=== PATIENT | female | born 1950 | race Caucasian/White ===

== ENCOUNTER 2017-10-28 20:40 | Inpatient (IN) | payer MEDICARE, SELFPAY ==
[2017-10-28] VITALS (30 sets, daily range): BP systolic 144–206; BP diastolic 79–110; PULSE 60–77; RESP 10–26; TEMP 36.5–36.6; O2SAT 94–100
--- NOTE | 2017-10-28 21:19 | ED.GENADUL ---
Disposition Clinical Impression: Visual field defect Disposition: [facility] INPATIENT Condition: Good Medical Decision Making - Lab Data Results reviewed for labs ordered during visit: Yes - EKG Data -: EKG Interpreted by Me EKG shows normal: sinus rhythm, axis, intervals - Radiology Data Radiology results: report reviewed - Medical Decision Making From what patient and are describing this sounds like a visual field cut resulting in loss of vision on the right. Seems to be intact now and her visual virk to confrontation are completely normal. Pupils equal round reactive and extra ocular muscles are intact. There is a little bit of loss of nasolabial fold on the right but no real facial weakness. She had injury to the right side of her face in the past and has had some mild asymmetry previously. cannot decide whether he thinks it is any different or not. She does not have any neurologic deficits at this point in time that I can detect. I currently would give her an NIH score of 0. EKG is obtained and is sinus rhythm at a rate of 65. Normal axis and intervals. Some non-specific ST flattening present. Head CT ordered per stroke protocol. IV, labs, fingerstick ordered. Initial blood pressure quite elevated but has been coming down on its own without intervention. CT head is negative. She is given aspirin 324 mg orally. Laboratory studies unremarkable. Remains neurologically intact. Blood pressure continues to come down. Case discussed with hospitalist. Patient to be placed in observation status for TIA workup. She is stable here in the department. History of Present Illness - General Chief complaint: GenMedical Stated complaint: BLURRED VISION RT EYE Time Seen by Provider: 10/28/17 20:58 Source: patient Mode of arrival: ambulatory Limitations: no limitations - History of Present Illness Initial comments: Patient presents to ED with complaint of vision problems and not feeling right. In regards to not feeling right, she cannot describe it any better than that. She denies having pain. She denies having nausea, shortness of breath. In regards to the vision, she was sitting at the table and could not see anything on the right side. Onset of symptoms was around 6 PM. Symptoms seemed to resolve on her way here. She now states that it seems like her vision is normal but she just does not feel right. She seemed to be a little slow per the . She did not seem confused per se. Her speech was normal. She did not seem to have weakness or numbness. - Related Data Cholecalciferol (Vitamin D3) [Vitamin D3] 1,000 unit PO DAILY 05/22/15 FLUoxetine [PROzac] 20 mg PO DAILY 06/01/15 Glucosa Bradley 2Kcl/Chondroitin Bradley [Glucosamine & Chondroitin Cap] 1 each PO DAILY 06/01/15 Levothyroxine Sodium 75 mcg PO DAILY 06/04/15 Lisinopril 10/28/17 Allergies Allergy/AdvReac Type Severity Reaction Status Date / Time acetaminophen [From Percocet] AdvReac Mild MADE HER Unverified 07/08/17 10:16 JITTERY oxycodone HCl [From Percocet] AdvReac Mild MADE HER Unverified 07/08/17 10:16 JITTERY Review of Systems Constitutional: denies: chills, fever Eyes: vision change. denies: eye pain ENT: denies: congestion Respiratory: denies: cough, shortness of breath Cardiovascular: denies: chest pain, syncope Gastrointestinal: denies: abdominal pain, nausea, vomiting, diarrhea Genitourinary: denies: urgency, dysuria Musculoskeletal: denies: back pain, arthralgia Skin: denies: rash Neurological: confusion. denies: headache, weakness, numbness, paresthesias, abnormal gait, vertigo Past Medical History - Past Medical History Medical history: arthritis, hypertension hypothyroid Surgical history: hysterectomy, other (right THR, left TKR) - Social History Smoking status: former smoker Alcohol use: recent (one glass of wine tonight) General Exam - General Limitations: no limitations General appearance: alert, in no apparent distress - Head Head exam: Present: atraumatic, normocephalic - Eye Eye exam: Present: normal apperance, PERRL, EOMI. Absent: nystagmus - ENT ENT exam: Present: normal exam, normal orophraynx - Respiratory Respiratory exam: Present: normal lung sounds bilaterally - Cardiovascular Cardiovascular Exam: Present: regular rate, normal rhythm, normal heart sounds - GI/Abdominal GI/Abdominal exam: Present: soft. Absent: distended, tenderness - Extremities Exam Extremities exam: Present: normal inspection, full ROM - Back Exam Back exam: Present: normal inspection, full ROM - Neurological Exam Neurological exam: Present: alert, oriented X3, CN II-XII intact, normal gait. Absent: motor sensory deficit - Psychiatric Psychiatric exam: Present: normal affect, normal mood - Skin Skin exam: Present: warm, dry, intact Course Vital Signs - 24 hr 10/28/17 20:54 Temperature 97.9 F Pulse 77 Respiratory 18 Rate Blood Pressure 206/107 Pulse Oximetry 97
--- NOTE | 2017-10-28 21:20 | DI.RPTCT_ITS ---
SYMPTOM/DIAGNOSIS: RIGHT VISUAL FIELD CUT RESOLVED. CRANIAL CT: 10/[address] was performed. Paranasal sinuses and mastoid air cells are clear as visualized. Orbital and temporal bone structures appear intact. Ventricular system is normal in appearance. There is no evidence of acute intracranial hemorrhage, mass effect or midline shift. There appear to be tiny bilateral lacunar infarcts of the basal ganglia CONCLUSION: No evidence of acute intracranial process.
--- NOTE | 2017-10-28 21:43 | DI.VRAD_ITS ---
EXAM: CT Head Without Intravenous Contrast EXAM DATE/TIME: 10/28/2017 9:22 PM CLINICAL HISTORY: 67 years old, female; Signs and symptoms; Visual disturbance TECHNIQUE: Axial computed tomography images of the head/brain without intravenous contrast. Coronal and sagittal reformatted images were created and reviewed. COMPARISON: No relevant prior studies available. FINDINGS: Brain: Normal. No hemorrhage. No significant white matter disease. No edema. Goetz-white differentiation is maintained. Ventricles: Normal. No ventriculomegaly. Bones/joints: Normal. No acute fracture. Sinuses: Normal as visualized. No acute sinusitis. Mastoid air cells: Normal as visualized. No mastoid effusion. Soft tissues: Normal. IMPRESSION: No acute intracranial abnormality. If symptoms persist short interval CT or MRI can be obtained, if there are no contraindications for obtaining MRI. Dictated and Authenticated by: Jeffrey Curry MD. Ordering:WILLEM BELTRAN MD
[2017-10-28 21:59] LABS: Abs Immature Grans 0.02 k/cumm (0.0-0.09); Absolute Basophil Count 0.03 k/cumm (0.0-0.2); Absolute Eosinophil Count 0.19 k/cumm (0.0-0.7); Absolute Lymphocyte Count 1.85 k/cumm (1.2-3.4); Absolute Neutrophil Count 3.37 k/cumm (1.2-6.7); Basophils % 0.5; Eosinophils % 3.2; HCT 38.9 % (36.0-46.0); HGB 13.6 g/dL (12.0-15.5); Immature Grans % 0.3; Mean Corpuscular Hemoglobin 29.9 pg (27.0-33.0); Mean Corpuscular Volume 85.5 fL (80-95); Mean Platelet Volume 8.7 fL (8.0-11.0); Monocytes % 8.4; Neutrophils % 56.6; Platelet Count 279 x1000/uL (130-400); RBC 4.55 m/cumm (4.00-5.20); RBC Distribution Width 12.6 % (11.7-14.6); White Blood Cell Count 5.96 k/cumm (4.4-10.8)
[2017-10-28] MEDS: Aspirin 81 MG CHEW 324 MG CH (21:59)
[2017-10-28 22:18] LABS: ALT 29 U/L (12-78); AST 19 U/L (15-37); Albumin 3.6 g/dL (3.4-5.0); Alkaline Phosphatase 85 U/L (46-116); Anion Gap 11.1 mmol/L (3-11); BUN 12 mg/dL (7-18); Bilirubin, Total 0.3 mg/dL (0.2-1.0); CO2 26.9 mmol/L (21.0-32.0); CREATININE 0.74 mg/dL (0.55-1.02); Calcium 8.7 mg/dL (8.5-10.1); Chloride 97 mmol/L (98-107); Glucose 95 mg/dL (70-100); Magnesium 1.8 mg/dL (1.8-2.4); Potassium 3.8 mmol/L (3.5-5.1); Sodium 135 mmol/L (136-145); Total Protein 7.2 g/dL (6.4-8.2)
[2017-10-28] MEDS: Enoxaparin 60 MG/0.6 ML SYR 40 MG SC (23:13)
--- NOTE | 2017-10-28 23:42 | PDOC.HP_ITS ---
Date of Service: 10/28/17 Time of Service: 23:40 Assessment/Plan - Assessment/Plan (1) Stroke Assessment: patient presented w/ acute right hemianopsia that transiently improved but now has returned as a right upper field quadrant anopsia. Plan: stat CTA of her brain and cervical vessels. consult w/ [facility] neurology. Patient was given ASA 325 mg on admission. I spoke w/ Dr. Gonzalez, neurologist at [facility] and she recommended addition of Plavix beginning w/ loading dose and continuing Plavix 75 mg daily along w/ ASA according to the POINT trial (2) Hypertension Assessment: BP was transiently high on admission to the ER at 206/107 but has come down on its own to 140/70 w/out intervention. Patient reportedly was on lisinopril but she was unsure of her dose. For now we will allow some passive hypertension for 48 hr and then aim for bp control under 150 systolic. (3) Hypercholesterolemia Plan: check lipid profile in AM and begin moderate/high dose statin tonight ( I have put her atorvastatin 40 mg nightly) History of Present Illness - History of Present Illness Chief Complaint: blurred vision right eye History of Present Illness: 67-year-old female with a past medical history of essential hypertension, hypothyroidism, osteoarthritis, hypercholesterolemia who presents to the emergency department with acute onset symptoms of malaise and right hemianopsia beginning around 6:30 PM this evening. Her noticed that she was not able to see objects on the right side at the dinner table and the patient could not see a gas to a sitting to her right. There is no associated headache, nausea or vomiting, dysarthric speech, dysphagia, paraparesis or paresthesias. Patient presented to the emergency department at 8:53 PM and by this time her hemianopsia improved to the point that when Dr. Guillaume Torre evaluated her at 9 PM she had no discernible visual field deficits. He ordered a CT scan of her brain without contrast which showed no acute intracranial abnormalities. EKG demonstrated normal sinus rhythm with no acute ischemic ST or T-wave changes. Routine labs including a CBC and CMP were unremarkable. Patient was treated with chewable aspirin 324 mg and I was called for admission for TIA. I evaluated the patient around 11:30 PM and found that the patient was having a right lateral upper field quadrant anopsia but no other cranial nerve or sensory or motor deficits. I discussed case with Dr. Torre who came in the room and reevaluated the patient and agreed with my findings and felt that this was a definite change from his initial exam in which he gave her an NIHSS score of 0. And based on her right upper lateral visual field quadrant anopsia she was felt to have a NIHSS score of 1. Based on her new findings a CTA of her brain and cervical vessels was ordered and the patient was started on Plavix per my discussion with neurology at [facility]. Patient is now admitted for treatment of an acute CVA. Patient's risk factors for stroke include essential hypertension and untreated hypercholesterolemia as well as her age. She denies any history of diabetes mellitus or previous TIA or CVA or coronary artery disease or peripheral vascular disease. She is a former smoker but quit many years ago. - Past Medical History Cardiac: HTN, Hyperlipidemia (History of hypercholesterolemia not currently being treated). denies: CHF, CA Pulmonary: denies: Asthma, Bronchitis, COPD, Pulmonary embolus, Previously intubated, Pneumonia [employer]: denies: Carpal Tunnel Syndrome, CVA, Dementia, Migraine, Peripheral neuropathy, Seizure, TIA, Vertigo Gastrointestinal: denies: Constipation, Diverticulosis, GERD, GI bleed, Gastritis, Hemorrhoids, Inflam bowel disease, Irritable bowel disease, Peptic ulcer disease Heme/Onc: denies: Anemia NOS, B12 deficiency, Cancer, Hemochromatosis, Iron deficiency anemia, Sickle cell disease, Sickle cell trait Hepatobiliary: denies: Cirrhosis, Cholelithiasis, Hep A/B/C Psych: Depression Musculoskeletal: Osteoarthritis, Other (Restless leg) Rheumatologic: denies: Fibromyalgia, Gout, Rheumatoid arthritis, Vasculitis Renal/: denies: Chronic renal insuff, Acute renal failure, Chronic renal failure, UTI, Hematuria Endocrine: Hypothyroidism. denies: Diabetes - Past Surgical History Past Surgical History: Other (Colonoscopy 2, laparoscopic oophorectomy, Achilles tendon repair), Total Hip Replacement (Right total hip replacement per Dr. Joce Ann in 2010), Total Knee Replacement (Left total knee replacement June 11, [address] Joce Ann) - Past Family History Family History: CAD - Past Social History Smoke: Quit Alcohol: Occassional Drugs: None Lives: With Family () Review of Systems - Review of Systems Constitutional: Malaise. denies: Fever, Chills, Sweats, Weakness Eyes: Vision Change Respiratory: denies: Shortness of Breath, SOB with Excertion Cardiovascular: Light Headedness. denies: Chest Pain Gastrointestinal: Diarrhea (associated w/ recent antibiotic prophylaxis for dental work (takes prophylaxis d/t artificial knee and hip)). denies: Nausea, Vomiting, Melena, Hematochezia Neurological: Other (acute right lateral hemianopsia followed by transient clearing of her vision now w/ right upper field quadrantanopsia). denies: Weakness, Numbness, Incoordination, Change in Speech, Confusion - Medications/Allergies Allergies/Adverse Reactions: Allergies Allergy/AdvReac Type Severity Reaction Status Date / Time acetaminophen [From Percocet] AdvReac Mild MADE HER Unverified 07/08/17 10:16 JITTERY oxycodone HCl [From Percocet] AdvReac Mild MADE HER Unverified 07/08/17 10:16 JITTERY Medications: Current Medications Al Hydrox/Mg Hydrox/Simethicone (Mylanta Liquid) 30 ml PO Q2H PRN PRN Aspirin (Ecotrin) 325 mg PO DAILY [facility] Atorvastatin Calcium (Lipitor) 40 mg PO QPM [facility] Cholecalciferol (Vitamin D) 1,000 units PO DAILY [facility] Dimethicone/Zinc Oxide (Nash Protect Cream) 0 gm TP PRN PRN Docusate Sodium (Colace) 100 mg PO TID PRN PRN Enoxaparin Sodium (Lovenox) 40 mg SC Q24H [facility] Last Admin: 10/28/17 23:14 Dose: Not Given Enoxaparin Sodium (Lovenox) Confirm Administered Dose 60 mg SC .DM PRN Fluoxetine HCl (Prozac) 20 mg PO DAILY [facility] Ringer's Solution () 1,000 mls @ 80 mls/hr IV INFUSION [facility] IV Miscellaneous Supplies () 1 each IV DIRECTED [facility] Levothyroxine Sodium (Levothroid) 75 mcg PO DAILY [facility] Magnesium Hydroxide (Milk Of Magnesia) 30 ml PO DAILY PRN PRN Polyethylene Glycol (Miralax) 17 gm PO DAILY PRN PRN PRN Reason: Constipation Sodium Chloride (Saline Flush 10 Ml Syringe) 0 ml IVP PRN PRN Active Medications Generic Name Dose Route Start Last Admin Trade Name Freq PRN Reason Stop Dose Admin Al Hydrox/Mg Hydrox/Simethicone 30 ml 10/28/17 22:28 Mylanta Liquid PO Q2H PRN PRN Aspirin 325 mg 10/29/17 08:30 Ecotrin PO DAILY [facility] Atorvastatin Calcium 40 mg 10/29/17 20:00 Lipitor PO QPM [facility] Cholecalciferol 1,000 units 10/29/17 08:30 Vitamin D PO DAILY [facility] Dimethicone/Zinc Oxide 0 gm 10/28/17 22:28 Nash Protect Cream TP PRN PRN Docusate Sodium 100 mg 10/28/17 22:28 Colace PO TID PRN PRN Enoxaparin Sodium 40 mg 10/28/17 23:00 10/28/17 23:14 Lovenox SC Not Given Q24H [facility] Enoxaparin Sodium Confirm 10/28/17 23:10 Lovenox Administered Dose 60 mg SC .DM PRN Fluoxetine HCl 20 mg 10/29/17 08:30 Prozac PO DAILY [facility] Ringer's Solution 1,000 mls @ 80 mls/hr 10/28/17 22:30 IV INFUSION [facility] IV Miscellaneous Supplies 1 each 10/28/17 21:30 IV DIRECTED [facility] Levothyroxine Sodium 75 mcg 10/29/17 08:30 Levothroid PO DAILY [facility] Magnesium Hydroxide 30 ml 10/28/17 22:28 Milk Of Magnesia PO DAILY PRN PRN Polyethylene Glycol 17 gm 10/28/17 22:28 Miralax PO DAILY PRN PRN Constipation Sodium Chloride 0 ml 10/28/17 21:20 Saline Flush 10 Ml Syringe IVP PRN PRN Cholecalciferol (Vitamin D3) [Vitamin D3] 1,000 unit PO DAILY 05/22/15 FLUoxetine [PROzac] 20 mg PO DAILY 06/01/15 Glucosa Bradley 2Kcl/Chondroitin Bradley [Glucosamine & Chondroitin Cap] 1 each PO DAILY 06/01/15 Levothyroxine Sodium 75 mcg PO DAILY 06/04/15 Lisinopril 10/28/17 Objective - Exam Vitals and I&O: Vital Signs Temp 36.5 C 10/28/17 23:05 Pulse 60 10/28/17 23:05 Resp 16 10/28/17 23:05 BP 189/87 10/28/17 23:05 Pulse Ox 98 10/28/17 23:05 Intake & Output 10/27/17 10/28/17 10/28/17 23:59 11:59 23:59 Weight 79.4 kg General: Alert, Oriented x3, Cooperative, No acute distress HEENT: Atraumatic, PERRLA, EOMI, Mucous membr. moist/pink Neck: Supple, +2 carotid pulse wo bruit. denies: JVD, Thyromegaly, LAD Lungs: Clear to auscultation, Normal air movement Cardiovascular: Regular rate, Normal S1, Normal S2. denies: Murmurs, Gallops, Rubs Abdomen: Normal bowel sounds, Soft, Tenderness. denies: Hepatospenomegaly, Masses Extremities: Normal pulses. denies: Cyanosis, Edema, Tenderness/swelling Skin: denies: Rashes, Breakdown Neurological: Normal speech, Strength at 5/5 X4 ext, Normal tone, Sensation intact, Other (Babinski reflex absent). denies: Cranial nerves 3-12 NL (CN exam reveals right upper quandrantanopsia, otherwise rest of CN 3-12 were normal ) Psych/Mental Status: Mental status NL, Mood NL Results - Laboratory Data Result Diagrams: 10/28/17 21:40 10/28/17 21:40 Laboratory Results: Laboratory Tests 10/28/17 10/28/17 21:40 21:40 WBC 5.96 RBC 4.55 Hgb 13.6 Hct 38.9 MCV 85.5 MCH 29.9 MCHC 35.0 RDW 12.6 Plt Count 279 MPV 8.7 Immature Gran % 0.3 Neutrophils % 56.6 Lymphocytes % 31.0 Monocytes % 8.4 Eosinophils % 3.2 Basophils % 0.5 Absolute Neutrophils 3.37 Absolute Lymphocytes 1.85 Absolute Monocytes 0.50 Absolute Eosinophils 0.19 Absolute Basophils 0.03 Sodium 135 L Potassium 3.8 Chloride 97 L Carbon Dioxide 26.9 Anion Gap 11.1 H BUN 12 Creatinine 0.74 Estimated GFR/1.73 m2 >= 60.00 Glucose 95 Calcium 8.7 Magnesium 1.8 Total Bilirubin 0.3 AST 19 ALT 29 Alkaline Phosphatase 85 Total Protein 7.2 Albumin 3.6 - Imaging Studies Imaging Studies: non-contrast CT brain showed no acute intracranial abnormality EKG demonstrated NSR w/out acute ST-T abnormalities
[2017-10-29] VITALS (87 sets, daily range): BP systolic 124–195; BP diastolic 66–101; PULSE 54–97; RESP 10–27; TEMP 35.9–37.2; O2SAT 80–99
--- NOTE | 2017-10-29 00:40 | DI.RPTCT_ITS ---
SYMPTOM/DIAGNOSIS: EVOLVING CVA CT ANGIOGRAPHY CERVICAL AND CRANIAL: 10/29 CT angiography of the cervical cranial region was performed. Images obtained through the lung apices show clear visualized portions of the lungs and unremarkable appearance of visualized portions of pulmonary arterial circulation and aortic arch. Left vertebral artery is patent throughout and of normal caliber to the basilar artery. There is left dominant vertebral circulation with a small right vertebral artery which is of decreased caliber beyond the PICA but does appear to joint the left vertebral to form the basilar artery. The right posterior cerebral artery has origin with a hypoplastic P-1 segment. No occlusion or stenosis. No aneurysm. Left posterior cerebral artery appears to terminate at the P-2 segment which may represent an acute occlusion. Please correlate clinically with the patient' s neurologic examination. Right common carotid artery is unremarkable. There is calcified atheromatous plaque at the right ICA origin estimated at 40-50% stenosis. Remainder of the right internal carotid artery is normal. Left internal carotid artery shows approximately 30% origin stenosis. Normal left common carotid artery. Unremarkable intracranial course of the left internal carotid artery. Middle and anterior cerebral arteries an major branches appear intact with no evidence of accumulation or aneurysm formation. CONCLUSION: 1. 40-50% proximal right ICA stenosis 2. 20% left proximal ICA stenosis 3. Left dominant vertebral circulation 4. Findings suggestive of occlusion or high grade stenosis of the left posterior cerebral artery in the P-2 segment.
[2017-10-29] MEDS: Clopidogrel 300 MG TAB PO ×2 (00:58→01:44)
[2017-10-29] MEDS: Lactated Ringers 1,000 ML 80 ML IV ×2 (00:59→14:12)
[2017-10-29] MEDS: Omnipaque 350 MG/ML 100 ML BTL IJ (01:05)
--- NOTE | 2017-10-29 01:16 | DI.VRAD_ITS ---
EXAM: CT Angiography Head With Intravenous Contrast CLINICAL HISTORY: 67 years old, female; Signs and symptoms; Visual disturbance and other: Lightheaded; Type not specified; Patient HX: Light headed and visual changes TECHNIQUE: Axial computed tomographic angiography images of the head with intravenous contrast using CT angiography protocol. All CT scans at this facility use at least one of these dose optimization techniques: automated exposure control; mA and/or kV adjustment per patient size (includes targeted exams where dose is matched to clinical indication); or iterative reconstruction. MIP reconstructed images were created and reviewed. CONTRAST: 100 mL of Omnipaque 350 administered intravenously. COMPARISON: No relevant prior studies available. FINDINGS: Right internal carotid artery: No acute findings. Intracranial segment is patent with no significant stenosis. No aneurysm. Right anterior cerebral artery: Unremarkable. No occlusion or significant stenosis. No aneurysm. Right middle cerebral artery: Unremarkable. No occlusion or significant stenosis. No aneurysm. Right posterior cerebral artery: There is origin of the right posterior cerebral artery with the hypoplastic P1 segment. No occlusion or significant stenosis. No aneurysm. Right vertebral artery: The right vertebral artery ending in PICA. Left internal carotid artery: No acute findings. Intracranial segment is patent with no significant stenosis. No aneurysm. Left anterior cerebral artery: Unremarkable. No occlusion or significant stenosis. No aneurysm. Left middle cerebral artery: Unremarkable. No occlusion or significant stenosis. No aneurysm. Left posterior cerebral artery: The left posterior cerebral artery abruptly terminates in the P2 segment concerning for embolus/thrombus. No aneurysm. Left vertebral artery: The left vertebral artery continues as the basilar artery. Basilar artery: See above. IMPRESSION: The left posterior cerebral artery abruptly terminates in the P2 segment concerning for embolus/thrombus. THIS REPORT CONTAINS FINDINGS THAT MAY BE CRITICAL TO PATIENT CARE. The findings were verbally communicated via telephone conference with bobby peralta at 1:15 AM EDT on 10/29/2017. The findings were acknowledged and understood. EXAM: CT Angiography Neck With Intravenous Contrast CLINICAL HISTORY: 67 years old, female; Signs and symptoms; Visual disturbance and other: Lightheaded; Type not specified; Patient HX: Light headed and visual changes TECHNIQUE: Axial computed tomographic angiography images of the neck with intravenous contrast using CT angiography protocol. All CT scans at this facility use at least one of these dose optimization techniques: automated exposure control; mA and/or kV adjustment per patient size (includes targeted exams where dose is matched to clinical indication); or iterative reconstruction. MIP reconstructed images were created and reviewed. CONTRAST: 100 mL of Omnipaque 350 administered intravenously. 100 mL of Omnipaque 350 administered intravenously. COMPARISON: CT - HEAD WITHOUT STROKE PROTOCOL 2017-10-28 21:18 FINDINGS: VASCULATURE: Right common carotid artery: Calcified plaque at the distal common carotid and right carotid No significant stenosis. No dissection or occlusion. Right internal carotid artery: There is approximately 20% stenosis of the proximal right internal carotid artery. No dissection or occlusion. Right external carotid artery: Unremarkable. No occlusion. Right vertebral artery: The right vertebral artery is small in caliber but remains patent and ends in PICA. No significant stenosis. No dissection or occlusion. Left common carotid artery: Unremarkable. No significant stenosis. No dissection or occlusion. Left internal carotid artery: There is calcified/noncalcified plaque in the proximal left internal carotid artery and carotid bulb. There is approximately 30% stenosis of the proximal left internal carotid artery. No dissection or occlusion. Left external carotid artery: Unremarkable. No occlusion. Left vertebral artery: The left vertebral artery is dominant. No significant stenosis. No dissection or occlusion. NECK: Bones/joints: No acute fracture. No dislocation. Soft tissues: Unremarkable as visualized. No mass. CAROTID STENOSIS REFERENCE USING NASCET CRITERIA: % ICA stenosis = (1 - narrowest ICA diameter/diameter of distal cervical ICA) x 100. Mild - <50% stenosis. Moderate - 50-69% stenosis. Severe - 70-94% stenosis. Near occlusion - 95-99% stenosis. Occluded - 100% stenosis. IMPRESSION: Right: There is calcified plaque in the proximal right carotid bulb and internal carotid artery with approximately 20% stenosis as per NASCET criteria. The right vertebral artery is small in caliber and remains patent ending in PICA. Left: There is calcified plaque in the left carotid bulb and internal carotid artery with approximately 30% stenosis. The left vertebral artery is patent. Dictated and Authenticated by: Jeffrey Curry MD. Ordering:[facility] DAVID SUAREZ MD
[2017-10-29] MEDS: Atorvastatin 40 MG TAB PO ×2 (01:42→19:38)
[2017-10-29] MEDS: Levothyroxine 75 MCG TAB PO (05:52)
[2017-10-29 07:20] LABS: Prothrombin Time 9.3 sec (9.3-10.8)
[2017-10-29 07:37] LABS: PTT Activated 27.5 sec (21.0-31.4)
[2017-10-29 07:48] LABS: TSH (W/Ref FT4) 0.75 uIU/mL (0.358-3.74)
[2017-10-29 08:15] LABS: Hemoglobin A1C 5.7 % (4.5-6.2)
[2017-10-29 08:26] LABS: Cholesterol 243 mg/dL (50-200); HDL Cholesterol 62 mg/dL (40-60); LDL CHOLESTEROL 160 mg/dL (<100); Triglyceride 134 mg/dL (30-150)
--- NOTE | 2017-10-29 08:30 | PDOC.CMIN ---
Date of Service: 10/29/17 Time of Service: 08:30 Care Management Initial Assess REASON FOR HOSPITALIZATION:: CVA PAST MEDICAL HISTORY/PAST SURGICAL HISTORY:: HTN, hyperlipidemia, depression, osteoarthritis, restless leg, hypothyroidism. Past surgical history: Colonoscopy, oophorectomy, Achilles tendon repair, total hip replacement, total knee replacement left. PREVIOUS FUNCTIONAL STATUS/SOCIAL/FAMILY SUPPORTS:: Danica lives at home with her spouse in [place], [place]. 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 She is active at baseline and appreciates carpentry as a hobby. She has two children that live local and are supportive. Prior to admission she drives, cares for her home and her parents who live next door. Her Mother and Father are 93 and 94, and she reports that her mother has not been well. CURRENT FUNCTIONAL STATUS:: Danica is sitting up in the chair, she is exhibiting expressive aphasia. She states she is unable to get her thoughts out better in her head. She reports right-sided weakness, and right-sided vision loss. Her spouse and daughter are present and asking about the plan for care. CM reviewed expectations including following consults neurology, speech, and PT. Danica currently has no equipment at home, or services. ADVANCE DIRECTIVES:: None on file -she believes she has a copy at Dr. Pérez's office. Has patient been provided with information about the portal?: Yes Did the patient sign up for the portal?: No CODE STATUS:: Full Code INSURANCE COVERAGE / FINANCIAL ISSUES:: Medicare CURRENT HOME/COMMUNITY SERVICES/EQUIPMENT:: Danica currently has no services at home or in the community PRIMARY CARE PHYSICIAN:: POTENTIAL DISCHARGE NEEDS:: Follow up appointment with primary care provider prior to discharge PATIENT/FAMILY EDUCATION NEEDS:: Discharge education, limitation, self management and ask me three discussion ANTICIPATED BARRIERS TO DISCHARGE:: None identified TRANSPORTATION:: Danica will transport by private car with family at time of discharge. PLAN:: Danica is currently being cared for in the ICU. She will be discharged when medically ready per provider. Discharge disposition to be determined. She will have a consult with physical therapy, speech therapy and neurology. Anticipate she will need PT and OT services at time of discharge. Disposition to be determined. CM to continue to provide support to patient, family, care team ongoing discharge planning and disposition.
--- NOTE | 2017-10-29 09:00 | MERGE_ITS ---
*[facility]* *[facility]* [address] [place] [address] Date of study: 10/29/2017 Transthoracic Echocardiography M-mode, complete 2D, complete spectral Doppler, and color Doppler *STUDY CONCLUSIONS* Impressions: No cardiac source of emboli was identified. Summary: 1. Left ventricle: The cavity size was normal. There was mild focal basal hypertrophy of the septum. Systolic function was normal. The estimated ejection fraction was 55-60%. Moderate hypokinesis of the basalinferior myocardium. 2. Mitral valve: Mildly calcified annulus. Mildly thickened leaflets. There was mild regurgitation. 3. Right ventricle: The cavity size was at the upper limits of normal. Wall thickness was normal. Systolic function was normal. 4. Atrial septum: A patent foramen ovale cannot be excluded. *PATIENT PRESENTATION* Height: 157.5cm ((62in) ) S/D Pressure: 149 / 89 Weight: 79.4kg ((174.6lb) ) BSA: 1.9m^2 Test start time: 09:15 AM. Test stop time: 10:06 AM. PERFORMING Unknown PERFORMING [facility] ORDERING Salvador Verde REFERRING Salvador Verde SUPERVISOR PURIFICATION RT Miladis (R)(DANIEL), MARVA *PROCEDURE DATA* Procedure information: The patient was identified by two identifiers. This study was interpreted by [facility]. Pertinent images and digital data are archived for permanent storage and are available for subsequent review. Study status: Routine. Transthoracic echocardiography. M-mode, complete 2D, complete spectral Doppler, and color Doppler. A Transthoracic Echocardiogram was performed. Scanning was performed from the parasternal, apical, subcostal, and suprasternal notch acoustic windows. Images were obtained using an [id number] cardiac ultrasound machine. Image quality was fair. Study completion: The patient tolerated the procedure well. History: PMH: TIA HTN r/o embolic source. *CARDIAC ANATOMY* Left ventricle: The cavity size was normal. There was mild focal basal hypertrophy of the septum. Systolic function was normal. The estimated ejection fraction was 55-60%. Regional wall motion abnormalities: Moderate hypokinesis of the basalinferior myocardium. Aortic valve: Trileaflet; mildly thickened leaflets. Mobility was not restricted. Doppler: Transvalvular velocity was within the normal range. There was no stenosis. There was no significant regurgitation. VTI ratio of LVOT to aortic valve: 0.71. Valve area (VTI): 2cm^2. Indexed valve area (VTI): 1.1cm^2/m^2. Peak velocity ratio of LVOT to aortic valve: 0.67. Valve area (Vmax): 1.9cm^2. Indexed valve area (Vmax): 1cm^2/m^2. Mean velocity ratio of LVOT to aortic valve: 0.8. Valve area (Vmean): 2.2cm^2. Indexed valve area (Vmean): 1.2cm^2/m^2. Mean gradient (S): 5.6mm Hg. Peak gradient (S): 12.1mm Hg. Aorta: Aortic root: The aortic root was normal in size. Ascending aorta: The ascending aorta was normal in size. Mitral valve: Mildly calcified annulus. Mildly thickened leaflets. Mobility was not restricted. Doppler: Transvalvular velocity was within the normal range. There was no evidence for stenosis. There was mild regurgitation. Valve area by pressure half-time: 2.5cm^2. Indexed valve area by pressure half-time: 1.3cm^2/m^2. Peak gradient (D): 2mm Hg. Left atrium: The atrium was at the upper limits of normal in size. Atrial septum: Poorly visualized. A patent foramen ovale cannot be excluded. Right ventricle: The cavity size was at the upper limits of normal. Wall thickness was normal. Systolic function was normal. Pulmonic valve: Poorly visualized. Doppler: Transvalvular velocity was within the normal range. There was no evidence for stenosis. There was no significant regurgitation. Tricuspid valve: Structurally normal valve. Doppler: Transvalvular velocity was within the normal range. There was no evidence for stenosis. There was trivial regurgitation. Pulmonary artery: Poorly visualized. Pulmonary systolic pressure was within the normal range. Right atrium: The atrium was normal in size. Pericardium: There was no pericardial effusion. Systemic veins: Inferior vena cava: Well visualized. The vessel was patent and normal in size. The respirophasic diameter changes were in the normal range (greater than or equal to 50%), consistent with normal central venous pressure. Baseline ECG: Normal sinus rhythm. Measurements Left ventricle Value Reference LV ID, ED, PLAX 5.0 cm 3.5 - 6.0 LV ID, ES, PLAX 3.1 cm 2.1 - 4.0 LV PW thickness, ED, PLAX 0.9 cm LV end-diastolic volume, 1-p A2C 69 ml LV ejection fraction, 1-p A2C 59 % LV end-diastolic volume, 1-p A4C 80 ml LV ejection fraction, 1-p A4C 54 % LV e', lateral 0.085 m/sec LV E/e', lateral 8 LV e', medial 0.058 m/sec LV E/e', medial 12 LV e', average 0.071 m/sec LV E/e', average 10 Ventricular septum Value Reference IVS thickness, ED, PLAX 0.9 cm LVOT Value Reference LVOT ID, A-P 1.9 cm LVOT area 2.8 cm^2 LVOT peak velocity, S 1.16 m/sec LVOT mean velocity, S 0.87 m/sec LVOT VTI, S 27.8 cm LVOT peak gradient, S 5.3 mm Hg LVOT mean gradient, S 3.3 mm Hg Stroke volume (SV), LVOT DP 78 ml Stroke index (SV/bsa), LVOT DP 41 ml/m^2 Aortic valve Value Reference Aortic valve peak velocity, S 1.7 m/sec Aortic valve mean velocity, S 1.08 m/sec Aortic valve VTI, S 39.0 cm Aortic mean gradient, S 5.6 mm Hg Aortic peak gradient, S 12.1 mm Hg VTI ratio, LVOT/AV 0.71 Aortic valve area, VTI 2 cm^2 Velocity ratio, peak, LVOT/AV 0.67 Aortic valve area, peak velocity 1.9 cm^2 Velocity ratio, mean, LVOT/AV 0.8 Aortic valve area, mean velocity 2.2 cm^2 Aortic valve area/bsa, mean velocity 1.2 cm^2/m^2 Aorta Value Reference Aortic root ID, ED 2.9 cm Ascending aorta ID, A-P, S 3.2 cm Left atrium Value Reference LA ID, A-P, ES 4.4 cm LA ID/bsa, A-P (H) 2.3 cm/m^2 <=2.2 LA area, ES, A4C 17.1 cm^2 8.8 - 23.4 LA area, ES, A2C 17 cm^2 LA volume/bsa, ES, 1-p A4C 26 ml/m^2 LA volume, ES, 2-p 45 ml LA volume/bsa, ES, 2-p 24 ml/m^2 LA/aortic root ratio 1.52 Mitral valve Value Reference Mitral E-wave peak velocity 0.71 m/sec Mitral A-wave peak velocity 1.07 m/sec Mitral deceleration time (H) 299 ms 150 - 230 Mitral pressure half-time 87 ms Mitral peak gradient, D 2 mm Hg Mitral E/A ratio, peak 0.66 Mitral valve area, PHT, DP 2.5 cm^2 Pulmonary veins Value Reference Pulmonary vein peak velocity, S 0.65 m/sec Pulmonary vein peak velocity, D 0.34 m/sec Pulmonary vein velocity ratio, peak, 1.92 S/D Pulmonary vein A-wave reversal peak 0.42 m/sec velocity Pulmonary arteries Value Reference PA pressure, S, DP 25 mm Hg <=30 Tricuspid valve Value Reference Tricuspid regurg peak velocity 1.9 m/sec Tricuspid peak RV-RA gradient 14.7 mm Hg Right atrium Value Reference RA area, ES, A4C 12.4 cm^2 8.3 - 19.5 Systemic veins Value Reference Estimated CVP 10 mm Hg Right ventricle Value Reference RV pressure, S, DP 25 mm Hg <=30 Legend: (L) and (H) rosamaria values outside specified reference range. I have personally reviewed the images and have reviewed and edited the reported findings. Electronically signed by Julissa Kate 10/29/2017 14:14
[2017-10-29] MEDS: Aspirin E.C. 325 MG TABEC PO (09:37)
[2017-10-29] MEDS: Clopidogrel 75 MG TAB PO (09:37)
[2017-10-29] MEDS: FLUoxetine 20 MG CAP PO (09:37)
--- NOTE | 2017-10-29 09:54 | PHARADMIT ---
Addendum entered by Дмитрий Schafer III 11/01/17 09:01: Pharmacy Note Subjective working with PT while awaiting transfer. Objective VS-Ok No Labs, Assessment No changes [facility] Original Note: Addendum entered by Дмитрий Schafer III 10/31/17 10:14: Pharmacy Note Subjective MD notes patient is improving from occlusive CVA Objective VS-OK BP-149/87 No Labs BM yesterday Assessment Heparin dc'd, Apixaban started. Lisinopril, HCTZ restarted. Prozac continues mood improving. Plan Plan is for her to transfer to [facility] if she is accepted. Original Note: Addendum entered by Zora Saeed 10/30/17 10:17: Pharmacy Note Subjective pt with TIA to be switched from observation to inpt status Objective bp 140/88(on lisinopril at home but not started here), no labs today Assessment enoxaparin stopped and heparin infusion started, IVF continue Plan expect to see heparin infusion stop and aspirin to continue Original Note: Admission Pharmacy Clinical Review TIA Code Status Full Code Current Weight 73.7 kg Renally Cleared and Narrow Therapeutic Index Meds CRCL ~53ML/MIN QTc Value / Action Taken 451 BP Control, Fever 149/89 AFEBRILE Electrolytes reviewed NA DVT Prophylaxis ENOXAPARIN Opiate Usage / Scheduled Bowel Regimen Ordered NA Plt/SCr for Heparin / Enoxaparin 279 INR for Warfarin 1.0 H/H stable, WBC/Bands 13.6/38.9 WBC 5.96 Antibiotic appropriateness NA Cultures and Sensitivities NA Surgical ABX d/c within 24 hr NA DM control / Insulin Dosing NA Heart Failure (Check EF%) (MOOSE's, B-Block, Diuretics) NA IV to PO Switch LR IVF ALL MEDS PO Home Meds Reviewed OK Home Meds Not Ordered Glucosa Bradley 2Kcl/Chondroitin Bradley [Glucosamine & Chondroitin Cap] Lisinopril 10/28/17 Comments
--- NOTE | 2017-10-29 12:00 | DI.REPORT_ITS ---
SYMPTOM/DIAGNOSIS: TIA BRAIN MRI: 10/29 MRI examination of the brain was performed according to the usual protocol. CT angiography showed apparent P2 segment posterior cerebral artery occlusion. Ventricular system is normal in appearance. There are nonspecific bilateral periventricular white matter signal changes mostly sparing the corpus callosum consistent with small vessel ischemic changes. There are very subtle areas of abnormal signal seen in medial posterior temporal lobe and posterior thalamus as well as hippocampal body. These areas correspond to signal abnormality on diffusion weight imaging with corresponding ADC map changes of decreased signal consistent with acute infarction. Susceptibility weighted imaging shows no evidence of hemorrhage. Orbital and temporal bone structures appear intact. Pituitary appears intact. CONCLUSION: Findings of small multifocal areas of infarction in left posterior cerebral artery distribution as described above. Diffuse white matter signal changes also noted consistent with microvascular ischemic change.
[2017-10-29] MEDS: Levothyroxine 50 MCG TAB PO (12:35)
[2017-10-29] MEDS: Normal Saline Flush 10 ML SYR IVP ×2 (15:02→20:39)
--- NOTE | 2017-10-29 15:35 | PDOC.PROG_ITS ---
Date of Service: 10/29/17 Time of Service: 15:33 Assessment/Plan - Assessment/Plan (1) Occlusion of left posterior cerebral artery Assessment: Confirmed by MRI, she has an infarct in this region. Per Dr. Porras, the concern is she is having progression in her symptoms now with expressive and receptive eighth Ai. She recommended stopping the dual antiplatelet therapy, switch to low-dose aspirin plus heparinization 24 hours. Reassess exam and consider putting on an oral anticoagulant ongoing. PT and OT consults. (2) Hypertension Assessment: Holding on antihypertensive medications for now, permissive hypertension. (3) Hypercholesterolemia Assessment: Lipid panel markedly abnormal, cholesterol 243, LDL 160, HDL 62, triglycerides 134. Continue statin therapy. (4) Discharge planning issues Assessment: Continue to monitor and acute care status in the ICU. Patient is a full code. Ongoing concern for progression of her CVA and possible hemorrhagic complications. History of Present Illness - History of Present Illness Chief Complaint: CVA History of Present Illness: 67-year-old woman admitted overnight with a right nichole-anopsia. The CT angiogram shows a left posterior cerebral artery occlusion. She was started on dual antiplatelet therapy, aspirin and Plavix. Today she has had some progression in her right hemianopsia past the midline. She now has a mild expressive and receptive a aphasia. Dr. Porras saw her from neurology. She had an MRI of her head as well as an echocardiogram today. Review of Systems - Review of Systems Constitutional: denies: Fever, Chills, Weakness Eyes: Vision Change (No vision to the right). denies: Pain Respiratory: denies: Cough, Shortness of Breath Cardiovascular: denies: Chest Pain, Palpitations Gastrointestinal: denies: Nausea, Vomiting, Abdominal Pain Musculoskeletal: denies: Neck Pain, Shoulder Pain Neurological: Incoordination (Some difficulty walking). denies: Weakness, Numbness - Medications/Allergies Allergies/Adverse Reactions: Allergies Allergy/AdvReac Type Severity Reaction Status Date / Time acetaminophen [From Percocet] AdvReac Mild MADE HER Unverified 07/08/17 10:16 JITTERY oxycodone HCl [From Percocet] AdvReac Mild MADE HER Unverified 07/08/17 10:16 JITTERY Medications: Current Medications Al Hydrox/Mg Hydrox/Simethicone (Mylanta Liquid) 30 ml PO Q2H PRN PRN Aspirin () 81 mg PO DAILY [facility] Atorvastatin Calcium (Lipitor) 40 mg PO QPM [facility] Cholecalciferol (Vitamin D) 1,000 units PO DAILY [facility] Last Admin: 10/29/17 09:37 Dose: 1,000 units Dimethicone/Zinc Oxide (Nash Protect Cream) 0 gm TP PRN PRN Docusate Sodium (Colace) 100 mg PO TID PRN PRN Enoxaparin Sodium (Lovenox) 40 mg SC HS [facility] Fluoxetine HCl (Prozac) 20 mg PO DAILY [facility] Last Admin: 10/29/17 09:37 Dose: 20 mg Ringer's Solution () 1,000 mls @ 80 mls/hr IV INFUSION [facility] Last Admin: 10/29/17 14:12 Dose: 80 mls/hr Heparin Sodium (Porcine) () 25,000 units in 250 mls @ 8.5 mls/hr IV INFUSION [facility]; 850 UNITS/HR PRN Reason: Protocol Last Admin: 10/29/17 15:02 Dose: 850 units/hr, 8.5 mls/hr IV Miscellaneous Supplies () 1 each IV DIRECTED [facility] Levothyroxine Sodium (Levothroid) 125 mcg PO DAILY@0600 [facility] Magnesium Hydroxide (Milk Of Magnesia) 30 ml PO DAILY PRN PRN Polyethylene Glycol (Miralax) 17 gm PO DAILY PRN PRN PRN Reason: Constipation Sodium Chloride (Saline Flush 10 Ml Syringe) 0 ml IVP PRN PRN Last Admin: 10/29/17 15:02 Dose: 20 ml Objective - Exam Vitals and I&O: Vital Signs Temp 35.9 C L 10/29/17 12:43 Pulse 72 10/29/17 12:43 Resp 13 10/29/17 12:43 BP 142/85 10/29/17 12:43 Pulse Ox 99 10/29/17 12:43 Intake & Output 10/28/17 10/29/17 10/29/17 23:59 11:59 23:59 Intake Total 894 Output Total 2250 Balance -1356 Weight 73.7 kg Intake: IV 504 Oral 390 Output: Urine 2250 Other: Urine Color Yellow Urine Appearance Clear Urine Odor None Comment Not viewed at this time. Stool Occult Blood Negative Stool Size Small Stool Characteristics Soft Formed Voiding Methods Bedside Commode General: Alert, Oriented x3, Cooperative, Mild distress (Anxious, some word finding difficulty noted) HEENT: Atraumatic, PERRLA, Other (Right nichole-anopsia past midline noted) Neck: Supple Lungs: Clear to auscultation Cardiovascular: Regular rate Abdomen: Soft. denies: Tenderness Extremities: denies: Clubbing, Cyanosis, Edema Neurological: Normal speech (Some word finding difficulty), Other (Reportedly not able to follow commands correctly) Psych/Mental Status: denies: Mood NL (Tearful) - Results Results: Laboratory Results WBC 5.96 k/cumm (4.4-10.8) 10/28/17 21:40 RBC 4.55 m/cumm (4.00-5.20) 10/28/17 21:40 Hgb 13.6 g/dL (12.0-15.5) 10/28/17 21:40 Hct 38.9 % (36.0-46.0) 10/28/17 21:40 MCV 85.5 fL (80-95) 10/28/17 21:40 MCH 29.9 pg (27.0-33.0) 10/28/17 21:40 MCHC 35.0 g/dL (32.0-36.0) 10/28/17 21:40 RDW 12.6 % (11.7-14.6) 10/28/17 21:40 Plt Count 279 x1000/uL (130-400) 10/28/17 21:40 MPV 8.7 fL (8.0-11.0) 10/28/17 21:40 Immature Gran % 0.3 10/28/17 21:40 Neutrophils % 56.6 10/28/17 21:40 Lymphocytes % 31.0 10/28/17 21:40 Monocytes % 8.4 10/28/17 21:40 Eosinophils % 3.2 10/28/17 21:40 Basophils % 0.5 10/28/17 21:40 Absolute Neutrophils 3.37 k/cumm (1.2-6.7) 10/28/17 21:40 Absolute Lymphocytes 1.85 k/cumm (1.2-3.4) 10/28/17 21:40 Absolute Monocytes 0.50 k/cumm (0.11-0.7) 10/28/17 21:40 Absolute Eosinophils 0.19 k/cumm (0.0-0.7) 10/28/17 21:40 Absolute Basophils 0.03 k/cumm (0.0-0.2) 10/28/17 21:40 PT 9.3 sec (9.3-10.8) 10/29/17 06:37 INR 1.0 (1.0-3.5) 10/29/17 06:37 APTT 27.5 sec (21.0-31.4) 10/29/17 06:37 Sodium 135 mmol/L (136-145) L 10/28/17 21:40 Potassium 3.8 mmol/L (3.5-5.1) 10/28/17 21:40 Chloride 97 mmol/L (98-107) L 10/28/17 21:40 Carbon Dioxide 26.9 mmol/L (21.0-32.0) 10/28/17 21:40 Anion Gap 11.1 mmol/L (3-11) H 10/28/17 21:40 BUN 12 mg/dL (7-18) 10/28/17 21:40 Creatinine 0.74 mg/dL (0.55-1.02) 10/28/17 21:40 Estimated GFR/1.73 m2 >= 60.00 (mL/min/1.73m2) 10/28/17 21:40 Glucose 95 mg/dL (70-100) 10/28/17 21:40 Hemoglobin A1c 5.7 % (4.5-6.2) 10/29/17 06:37 Calcium 8.7 mg/dL (8.5-10.1) 10/28/17 21:40 Magnesium 1.8 mg/dL (1.8-2.4) 10/28/17 21:40 Total Bilirubin 0.3 mg/dL (0.2-1.0) 10/28/17 21:40 AST 19 U/L (15-37) 10/28/17 21:40 ALT 29 U/L (12-78) 10/28/17 21:40 Alkaline Phosphatase 85 U/L (46-116) 10/28/17 21:40 Total Protein 7.2 g/dL (6.4-8.2) 10/28/17 21:40 Albumin 3.6 g/dL (3.4-5.0) 10/28/17 21:40 Triglycerides 134 mg/dL (30-150) 10/29/17 06:37 Total Cholesterol 243 mg/dL (50-200) H 10/29/17 06:37 LDL Cholesterol Direct 160 mg/dL (<100) H 10/29/17 06:37 HDL Cholesterol 62 mg/dL (40-60) H 10/29/17 06:37 TSH 0.75 uIU/mL (0.358-3.74) 10/29/17 06:37
--- NOTE | 2017-10-29 16:34 | NCONE_ITS ---
DATE OF CONSULTATION: October 29, 2017 ASSESSMENT AND PLAN: Mrs. Rm is a 67-year-old, right-handed woman with a cardiovascular history of hypertension and hyperlipidemia who presents with evolving symptoms of right homonomous hemianopsia and transcortical mixed aphasia and is progressing over time secondary to acute ischemia and found to have a left PLATING EQUIPMENT TENDER occlusion. Unfortunately, she was not a candidate for tPA or intervention and is now having progressive symptoms despite a combination of aspirin and Plavix. My recommendation is to discontinue Plavix and start a heparin drip as per ACS protocol but no bolus. I recommend continuing 81 mg aspirin in addition given her known atherosclerosis. I recommend continuing the heparin drip for at least 24 hours until symptoms stabilize, at which time she can be switched either to Coumadin with a goal INR between 2 and 3 or a new oral anticoagulant such as Eliquis 5 mg b.i.d. for secondary stroke prevention. She should continue atorvastatin 80 mg daily for acute stroke, with long-term goal LDL cholesterol <70. ADRs were discussed with the family. Continue permissive hypertension for ongoing progressive symptoms. Once stable x 24hour, lisinopril can be re-started with a long-term goal blood pressure around 140/ 80. As far as further workup, I recommend continued cardiac monitoring with outpatient cardiac monitoring once discharged for a total of 30 days of cardiac monitoring. I also recommend Speech Therapy, Physical Therapy, and Occupational Therapy as she is having difficulty attenuating to her right visual field defect. I was able to discuss these findings as well as the treatment plan with the family, both her and daughter who were present, and answered all of their questions to the best of my ability. She should follow up in the Neurology Clinic in four to six weeks. Thank you for this consultation. Please call with any further questions or concerns. REFERRING PHYSICIAN: Salvador Verde M.D. REASON FOR CONSULTATION: I was asked to see Mrs. Rm in neurologic consultation by Dr. Verde for TIA. HISTORY OF PRESENT ILLNESS: Mrs. Rm is a 67-year-old, right-handed woman with a past medical history of hypertension, hyperlipidemia, hypothyroidism, mood disorder, and osteoarthritis. On 10/28/17 at approximately 6:00 p.m. she noted to her that she was not feeling well. By approximately 7:30 p.m. when they were eating dinner it became apparent that something was wrong. She could not see her knife which was on the right side of her, nor could she see the person who was sitting at the end of the table on her right. Her also describes her acting confused with some memory problems (by description sounds like aphasia). He promptly brought her to the [facility] Emergency Room, however it appears that her symptoms had resolved. The ER doctor correctly assessed that it sounded like she was having a right visual field defect but found no deficits on exam (NIHSS 0). For that reason she was not given tPA. She was given 325mg of ASA. She was not on antiplatelet medication prior to admission. Around midnight, the hospitalist promptly recognized a clinical deterioration. She was found to have a right upper quadrant homonomous hemianopsia. She underwent a CTA of the head and neck at that time which showed likely occlusion in the left posterior cerebral artery which I reviewed personally and agree with the findings. Per my review, she also has a left dominant vertebral posterior circulation as well as 40-50% left ICA stenosis with a 20% right ICA stenosis just after the bifurcation. The report says the opposite with the right carotid stenosis being worse but I believe that is a typo. Because of worsening symptoms and the new finding of a likely left posterior cerebral artery occlusion, [facility] was contacted who did not think she was a candidate for intervention. She was recommended to be started on a combination of aspirin and Plavix. She was given a 300 mg loading dose of Plavix at that time. As the day has gone on, it has been apparent that she has had progressive difficulty with language, especially word finding and even with following commands. Her right quadrantanopsia has now become a complete and dense right homonomous hemianopsia, as per my exam at ~2:00 p.m. She underwent an MRI of her brain at approximately noon which I was able to review. It shows several small acute infarcts in the left PLATING EQUIPMENT TENDER territory including the left thalamus, left occipital lobe, and left medial posterior temporal lobe. She otherwise has diffuse white matter changes consistent with microvascular disease. She underwent a TTE which showed an EF of 55-60%. She has mild focal basal hypertrophy of the septum and moderate hypokinesis of the basal inferior myocardium. A bubble study was not performed. The left atrium was at the upper limits of normal in size. The right atrium was normal in size. Telemetry has been unremarkable. Laboratory workup included an LDL cholesterol of 160 and a hemoglobin A1c of 5.7. Her TSH is 0.75. PAST MEDICAL HISTORY: 1. Hypertension. 2. Hyperlipidemia. 3. Osteoarthritis. 4. Hypothyroidism. 5. Mood disorder. PAST SURGICAL HISTORY: 1. Oophorectomy. 2. Achilles tendon repair. 3. Right total hip replacement. 4. Left total knee replacement. FAMILY HISTORY: No family history of stroke or heart disease. SOCIAL HISTORY: She is . She does not smoke. She drinks alcohol socially. No illicit drug use. REVIEW OF SYSTEMS: CONSTITUTIONAL: Denies tiredness or fatigue. HEENT: Denies blurry vision or double vision. CARDIOVASCULAR: Denies chest pains or rapid heartbeat. RESPIRATORY: Denies wheezing or cough. GI: Denies nausea or vomiting. : Denies urinary frequency or incontinence. MUSCULOSKELETAL: Denies joint pain or back pain. NEURO: Denies headaches or swallowing problems. PSYCH: Denies depression or tendency to cry. ALLERGIES/IMMUNOLOGY: Denies runny nose or rash. PHYSICAL EXAM: VITAL SIGNS: T-max 37.2. Pulse 63-75. Blood pressure 141-156/66-101. Respiratory rate 13-24. Saturation 97-99% on room air. GENERAL: The patient is of apparent stated age, no apparent distress. HEAD/FACE: No facial or cranial nerve abnormalities. NECK: Supple. No meningismus. No occipital tenderness. CARDIOVASCULAR: Regular rate and rhythm. RESPIRATORY: Clear to auscultation bilaterally. ABDOMEN: Soft, nontender, nondistended. Positive bowel sounds. EXTREMITIES: No edema. No clubbing or cyanosis. No bony deformity. NEUROLOGIC EXAM: Language - impaired fluency and naming. Repetition was intact. Comprehension was impaired. She was unable to follow a three-step command across the midline. With much coaching I was able to get her to follow a two-step command across the midline. Findings are consistent with a transcortical mixed aphasia. At one point her daughter came into the room in sight of her right visual field defect so that she could not see her. I tried to get her to turn her head right multiple times but she was unable to understand or perform this and I actually had to physically move her so that she could see her daughter. Mental status - awake, alert, oriented to self. Speech - no dysarthria. Cranial nerves: Cranial nerve II - she has a dense right homonomous hemianopsia. Cranial nerves III, IV, and - extraocular movements intact, no nystagmus, pupils symmetric and reactive to light. Cranial nerve V - face sensation intact to pinprick and light touch. Cranial nerve VII - no facial asymmetry noted. Cranial nerve VIII - hearing intact bilaterally. Cranial nerves IX and X - palate rises symmetrically. Cranial nerve XI - trapezius 5/5 bilaterally. Cranial nerve XII - protrudes tongue symmetrically. Sensory - sensation intact to light touch and pinprick throughout. Motor - bulk and tone intact. Fine motor movements intact bilaterally. No pronator drift. Strength 5/5 throughout. Reflexes - 2+ throughout. Toes downgoing bilaterally. Coordination - no ataxia. Gait - deferred.
[2017-10-29 21:45] LABS: PTT Activated 31.6 sec (21.0-31.4)
[2017-10-30] VITALS (26 sets, daily range): BP systolic 125–192; BP diastolic 74–116; PULSE 58–86; RESP 7–24; TEMP 36–36.5; O2SAT 95–97
[2017-10-30] MEDS: Lactated Ringers 1,000 ML 80 ML IV (02:16)
[2017-10-30] MEDS: Levothyroxine 125 MCG TAB PO (06:52)
[2017-10-30 07:31] LABS: PTT Activated 47.5 sec (21.0-31.4)
[2017-10-30] MEDS: Aspirin 81 MG CHEW PO (08:36)
[2017-10-30] MEDS: FLUoxetine 20 MG CAP PO (08:36)
--- NOTE | 2017-10-30 09:02 | PDOC.CMPRO ---
Date of Service: 10/30/17 Time of Service: 09:02 Care Management Progress Note S/O:CM met with Danica and she will transferred to the medical surgical unit today. She has been evaluated today by speech and PT. CM reviewed consult notes and met with the family in the room. Danica and her family would like to have a referral sent to [facility] for acute rehab. PT notes suggest that she return home with out patient PT/OT or SNF for rehabilitation. Family states that they have heard positive feedback r/t [facility] program and would like to first send a referral there. Danica continues to have expressive aphasia however she is also able to better express her thoughts while CM present in the room this afternoon. A: Danica is a 67-year-old female admitted for CVA, she will transition to inpatient admission today to continue her workup and symptom management and treatment. P: Danica was transferred to the medical surgical unit today she is now an inpatient. She will be discharged when medically ready per provider. Discharge disposition to be determined. Referral faxed to [facility] at the request of the patient no other referrals at this time. Anticipate she will need PT and OT services at time of discharge home vs rehab facility. Disposition to be determined. CM to continue to provide support to patient, family, care team ongoing discharge planning and disposition.
--- NOTE | 2017-10-30 09:14 | CMPROGNOTE_ITS ---
Date of Service: 10/30/17 Time of Service: 09:02 Care Management Progress Note S/O:CM met with Danica and she will transferred to the medical surgical unit today. She has been evaluated today by speech and PT. CM reviewed consult notes and met with the family in the room. Danica and her family would like to have a referral sent to [facility] for acute rehab. PT notes suggest that she return home with out patient PT/OT or SNF for rehabilitation. Family states that they have heard positive feedback r/t [facility] program and would like to first send a referral there. Dnaica continues to have expressive aphasia however she is also able to better express her thoughts while CM present in the room this afternoon. A: Danica is a 67-year-old female admitted for CVA, she will transition to inpatient admission today to continue her workup and symptom management and treatment. P: Danica was transferred to the medical surgical unit today she is now an inpatient. She will be discharged when medically ready per provider. Discharge disposition to be determined. Referral faxed to [facility] at the request of the patient no other referrals at this time. Anticipate she will need PT and OT services at time of discharge home vs rehab facility. Disposition to be determined. CM to continue to provide support to patient, family, care team ongoing discharge planning and disposition.
--- NOTE | 2017-10-30 09:33 | EVALE_ITS ---
DATE OF EVALUATION: October 30, 2017 PRIMARY CARE PROVIDER: Malik Pérez M.D. REFERING PROVIDER: Salvador Verde M.D. INTERPRETATION: The patient shows a significant transcortical mixed aphasia with a cognitive-linguistic deficit as well as a severe right visual neglect, all likely due to her acute left SHIPPING AND RECEIVING CLERK infarct. RECOMMENDATIONS: 1. Recommend speech therapy to maximize communication and cognition. 2. Referral for follow-up ST upon patient's d/c from [facility] for cognitive communication concerns. Thank you for referring this patient. Ashley Ames, , [facility]PER[employer] ++++++++++++++++++ BACKGROUND: This is a 67-year-old , right-handed female who presented to the E.D. from home on 10/28/17 with complaints of a right visual field cut. Recent imaging reveals a left SHIPPING AND RECEIVING CLERK infarct. Because of communication concerns a request for a Speech Therapy evaluation was made. OBJECTIVE: The patient is lying in bed and when I enter the room she does not make eye contact with me, but instead looks downward, despite my verbal greeting. She is agreeable to being transitioned to a sitting position and is also agreeable to me spending some time with her this morning. She appears to be able to converse fairly well, although she seems to show some confusion at times. She is alert and oriented x1 (person), and is able to follow only one-step directions. With regard to communication skills, the following is noted: 1. Auditory comprehension of basic contextual yes/no questions - 100% accuracy. 2. Auditory comprehension of non-contextual yes/no questions - 90%. 3. Confrontation naming - 0%. 4. Convergent naming - 100%. 5. Divergent naming - only two items able to be listed per category. 6. Repetition of function phrase - 100%. 7. Repetition of short sentence - 100%. 8. Repetition of long length sentences - 90%. 9. Serial speech - 100%. 10. Word prediction for high frequency carrier phrases - 0%. 11. Reading comprehension of large print high frequency, monosyllabic words - 0 %. 12. Reading comprehension for large print short sentences - 0%. 13. Writing skills for both signature and monosyllabic high-frequency words - poor spelling, decreased legibility, and poor linear writing. This is in the context of using her dominant right upper extremity in a setting of right visual neglect. With regard to memory, her skills with subtests from the Cognitive Linguistic Quick Test show a severely decreased immediate and recent memory. In conversation it is evident that even remote memory is diminished. As mentioned above, the patient also has difficulty with being able to visualize items to the right of midline, but even with targeted visual items far to her left she sometimes has significant difficulty.
--- NOTE | 2017-10-30 10:35 | PGE_ITS ---
PROGRESS NOTE DATE OF SERVICE: October 30, 2017 at 9:03 a.m. ASSESSMENT AND PLAN Mrs. Rm is a 67-year-old right-handed woman admitted for an acute ischemic stroke in the left PHD INTERNSHIP territory secondary to left PHD INTERNSHIP occlusion manifested by a transcortical mixed aphasia and a right homonomous hemianopsia. She is currently on a heparin drip and aspirin for secondary stroke prevention, as well as atorvastatin. She was not on any antiplatelet or anticoagulants prior to admission, nor was she on a statin prior to admission. I recommend continuing heparin through the afternoon to reach the 24-hour rosamaria. If she remains stable, she can be switched to Eliquis 5 mg b.i.d., along with continued aspirin and atorvastatin. Please continue permissive hypertension. Her blood pressure medications can be slowly added starting tomorrow. I agree with PT/ OT and Speech Therapy assessments. Her depression will need to be monitored. If she continues to have difficulty complying with medications or therapy, consider increasing her home medication or adding or changing to another agent. She should followup in the Neurology Clinic in four to six weeks. Thank you for this consultation. Please call with any further questions or concerns. SUBJECTIVE No events overnight. She is now on a heparin drip with appropriate PTT. This morning, her language seems to be slightly improved. She is having increased depression. She has been resistant to taking her medications, citing the futility of her recovery. She is on Prozac as an outpatient and has been getting that while inpatient. OBJECTIVE VITAL SIGNS - T-max 37.2. Pulse 60 to 78. Blood pressure 125/ to 171/74 to 88. Respiratory rate 14 to 17. O2 sats 97 to 99% on room air. NEUROLOGIC EXAM - The patient is awake, alert, oriented to self and place. She continues to be aphasic with difficulty mainly with fluency and naming. Repetition remains intact. She was able to follow a two-step command across the midline easily today. She still had difficulty with a complex three-step command. She continues to have a dense right homonomous hemianopsia.
[2017-10-30] MEDS: Normal Saline Flush 10 ML SYR IVP (10:38)
[2017-10-30] MEDS: Apixaban 5 MG TAB PO ×2 (10:38→20:34)
--- NOTE | 2017-10-30 10:45 | IN_ITS ---
INPATIENT PHYSICAL THERAPY EVALUATION Date: 10/30/17 Referring Doctor: Alaln Ingram PT Orders: PT Consult:' CVA, receptive and expressive aphasia, right hemianopia , gait training Precautions: Fall precautions, Decreased right awareness, decreased R visual field PATIENT PROFILE/ADMITTING DIAGNOSIS: Pt is a 67yr old female presenting with right homonomous hemianopsia, transcortical mixed aphasia due to acute ischemia and left COMBINE MECHANIC occlusion PMHX: hypertension, mood disorder, hyperlipidemia, hypothyroidism, osteoarthritis, oophorectomy, Achilles tendon repair, right total hip arthroplasty, right total knee arthroplasty, bilateral hand arthritis Social History/Home Situation: Lives with in a house, 2 steps with railing to enter, flight of steps inside and one step into living room. Family adjusting living accommodations to allow for her to stay on first floor at home. Baseline mobility independent gait with no device, independent with ADLS Equipment owned/DME: FWW SUBJECTIVE: Pt lying in bed with in room, alert, finished breakfast, agreeable to PT Consult. States yes and responding appropriately with responses to conversation, making multiple word sentences in response to nurse and therapist comments. When questioned directly regarding orientation questions such as where are you? what town are you in? what is the month and year? pt is unable to answer and demonstrates expressive aphasia, however she is able to state her name as Danica Rm and she is able to follow instruction and direction without cueing such as sit on the edge of the bed and lift your arm or leg. Pt appears to have good receptive understanding of conversation and therapists instructions. Pt is aware of right visual field cut and demonstrates turning her head to compensate to look right and she states her right side feels funny but feels normal in terms of strength. OBJECTIVE: General Observation: telemetry, IV R UE Mental Status: A& O to name only due to expressive aphasia Pain: no c/o pain ROM: RUE: AROM WNL LUE AROM WNL RLE AROM WNL LLE AROM WNL STRENGTH: RUE 5/5 throughout LUE 5/5 throughout RLE 5/5 throughout LLE 5/5 throughout VISUAL: Pt wearing glasses. Visual tracking intact to up, left and down, decreased tracking and field cut to right just past nose MOTOR COORDINATION Finger to nose: intact left, decreased right hand and right visual field. Pt able to come close to object but not accurately making contact Pronation/Supination: intact Finger to thumb: diminished right side BED MOBILITY/TRANSFERS: Supine-sit: HOB 30 degrees SBA. Pt initially goes to move to left side, required verbal cue to come to right side of bed, able to make adjustment with verbal cue only Sit-stand: MinAx1 with FWW Bed-chair: CGA with FWW Stand-sit: SBA GAIT: FWW minAx1 50ftx2. Pt with right visual neglect, running into wall and objects on right side requiring tactile and verbal cue to reposition. Gait pattern: pt with increased adduction R LE with swing phase of gait causing her to have narrow base of support with stance phase putting her at increased risk for falls. Pt requiring Rehan of one person and gait belt to maintain balance and assist to guide FWW around objects in room and hallway. Pt left up in recliner chair after session completed with in room. BALANCE: Static sitting normal Dynamic Sitting normal Static Standing poor Dynamic Standing poor SPECIAL TESTS: Mobility Limitations Standardized Measure [facility] AM -PAC 6 clicks Basic Mobility Inpatient Short Form: raw score: 15 standardized score: 39.45 CMS score: 57.70% CMS modifier: CK INFORMED CONSENT/EDUCATION: Pt instructed in purpose of PT Consult and plan of care ASSESSMENT: Pt is a 67yr old female presenting with right homonomous hemianopsia, transcortical mixed aphasia due to acute ischemia and left COMBINE MECHANIC occlusion in setting of hypertension, mood disorder, hyperlipidemia, hypothyroidism, osteoarthritis, Achilles tendon repair, right total hip arthroplasty, right total knee arthroplasty, bilateral hand arthritis. Patient presents with clinical signs and symptoms consistent with diagnosis as demonstrated by the following impairment level findings: decreased vision right visual field, decreased right side awareness, expressive aphasia, decreased static and dynamic standing balance putting her at risk for falls, decreased gait coordination with increased adduction right LE, decreased base of support, decreased awareness of objects on right side requiring one person assist and use of FWW for gait stability. Pt will benefit from skilled therapy intervention. She is a good rehab candidate. Unclear of family plan at this time. If discharge plan is to home, recommend 24 hr caregivers for safety in home setting, one level living and use of FWW and one person assist for gait stability, along with home or outpatient PT and OT. Pt would be a good short term rehab candidate if patient chooses to pursue that option. Impairments are contributing to the following functional limitations: AMPAC score CMS score: 57.70% Patient is assessed as a * high [id number] complexity based on the following: History: right homonomous hemianopsia, transcortical mixed aphasia due to acute ischemia and left COMBINE MECHANIC occlusion in setting of hypertension, mood disorder, hyperlipidemia, hypothyroidism, osteoarthritis, Achilles tendon repair, right total hip arthroplasty, right total knee arthroplasty, bilateral hand arthritis. Examination: ecreased vision right visual field, decreased right side awareness , expressive aphasia, decreased static and dynamic standing balance putting her at risk for falls, decreased gait coordination with increased adduction right LE , decreased base of support, decreased awareness of objects on right side requiring one person assist and use of FWW for gait stability. Presentation: evolving Decision Making: AMPAC score CMS score: 57.70% GOALS Goals x1 week 1. Supine-sit independent 2. Sit-Supine: independent 3. Sit-Stand: SBA with FWW 4. Stand-sit SBA 5. Bed-chair SBA with FWW 6. Chair-bed SBA with FWW 7. Gait SBA with FWW 70ft 8. Stairs: up/down 2 steps with railing CGA PLAN OF CARE/TREATMENT PLAN: 1-2x/day, 7 days/ week x 1 week Plan of care has been reviewed with the WATER ATTENDANT providing the service under Physical therapy direction. Initiate physical therapy intervention for strengthening, bed mobility, transfers, gait, stairs, balance training, use of assistive device. DISCHARGE RECOMMENDATIONS Home with family and 24hr caregivers, outpatient PT follow up vs. short term rehab TREATMENT TIME/MINUTES/CODES 30 IE 10:35 G Codes in the area mobility of walking and moving around: current status [id number] _CK projected status GP [id number] . Discharge status ( if discharging) GP [id number] hsqcj on AMPAC score CMS score: 57.70% Key Dejesus PT
--- NOTE | 2017-10-30 12:03 | NUR.NOTE ---
Nursing Note: At 1125 on 10/30/17, Med/sox analyst received report from the MEDIA RELATIONS COORDINATOR. Pt. was in the middle of a reiki session at that time. At 1144 on 10/30/17, pt. was finished with the reiki session, and Med/sox analyst transferred pt. from ICU to Med/Surg per MD order. Pt. was settled in to her room; VS obtained. VS: BP: 172/116 HR: 79 RR: 18 Temp.: 36.0 degrees Celsius O2 sat.: 97 percent on room air. Pt. denied pain. See shift assessment for further details. RN will reassess as necessary.
--- NOTE | 2017-10-30 13:40 | INPTTR_ITS ---
PHYSICAL THERAPY PROGRESS NOTE Date: 10/30/17 PRECAUTIONS: Fall precautions, R visual field cut, R neglect, expressive aphasia SUBJECTIVE: Pt lying in bed agreeable to PT Session. Moved to medical surgical floor. Continues with right visual deficit making it difficult for her to use TV remote control and controls on bed as she is right handed. Pt required tactile instruction for use of call light, TV remote and bed controls. She would benefit from visually impaired equipment to use during admission. OBJECTIVE: General: telemetry PAIN: no c/o pain BED MOBILITY/TRANSFERS: Supine-sit: HOB 30 degrees SBA. Sit-stand: MinAx1 with FWW, pt with right lean and decreased balance with initial standing requiring assist to stabilize and prevent fall Stand-sit: SBA Sit-supine: HOB flat SBA GAIT: FWW minAx1 60ftx2. Right lean, improved base of support with verbal cues to widen stance. Decreased awareness right side requiring tactile cues for guiding walker and positioning with gait. Pt returned to room after session completed. THEREX Standing: heel raises, bilateral hip abduction and flexion x 10 reps standing in FWW Static and dynamic standing balance training: static standing with feet together x 1min. Dynamic Reaching with R UE throughout front and right visual field with R UE. performed standing in walker and sitting at edge of bed. Pt with poor ability to meet target with right hand due to visual deficits. BALANCE: Static sitting normal Dynamic Sitting normal Static Standing poor Dynamic Standing poor ASSESSMENT: Pt continues with expressive aphasia, right field visual deficits, right LE decreased coordination with gait putting her at high risk for falls. Able to follow instruction and participate in therapy session, she is an excellent rehab candidate. PLAN: Progress R visual awareness Progress R LE strength Progress static and dynamic balance training Progress Gait training TREATMENT CODES/TIME: 25min TAx1 TP X1 [address] PT
--- NOTE | 2017-10-30 14:32 | CHAPLAIN ---
I visited Danica shortly have she transferred from the ICU to Med/Surg. She has had family members visiting her in the ICU. She struggled to come up with an answer when I asked if she lived in [facility]. She eventually said close by. I explained my role and offered support.
--- NOTE | 2017-10-30 18:09 | PDOC.PROG ---
Date of Service: 10/30/17 Time of Service: 18:09 Assessment/Plan - Assessment/Plan (1) Occlusion of left posterior cerebral artery Assessment: She was on heparin overnight to prevent further extension of the infarct territory. Dr. Porras saw her today and felt we could stop the heparin and start on a apixaban with low-dose aspirin therapy. Continue PT and OT services. She would be a good candidate for acute rehabilitation services. (2) Hypertension Assessment: We can stop permissive hypertension at this point. Started back on low-dose hydrochlorothiazide in the a.m. (3) Hypercholesterolemia Assessment: Elevated lipid panel. Continue on the Lipitor. (4) Discharge planning issues Assessment: Changed from observation to acute care status. She will need PT and OT services. One concern is her issues with depression may be worse as she slowly grasps the gravity of her illness. She may need further dose adjustments in her antidepressant medications. Continue to monitor in acute care status she is a full code. History of Present Illness - History of Present Illness Chief Complaint: CVA/left posterior cerebral artery occlusion/right hemianopsia History of Present Illness: She has been somewhat despondent today. She expressed to her what is the use. She is having quite a bit of trouble with her vision requiring moving things in from the left. She is having trouble coordinating use of her right hand. Her gait has been somewhat unstable. She continues to have word finding difficulty. Review of Systems - Medications/Allergies Allergies/Adverse Reactions: Allergies Allergy/AdvReac Type Severity Reaction Status Date / Time acetaminophen [From Percocet] AdvReac Mild MADE HER Unverified 07/08/17 10:16 JITTERY oxycodone HCl [From Percocet] AdvReac Mild MADE HER Unverified 07/08/17 10:16 JITTERY Medications: Current Medications Al Hydrox/Mg Hydrox/Simethicone (Mylanta Liquid) 30 ml PO Q2H PRN PRN Apixaban (Eliquis) 5 mg PO BID [facility] Last Admin: 10/30/17 10:38 Dose: 5 mg Aspirin () 81 mg PO DAILY [facility] Last Admin: 10/30/17 08:36 Dose: 81 mg Atorvastatin Calcium (Lipitor) 40 mg PO QPM [facility] Last Admin: 10/29/17 19:38 Dose: 40 mg Cholecalciferol (Vitamin D) 1,000 units PO DAILY [facility] Last Admin: 10/30/17 08:36 Dose: 1,000 units Dimethicone/Zinc Oxide (Nash Protect Cream) 0 gm TP PRN PRN Docusate Sodium (Colace) 100 mg PO TID PRN PRN Fluoxetine HCl (Prozac) 20 mg PO DAILY [facility] Last Admin: 10/30/17 08:36 Dose: 20 mg Hydrochlorothiazide (Hydrodiuril) 12.5 mg PO QAM [facility] IV Miscellaneous Supplies () 1 each IV DIRECTED [facility] Levothyroxine Sodium (Levothroid) 125 mcg PO DAILY@0600 [facility] Last Admin: 10/30/17 06:52 Dose: 125 mcg Magnesium Hydroxide (Milk Of Magnesia) 30 ml PO DAILY PRN PRN Polyethylene Glycol (Miralax) 17 gm PO DAILY PRN PRN PRN Reason: Constipation Sodium Chloride (Saline Flush 10 Ml Syringe) 0 ml IVP PRN PRN Last Admin: 10/30/17 10:38 Dose: 10 ml Objective - Exam Vitals and I&O: Vital Signs Temp 36.0 C L 10/30/17 11:44 Pulse 84 10/30/17 15:15 Resp 18 10/30/17 11:44 BP 172/116 10/30/17 11:44 Pulse Ox 97 10/30/17 11:44 Intake & Output 10/29/17 10/30/17 10/30/17 23:59 11:59 23:59 Intake Total 360 550 Output Total 650 Balance -290 550 Intake: Oral 360 550 Output: Urine 650 Other: Urine Color Yellow Urine Appearance Clear Urine Odor None Stool Occult Blood Negative Stool Size Large Stool Characteristics Soft Formed Voiding Methods Bedside Commode General: Alert, Cooperative, No acute distress, Other (She smiles and greets me appropriately but on further conversation there is difficulty with word finding.) HEENT: Atraumatic Lungs: Normal air movement Cardiovascular: Regular rate Extremities: denies: Edema Neurological: Strength at 5/5 X4 ext. denies: Normal gait (Some obvious difficulty with gait) - Results Results: Laboratory Results WBC 5.96 k/cumm (4.4-10.8) 10/28/17 21:40 RBC 4.55 m/cumm (4.00-5.20) 10/28/17 21:40 Hgb 13.6 g/dL (12.0-15.5) 10/28/17 21:40 Hct 38.9 % (36.0-46.0) 10/28/17 21:40 MCV 85.5 fL (80-95) 10/28/17 21:40 MCH 29.9 pg (27.0-33.0) 10/28/17 21:40 MCHC 35.0 g/dL (32.0-36.0) 10/28/17 21:40 RDW 12.6 % (11.7-14.6) 10/28/17 21:40 Plt Count 279 x1000/uL (130-400) 10/28/17 21:40 MPV 8.7 fL (8.0-11.0) 10/28/17 21:40 Immature Gran % 0.3 10/28/17 21:40 Neutrophils % 56.6 10/28/17 21:40 Lymphocytes % 31.0 10/28/17 21:40 Monocytes % 8.4 10/28/17 21:40 Eosinophils % 3.2 10/28/17 21:40 Basophils % 0.5 10/28/17 21:40 Absolute Neutrophils 3.37 k/cumm (1.2-6.7) 10/28/17 21:40 Absolute Lymphocytes 1.85 k/cumm (1.2-3.4) 10/28/17 21:40 Absolute Monocytes 0.50 k/cumm (0.11-0.7) 10/28/17 21:40 Absolute Eosinophils 0.19 k/cumm (0.0-0.7) 10/28/17 21:40 Absolute Basophils 0.03 k/cumm (0.0-0.2) 10/28/17 21:40 PT 9.3 sec (9.3-10.8) 10/29/17 06:37 INR 1.0 (1.0-3.5) 10/29/17 06:37 APTT 47.5 sec (21.0-31.4) H D 10/30/17 06:15 Sodium 135 mmol/L (136-145) L 10/28/17 21:40 Potassium 3.8 mmol/L (3.5-5.1) 10/28/17 21:40 Chloride 97 mmol/L (98-107) L 10/28/17 21:40 Carbon Dioxide 26.9 mmol/L (21.0-32.0) 10/28/17 21:40 Anion Gap 11.1 mmol/L (3-11) H 10/28/17 21:40 BUN 12 mg/dL (7-18) 10/28/17 21:40 Creatinine 0.74 mg/dL (0.55-1.02) 10/28/17 21:40 Estimated GFR/1.73 m2 >= 60.00 (mL/min/1.73m2) 10/28/17 21:40 Glucose 95 mg/dL (70-100) 10/28/17 21:40 Hemoglobin A1c 5.7 % (4.5-6.2) 10/29/17 06:37 Calcium 8.7 mg/dL (8.5-10.1) 10/28/17 21:40 Magnesium 1.8 mg/dL (1.8-2.4) 10/28/17 21:40 Total Bilirubin 0.3 mg/dL (0.2-1.0) 10/28/17 21:40 AST 19 U/L (15-37) 10/28/17 21:40 ALT 29 U/L (12-78) 10/28/17 21:40 Alkaline Phosphatase 85 U/L (46-116) 10/28/17 21:40 Total Protein 7.2 g/dL (6.4-8.2) 10/28/17 21:40 Albumin 3.6 g/dL (3.4-5.0) 10/28/17 21:40 Triglycerides 134 mg/dL (30-150) 10/29/17 06:37 Total Cholesterol 243 mg/dL (50-200) H 10/29/17 06:37 LDL Cholesterol Direct 160 mg/dL (<100) H 10/29/17 06:37 HDL Cholesterol 62 mg/dL (40-60) H 10/29/17 06:37 TSH 0.75 uIU/mL (0.358-3.74) 10/29/17 06:37
[2017-10-30] MEDS: Atorvastatin 40 MG TAB PO (20:35)
[2017-10-31 04:57] VITALS: BP 157/87; PULSE 77; RESP 20; TEMP 36.7; O2SAT 97
[2017-10-31] MEDS: Levothyroxine 125 MCG TAB PO (06:11)
[2017-10-31 07:00] VITALS: PULSE 60
[2017-10-31 07:40] VITALS: BP 149/87; PULSE 68; RESP 20; TEMP 36.5; O2SAT 96
[2017-10-31] MEDS: FLUoxetine 20 MG CAP PO (07:43)
[2017-10-31] MEDS: Apixaban 5 MG TAB PO ×2 (07:43→19:53)
[2017-10-31] MEDS: Normal Saline Flush 10 ML SYR IVP (07:43)
[2017-10-31] MEDS: Aspirin 81 MG CHEW PO (07:43)
--- NOTE | 2017-10-31 08:27 | PDOC.PROG_ITS ---
Date of Service: 10/31/17 Time of Service: 08:25 Assessment/Plan - Assessment/Plan (1) Stroke Assessment: Left posterior artery occlusive CVA presenting with hemianopsia, receptive and expressive aphasia, right-sided motor symptoms all seems to be improving. She is anticoagulated now with apixaban plus aspirin. No bleeding complications thus far. Continue to monitor rhythm on telemetry with plans for outpatient extended monitoring. Blood pressure management as below. Continue high-dose statin. Continue PT OT and speech services. Hopefully her neurological deficits will continue to improve as rapidly as has occurred over the past 24 hours. (2) Hypertension Assessment: Blood pressure historically elevated. Resume diuretic at outpatient dose, monitor blood pressure response. May need to add back MOOSE inhibitor but will see how her blood pressure does over the next 24 hours. (3) Hypothyroidism Assessment: TSH within population normal and her outpatient dose of thyroid, no changes planned. (4) Depression Assessment: Mood is improving as her physical condition improves. Continue present dose of fluoxetine. Monitor for worsening symptoms. History of Present Illness - History of Present Illness History of Present Illness: Mrs. Rm had an uneventful night. She has not had any dysrhythmias on telemetry. Slight increase in sinus rate with activity but otherwise unremarkable. She has had no bleeding complications thus far with the initiation of apixaban plus aspirin yesterday after weaning off heparin. Her blood pressures have been creeping downward from a peak but still elevated. She is starting back on hydrochlorothiazide, outpatient dose, this morning. Lisinopril continues to remain on hold. She has had no problems swallowing. She denies any headache. She still is aware of loss of visual field on the right. She denies paresthesias in her hand or any sense of clumsiness in her hand. She feels a little bit unbalanced when walking but has not been doing much walking. No stomach upset. No problems controlling bowel or bladder. She has noted a definite improvement in the past 24 hours in her ability to speak although still has a little bit of difficulties finding words. Her spirits are doing a little better as her in neurologic symptoms improve. Review of Systems - Review of Systems Other: No double vision. No choking when swallowing. No cough. No chest pain. No palpitations. No abdominal pain. - Medications/Allergies Allergies/Adverse Reactions: Allergies Allergy/AdvReac Type Severity Reaction Status Date / Time acetaminophen [From Percocet] AdvReac Mild MADE HER Unverified 07/08/17 10:16 JITTERY oxycodone HCl [From Percocet] AdvReac Mild MADE HER Unverified 07/08/17 10:16 JITTERY Medications: Current Medications Al Hydrox/Mg Hydrox/Simethicone (Mylanta Liquid) 30 ml PO Q2H PRN PRN Apixaban (Eliquis) 5 mg PO BID [facility] Last Admin: 10/31/17 07:43 Dose: 5 mg Aspirin () 81 mg PO DAILY [facility] Last Admin: 10/31/17 07:43 Dose: 81 mg Atorvastatin Calcium (Lipitor) 80 mg PO QPM [facility] Cholecalciferol (Vitamin D) 1,000 units PO DAILY [facility] Last Admin: 10/31/17 07:43 Dose: 1,000 units Dimethicone/Zinc Oxide (Nash Protect Cream) 0 gm TP PRN PRN Docusate Sodium (Colace) 100 mg PO TID PRN PRN Fluoxetine HCl (Prozac) 20 mg PO DAILY [facility] Last Admin: 10/31/17 07:43 Dose: 20 mg Hydrochlorothiazide (Hydrodiuril) 12.5 mg PO QAM [facility] Last Admin: 10/31/17 07:43 Dose: 12.5 mg IV Miscellaneous Supplies () 1 each IV DIRECTED [facility] Levothyroxine Sodium (Levothroid) 125 mcg PO DAILY@0600 [facility] Last Admin: 10/31/17 06:11 Dose: 125 mcg Magnesium Hydroxide (Milk Of Magnesia) 30 ml PO DAILY PRN PRN Polyethylene Glycol (Miralax) 17 gm PO DAILY PRN PRN PRN Reason: Constipation Sodium Chloride (Saline Flush 10 Ml Syringe) 0 ml IVP PRN PRN Last Admin: 10/31/17 07:43 Dose: 10 ml Objective - Exam Vitals and I&O: Vital Signs Temp 36.5 C 10/31/17 07:40 Pulse 68 10/31/17 07:40 Resp 20 10/31/17 07:40 BP 149/87 10/31/17 07:40 Pulse Ox 96 10/31/17 07:40 Intake & Output 10/30/17 10/30/17 10/31/17 11:59 23:59 11:59 Intake Total 360 1150 280 Output Total 650 Balance -290 1150 280 Intake: IV 10 Oral 360 1150 270 Output: Urine 650 Other: Urine Color Yellow Yellow Yellow Urine Appearance Clear Clear Clear Urine Odor None None Stool Occult Blood Negative Stool Size Large Stool Characteristics Soft Formed Voiding Methods Bedside Commode Toilet Toilet Other physical findings: Lying in bed she is awake alert and in no apparent distress with some very subtle right facial weakness? Right pupil 4 mm left 3 both reactive. She has no perception of light coming from the right until its around 40-45 from the frontal access. No nystagmus with lateral or up-and-down gaze. Tongue is midline as is uvula with normal movement. Neck supple. No JVD. Lungs are clear. Regular heart rhythm without murmur S3 or S4. Nontender abdomen with normal bowel sounds. She has good distal pulses. 1+ DTRs are 4 except the right knee which is 2+. Dorsiflexion response to plantar stimulus on the right , no response on the left. No pronator drift. Electrical Tryout Person strength symmetric (right handed, would expect right to be a little stronger). She is able to lift legs against gravity. I did not observe her walk. - Results Results: Laboratory Results WBC 5.96 k/cumm (4.4-10.8) 10/28/17 21:40 RBC 4.55 m/cumm (4.00-5.20) 10/28/17 21:40 Hgb 13.6 g/dL (12.0-15.5) 10/28/17 21:40 Hct 38.9 % (36.0-46.0) 10/28/17 21:40 MCV 85.5 fL (80-95) 10/28/17 21:40 MCH 29.9 pg (27.0-33.0) 10/28/17 21:40 MCHC 35.0 g/dL (32.0-36.0) 10/28/17 21:40 RDW 12.6 % (11.7-14.6) 10/28/17 21:40 Plt Count 279 x1000/uL (130-400) 10/28/17 21:40 MPV 8.7 fL (8.0-11.0) 10/28/17 21:40 Immature Gran % 0.3 10/28/17 21:40 Neutrophils % 56.6 10/28/17 21:40 Lymphocytes % 31.0 10/28/17 21:40 Monocytes % 8.4 10/28/17 21:40 Eosinophils % 3.2 10/28/17 21:40 Basophils % 0.5 10/28/17 21:40 Absolute Neutrophils 3.37 k/cumm (1.2-6.7) 10/28/17 21:40 Absolute Lymphocytes 1.85 k/cumm (1.2-3.4) 10/28/17 21:40 Absolute Monocytes 0.50 k/cumm (0.11-0.7) 10/28/17 21:40 Absolute Eosinophils 0.19 k/cumm (0.0-0.7) 10/28/17 21:40 Absolute Basophils 0.03 k/cumm (0.0-0.2) 10/28/17 21:40 PT 9.3 sec (9.3-10.8) 10/29/17 06:37 INR 1.0 (1.0-3.5) 10/29/17 06:37 APTT 47.5 sec (21.0-31.4) H D 10/30/17 06:15 Sodium 135 mmol/L (136-145) L 10/28/17 21:40 Potassium 3.8 mmol/L (3.5-5.1) 10/28/17 21:40 Chloride 97 mmol/L (98-107) L 10/28/17 21:40 Carbon Dioxide 26.9 mmol/L (21.0-32.0) 10/28/17 21:40 Anion Gap 11.1 mmol/L (3-11) H 10/28/17 21:40 BUN 12 mg/dL (7-18) 10/28/17 21:40 Creatinine 0.74 mg/dL (0.55-1.02) 10/28/17 21:40 Estimated GFR/1.73 m2 >= 60.00 (mL/min/1.73m2) 10/28/17 21:40 Glucose 95 mg/dL (70-100) 10/28/17 21:40 Hemoglobin A1c 5.7 % (4.5-6.2) 10/29/17 06:37 Calcium 8.7 mg/dL (8.5-10.1) 10/28/17 21:40 Magnesium 1.8 mg/dL (1.8-2.4) 10/28/17 21:40 Total Bilirubin 0.3 mg/dL (0.2-1.0) 10/28/17 21:40 AST 19 U/L (15-37) 10/28/17 21:40 ALT 29 U/L (12-78) 10/28/17 21:40 Alkaline Phosphatase 85 U/L (46-116) 10/28/17 21:40 Total Protein 7.2 g/dL (6.4-8.2) 10/28/17 21:40 Albumin 3.6 g/dL (3.4-5.0) 10/28/17 21:40 Triglycerides 134 mg/dL (30-150) 10/29/17 06:37 Total Cholesterol 243 mg/dL (50-200) H 10/29/17 06:37 LDL Cholesterol Direct 160 mg/dL (<100) H 10/29/17 06:37 HDL Cholesterol 62 mg/dL (40-60) H 10/29/17 06:37 TSH 0.75 uIU/mL (0.358-3.74) 10/29/17 06:37
--- NOTE | 2017-10-31 09:32 | INPTTR_ITS ---
PHYSICAL THERAPY PROGRESS NOTE Date:10/31/17 PRECAUTIONS: fall SUBJECTIVE: Danica states that she thinks she is better today. She feels a little stronger and less unbalanced. OBJECTIVE BED MOBILITY/TRANSFERS Supine-sit: SBA Sit-stand: SBA Stand-sit: SBA GAIT Assistive Device FWW Weightbearing full Assist: CGA Distance: 150' Deviation cues for negotiating right hand turns. THEREX: performed a global LE strength and stabilization routine, while incorporating balance and proprioception ex. She performed both static and dynamic standing work. Required skilled instruction in proper ex performance and reminders for proper mechanics on right side due to her neglect. ASSESSMENT: tolerated session well. No complaints of pain or fatigue. Occasionally, noted adduction of right LE with ambulation.She does not cross midline however. Self corrects with minimal cues. Has a difficult time negotiating right turns. No LOB noted during ex routine today. PLAN: will continue to progress her strength and balance. Improve functional mobility. Work more on improving her visual field on the right. TREATMENT CODES/TIME: 30 min. TPx1, TAx1.
--- NOTE | 2017-10-31 09:57 | PDOC.CMPRO ---
Date of Service: 10/31/17 Time of Service: 09:57 Care Management Progress Note S/O: CM met with patient she is up ambulating with PT. Patient and her family would like her to be transition to rehab at [facility]. CM provided update to both the patient and family r/t referral to facility and reviewed insurance benefits. CM left messages at [facility] retail marketing coordinator. Danica should have been inpatient admission from time of admission to the ICU r/t CVA. agrees and changed the status from time of admission. Danica has had her three night qualifying stay and would be ready for transfer as early as Thursday per if bed is available at requested facility. Currently her medications are being adjusted. and she is receiving PT services. A: Danica is a 67-year-old female admitted for CVA, she will transition to inpatient admission today to continue her workup and symptom management and treatment. P: Danica was transferred to the medical surgical unit today she is now an inpatient. She will be discharged when medically ready per provider. Discharge disposition to be determined. Referral faxed to [facility] at the request of the patient no other referrals at this time. CM left voicemail for admission coordinator x 2. Anticipate she will need PT and OT services at time of discharge home vs rehab facility. Disposition to be determined. CM to continue to provide support to patient, family, care team ongoing discharge planning and disposition.
--- NOTE | 2017-10-31 10:12 | CMPROGNOTE_ITS ---
Date of Service: 10/31/17 Time of Service: 09:57 Care Management Progress Note S/O: CM met with patient she is up ambulating with PT. Patient and her family would like her to be transition to rehab at [facility]. CM provided update to both the patient and family r/t referral to facility and reviewed insurance benefits. CM left messages at [facility] systems coordinator. Danica should have been inpatient admission from time of admission to the ICU r/t CVA. agrees and changed the status from time of admission. Danica has had her three night qualifying stay and would be ready for transfer as early as Thursday per if bed is available at requested facility. Currently her medications are being adjusted. and she is receiving PT services. A: Danica is a 67-year-old female admitted for CVA, she will transition to inpatient admission today to continue her workup and symptom management and treatment. P: Danica was transferred to the medical surgical unit today she is now an inpatient. She will be discharged when medically ready per provider. Discharge disposition to be determined. Referral faxed to [facility] at the request of the patient no other referrals at this time. CM left voicemail for admission coordinator x 2. Anticipate she will need PT and OT services at time of discharge home vs rehab facility. Disposition to be determined. CM to continue to provide support to patient, family, care team ongoing discharge planning and disposition.
[2017-10-31 15:01] VITALS: PULSE 74
[2017-10-31 15:31] VITALS: BP 134/84; PULSE 82; RESP 17; TEMP 37.1; O2SAT 97
[2017-10-31] MEDS: Atorvastatin 40 MG TAB 80 MG PO (19:52)
[2017-10-31 22:59] VITALS: PULSE 68
[2017-11-01] VITALS (7 sets, daily range): BP systolic 131–183; BP diastolic 70–96; PULSE 53–81; RESP 16–20; TEMP 36.7–37.5; O2SAT 94–99
[2017-11-01] MEDS: Levothyroxine 125 MCG TAB PO (05:34)
--- NOTE | 2017-11-01 08:07 | PDOC.CMPRO ---
Date of Service: 11/01/17 Time of Service: 08:07 Care Management Progress Note S/O: Pt presented at interdisciplinary rounds. Danica is lying in bed when CM visits this morning. She is engaged in conversation and makes good eye contact. She is reportedly improving and is denying pain at this time. Danica stated that she would consider [facility] for rehab if needed, however [facility] would be her first choice. Referral to [facility] for rehab has been made. CM left voice mails for Leticia and Miriam at [facility]. Referral faxed to [facility]. Pt continues to have PT services while at [facility]. A: Danica is a 67-year-old female admitted for CVA. P: Danica will be discharged when medically ready per provider. Plan is to transfer to a facility for continued rehabilitation vs PT/OT home services. Danica's , Kevon, will transport pt via private vehicle when medically cleared per MD. CM will continue to provide support to patient, family and care team regarding discharge planning and disposition.
--- NOTE | 2017-11-01 08:13 | CMPROGNOTE_ITS ---
Date of Service: 11/01/17 Time of Service: 08:07 Care Management Progress Note S/O: Pt presented at interdisciplinary rounds. Danica is lying in bed when CM visits this morning. She is engaged in conversation and makes good eye contact. She is reportedly improving and is denying pain at this time. Danica stated that she would consider [facility] for rehab if needed, however [facility] would be her first choice. Referral to [facility] for rehab has been made. CM left voice mails for Leticia and Miriam at [facility]. Referral faxed to [facility]. Pt continues to have PT services while at [facility]. A: Danica is a 67-year-old female admitted for CVA. P: Danica will be discharged when medically ready per provider. Plan is to transfer to a facility for continued rehabilitation vs PT/OT home services. Daniac's , Kevon, will transport pt via private vehicle when medically cleared per MD. CM will continue to provide support to patient, family and care team regarding discharge planning and disposition.
[2017-11-01] MEDS: Lisinopril 5 MG TAB PO (08:25)
[2017-11-01] MEDS: Apixaban 5 MG TAB PO ×2 (08:26→19:41)
[2017-11-01] MEDS: Aspirin 81 MG CHEW PO (08:26)
[2017-11-01] MEDS: FLUoxetine 20 MG CAP PO (08:26)
[2017-11-01] MEDS: Normal Saline Flush 10 ML SYR IVP (08:28)
--- NOTE | 2017-11-01 09:12 | INPTTR_ITS ---
PHYSICAL THERAPY PROGRESS NOTE Date: 11/01/17 PRECAUTIONS: fall SUBJECTIVE: Danica reports that she is feeling better about things. She states she feels stronger, more balanced and she is beginning to remember things better. OBJECTIVE BED MOBILITY/TRANSFERS supine- sit: SBA Sit-stand: SBA Stand-sit: SBA GAIT Assistive Device FWW / none Weightbearing full Assist: SBA / CGA Distance: 300'/ 30' Deviation cues to negotiate right handed turns. THEREX: performed a global strength and conditioning routine while incorporating balance ex. STAIRS: negotiated 2 6steps and 3, 4 steps using both rails and CGA. ASSESSMENT: tolerated session well. Improvements noted functionally as well as cognitively. She followed directions much better today, able to follow 3 commands easily. Improvements also noted with balance and coordination. She did have a few balance checks during balance ex, but was able to correct herself independently. She was able to ambulate a short distance (30') without use of assistive device. No LOB balance noted however the process of walking was slower to her. She felt like she had to concentrate much harder to actually put one foot in front of the other. PLAN: referral made to [facility], but not sure when she will go. In the meantime will continue to work on her functional mobility and balance activities to her tolerance. TREATMENT CODES/TIME: 30 min. TPx1. TAx1.
--- NOTE | 2017-11-01 09:36 | PDOC.PROG_ITS ---
Date of Service: 11/01/17 Time of Service: 07:30 Assessment/Plan - Assessment/Plan (1) Stroke Plan: Continues to improve overall. Still has significant field cut on the right with some visual neglect leading to functional impairment particularly with the right hand. I think she will definitely benefit with continued PT and OT services. Continue antiplatelet and anticoagulant therapy and work on blood pressure control. Continue on high-dose statin. Continue to monitor for atrial dysrhythmia/A. fib on telemetry through the duration of her hospitalization and plan for extending monitor after discharge. (2) Hypertension Assessment: Blood pressures have been creeping up. Add back her outpatient dose of lisinopril. May need dose adjustments upward depending upon blood pressure. (3) Hypothyroidism Assessment: Stable on outpatient thyroid dose, no change. (4) Depression Assessment: Stable on outpatient dose of fluoxetine. History of Present Illness - History of Present Illness Chief Complaint: Left posterior cerebral ischemic stroke History of Present Illness: Mrs. Rm is now aware of her deficits in vision on the right side. She has been using her left hand for some activities because she says she cannot see well enough on the right side or have positional awareness of her right hand to use it as she did prior to her stroke. She can use her right hand for some activities and states it is getting a little better. Denies any paresthesias or pain. No choking episodes. No headache. No stomach upset. No problems with incontinence. Denies feeling any sad or or more discouraged but is somewhat anxious about what her long-term prognosis is. Still interested in going to a rehab facility. Sinus rhythm only on telemetry. Review of Systems - Review of Systems Other: No cough. No choking episodes. No night sweats. No abdominal pain. - Medications/Allergies Allergies/Adverse Reactions: Allergies Allergy/AdvReac Type Severity Reaction Status Date / Time acetaminophen [From Percocet] AdvReac Mild MADE HER Unverified 07/08/17 10:16 JITTERY oxycodone HCl [From Percocet] AdvReac Mild MADE HER Unverified 07/08/17 10:16 JITTERY Medications: Current Medications Al Hydrox/Mg Hydrox/Simethicone (Mylanta Liquid) 30 ml PO Q2H PRN PRN Apixaban (Eliquis) 5 mg PO BID NNAMDI Last Admin: 11/01/17 08:26 Dose: 5 mg Aspirin () 81 mg PO DAILY [facility] Last Admin: 11/01/17 08:26 Dose: 81 mg Atorvastatin Calcium (Lipitor) 80 mg PO QPM [facility] Last Admin: 10/31/17 19:52 Dose: 80 mg Cholecalciferol (Vitamin D) 1,000 units PO DAILY [facility] Last Admin: 11/01/17 08:26 Dose: 1,000 units Dimethicone/Zinc Oxide (Nash Protect Cream) 0 gm TP PRN PRN Docusate Sodium (Colace) 100 mg PO TID PRN PRN Fluoxetine HCl (Prozac) 20 mg PO DAILY [facility] Last Admin: 11/01/17 08:26 Dose: 20 mg Hydrochlorothiazide (Hydrodiuril) 12.5 mg PO QAM [facility] Last Admin: 11/01/17 08:27 Dose: 12.5 mg IV Miscellaneous Supplies () 1 each IV DIRECTED [facility] Levothyroxine Sodium (Levothroid) 125 mcg PO DAILY@0600 [facility] Last Admin: 11/01/17 05:34 Dose: 125 mcg Lisinopril (Prinivil) 5 mg PO DAILY [facility] Last Admin: 11/01/17 08:25 Dose: 5 mg Magnesium Hydroxide (Milk Of Magnesia) 30 ml PO DAILY PRN PRN Polyethylene Glycol (Miralax) 17 gm PO DAILY PRN PRN PRN Reason: Constipation Sodium Chloride (Saline Flush 10 Ml Syringe) 0 ml IVP PRN PRN Last Admin: 11/01/17 08:28 Dose: 20 ml Objective - Exam Vitals and I&O: Vital Signs Temp 36.9 C 11/01/17 07:10 Pulse 78 11/01/17 07:10 Resp 20 11/01/17 07:10 BP 183/96 11/01/17 07:10 Pulse Ox 99 11/01/17 07:10 Intake & Output 10/31/17 10/31/17 11/01/17 11:59 23:59 11:59 Intake Total 430 250 360 Balance 430 250 360 Intake: IV 10 Oral 420 250 360 Other: Urine Color Yellow Yellow Urine Appearance Clear Clear Urine Odor None None Comment voiding ad ashley in toilet this shift. voiding ad ashley in toilet this shift.1 sbg Voiding Methods Toilet Toilet Other physical findings: Lying in bed she is awake without dysarthria and has appropriate responses. She has some subtle problems with rapid movement of her right hand and when she holds her right arm over her head it tends to drift slightly. No obvious facial asymmetry this morning. Speech clear. No heart murmur. Lungs are clear. Normal bowel sounds. Antigravity power present in both lower extremities. Cold touch sensation intact. I do not get any asymmetry of reflexes this morning in the knees and has no response to plantar testing on either foot this morning. - Results Results: Laboratory Results WBC 5.96 k/cumm (4.4-10.8) 10/28/17 21:40 RBC 4.55 m/cumm (4.00-5.20) 10/28/17 21:40 Hgb 13.6 g/dL (12.0-15.5) 10/28/17 21:40 Hct 38.9 % (36.0-46.0) 10/28/17 21:40 MCV 85.5 fL (80-95) 10/28/17 21:40 MCH 29.9 pg (27.0-33.0) 10/28/17 21:40 MCHC 35.0 g/dL (32.0-36.0) 10/28/17 21:40 RDW 12.6 % (11.7-14.6) 10/28/17 21:40 Plt Count 279 x1000/uL (130-400) 10/28/17 21:40 MPV 8.7 fL (8.0-11.0) 10/28/17 21:40 Immature Gran % 0.3 10/28/17 21:40 Neutrophils % 56.6 10/28/17 21:40 Lymphocytes % 31.0 10/28/17 21:40 Monocytes % 8.4 10/28/17 21:40 Eosinophils % 3.2 10/28/17 21:40 Basophils % 0.5 10/28/17 21:40 Absolute Neutrophils 3.37 k/cumm (1.2-6.7) 10/28/17 21:40 Absolute Lymphocytes 1.85 k/cumm (1.2-3.4) 10/28/17 21:40 Absolute Monocytes 0.50 k/cumm (0.11-0.7) 10/28/17 21:40 Absolute Eosinophils 0.19 k/cumm (0.0-0.7) 10/28/17 21:40 Absolute Basophils 0.03 k/cumm (0.0-0.2) 10/28/17 21:40 PT 9.3 sec (9.3-10.8) 10/29/17 06:37 INR 1.0 (1.0-3.5) 10/29/17 06:37 APTT 47.5 sec (21.0-31.4) H D 10/30/17 06:15 Sodium 135 mmol/L (136-145) L 10/28/17 21:40 Potassium 3.8 mmol/L (3.5-5.1) 10/28/17 21:40 Chloride 97 mmol/L (98-107) L 10/28/17 21:40 Carbon Dioxide 26.9 mmol/L (21.0-32.0) 10/28/17 21:40 Anion Gap 11.1 mmol/L (3-11) H 10/28/17 21:40 BUN 12 mg/dL (7-18) 10/28/17 21:40 Creatinine 0.74 mg/dL (0.55-1.02) 10/28/17 21:40 Estimated GFR/1.73 m2 >= 60.00 (mL/min/1.73m2) 10/28/17 21:40 Glucose 95 mg/dL (70-100) 10/28/17 21:40 Hemoglobin A1c 5.7 % (4.5-6.2) 10/29/17 06:37 Calcium 8.7 mg/dL (8.5-10.1) 10/28/17 21:40 Magnesium 1.8 mg/dL (1.8-2.4) 10/28/17 21:40 Total Bilirubin 0.3 mg/dL (0.2-1.0) 10/28/17 21:40 AST 19 U/L (15-37) 10/28/17 21:40 ALT 29 U/L (12-78) 10/28/17 21:40 Alkaline Phosphatase 85 U/L (46-116) 10/28/17 21:40 Total Protein 7.2 g/dL (6.4-8.2) 10/28/17 21:40 Albumin 3.6 g/dL (3.4-5.0) 10/28/17 21:40 Triglycerides 134 mg/dL (30-150) 10/29/17 06:37 Total Cholesterol 243 mg/dL (50-200) H 10/29/17 06:37 LDL Cholesterol Direct 160 mg/dL (<100) H 10/29/17 06:37 HDL Cholesterol 62 mg/dL (40-60) H 10/29/17 06:37 TSH 0.75 uIU/mL (0.358-3.74) 10/29/17 06:37
[2017-11-01] MEDS: Atorvastatin 40 MG TAB 80 MG PO (19:41)
[2017-11-02 00:14] VITALS: BP 127/71; PULSE 60; RESP 18; TEMP 36.7; O2SAT 100
[2017-11-02 03:01] VITALS: PULSE 53
[2017-11-02] MEDS: Levothyroxine 125 MCG TAB PO (05:46)
[2017-11-02 07:15] VITALS: PULSE 73
[2017-11-02 07:22] VITALS: BP 131/76; PULSE 78; RESP 18; TEMP 36.1; O2SAT 97
[2017-11-02] MEDS: Aspirin 81 MG CHEW PO (08:08)
[2017-11-02] MEDS: Lisinopril 5 MG TAB PO (08:09)
[2017-11-02] MEDS: FLUoxetine 20 MG CAP PO (08:09)
[2017-11-02] MEDS: Apixaban 5 MG TAB PO (08:09)
--- NOTE | 2017-11-02 10:16 | INPTTR_ITS ---
PHYSICAL THERAPY PROGRESS NOTE Date: 11/02/17 PRECAUTIONS: Fall precautions, R visual field cut, R neglect, expressive aphasia SUBJECTIVE: Pt lying in bed visiting with agreeable to PT Session. Pt states she has been getting up and going to the bathroom by herself, pt advised to call nurse for assistance to avoid falls. Pt agreed. Discussion with patient and family regarding plan, [facility] If that is not an option, the next best recommended plan would be to go home with family support and start outpatient physical therapy for balance training, gait training and strengthening. OBJECTIVE: General: telemetry PAIN: no c/o pain BED MOBILITY/TRANSFERS: Supine-sit: HOB 30 degrees independent Sit-stand: SBA Bed-chair: CGA no device Stand-sit: SBA GAIT: No device: MinAx1 with use of gait belt. Pt with right adduction with swing phase and narrow base of support, decreased stride length and decreased dynamic balance with gait without use of assistive device. Single point cane: CGA 300ft, step through gait pattern, slightly decreased stride R LE, improved base of support R LE with use of cane vs. without assistive device. Pt returned to room and positioned up in chair with fall alarm activated. Pt instructed to continue to use FWW for gait mobility in home setting due to decreased balance with distraction and focusing on task, however she can begin gait training with cane with therapy. THEREX: NU STEP: 5 min reciprical level 3 BALANCE: 1. Static standing balance training: static standing with feet together x 1min with intermittent resistance by therapist all planes. 1/2 stance standing L/R 30 seconds each leg, single leg stance 10 seconds bilaterally 2. Dynamic standing balance: -Reaching for cones with R UE throughout front and right visual field 2x 10reps. Pt with improved finding of object throughout visual field -R UE reaching to floor to picker/puller cones 2x10 reps, no loss of balance with forward flexion to picker/puller cones -Weaving gait through 10 cones 2x10 reps. Decreased R LE coordination with weaving pattern -Single leg tap on cone bilaterally 2x 10 reps, weaker on R > L for single leg balance BALANCE: Static sitting normal Dynamic Sitting normal Static Standing fair Dynamic Standing poor ASSESSMENT: Pt with improved right visual field tracking and identification of objects more quickly, continues with word finding difficulty. Improved standing balance with gait progressing to gait training with cane with therapist, still safer with use of FWW when alone or in home setting. Continues with decreased coordination R LE and weakness R LE compared to left. Pt would be an excellent rehab candidate. PLAN: Progress R LE strength Progress static and dynamic balance training Progress Gait training TREATMENT CODES/TIME: 30min TAx1 TP X1 9:30 Key Dejesus PT
--- NOTE | 2017-11-02 10:53 | DISCHARGE ---
Discharge - Discharge Orders Referrals: Malik Pérez MD [Primary Care Provider] - 11/17/17 11:00 am Jami Posada MD [ [facility] STAFF PHYSICIAN] - 12/01/17 8:15 am - Discharge Plan Disposition: [facility] Condition: Improving Diet:: As Tolerated Equipment/Supplies:: No Equipment Needed Activity:: Activity as Tolerated - Instructions Micromedex Instructions: Ischemic Stroke (DC)
--- NOTE | 2017-11-02 11:19 | PDOC.DCSUM_ITS ---
Date of Service: 11/02/17 Time of Service: 10:57 Admit date 10/28/2017 transfer to [facility] 11/02/2017 Admitting diagnosis: TIA Discharge diagnoses: Left posterior cerebral artery occlusion, CVA with right visual field cut, transient receptive and expressive aphasia, right side neglect Hypertension Hypothyroidism Depression Hyperlipidemia Diagnostics: CT of brain without contrast no hemorrhage mass or midline shift, possible tiny bilateral lacunar infarcts basal ganglia. CT angiography 40-50% proximal right ICA stenosis 20% left proximal ICA stenosis occlusion versus high-grade stenosis left posterior cerebral artery MRI of the brain without enhancement acute infarct medial posterior temporal lobe, posterior thalamus and hippocampal body compatible with infarct in distribution of the left posterior cerebral artery Echocardiogram normal LV size and systolic function, hypokinesis noted in the basilar inferior myocardium. Mildly calcified mitral valve annulus normal RV size and function. Patent foramen ovale could not be excluded. Telemetry: Sinus rhythm, sinus bradycardia, no A. fib or ventricular dysrhythmias. Lab: BUN 12 creatinine 0.74. Hemoglobin A1c 5.7%. Total cholesterol 243 LDL 160 HDL 62. TSH 0.75. White count 5.69, hemoglobin 13.6 hematocrit 38.9, platelet count 279,000. Consultation: Dr. Jami Posada, neurology Ashley Brandt, speech pathologist Kye Dejesus, physical therapy Medication changes: Chondroitin sulfate discontinued. Aspirin, apixaban and atorvastatin started. Mrs. Rm is a 67-year-old community dwelling woman with a history of hypertension, hypothyroidism, osteoarthritis who presented to the emergency room with complaints of malaise and altered vision in the right side of the visual field. She did not have complaints of headache nausea vomiting. She did not have trouble with speech or swallowing and she denied any sensory changes. With her first evaluation in the ER, her symptoms had significantly improved, with no clinically detectable visual field cut. Her initial imaging studies did not show any acute infarct and she was admitted to telemetry with a diagnosis of TIA. Outpatient medication: Vitamin D3 1000 units daily Fluoxetine 20 mg daily Levothyroxine 125 mcg daily Lisinopril 5 mg daily Hydrochlorothiazide 12.5 mg daily Hospital course: She was admitted to the floor on telemetry and soon after presentation had recurrence of worsening visual field with associated expressive and receptive aphasia. Additional imaging studies were done with findings as above. She was loaded with Plavix and then started on a heparin drip. Neurology consultation was obtained with recommendations and transition to apixaban and wean off heparin. She had permissive hypertension initially and then resumption of, sequentially, of her outpatient medications with normotension by the time of discharge. She did not have any dysrhythmias on telemetry. She continued to have a right visual field cut with difficulty coordinating right hand movements because of either neglect or not seeing. She did not have any sensory deficit or significant motor deficit, perhaps a very subtle right hand and arm weakness. She has facial asymmetry which may be chronic stemming from a significant facial injury in the recent past. She did not have any trouble with swallowing. Her language deficits improved to the point where it was quite subtle, some difficulties recalling the names of objects or people. She worked well with physical therapy, progressing with her ability to transfer and ambulate. Initially she only used her left hand for feeding because she could not see adequately what her right hand was doing but this improved to the point where she could resume using her right hand more for feeding herself. She had no problems with incontinence. She did not have complaints of headache. She had no seizure. She had no bleeding complications with the initiation of anticoagulation. Family members were quite concerned that her depression may worsen with this stroke. She herself did not complain of worsening mood and she was kept on her usual dose of fluoxetine. She was maintained on her usual dose of thyroid replacement with a TSH within the population norm. On the day of transfer she is in good spirits, speaks in full sentences without dysarthria or hesitation in finding words. She has been afebrile throughout hospitalization. Blood pressure 131/76 pulse rate sleeping in the 50s, sinus, during the day and up in the 70s-80s. SaO2 97% on room air. She has subtle asymmetry of the face with less movement of the right lower face. There is a scab in the right cheek area but does not appear infected. Tongue and uvula midline. Lungs are clear. No heart murmur S3 or S4. Soft abdomen with no bruits and normal bowel sounds. She has good distal pulses no edema. 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 She may have a very slight pronator drift on the right. No evidence of asymmetric strength in the lower extremities to antigravity and strength testing. Symmetric DTRs. No response to Babinski testing in either foot. [facility]. She will be discharged with a [facility] heart monitor. Discharge medications: Apixaban 5 mg twice daily Aspirin 81 mg daily Atorvastatin 80 mg at bedtime Vitamin D3 1000 units daily Fluoxetine 20 mg daily Hydrochlorothiazide 12.5 mg daily Levothyroxine 125 mcg daily Lisinopril [address] Malik Pérez CC Dr. Jami Posada
--- NOTE | 2017-11-02 11:38 | PDOC.CMDIS ---
Date of Service: 11/02/17 Time of Service: 11:38 LACE Index Scoring Tool - Questions: Length of Stay (in days): 4 - 6 Acuity (Admit via E.D.?): Yes Comorbidities: Cerebrovascular Disease E.D. Visits: 1 - Answers: Total Score: 9 Risk of Readmission: Low Risk Care Management Discharge Reason for Hospitalization: CVA Discharge Plan: Danica is being discharged to [facility] today she and her spouse are agreeable to the transfer and are postive about the transition. CM reviewed what to expect, and who to ask for once they arrive at the facility. CM coordiantored SNF with admission coordinator at [facility]. Spouse will transport Danica to [facility] at time of discharge. CM provided contact informaiton for questions or concerns after discharge. Patient/Family Education Needs: Discharge education, limitations and follow up plan of care inluding ask me three discussion and self management. Reviewed plan for short rehab stay at [facility] and expectations set by facility including transition home with support 24 hours, and PT OT in the community. Services Needed at Discharge: Alf Facility
--- NOTE | 2017-11-02 12:02 | CMDISCH_ITS ---
Date of Service: 11/02/17 Time of Service: 11:38 LACE Index Scoring Tool - Questions: Length of Stay (in days): 4 - 6 Acuity (Admit via E.D.?): Yes Comorbidities: Cerebrovascular Disease E.D. Visits: 1 - Answers: Total Score: 9 Risk of Readmission: Low Risk Care Management Discharge Reason for Hospitalization: CVA Discharge Plan: Danica is being discharged to [facility] today she and her spouse are agreeable to the transfer and are postive about the transition. CM reviewed what to expect, and who to ask for once they arrive at the facility. CM coordiantored SNF with admission coordinator at [facility]. Spouse will transport Danica to [facility] at time of discharge. CM provided contact informaiton for questions or concerns after discharge. Patient/Family Education Needs: Discharge education, limitations and follow up plan of care inluding ask me three discussion and self management. Reviewed plan for short rehab stay at [facility] and expectations set by facility including transition home with support 24 hours, and PT OT in the community. Services Needed at Discharge: [facility] Facility
[2017-11-02 12:09] VITALS: PULSE 66
--- NOTE | 2017-11-02 12:35 | NUR.NOTE ---
called and gave Report to nurse Hurtado. [facility] Nursing Note:
--- NOTE | 2017-11-02 13:14 | INDS_ITS ---
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 Patient was seen for 5 PT visits. Progressed from SBA bed transfers to independent, from Rehan standing transfers to SBA, from Rehan gait with FWW 50ftx2 to CGA gait with cane 300ft, able to ascend/descend 5 steps with railings CGA. Pt is transferred to [facility] rehab program today for continued therapy GOALS Goals x1 week 1. Supine-sit independent 2. Sit-Supine: independent 3. Sit-Stand: SBA with FWW 4. Stand-sit SBA 5. Bed-chair SBA with FWW 6. Chair-bed SBA with FWW 7. Gait SBA with FWW 70ft 8. Stairs: up/down 2 steps with railing CGA Pt met goals # 1, 3, 4, 5, 6,7, 8 DISCHARGE RECOMMENDATIONS [facility] G Codes in the area mobility of walking and moving around: projected status GP [id number] . Discharge status (if discharging) GP [id number] Key Dejesus PT
--- NOTE | 2017-11-02 17:43 | PNE_ITS ---
SPEECH PATHOLOGY PROGRESS NOTE DATE: November 02, 2017 SUBJECTIVE: The patient is sitting up in bed. She greets me with much improved direct eye contact and is able to follow my movement from her left across midline partway to her right. OBJECTIVE: Nursing states that the patient, thus far, has not had any difficulties with swallowing, whether that be food, liquid, or pills. The patient is observed to take consecutive swallows by straw of a Thin liquid during today's visit and she shows no jessica signs and symptoms of aspiration/penetration. With regard to visual skills, she shows the followin) Cancellation skills of pictured objects: 30% accuracy. 2) Line bisection task: 100% accuracy. 3) Directional gaze to her right of midline: as described above. 4) Patient's use of visual strategy with verbal cueing (using her finger): 100% . With regard to receptive language, the following skills are noted: 1) Following three-step directions: 100%. 2) Answering of short non-contextual yes/no questions: 100%. 3) Identifying pictured objects with spoken word stimulation: 30%. 4) Auditory sequencing of three-part information: 50%. 5) Reading comprehension: a. Letter identification: 0%. b. Monosyllabic high-frequency words: 0%. With regard to expressive language the following skills are noted: 1) Word prediction for carrier phrases: 100%. 2) Word prediction for carrier sentences: 70%. 3) Confrontation naming of pictured (black on white) objects: 20%. 4) Conversational speech: Appears to be within normal limits with regard to any difficulty with word retrieval. ASSESSMENT: The patient shows significant improvement over what was noted when she was in the ICU at her Speech/Language evaluation visit of three days ago. However, she does still show significant deficits when it comes to her right visual neglect, receptive/cognitive language skills, and expressive/cognitive language skills. PLAN: Recommend continuation of Speech Therapy plan of care. The patient's is present for part of today's visit and he states that he hopes to find out today whether there will be a plan to transition his from this facility to [facility] for more intensive rehab. This is something that is viewed as quite beneficial in terms of her cognitive-linguistic skills. Thank you for referring this patient. Number of 15-minute blocks: 4
--- NOTE | 2017-11-27 10:20 | ZIOP_ITS ---
ZIO PATCH EVENT RECORDER STUDY DATE OF ANALYSIS/DICTATION November 26, 2017 DATE OF ENROLLMENT November 02, 2017 to November 16, 2017 INDICATION Transient cerebral ischemic event. PRESCRIBING PHYSICIAN Sarbjit Gentile M.D. REFERRING PHYSICIAN Malik Pérez M.D. FINDINGS 1. Baseline sinus rhythm, 41-128 beats per minute, average 66 beats per minute. 2. Rare PAC, less than 1%, 4 SVT runs, fastest 7 beats at 154 beats per minute, longest 11 beats at average rate of 129 beats per minute. Consistent with ectopic atrial tachycardia. No atrial fibrillat ion. 3. Rare PVC, less than 1%, no couplets, triplets or ventricular tachycardia. 4. No pauses. 5. No triggered events. 6. No symptoms recorded. Julissa Kate M.D. NOEL/mary T - 11/27/2017
== END 2017-11-02 12:45 | disposition short-term general hospital (02) | DRG 65 ==
LOC: MS 05-12 13:09 → ER 05-12 13:09
PROVIDERS: Family Medicine; Internal Medicine; Admitting Provider Internal Medicine; Emergency Provider Emergency Medicine; PCP General Practice; Visit Provider Internal Medicine
DX: I63.432 Cerebral infarction due to embolism of left posterior cerebral artery (principal); R41.4 Neurologic neglect syndrome; R47.01 Aphasia; H53.461 Homonymous bilateral field defects, right side; R41.841 Cognitive communication deficit; R26.81 Unsteadiness on feet; I65.23 Occlusion and stenosis of bilateral carotid arteries; I10 Essential (primary) hypertension; E03.9 Hypothyroidism, unspecified; F32.9 Major depressive disorder, single episode, unspecified; E78.5 Hyperlipidemia, unspecified; I34.0 Nonrheumatic mitral (valve) insufficiency
CPT/HCPCS: 83735; 85025; 36415 ×2; 36416; 82962; 99220; 84443; 85610; 85730 ×3; 99285; 93306 ×2; 99225; 99223; 99232; 99233; 80053; 80061; 83721; 83036; 92507; 70450; 93010; 70496; 70498; 70551; 97530 ×4; 97110 ×4; 97163; 0296T; J1650; G0378 ×2; 93005; 93225; 96105; 96372; J3490

== ENCOUNTER 2017-11-26 18:33 | Outpatient (CLI) | payer MEDICARE, SELFPAY | END 2017-11-26 18:53 | PROVIDERS: PCP General Practice; Referring Provider Internal Medicine; Visit Provider Internal Medicine Cardiovascular Disease | DX: G45.9 Transient cerebral ischemic attack, unspecified (principal); I47.1 Supraventricular tachycardia | CPT/HCPCS: 0298T ==

== ENCOUNTER → 2017-12-01 08:23 | Outpatient (BNVA) | payer MEDICARE, SELFPAY | PROVIDERS: PCP General Practice; Visit Provider Psychiatry & Neurology Neurology | DX: I63.9 Cerebral infarction, unspecified (principal); I66.22 Occlusion and stenosis of left posterior cerebral artery; I69.398 Other sequelae of cerebral infarction; H53.461 Homonymous bilateral field defects, right side; R41.3 Other amnesia; F32.9 Major depressive disorder, single episode, unspecified | CPT/HCPCS: 99214 ==

== ENCOUNTER 2018-01-25 13:36 | Outpatient (CLI) | payer MEDICARE, SELFPAY | END 2018-01-25 13:56 | PROVIDERS: PCP General Practice; Referring Provider Internal Medicine; Visit Provider Internal Medicine Cardiovascular Disease | DX: R69 Illness, unspecified (principal) ==

== ENCOUNTER 2018-02-08 10:27 | Outpatient (CLI) | payer MEDICARE, SELFPAY ==
[2018-02-08 11:45] LABS: Creatine Kinase 51 U/L (26-192)
== END 2018-02-08 10:47 ==
PROVIDERS: PCP General Practice; Visit Provider General Practice
DX: M79.10 Myalgia, unspecified site (principal)
CPT/HCPCS: 36415; 82550

== ENCOUNTER 2018-02-23 15:05 | Observation (INO) | payer MEDICARE, SELFPAY ==
[2018-02-23] VITALS (27 sets, daily range): BP systolic 124–172; BP diastolic 63–91; PULSE 57–74; RESP 12–19; TEMP 35.6–36.4; O2SAT 94–99
--- NOTE | 2018-02-23 15:27 | DI.CT_ITS ---
SYMPTOMS/DIAGNOSIS: RIGHT VISUAL FIELD CUT (UPPER), H/O CEREBROVASCULAR ACCIDENT NONCONTRAST HEAD CT: Comparison is made with October,. There is an old left occipital infarct , in the posterior cerebral artery distribution. No acute infarct, hemorrhage or mass is seen. There is mild patchiness in the white matter consistent with small vessel disease. The ventricles are normal in size. There is no significant atrophy. No skull fracture or sinus opacification is seen. IMPRESSION: Old left occipital infarct. No acute abnormality.
--- NOTE | 2018-02-23 15:28 | W.ED.GENAD ---
Discharge Plan Disposition Patient Disposition: [facility] INPATIENT Condition: Stable Discharge Details Chief Complaint: EyeProblem Clinical Impression: Acute CVA (cerebrovascular accident) Primary Care Provider: Malik Pérez ED Provider: Joce Brandon Home Meds and New Rx's Prescriptions: No Action fluoxetine 20 mg capsule 30 mg PO DAILY RF: 0 cholecalciferol (vitamin D3) 1,000 UNIT tablet 1,000 unit PO DAILY RF: 0 levothyroxine 75 MCG tablet 125 mcg PO DAILY RF: 0 hydrochlorothiazide 12.5 MG tablet 12.5 mg PO RF: 0 aspirin 81 MG tablet,chewable 81 mg PO DAILY RF: 0 rosuvastatin 5 mg Tablet 5 mg PO DAILY RF: 0 Medical Decision Making 59-year-old female with a history of previous posterior cerebral artery occlusion, resultant right homonymous hemianopia, who is followed by Dr. Kang at [facility]. He noted new right superior visual field cut yesterday morning. 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 Indeed she has a right superior visual field cut that appears to be new. She notes that she recently stopped taking her Eliquis proximately 3 weeks ago. Her exam is otherwise reassuring. 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 Patient placed on cardiac/vascular sonographer, IV access established, she is referred for stat CT scan of the head and laboratories. CT reveals old left occipital infarct but no acute findings. I discussed the case with the patient's neurologist Dr. Ventura Mix at [facility]. States that the patient had an unremarkable JADEN recently and that he just wrote her a letter today recommending that she have an MRI/MRA of the head and neck, which he now recommends be performed in conjunction with an overnight admission. He is available for consultation tomorrow and will be able to see the patient in follow-up as well. He recommends that we restart Eliquis. ECG Data Attestation: I personally reviewed and interpreted this ECG (s) as follows: Interpretation: Normal sinus rhythm, rate of 64, the QRS is narrow, there is no ST segment elevation HPI General Mode of arrival: ambulatory. Date/Time Provider Initiated Documentation: 02/23/18 15:07. Limitations to Documentation: no limitations. Information obtained by: patient. History of Present Illness 67 year old F presents to the emergency department with the chief complaint of Right visual field cut since yesterday morning, referred from optometry, described as mild, Quality is described as constant, and is localized to the eyes and right. Patient started experiencing this day(s) and it has been constant. No relieving factors improve symptom(s), No exacerbating factors reported . Patient notes no other symptoms.. HPI Narrative: 67-year-old female with previous CVA and resulting right homonymous hemianopia who presents stating that yesterday morning she developed right upper visual field deficit that is limited to the right eye. She was seen today by [facility] where a dilated exam was reported to not have any ocular findings. Case was discussed with the patient's neurologist Dr. Mix and patient referred to the ED. She will note she continues to take aspirin but stopped taking Eliquis approximately 3 weeks ago. She denies any other symptoms Related Data Home Medications Medication Instructions Recorded Confirmed cholecalciferol (vitamin D3) 1,000 unit PO DAILY 05/22/15 02/23/18 levothyroxine 125 mcg PO DAILY 06/04/15 02/23/18 hydrochlorothiazide 12.5 mg PO 10/29/17 12/02/17 aspirin 81 mg PO DAILY chew 11/02/17 02/23/18 fluoxetine 20 mg capsule 30 mg PO DAILY cap 12/02/17 02/23/18 rosuvastatin 5 mg PO DAILY 02/23/18 02/23/18 Previous Rx's Medication Instructions Recorded aspirin 81 mg PO DAILY chew 11/02/17 Allergies Allergy/AdvReac Type Severity Reaction Status Date / Time acetaminophen [From Percocet] AdvReac Mild MADE HER Unverified 02/23/18 15:16 JITTERY oxycodone HCl [From Percocet] AdvReac Mild MADE HER Unverified 02/23/18 15:16 JITTERY General Stated Complaint: EyeProblem WAYNE: 2 Review of Systems Review of Systems 8 systems reviewed and otherwise neg PFSH Osteoarthritis (Chronic) Hypothyroidism (Chronic) Depression (Chronic) Stroke (Chronic) Hypertension (Chronic) Hypercholesterolemia (Chronic) 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 Exam Narrative Exam Narrative: GEN: awake, alert, oriented 3. Pleasant, well groomed, interactive. HEAD: Normocephalic, atraumatic ENT: Mucous membranes moist, oropharynx unremarkable, External ear exam unremarkable EYES: PERRL, EOMI. patient will note right upper visual field cut and is able to see and correctly identify fingers in the inferonasal and inferior visual virk of the right eye, there is visual field cut present right temporal. Left eye visual virk unremarkable NECK: Full ROM, no VIRGILIO, no menigismus CHEST/RESP: Nontender, clear to auscultation bilateral, no wheeze/rhonchi/rales CARDIOVASCULAR: RRR, no murmur, rub deepa. 2+ Rad pulse bilateral ABDOMEN: Soft, nontender, no mass. +Bowel sounds EXT: Full ROM, no edema, no rash Neuro: Right eye visual field deficits as above, cranial nerves II through XII otherwise intact, conversant, interactive. Psych: Speech fluent, thoughts congruent, affect normal Course Vital Signs Temperature 36.4 C L 02/23/18 15:13 Pulse 69 02/23/18 15:13 Respiratory Rate 17 02/23/18 15:13 Blood Pressure 149/69 H 02/23/18 15:13 Pulse Oximetry 96 02/23/18 15:13 Temperature 36.4 C L 02/23/18 15:13 Temperature Source Skin 02/23/18 15:13 Pulse 69 02/23/18 15:13 Respiratory Rate 17 02/23/18 15:13 Respiratory Effort Non-Labored 02/23/18 15:13 Blood Pressure 149/69 H 02/23/18 15:13 Blood Pressure Position Supine 02/23/18 15:13 Pulse Oximetry 96 02/23/18 15:13 Oxygen Delivery Method Room Air 02/23/18 15:13 Oxygen Flow Rate 0 02/23/18 15:13 Pain Level 0 02/23/18 15:13
--- NOTE | 2018-02-23 15:32 | ED.GENADUL_ITS ---
Discharge Plan Disposition Patient Disposition: [facility] INPATIENT Condition: Stable Discharge Details Chief Complaint: EyeProblem Clinical Impression: Acute CVA (cerebrovascular accident) Primary Care Provider: Malik Pérez ED Provider: Joce Brandon Home Meds and New Rx's Prescriptions: No Action fluoxetine 20 mg capsule 30 mg PO DAILY RF: 0 cholecalciferol (vitamin D3) 1,000 UNIT tablet 1,000 unit PO DAILY RF: 0 levothyroxine 75 MCG tablet 125 mcg PO DAILY RF: 0 hydrochlorothiazide 12.5 MG tablet 12.5 mg PO RF: 0 aspirin 81 MG tablet,chewable 81 mg PO DAILY RF: 0 rosuvastatin 5 mg Tablet 5 mg PO DAILY RF: 0 Medical Decision Making 59-year-old female with a history of previous posterior cerebral artery occlusion, resultant right homonymous hemianopia, who is followed by Dr. Kang at [facility]. He noted new right superior visual field cut yesterday morning. 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 Indeed she has a right superior visual field cut that appears to be new. She notes that she recently stopped taking her Eliquis proximately 3 weeks ago. Her exam is otherwise reassuring. 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 Patient placed on surveillance monitor, IV access established, she is referred for stat CT scan of the head and laboratories. CT reveals old left occipital infarct but no acute findings. I discussed the case with the patient's neurologist Dr. Ventura Mix at [facility]. States that the patient had an unremarkable JADEN recently and that he just wrote her a letter today recommending that she have an MRI/MRA of the head and neck, which he now recommends be performed in conjunction with an overnight admission. He is available for consultation tomorrow and will be able to see the patient in follow-up as well. He recommends that we restart Eliquis. ECG Data Attestation: I personally reviewed and interpreted this ECG (s) as follows: Interpretation: Normal sinus rhythm, rate of 64, the QRS is narrow, there is no ST segment elevation HPI General Mode of arrival: ambulatory . Date/Time Provider Initiated Documentation: 02/23/18 15:07 . Limitations to Documentation: no limitations . Information obtained by: patient . History of Present Illness 67 year old F presents to the emergency department with the chief complaint of Right visual field cut since yesterday morning, referred from optometry, described as mild, Quality is described as constant, and is localized to the eyes and right. Patient started experiencing this day(s) and it has been constant. No relieving factors improve symptom(s), No exacerbating factors reported . Patient notes no other symptoms.. HPI Narrative: 67-year-old female with previous CVA and resulting right homonymous hemianopia who presents stating that yesterday morning she developed right upper visual field deficit that is limited to the right eye. She was seen today by [facility] where a dilated exam was reported to not have any ocular findings. Case was discussed with the patient's neurologist Dr. Mix and patient referred to the ED. She will note she continues to take aspirin but stopped taking Eliquis approximately 3 weeks ago. She denies any other symptoms Related Data Home Medications Medication Instructions Recorded Confirmed cholecalciferol (vitamin D3) 1,000 unit PO DAILY 05/22/15 02/23/18 levothyroxine 125 mcg PO DAILY 06/04/15 02/23/18 hydrochlorothiazide 12.5 mg PO 10/29/17 12/02/17 aspirin 81 mg PO DAILY chew 11/02/17 02/23/18 fluoxetine 20 mg capsule 30 mg PO DAILY cap 12/02/17 02/23/18 rosuvastatin 5 mg PO DAILY 02/23/18 02/23/18 Previous Rx's Medication Instructions Recorded aspirin 81 mg PO DAILY chew 11/02/17 Allergies Allergy/AdvReac Type Severity Reaction Status Date / Time acetaminophen [From Percocet] AdvReac Mild MADE HER Unverified 02/23/18 15:16 JITTERY oxycodone HCl [From Percocet] AdvReac Mild MADE HER Unverified 02/23/18 15:16 JITTERY General Stated Complaint: EyeProblem WAYNE: 2 Review of Systems Review of Systems 8 systems reviewed and otherwise neg PFSH Osteoarthritis (Chronic) Hypothyroidism (Chronic) Depression (Chronic) Stroke (Chronic) Hypertension (Chronic) Hypercholesterolemia (Chronic) 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 Exam Narrative Exam Narrative: GEN: awake, alert, oriented 3. Pleasant, well groomed, interactive. HEAD: Normocephalic, atraumatic ENT: Mucous membranes moist, oropharynx unremarkable, External ear exam unremarkable EYES: PERRL, EOMI. patient will note right upper visual field cut and is able to see and correctly identify fingers in the inferonasal and inferior visual virk of the right eye, there is visual field cut present right temporal. Left eye visual virk unremarkable NECK: Full ROM, no VIRGILIO, no menigismus CHEST/RESP: Nontender, clear to auscultation bilateral, no wheeze/rhonchi/rales CARDIOVASCULAR: RRR, no murmur, rub deepa. 2+ Rad pulse bilateral ABDOMEN: Soft, nontender, no mass. +Bowel sounds EXT: Full ROM, no edema, no rash Neuro: Right eye visual field deficits as above, cranial nerves II through XII otherwise intact, conversant, interactive. Psych: Speech fluent, thoughts congruent, affect normal Course Vital Signs Temperature 36.4 C L 02/23/18 15:13 Pulse 69 02/23/18 15:13 Respiratory Rate 17 02/23/18 15:13 Blood Pressure 149/69 H 02/23/18 15:13 Pulse Oximetry 96 02/23/18 15:13 Temperature 36.4 C L 02/23/18 15:13 Temperature Source Skin 02/23/18 15:13 Pulse 69 02/23/18 15:13 Respiratory Rate 17 02/23/18 15:13 Respiratory Effort Non-Labored 02/23/18 15:13 Blood Pressure 149/69 H 02/23/18 15:13 Blood Pressure Position Supine 02/23/18 15:13 Pulse Oximetry 96 02/23/18 15:13 Oxygen Delivery Method Room Air 02/23/18 15:13 Oxygen Flow Rate 0 02/23/18 15:13 Pain Level 0 02/23/18 15:13
[2018-02-23 15:51] LABS: Abs Immature Grans 0.02 k/cumm (0.0-0.09); Absolute Basophil Count 0.02 k/cumm (0.0-0.2); Absolute Eosinophil Count 0.13 k/cumm (0.0-0.7); Absolute Monocyte Count 0.46 k/cumm (0.11-0.7); Absolute Neutrophil Count 4.41 k/cumm (1.2-6.7); Basophils % 0.3; HCT 39.3 % (36.0-46.0); HGB 13.5 g/dL (12.0-15.5); Immature Grans % 0.3; Lymphocytes % 22.9; Mean Corp. HGB Concentration 34.4 g/dL (32.0-36.0); Mean Corpuscular Hemoglobin 30.3 pg (27.0-33.0); Mean Corpuscular Volume 88.3 fL (80-95); Mean Platelet Volume 8.8 fL (8.0-11.0); Neutrophils % 67.5; Platelet Count 298 x1000/uL (130-400); RBC 4.45 m/cumm (4.00-5.20); RBC Distribution Width 12.4 % (11.7-14.6); White Blood Cell Count 6.54 k/cumm (4.4-10.8)
[2018-02-23] MEDS: Normal Saline 1,000 ML 125 ML IV (15:59)
[2018-02-23 16:09] LABS: ALT 22 U/L (12-78); AST 15 U/L (15-37); Albumin 3.4 g/dL (3.4-5.0); Alkaline Phosphatase 87 U/L (46-116); Anion Gap 8.2 mmol/L (3-11); BUN 16 mg/dL (7-18); Bilirubin, Total 0.3 mg/dL (0.2-1.0); CO2 27.8 mmol/L (21.0-32.0); CREATININE 0.74 mg/dL (0.55-1.02); Calcium 8.9 mg/dL (8.5-10.1); Chloride 99 mmol/L (98-107); Glucose 119 mg/dL (70-100); Magnesium 1.9 mg/dL (1.8-2.4); Potassium 3.3 mmol/L (3.5-5.1); Sodium 135 mmol/L (136-145)
[2018-02-23 16:15] LABS: Troponin I < 0.02 ng/mL (0.00-0.06)
[2018-02-23] MEDS: Apixaban 5 MG TAB PO (16:37)
--- NOTE | 2018-02-23 18:21 | NUR.NOTE ---
Patient was brought to the department by ER nurse. She came on a stretcher she is conscious alert rational and oriented voiced no complaint at this time. Patient has decreased peripheral vision in the right eye more significantly than the left eye. Chest is clear throughout, telemetry in place. Dr. Pérez state to discontinue the Lactated Ringer at this time.Patient has a 20gauge branula to the right arm same patent and asymptomatic. Fingers are noted with with swelling in all joints, pat state she used to have regular shooting pain to them but that has not occured for some time now. abdomen soft non-tender Nil deformities to the extremities
--- NOTE | 2018-02-23 18:26 | HPE_ITS ---
Date of service: 02/23/18 Time of Service: 18:06 Assessment and Plan (1) Visual loss: Current visit: Yes Status: Acute Visual field cut. No doubt a cerebral event. Interestingly this is in the same distribution as her earlier event, perhaps there is some extension, though it is not entirely clear that we can objectively distinguish the two. Moreover, despite the absence of any documented atrial fibrillation there is a suggestion here of clinical decline off of Eliquis and improvement on coagulation At this point I cannot say that I am convinced that she needs it but certainly for now I think the wisest course is to continue more or less indefinitely unless there are indications otherwise. For now will do neuro checks and repeat MRI in the morning. We will continue usual medications as is in the meantime History of Present Illness Chief Complaint: Visual loss Narrative: Patient is a 67-year-old female with history of stroke in October 2017 presenting with aphasia and right visual field cut. She was initially treated with dual antiplatelet therapy. However, she had progression of symptoms while in hospital and was anticoagulated. Note that there was noatrial fibrillation identified at that time nor has there been since, including 2 week monitor. approximately 3 weeks ago her neurologist at [facility] deemed that that there was no indication for anticoagulation and she was continued on aspirin alone approximately 24 hours ago she noticed what she describes as a graying of her vision on the right. She refers this to her right eye though in fact she never tested each eye separately. She was seen urgently by her day care center director earlier today and there was no acute ocular abnormalities. Consultation was then obtained with her neurologist in [facility] and it was decided to resume the Eliquis and she was advised to come to the emergency room. in the emergency room head CT showed only old left occipital infarct. She was admitted for further evaluation and management. Past medical history: Stroke, osteoarthritis, hypothyroid, depression, hypertension, hyperlipidemia Allergies: Percocet, Lipitor (she is able to tolerate low-dose simvastatin) Medications aspirin 81 daily vitamin D Prozac 30 daily hydrochlorothiazide 12.5 daily Synthroid 125 daily simvastatin 10 daily (note that the record indicates Crestor, this is incorrect) Physical exam: Blood pressure 140/73, pulse 57, respirations 18, temp 36.4 ,O2 sat 95%. HEENT shows no signs of head trauma. Neck is supple. Lungs clear. Heart regular rate and rhythm without murmurs rubs or gallops. Abdomen soft nontender. Pelvic and rectal exams deferred. Extremities without edema. Neurologic patient is alert and oriented x3, there are occasional word finding difficulties. Pupils approximately 6 mm and reactive (note recent dilation at day care center director). Extraocular movements are intact there is a field cut in the right upper outer quadrant. There is no facial asymmetry. Tongue protrudes in the midline. Motor exam is 5/5 throughout. Toes are downgoing. Laboratory: White count 6.5 hematocrit 39 platelets 208 sodium 135 potassium 3.3 chloride 99 bicarb 27 BUN 16 creatinine 0.7 glucose 119. EKG shows sinus rhythm, normal EKG head CT shows old occipital temporal infarct on the left Review of Systems Review of Systems All systems reviewed & are unremarkable except as noted in HPI and below PFSH Osteoarthritis (Chronic) Hypothyroidism (Chronic) Depression (Chronic) Stroke (Chronic) Hypertension (Chronic) Hypercholesterolemia (Chronic) 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 Meds Home Medications Medication Instructions Recorded Confirmed Type cholecalciferol (vitamin D3) 1,000 unit PO DAILY 05/22/15 02/23/18 History levothyroxine 125 mcg PO DAILY 06/04/15 02/23/18 History hydrochlorothiazide 12.5 mg PO 10/29/17 12/02/17 History aspirin 81 mg PO DAILY chew 11/02/17 02/23/18 Rx fluoxetine 20 mg capsule 30 mg PO DAILY cap 12/02/17 02/23/18 History rosuvastatin 5 mg PO DAILY 02/23/18 02/23/18 History Allergies Allergy/AdvReac Type Severity Reaction Status Date / Time acetaminophen [From Percocet] AdvReac Mild MADE HER Unverified 02/23/18 15:16 JITTERY oxycodone HCl [From Percocet] AdvReac Mild MADE HER Unverified 02/23/18 15:16 JITTERY Exam Narrative Exam Narrative: per HPI Results Labs : 02/23/18 15:35 02/23/18 15:35 Laboratory Results - last 24 hr 02/23/18 02/23/18 02/23/18 15:35 15:35 15:35 WBC 6.54 RBC 4.45 Hgb 13.5 Hct 39.3 MCV 88.3 MCH 30.3 MCHC 34.4 RDW 12.4 Plt Count 298 MPV 8.8 Immature Gran % 0.3 Neutrophils % 67.5 Lymphocytes % 22.9 Monocytes % 7.0 Eosinophils % 2.0 Basophils % 0.3 Absolute Neutrophils 4.41 Absolute Lymphocytes 1.50 Absolute Monocytes 0.46 Absolute Eosinophils 0.13 Absolute Basophils 0.02 PT 10.0 INR 1.0 Sodium 135 L Potassium 3.3 L Chloride 99 Carbon Dioxide 27.8 Anion Gap 8.2 BUN 16 Creatinine 0.74 Estimated GFR/1.73 m2 >= 60.00 Glucose 119 H Calcium 8.9 Magnesium 1.9 Total Bilirubin 0.3 AST 15 ALT 22 Alkaline Phosphatase 87 Troponin I < 0.02 Total Protein 7.0 Albumin 3.4 Last Vital Signs Temp 36.4 C L 02/23/18 15:13 Pulse 57 L 02/23/18 17:34 Resp 19 02/23/18 17:34 BP 140/73 02/23/18 17:34 Pulse Ox 95 02/23/18 17:34
[2018-02-23] MEDS: Potassium Chloride 20 MEQ TABCR PO (19:05)
--- NOTE | 2018-02-23 21:59 | NUR.NOTE ---
Dr. Pérez state to discontinue the normal saline infusion at 125/hr upon assessment of patient initial admission to the unit.
[2018-02-24 04:30] VITALS: BP 137/82; PULSE 58; RESP 18; TEMP 36.6; O2SAT 98
[2018-02-24] MEDS: Levothyroxine 125 MCG TAB PO (06:38)
[2018-02-24 07:13] VITALS: PULSE 60
[2018-02-24 07:28] LABS: Abs Immature Grans 0.01 k/cumm (0.0-0.09); Absolute Basophil Count 0.02 k/cumm (0.0-0.2); Absolute Eosinophil Count 0.14 k/cumm (0.0-0.7); Absolute Monocyte Count 0.38 k/cumm (0.11-0.7); Absolute Neutrophil Count 3.65 k/cumm (1.2-6.7); Basophils % 0.4; Eosinophils % 2.6; HCT 42.8 % (36.0-46.0); HGB 14.4 g/dL (12.0-15.5); Immature Grans % 0.2; Lymphocytes % 20.8; Mean Corp. HGB Concentration 33.6 g/dL (32.0-36.0); Mean Corpuscular Hemoglobin 30.1 pg (27.0-33.0); Mean Corpuscular Volume 89.5 fL (80-95); Mean Platelet Volume 9.1 fL (8.0-11.0); Monocytes % 7.2; Neutrophils % 68.8; Platelet Count 296 x1000/uL (130-400); RBC 4.78 m/cumm (4.00-5.20); RBC Distribution Width 12.7 % (11.7-14.6)
[2018-02-24 07:36] LABS: Anion Gap 10.3 mmol/L (3-11); BUN 14 mg/dL (7-18); CO2 29.7 mmol/L (21.0-32.0); CREATININE 0.58 mg/dL (0.55-1.02); Chloride 100 mmol/L (98-107); Glucose 100 mg/dL (70-100); Potassium 4.2 mmol/L (3.5-5.1); Sodium 140 mmol/L (136-145)
[2018-02-24 07:45] VITALS: BP 136/77; PULSE 62; RESP 18; TEMP 36.7; O2SAT 100
--- NOTE | 2018-02-24 07:55 | PDOC.CMIN ---
- If Service Date Differs Date of service: 02/24/18 Time of Service: 07:55 Care Management Initial Assess REASON FOR HOSPITALIZATION:: Visual loss PAST MEDICAL HISTORY/PAST SURGICAL HISTORY:: Osteoarthritis (Chronic). Hypothyroidism (Chronic). Depression (Chronic). Stroke (Chronic). Hypertension (Chronic). Hypercholesterolemia (Chronic). 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 H/O total knee replacement (Acute). S/P oophorectomy (Acute). Status post total hip replacement, right (Acute) PREVIOUS FUNCTIONAL STATUS/SOCIAL/FAMILY SUPPORTS:: Danica resides with her Kevon in [place]. She states that she has one daughter, Lisa, and a son whom are very supportive. Danica is independent at baseline, she drives around her house, however due to vision problems she does not drive on the main road. Danica's is her primary support and he assists with transportation. CURRENT FUNCTIONAL STATUS:: Currently Danica is sitting up in bed when this hand sign writer visits. Her Kevon is present and open to discussion. ADVANCE DIRECTIVES:: None on file Has patient been provided with information about the portal?: Yes Did the patient sign up for the portal?: No (already signed up) CODE STATUS:: Full Code INSURANCE COVERAGE / FINANCIAL ISSUES:: Medicare CURRENT HOME/COMMUNITY SERVICES/EQUIPMENT:: Currently Danica has home health PT/ST at home. She does not use any equipment at home at this time. PRIMARY CARE PHYSICIAN:: Dr. Pérez POTENTIAL DISCHARGE NEEDS:: F/U appointment with PCP. Resume home health PT/ST services PATIENT/FAMILY EDUCATION NEEDS:: Review DC instructions, any limitations, and ongoing DC planning discussion. Discuss 'Ask Me Three' ANTICIPATED BARRIERS TO DISCHARGE:: None identified at this time TRANSPORTATION:: Via private vehicle with Kevon PLAN:: Danica will return home with continued home health PT/ST services. Kevon requested information in regards to the observation stay and what is not covered which CM provided. Danica's Kevon to transport when ready.
[2018-02-24 08:51] VITALS: PULSE 76
[2018-02-24] MEDS: Aspirin 81 MG CHEW PO (08:57)
[2018-02-24] MEDS: Apixaban 5 MG TAB PO (08:57)
[2018-02-24] MEDS: FLUoxetine 10 MG TAB 30 MG PO (08:58)
--- NOTE | 2018-02-24 09:42 | DI.MRI_ITS ---
SYMPTOM/DIAGNOSIS: ACUTE CVA, VISUAL DISTURBANCES BRAIN MRI: Comparison examination is 10/29/17. There is an area of encephalomalacia involving the left occipital lobe consistent with an old infarct. The ventricles and sulci are consistent with the patient's age. There are areas of T 2 hyperintensity in the white matter on the FLAIR and T 2 weighted images most consistent with small vessel ischemic disease. The diffusion weighted images show no evidence of an acute infarct. No intracranial hemorrhage is identified. The ventricles are intact. The basilar cisterns are patent. No acute midline shift or mass effect is appreciated. The visualized paranasal sinuses are clear. The orbits and retro-orbital soft tissues appear grossly unremarkable. IMPRESSION: 1. Old left occipital infarct. This was present on the MRI of the brain from 10/29/17. 2. Mild cerebral atrophy and small vessel ischemic disease. 3. No evidence of an acute infarct. MRA OF [place]: The internal carotid arteries are unremarkable without stenosis, occlusion or aneurysm. The anterior cerebral arteries are unremarkable. No evidence of occlusion, aneurysm or significant stenosis. The middle cerebral arteries are unremarkable without evidence of occlusion, aneurysm or significant stenosis. The right posterior cerebral artery arises from the posterior communicating artery. The left posterior cerebral artery appears grossly unremarkable. The basilar artery and distal vertebral arteries are unremarkable without occlusion, dissection, aneurysm or significant stenosis. IMPRESSION: No evidence of significant stenosis or occlusion.
--- NOTE | 2018-02-24 11:08 | INITIAL_ITS ---
- If Service Date Differs Date of service: 02/24/18 Time of Service: 07:55 Care Management Initial Assess REASON FOR HOSPITALIZATION:: Visual loss PAST MEDICAL HISTORY/PAST SURGICAL HISTORY:: Osteoarthritis (Chronic). Hypothyroidism (Chronic). Depression (Chronic). Stroke (Chronic). Hypertension (Chronic). Hypercholesterolemia (Chronic). 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 H/O total knee replacement (Acute). S/P oophorectomy (Acute). Status post total hip replacement, right (Acute) PREVIOUS FUNCTIONAL STATUS/SOCIAL/FAMILY SUPPORTS:: Danica resides with her Kevon in [place]. She states that she has one daughter, Lisa, and a son whom are very supportive. Danica is independent at baseline, she drives around her house, however due to vision problems she does not drive on the main road. Danica's is her primary support and he assists with transportation. CURRENT FUNCTIONAL STATUS:: Currently Danica is sitting up in bed when this investment underwriter visits. Her Kevon is present and open to discussion. ADVANCE DIRECTIVES:: None on file Has patient been provided with information about the portal?: Yes Did the patient sign up for the portal?: No (already signed up) CODE STATUS:: Full Code INSURANCE COVERAGE / FINANCIAL ISSUES:: Medicare CURRENT HOME/COMMUNITY SERVICES/EQUIPMENT:: Currently Danica has home health PT/ ST at home. She does not use any equipment at home at this time. PRIMARY CARE PHYSICIAN:: Dr. Pérez POTENTIAL DISCHARGE NEEDS:: F/U appointment with PCP. Resume home health PT/ST services PATIENT/FAMILY EDUCATION NEEDS:: Review DC instructions, any limitations, and ongoing DC planning discussion. Discuss 'Ask Me Three' ANTICIPATED BARRIERS TO DISCHARGE:: None identified at this time TRANSPORTATION:: Via private vehicle with Kevon PLAN:: Danica will return home with continued home health PT/ST services. Kevon requested information in regards to the observation stay and what is not covered which CM provided. Danica's Kevon to transport when ready.
--- NOTE | 2018-02-24 12:03 | PT.INIE ---
Date of service: 02/24/18 Time of Service: 11:11 PT Notes Date: 02/24/2018 Referring Doctor: Kushal Lutz PT Orders: PT Consult:' Acute CVA Precautions: decreased R visual field PATIENT PROFILE/ADMITTING DIAGNOSIS: Pt is a 67yr old female presenting with vision changes, right visual field cut PMHX: hypertension, mood disorder, hyperlipidemia, hypothyroidism, osteoarthritis, oophorectomy, Achilles tendon repair, right total hip arthroplasty, right total knee arthroplasty, bilateral hand arthritis Social History/Home Situation: Lives with in a house, 2 steps with railing to enter, flight of steps inside and one step into living room. Can stay on first floor at home. Baseline mobility independent gait with no device, independent with ADLS Equipment owned/DME: [facility] SUBJECTIVE: Pt lying in bed visiting with family, reports she has a shadow in the center of her right eye, but other than that she feels she is at her baseline level of mobility. Is not aware of any weakness or deficits with balance. OBJECTIVE: Mental Status: A& O x3 I like use phalanx feet this is a 50 Pain: no c/o pain BED MOBILITY/TRANSFERS: Supine-sit: Independent Sit to supine: Independent Sit to stand: Independent Stand to sit: Independent GAIT: Independent gait without assistive device 300 feet, no loss of balance. STAIRS: Up/down 5 steps with single railing, independent step over step sequence. BALANCE: Static sitting normal Dynamic Sitting normal Static Standing good Dynamic Standing good SPECIAL TESTS: Mobility Limitations Standardized Measure [facility] AM -PAC ?6 clicks? 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 Patient is independent with transfers and gait without assistive device, independent up and down stairs, without strength deficits. Patient is at functional level to return to home setting, skilled PT therapy services not indicated. Patient is assessed as a * Low 64096 complexity based on the following: History: See above Examination: See above Presentation: Stable Decision Making: AMPAC score CMS score:0% GOALS Not applicable PLAN OF CARE/TREATMENT PLAN: PT eval only DISCHARGE RECOMMENDATIONS Home with family TREATMENT TIME/MINUTES/CODES 15 minutes IE 11:10 AM G Codes in the area mobility of walking and moving around: current status [id number] _C H projected status GP [id number] H discharge status (if discharging) GP [id number] Key Dejesus PT Disclaimer: This note was created using [employer] voice recognition software. It was reviewed for major content. However, there may be multiple small discrepancies and errors due to the voice recognition aspects of the software.
--- NOTE | 2018-02-24 12:09 | IN_ITS ---
Date of service: 02/24/18 Time of Service: 11:11 PT Notes Date: 02/24/2018 Referring Doctor: Kushal Lutz PT Orders: PT Consult:' Acute CVA Precautions: decreased R visual field PATIENT PROFILE/ADMITTING DIAGNOSIS: Pt is a 67yr old female presenting with vision changes, right visual field cut PMHX: hypertension, mood disorder, hyperlipidemia, hypothyroidism, osteoarthritis, oophorectomy, Achilles tendon repair, right total hip arthroplasty, right total knee arthroplasty, bilateral hand arthritis Social History/Home Situation: Lives with in a house, 2 steps with railing to enter, flight of steps inside and one step into living room. Can stay on first floor at home. Baseline mobility independent gait with no device, independent with ADLS Equipment owned/DME: FWW SUBJECTIVE: Pt lying in bed visiting with family, reports she has a shadow in the center of her right eye, but other than that she feels she is at her baseline level of mobility. Is not aware of any weakness or deficits with balance. OBJECTIVE: Mental Status: A& O x3 I like use phalanx feet this is a 50 Pain: no c/o pain BED MOBILITY/TRANSFERS: Supine-sit: Independent Sit to supine: Independent Sit to stand: Independent Stand to sit: Independent GAIT: Independent gait without assistive device 300 feet, no loss of balance. STAIRS: Up/down 5 steps with single railing, independent step over step sequence. BALANCE: Static sitting normal Dynamic Sitting normal Static Standing good Dynamic Standing good SPECIAL TESTS: Mobility Limitations Standardized Measure [facility] AM -PAC ?6 clicks? 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 Patient is independent with transfers and gait without assistive device, independent up and down stairs, without strength deficits. Patient is at functional level to return to home setting, skilled PT therapy services not indicated. Patient is assessed as a * Low 85581 complexity based on the following: History: See above Examination: See above Presentation: Stable Decision Making: AMPAC score CMS score:0% GOALS Not applicable PLAN OF CARE/TREATMENT PLAN: PT eval only DISCHARGE RECOMMENDATIONS Home with family TREATMENT TIME/MINUTES/CODES 15 minutes IE 11:10 AM G Codes in the area mobility of walking and moving around: current status [id number] _C H projected status GP [id number]_R H discharge status (if discharging) GP [id number] Key Dejesus PT Disclaimer: This note was created using [employer] voice recognition software. It was reviewed for major content. However, there may be multiple small discrepancies and errors due to the voice recognition aspects of the software.
--- NOTE | 2018-02-24 13:52 | W.PM.DS.N ---
Date of service: 02/24/18 Time of Service: 13:52 DS: Diagnosis Discharge Diagnosis (1) Visual changes: Status: Acute Discharge Plan Disposition Patient Disposition: HOME Condition: Stable Discharge Details Reason For Visit: ACUTE CVA Admit Date/Time: 02/23/18 16:43 Admit Provider: Kushal Lutz Attending Provider: Kushal Lutz Primary Care Provider: Malik Pérez Hospital Course Hospital Course: 67-year-old female with a recent history of CVA admitted on 02/23 from [facility] Emergency Department with reported change in vision involving her right eye. Mrs. Rm suffered an acute left sided occipital stroke in October of this year , accompanied by aphasia, reported weakness, and a right sided hemianopsia. She was initially treated with dual antiplatelet therapy. However, she had progression/recurrence of symptoms while in the hospital and was anticoagulated. No evidence of arrhythmia including Afib was found at that time, and further monitoring with a 2 week monitor failed to show any abnormalities as well. Approximately 3 weeks ago her neurologist Dr. Mix at [facility] discontinued her anticoagulation noting no indication for anticoagulation, and as the patient was having difficulty affording Apixiban anyway this was discontinued and she was continued on aspirin alone. Approximately one day prior to her admission the patient noted visual changes that she describes as a graying of her vision on the right. She refers to this as different than her prior symptoms, indicating a 'floating guadalupe triangle' in her right visual field. She was seen urgently by her nurse ob and had no acute ocular abnormalities. She was evaluated in the emergency department, and following a negative head CT and phone consultation with her neurologist in [facility] it was decided to resume anticoagulation and refer the patient for admission for further evaluation with an MRI. Hospital Course: (1) Vision Change Other than the prior mentioned visual changes the patient has experienced no other visual or neurologic symptoms. She was maintained on telemetry, and an MRI/MRA of the brain was obtained and negative for any acute changes. Imaging were forwarded to [facility] and reviewed by Dr. Mix, noting no acute changes as well. The patient is deemed safe for discharge, with follow-up with cardiology being scheduled for consideration for an implantable loop recorder. Of note, JADEN obtained on 02/19 was interpreted as negative as well. Advised to remain off Apixaban and resume daily antiplatelet therapy with low dose aspirin only. Home Meds and New Rx's Prescriptions: Continue fluoxetine 20 mg capsule 30 mg PO DAILY RF: 0 cholecalciferol (vitamin D3) 1,000 UNIT tablet 1,000 unit PO DAILY RF: 0 levothyroxine 75 MCG tablet 125 mcg PO DAILY RF: 0 hydrochlorothiazide 12.5 MG tablet 12.5 mg PO RF: 0 aspirin 81 MG tablet,chewable 81 mg PO DAILY RF: 0 rosuvastatin 5 mg Tablet 5 mg PO DAILY RF: 0 Discharge Instructions Activity:: Activity as Tolerated Equipment/Supplies:: No Equipment Needed Diet:: Heart Healthy Discharge Orders Discharge Orders: Discharge Order (Routine); Ordered 02/24/18 Ordered By: Kushal Lutz Exam Narrative Exam Narrative: General: Patient appears comfortable, AAOX3, NAD Neck: Supple CV: Regular, nontachycardic, S1S2, No rubs, murmurs, or gallops. Pulmonary: Clear to auscultation bilaterally, no crackles, wheezing, or rhonchi Abdomen: + Bowel Sounds, soft, nontender, nondistended Vascular: No lower extremity edema Neurologic: CN II-XII grossly intact. No focal deficits. Psych: Normal mood and affect. DS: Data Vitals/I&O Vitals and I&O: Vital Signs Temperature 36.7 C 02/24/18 07:45 Temperature Source Tympanic 02/24/18 07:45 Pulse 76 02/24/18 08:51 Pulse Rhythm Regular 02/23/18 23:25 Pulse 58 L 02/23/18 17:20 Respiratory Rate 18 02/24/18 07:45 Respiratory Effort 02/23/18 23:25 Respiratory Depth Normal 02/23/18 23:25 Respiratory Pattern Normal 02/23/18 23:25 Blood Pressure 136/77 02/24/18 07:45 Blood Pressure Mean 90 02/23/18 17:16 Blood Pressure Position Supine 02/23/18 15:13 Pulse Oximetry 100 02/24/18 07:45 Oxygen Delivery Method Room Air 02/24/18 07:45 Oxygen Flow Rate 0 02/24/18 07:45 Pain Level 0 02/24/18 07:45 Comment 02/24/18 07:45 Intake & Output 02/23/18 02/24/18 02/24/18 23:59 11:59 23:59 Intake Total 100 / 100 910 / 910 Balance 100 / 100 910 / 910 Weight 69.4 kg Intake: IV 100 / 100 Oral 910 / 910 Other: Comment VOID X 1 IN TOILET AND FLUSHED VOID X 1 IN TOILET Voiding Methods Toilet Toilet Completed studies during hospitalization [Text1]: Exam(s) 02/24/2018 a MRI:MR angio brain wo a MRI:MR brain wo SYMPTOM/DIAGNOSIS: ACUTE CVA, VISUAL DISTURBANCES BRAIN MRI: Comparison examination is 10/29/17. There is an area of encephalomalacia involving the left occipital lobe consistent with an old infarct. The ventricles and sulci are consistent with the patient's age. There are areas of T 2 hyperintensity in the white matter on the FLAIR and T 2 weighted images most consistent with small vessel ischemic disease. The diffusion weighted images show no evidence of an acute infarct. No intracranial hemorrhage is identified. The ventricles are intact. The basilar cisterns are patent. No acute midline shift or mass effect is appreciated. The visualized paranasal sinuses are clear. The orbits and retro-orbital soft tissues appear grossly unremarkable. IMPRESSION: 1. Old left occipital infarct. This was present on the MRI of the brain from 10/29/17. 2. Mild cerebral atrophy and small vessel ischemic disease. 3. No evidence of an acute infarct. MRA OF [place] OF [place]: The internal carotid arteries are unremarkable without stenosis, occlusion or aneurysm. The anterior cerebral arteries are unremarkable. No evidence of occlusion, aneurysm or significant stenosis. The middle cerebral arteries are unremarkable without evidence of occlusion, aneurysm or significant stenosis. The right posterior cerebral artery arises from the posterior communicating artery. The left posterior cerebral artery appears grossly unremarkable. The basilar artery and distal vertebral arteries are unremarkable without occlusion, dissection, aneurysm or significant stenosis. IMPRESSION: No evidence of significant stenosis or occlusion. Exam(s) 02/23/[address]:CT head - stroke protocol SYMPTOMS/DIAGNOSIS: RIGHT VISUAL FIELD CUT (UPPER), H/O CEREBROVASCULAR ACCIDENT NONCONTRAST HEAD CT: Comparison is made with October,. There is an old left occipital infarct, in the posterior cerebral artery distribution. No acute infarct, hemorrhage or mass is seen. There is mild patchiness in the white matter consistent with small vessel disease. The ventricles are normal in size. There is no significant atrophy. No skull fracture or sinus opacification is seen. IMPRESSION: Old left occipital infarct. No acute abnormality. Labs on day of discharge: Labs from last 24 hours 02/24/18 02/24/18 02/23/18 06:20 06:20 15:35 WBC 5.30 RBC 4.78 Hgb 14.4 Hct 42.8 MCV 89.5 MCH 30.1 MCHC 33.6 RDW 12.7 Plt Count 296 MPV 9.1 Immature Gran % 0.2 Neutrophils % 68.8 Lymphocytes % 20.8 Monocytes % 7.2 Eosinophils % 2.6 Basophils % 0.4 Absolute Neutrophils 3.65 Absolute Lymphocytes 1.10 L Absolute Monocytes 0.38 Absolute Eosinophils 0.14 Absolute Basophils 0.02 PT 10.0 INR 1.0 Sodium 140 Potassium 4.2 D Chloride 100 Carbon Dioxide 29.7 Anion Gap 10.3 BUN 14 Creatinine 0.58 Estimated GFR/1.73 m2 >= 60.00 Glucose 100 Calcium 9.0 Magnesium 2.0 Total Bilirubin AST ALT Alkaline Phosphatase Troponin I Total Protein Albumin 02/23/18 02/23/18 15:35 15:35 WBC 6.54 RBC 4.45 Hgb 13.5 Hct 39.3 MCV 88.3 MCH 30.3 MCHC 34.4 RDW 12.4 Plt Count 298 MPV 8.8 Immature Gran % 0.3 Neutrophils % 67.5 Lymphocytes % 22.9 Monocytes % 7.0 Eosinophils % 2.0 Basophils % 0.3 Absolute Neutrophils 4.41 Absolute Lymphocytes 1.50 Absolute Monocytes 0.46 Absolute Eosinophils 0.13 Absolute Basophils 0.02 PT INR Sodium 135 L Potassium 3.3 L Chloride 99 Carbon Dioxide 27.8 Anion Gap 8.2 BUN 16 Creatinine 0.74 Estimated GFR/1.73 m2 >= 60.00 Glucose 119 H Calcium 8.9 Magnesium 1.9 Total Bilirubin 0.3 AST 15 ALT 22 Alkaline Phosphatase 87 Troponin I < 0.02 Total Protein 7.0 Albumin 3.4 PFSH Osteoarthritis (Chronic) Hypothyroidism (Chronic) Depression (Chronic) Stroke (Chronic) Hypertension (Chronic) Hypercholesterolemia (Chronic) 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 Social ETOH only. 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
--- NOTE | 2018-02-24 14:03 | DSE_ITS ---
Date of service: 02/24/18 Time of Service: 13:52 DS: Diagnosis Discharge Diagnosis (1) Visual changes: Status: Acute Discharge Plan Disposition Patient Disposition: HOME Condition: Stable Discharge Details Reason For Visit: ACUTE CVA Admit Date/Time: 02/23/18 16:43 Admit Provider: Kushal Lutz Attending Provider: Kushal Lutz Primary Care Provider: Malik Pérez Hospital Course Hospital Course: 67-year-old female with a recent history of CVA admitted on 02/23 from [facility] Emergency Department with reported change in vision involving her right eye. Mrs. Rm suffered an acute left sided occipital stroke in October of this year , accompanied by aphasia, reported weakness, and a right sided hemianopsia. She was initially treated with dual antiplatelet therapy. However, she had progression/recurrence of symptoms while in the hospital and was anticoagulated. No evidence of arrhythmia including Afib was found at that time , and further monitoring with a 2 week monitor failed to show any abnormalities as well. Approximately 3 weeks ago her neurologist Dr. Mix at [facility] discontinued her anticoagulation noting no indication for anticoagulation, and as the patient was having difficulty affording Apixiban anyway this was discontinued and she was continued on aspirin alone. Approximately one day prior to her admission the patient noted visual changes that she describes as a graying of her vision on the right. She refers to this as different than her prior symptoms, indicating a 'floating guadalupe triangle' in her right visual field. She was seen urgently by her kitchen bath designer and had no acute ocular abnormalities. She was evaluated in the emergency department, and following a negative head CT and phone consultation with her neurologist in [facility] it was decided to resume anticoagulation and refer the patient for admission for further evaluation with an MRI. Hospital Course: (1) Vision Change Other than the prior mentioned visual changes the patient has experienced no other visual or neurologic symptoms. She was maintained on telemetry, and an MRI /MRA of the brain was obtained and negative for any acute changes. Imaging were forwarded to [facility] and reviewed by Dr. Mix, noting no acute changes as well. The patient is deemed safe for discharge, with follow-up with cardiology being scheduled for consideration for an implantable loop recorder. Of note, JADEN obtained on 02/19 was interpreted as negative as well. Advised to remain off Apixaban and resume daily antiplatelet therapy with low dose aspirin only. Home Meds and New Rx's Prescriptions: Continue fluoxetine 20 mg capsule 30 mg PO DAILY RF: 0 cholecalciferol (vitamin D3) 1,000 UNIT tablet 1,000 unit PO DAILY RF: 0 levothyroxine 75 MCG tablet 125 mcg PO DAILY RF: 0 hydrochlorothiazide 12.5 MG tablet 12.5 mg PO RF: 0 aspirin 81 MG tablet,chewable 81 mg PO DAILY RF: 0 rosuvastatin 5 mg Tablet 5 mg PO DAILY RF: 0 Discharge Instructions Activity:: Activity as Tolerated Equipment/Supplies:: No Equipment Needed Diet:: Heart Healthy Discharge Orders Discharge Orders: Discharge Order (Routine); Ordered 02/24/18 Ordered By: Kushal Lutz Exam Narrative Exam Narrative: General: Patient appears comfortable, AAOX3, NAD Neck: Supple CV: Regular, nontachycardic, S1S2, No rubs, murmurs, or gallops. Pulmonary: Clear to auscultation bilaterally, no crackles, wheezing, or rhonchi Abdomen: + Bowel Sounds, soft, nontender, nondistended Vascular: No lower extremity edema Neurologic: CN II-XII grossly intact. No focal deficits. Psych: Normal mood and affect. DS: Data Vitals/I&O Vitals and I&O: Vital Signs Temperature 36.7 C 02/24/18 07:45 Temperature Source Tympanic 02/24/18 07:45 Pulse 76 02/24/18 08:51 Pulse Rhythm Regular 02/23/18 23:25 Pulse 58 L 02/23/18 17:20 Respiratory Rate 18 02/24/18 07:45 Respiratory Effort 02/23/18 23:25 Respiratory Depth Normal 02/23/18 23:25 Respiratory Pattern Normal 02/23/18 23:25 Blood Pressure 136/77 02/24/18 07:45 Blood Pressure Mean 90 02/23/18 17:16 Blood Pressure Position Supine 02/23/18 15:13 Pulse Oximetry 100 02/24/18 07:45 Oxygen Delivery Method Room Air 02/24/18 07:45 Oxygen Flow Rate 0 02/24/18 07:45 Pain Level 0 02/24/18 07:45 Comment 02/24/18 07:45 Intake & Output 02/23/18 02/24/18 02/24/18 23:59 11:59 23:59 Intake Total 100 / 100 910 / 910 Balance 100 / 100 910 / 910 Weight 69.4 kg Intake: IV 100 / 100 Oral 910 / 910 Other: Comment VOID X 1 IN TOILET AND FLUSHED VOID X 1 IN TOILET Voiding Methods Toilet Toilet Completed studies during hospitalization [Text1]: Exam(s) 02/24/2018 a MRI:MR angio brain wo a MRI:MR brain wo SYMPTOM/DIAGNOSIS: ACUTE CVA, VISUAL DISTURBANCES BRAIN MRI: Comparison examination is 10/29/17. There is an area of encephalomalacia involving the left occipital lobe consistent with an old infarct. The ventricles and sulci are consistent with the patient's age. There are areas of T 2 hyperintensity in the white matter on the FLAIR and T 2 weighted images most consistent with small vessel ischemic disease. The diffusion weighted images show no evidence of an acute infarct. No intracranial hemorrhage is identified. The ventricles are intact. The basilar cisterns are patent. No acute midline shift or mass effect is appreciated. The visualized paranasal sinuses are clear. The orbits and retro-orbital soft tissues appear grossly unremarkable. IMPRESSION: 1. Old left occipital infarct. This was present on the MRI of the brain from 10/29/17. 2. Mild cerebral atrophy and small vessel ischemic disease. 3. No evidence of an acute infarct. MRA OF [place] OF [place]: The internal carotid arteries are unremarkable without stenosis, occlusion or aneurysm. The anterior cerebral arteries are unremarkable. No evidence of occlusion, aneurysm or significant stenosis. The middle cerebral arteries are unremarkable without evidence of occlusion, aneurysm or significant stenosis. The right posterior cerebral artery arises from the posterior communicating artery. The left posterior cerebral artery appears grossly unremarkable. The basilar artery and distal vertebral arteries are unremarkable without occlusion, dissection, aneurysm or significant stenosis. IMPRESSION: No evidence of significant stenosis or occlusion. Exam(s) 02/23/[address]:CT head - stroke protocol SYMPTOMS/DIAGNOSIS: RIGHT VISUAL FIELD CUT (UPPER), H/O CEREBROVASCULAR ACCIDENT NONCONTRAST HEAD CT: Comparison is made with October,. There is an old left occipital infarct , in the posterior cerebral artery distribution. No acute infarct, hemorrhage or mass is seen. There is mild patchiness in the white matter consistent with small vessel disease. The ventricles are normal in size. There is no significant atrophy. No skull fracture or sinus opacification is seen. IMPRESSION: Old left occipital infarct. No acute abnormality. Labs on day of discharge: Labs from last 24 hours 02/24/18 02/24/18 02/23/18 06:20 06:20 15:35 WBC 5.30 RBC 4.78 Hgb 14.4 Hct 42.8 MCV 89.5 MCH 30.1 MCHC 33.6 RDW 12.7 Plt Count 296 MPV 9.1 Immature Gran % 0.2 Neutrophils % 68.8 Lymphocytes % 20.8 Monocytes % 7.2 Eosinophils % 2.6 Basophils % 0.4 Absolute Neutrophils 3.65 Absolute Lymphocytes 1.10 L Absolute Monocytes 0.38 Absolute Eosinophils 0.14 Absolute Basophils 0.02 PT 10.0 INR 1.0 Sodium 140 Potassium 4.2 D Chloride 100 Carbon Dioxide 29.7 Anion Gap 10.3 BUN 14 Creatinine 0.58 Estimated GFR/1.73 m2 >= 60.00 Glucose 100 Calcium 9.0 Magnesium 2.0 Total Bilirubin AST ALT Alkaline Phosphatase Troponin I Total Protein Albumin 02/23/18 02/23/18 15:35 15:35 WBC 6.54 RBC 4.45 Hgb 13.5 Hct 39.3 MCV 88.3 MCH 30.3 MCHC 34.4 RDW 12.4 Plt Count 298 MPV 8.8 Immature Gran % 0.3 Neutrophils % 67.5 Lymphocytes % 22.9 Monocytes % 7.0 Eosinophils % 2.0 Basophils % 0.3 Absolute Neutrophils 4.41 Absolute Lymphocytes 1.50 Absolute Monocytes 0.46 Absolute Eosinophils 0.13 Absolute Basophils 0.02 PT INR Sodium 135 L Potassium 3.3 L Chloride 99 Carbon Dioxide 27.8 Anion Gap 8.2 BUN 16 Creatinine 0.74 Estimated GFR/1.73 m2 >= 60.00 Glucose 119 H Calcium 8.9 Magnesium 1.9 Total Bilirubin 0.3 AST 15 ALT 22 Alkaline Phosphatase 87 Troponin I < 0.02 Total Protein 7.0 Albumin 3.4 PFSH Osteoarthritis (Chronic) Hypothyroidism (Chronic) Depression (Chronic) Stroke (Chronic) Hypertension (Chronic) Hypercholesterolemia (Chronic) 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
--- NOTE | 2018-02-24 14:26 | PHARADMIT ---
Admission Pharmacy Clinical Review ACUTE CVA Code Status Full Code Current Weight 69.4 kg Renally Cleared and Narrow Therapeutic Index Meds CRCL ~53ml/min QTc Value / Action Taken 431 BP Control, Fever 136/77 afebrile Electrolytes reviewed ok DVT Prophylaxis ON APIXABAN Opiate Usage / Scheduled Bowel Regimen Ordered NA Plt/SCr for Heparin / Enoxaparin 296/0.58 INR for Warfarin 1.0 H/H stable, WBC/Bands 14.4/42.8 WBC 5.30 Antibiotic appropriateness NA Cultures and Sensitivities NA Surgical ABX d/c within 24 hr NA DM control / Insulin Dosing NA Heart Failure (Check EF%) (MOOSE's, B-Block, Diuretics) NA IV to PO Switch JUST IID Home Meds Reviewed Monitor patients receiving thiazide diuretics and selective serotonin reuptake inhibitors in combination closely for signs and symptoms of hyponatremia Selective Serotonin Reuptake Inhibitors may diminish the therapeutic effect of Thyroid Products Home Meds Not Ordered rosuvastatin 5 mg PO DAILY 02/23/18 [History Confirmed 02/23/18] Comments
--- NOTE | 2018-02-25 15:00 | CHAPLAIN ---
Danica was sitting up in bed when I visited yesterday to bring her a prayer shawl. She has visitors and was not interested in further conversation and I did not get back to see her before she was discharged.
== END 2018-02-24 16:00 | disposition home or self-care (01) ==
LOC: ER 17:26 → MS 17:41
PROVIDERS: Admitting Provider Internal Medicine; Emergency Provider Emergency Medicine; PCP General Practice; Visit Provider Internal Medicine
DX: H53.9 Unspecified visual disturbance (principal); Z86.73 Personal history of transient ischemic attack (TIA), and cerebral infarction without residual deficits; I10 Essential (primary) hypertension; E03.9 Hypothyroidism, unspecified; E78.5 Hyperlipidemia, unspecified
CPT/HCPCS: 36415; 36416; 70544; 80048; 80053; 82962; 93005; 96360; 97161; 99217; 99222; 99285; 70450; 70551; 83735; 84484; 85025; 85610; 93010; G0378

== ENCOUNTER → 2018-07-08 10:00 | Outpatient (BNVA) | payer MEDICARE, SELFPAY | PROVIDERS: PCP General Practice; Visit Provider Orthopaedic Surgery | DX: Z47.1 Aftercare following joint replacement surgery (principal); Z96.652 Presence of left artificial knee joint; I69.311 Memory deficit following cerebral infarction | CPT/HCPCS: 99211; 99212 ==

== ENCOUNTER 2018-07-30 08:26 | Outpatient (CLI) | payer MEDICARE, SELFPAY ==
[2018-07-30 10:21] LABS: Anion Gap 7.8 mmol/L (3-11); BUN 16 mg/dL (7-18); CO2 29.2 mmol/L (21.0-32.0); CREATININE 0.58 mg/dL (0.55-1.02); Chloride 99 mmol/L (98-107); Glucose 94 mg/dL (70-100); Potassium 4.3 mmol/L (3.5-5.1); Sodium 136 mmol/L (136-145); TSH 0.27 uIU/mL (0.358-3.74)
== END 2018-07-30 08:46 ==
PROVIDERS: PCP General Practice; Visit Provider General Practice
DX: I10 Essential (primary) hypertension (principal); E03.9 Hypothyroidism, unspecified; E78.5 Hyperlipidemia, unspecified; I63.9 Cerebral infarction, unspecified
CPT/HCPCS: 36415; 80051; 82947; 84520; 82565; 84443

== ENCOUNTER 2018-08-16 01:02 | Outpatient (CLI) | payer MEDICARE, SELFPAY ==
--- NOTE | 2018-08-16 11:41 | DI.MAMMO_ITS ---
SYMPTOMS/DIAGNOSIS: SCREENING, Z12.31 MAMMOGRAM: Mammograms were interpreted according to the usual protocol including computer analysis with CAD system, tomosynthesis and C view imaging. The breasts are of moderate density with fairly symmetrical distribution of fibroglandular tissue. No dominant mass or clumped microcalcification is identified in either breast. Current examination is compared with previous examinations including December 2016 and there has been no gross interval change in appearance in comparison with the previous studies. CONCLUSION: No specific evidence of malignancy at this time. Routine screening examinations are suggested at yearly intervals in this age group according to the ACS/ACR guidelines. Category 1, breast density category B. MQSA ASSESSMENT OF FINDINGS: Negative. Category 1. Patient will receive a letter notifying them of these results. BI-RADS category B. There are scattered areas of fibroglandular density.
== END 2018-08-16 01:22 ==
PROVIDERS: PCP General Practice; Visit Provider General Practice
DX: Z12.31 Encounter for screening mammogram for malignant neoplasm of breast (principal)
CPT/HCPCS: 77063; 77067

== ENCOUNTER → 2018-08-19 13:56 | Outpatient (BNVA) | payer MEDICARE, SELFPAY | PROVIDERS: PCP General Practice; Referring Provider General Practice; Visit Provider Physical Therapy Assistant | DX: Z12.11 Encounter for screening for malignant neoplasm of colon (principal); I10 Essential (primary) hypertension; R63.4 Abnormal weight loss ==

== ENCOUNTER 2018-09-01 09:43 | Outpatient (CLI) | payer MEDICARE, SELFPAY ==
[2018-09-01 11:29] LABS: TSH 0.53 uIU/mL (0.358-3.74)
== END 2018-09-01 10:03 ==
PROVIDERS: PCP General Practice; Visit Provider General Practice
DX: E03.9 Hypothyroidism, unspecified (principal)
CPT/HCPCS: 36415; 84443

== ENCOUNTER 2018-09-07 07:17 | Day surgery (SDC) | payer MEDICARE, SELFPAY ==
--- NOTE | 2018-09-07 06:31 | W.COLOREPORT ---
Date of service: 09/07/18 Time of Service: 08:43 Colonoscopy Report Date of procedure: 09/07/18 Pre-op diagnosis general: Colon Cancer Screening Post-op diagnosis procedure note: other (Severe divericulosis of sigmoid colon, descending polyp) Procedure: Colonoscopy with polypectomy by cold forceps Surgeon: Cristiana Wong Anesthesia proc note operative: other (General/ ASA 2/ Tashia Sam, ERLINDA ) Estimated blood loss (mL): 3 Pathology: other (descending polyp) Complications: None Disposition: no change Indications: Mrs. Rm is a pleasant 68 year old female seen in the office for a screening colonoscopy. She also has been having unintentional weight loss. Risks, benefits and complications have been reviewed. Complications include but are not limited to bleeding, pain, perforation, missed small lesion/polyp, sore throat, aspiration and adverse reaction to the medications. Questions were entertained and answered to their satisfaction and they wished to proceed. No guarantees were given or implied. Prep: Miralax/Dulcolax Procedure Start Time: : Procedure End Time: :07 Retraction Time: 17 minutes Findings: Severe diverticulosis of the sigmoid colon Small hyperplastic appearing polyp in the descending colon Procedure Description: After informed consent was obtained the patient was taken to the procedure room and placed in a left decubitous position. Monitors were applied and a time out was done. The patients name, date of , procedure, allergies to medications and metal in their body was reviewed. The patient was then sedated. Once sedated and comfortable a rectal exam was done. External exam was normal. Internal exam revealed a normal sphincter tone and no palpable masses. The scope was then introduced and retro-flexed. No internal hemorrhoids were identified. The scope was then advanced to the cecum with some difficulty. Her left colon is very tortuous. The TI and appendiceal orifice were identified. The prep was adequate. The scope was then slowly retracted over 17 minutes back into the rectum. Polyps were removed in the descending colon with cold forceps. The scope was removed and the patient was woken up and taken back to Same day surgery in stable condition. The patient tolerated the procedure well and there were no immediate complications. Follow up: The patient should follow up in 10 years unless the polyp comes back as pre-malignant or they develop changes in bowel habits or other new gastrointestinal complaints.
--- NOTE | 2018-09-07 06:33 | W.PM.DSUDISC ---
Discharge Plan Disposition Patient Disposition: HOME Condition: Good Discharge Details Reason For Visit: Colon Cancer Screening Attending Provider: Cristiana Wong Primary Care Provider: Malik Pérez Home Meds and New Rx's Prescriptions: Continued aspirin 325 mg tablet 325 mg PO DAILY RF: 0 lisinopril 2.5 mg tablet 2.5 mg PO DAILY RF: 0 fluoxetine 20 mg capsule 30 mg PO DAILY RF: 0 cholecalciferol (vitamin D3) 1,000 UNIT tablet 1,000 unit PO DAILY RF: 0 levothyroxine 75 MCG tablet 125 mcg PO DAILY RF: 0 hydrochlorothiazide 12.5 MG tablet 12.5 mg PO DAILY RF: 0 Discontinued polyethylene glycol 3350 17 gram/dose powder 238 g PO ONCE Qty: 238 RF: 0 bisacodyl [Dulcolax (bisacodyl)] 5 mg tablet,delayed release (DR/EC) 5 mg PO ONCE Qty: 4 RF: 0 Discharge Instructions Instructions: Colonoscopy (DC), Diverticulosis (DC) Additional Instructions: Findings: Diverticulosis and most likely a benign polyp Follow up: most likely 10 years unless the pathology shows a pre-malignant polyp Please call if you develop: fevers >101.5 Nausea or Vomiting Abdominal pain that is not transient DAY SURGERY UNIT POST COLONOSCOPY INSTRUCTIONS 1. Because there will be medication in your system for the next 24 hours, you may feel a little sleepy. Your coordination will be affected. Therefore: a. Do not drive or operate dangerous equipment for 24 hours. b. Do not drink alcohol beverages for 24 hours (not even beer). c. Plan to go home and rest for the day. 2. Generally there are no restrictions on your activity after a day or so has gone by, but you may feel a bit fatigued for a few days. 3 After you arrive home you may have a light meal and return to a normal diet as you can tolerate it without feeling sick to your stomach. 4. After surgery, you may feel pain or discomfort. This should be only transient, but if it persists please contact your doctor. 5. If there are any questions regarding the findings of your procedure, please feel free to contact your doctor. 6. If you are unable to contact your doctor with a problem, contact the hospital at [phone]. 7. Continue all your regular medications unless directed otherwise. I understand the above instructions and have no questions. Signature of Patient or Responsible Adult Escort Date/Time Name of Responsible Adult Escort Signature of Nurse Date/Time Activity:: Activity as Tolerated Diet:: High Fiber diet Discharge Orders Discharge Orders: Discharge Order (Routine); Ordered 09/07/18 Ordered By: Cristiana Wong DS: Diagnosis Discharge Diagnosis (1) S/P colonoscopy: Status: Acute (2) Diverticulosis: Status: Acute
[2018-09-07 07:36] VITALS: BP 146/89; PULSE 76; RESP 16; TEMP 36.4; O2SAT 98
[2018-09-07] MEDS: Lactated Ringers 1,000 ML 80 ML IV (07:54)
[2018-09-07] MEDS: Lidocaine 2% Pres-Free 5 ML VIAL (08:40)
--- NOTE | 2018-09-07 09:01 | BOWEL_PTH ---
PATIENT: Danica Rm LOC: [facility] U#:[id number] AGE/SX: 68/F ROOM: RE09/07/[address]: Cristiana Wong MD : 1950 BED: DIS: 09/07/2018 SPEC #: [id number] RECD: 09/07/18 12:44 STATUS: ANIYAH REQ #: [id number] MARÍA: 09/07/18 09:[address]: Cristiana Wong DEPT: Surgical Specimen RECD BY: Lucia Robles ENTERED: 09/07/18 12:44 SP TYPE: Bowel OTHR DR: Malik Pérez Tissues: 1 - BIOPSY BOWEL Procedures: GROSS AND MICRO LEVEL 4 Comments: [id number]
[2018-09-07 09:49] VITALS: BP 140/74; PULSE 52; RESP 16; TEMP 36.2; O2SAT 100
== END 2018-09-07 10:10 | disposition home or self-care (01) ==
LOC: SUR 07:17
PROVIDERS: PCP General Practice; Visit Provider Surgery
PROC: 0DJD8ZZ Inspection of Lower Intestinal Tract, Via Natural or Artificial Opening Endoscopic (ICD-10-PCS; CPT 45378; principal; 2018-09-07 08:30)
DX: Z12.11 Encounter for screening for malignant neoplasm of colon (principal); K51.40 Inflammatory polyps of colon without complications; K63.5 Polyp of colon; I10 Essential (primary) hypertension
CPT/HCPCS: 45380; 88305

== ENCOUNTER 2018-11-17 14:32 | Outpatient (CLI) | payer MEDICARE, SELFPAY ==
[2018-11-17 15:37] LABS: CREATININE 0.63 mg/dL (0.55-1.02); Potassium 3.9 mmol/L (3.5-5.1)
== END 2018-11-17 14:52 ==
PROVIDERS: PCP General Practice; Visit Provider General Practice
DX: I10 Essential (primary) hypertension (principal)
CPT/HCPCS: 36415; 82565; 84132

== ENCOUNTER 2019-08-04 09:07 | Outpatient (CLI) | payer MEDICARE, SELFPAY ==
[2019-08-04 15:59] LABS: CREATININE 0.77 mg/dL (0.55-1.02); Calculated LDL 67 mg/dL (<100); Cholesterol 159 mg/dL (<200); HDL Cholesterol 69 mg/dL (40-60); Potassium 3.7 mmol/L (3.5-5.1); TSH 0.41 uIU/mL (0.36-3.74); Triglyceride 115 mg/dL (<150)
== END 2019-08-04 09:27 ==
PROVIDERS: PCP Nurse Practitioner; Visit Provider Nurse Practitioner
DX: I10 Essential (primary) hypertension (principal); I63.9 Cerebral infarction, unspecified
CPT/HCPCS: 36415; 80061; 82565; 84132; 84443

== ENCOUNTER 2019-08-18 02:45 | Outpatient (CLI) | payer MEDICARE, SELFPAY ==
--- NOTE | 2019-08-18 11:45 | DI.MAMMO_ITS ---
EXAM: MAMMO SCREENING CLINICAL HISTORY: screening Z12.39 TECHNIQUE: Mammograms were interpreted according to the usual protocol including computer analysis w No.1 Traveller CAD system, tomosynthesis and C-view imaging. COMPARISON: FINDINGS: The breasts are of moderate density with fairly symmetrical distribution of fibroglandular tissue. N o dominant mass or clumped microcalcification is identified in either breast. The current examinatio n is compared with previous examinations including August 2018, there is question of increased prominen ce of a focal area of asymmetric density projected in the central inferior portion of the right breas t on MLO view. Additional mammographic views of this area are requested to include MLO spot compress ion view. No other significant change seen. IMPRESSION: Additional mammographic views of the right breast requested as described above. Breast ultrasound ma y be indicated as well depending on the results of the additional mammographic views. BI-RADS Cat 0 - Assessment Incomplete: Need additional imaging evaluation: Breast Density - Category B - Scattered areas of fibroglandular density:
== END 2019-08-18 03:05 ==
PROVIDERS: PCP Nurse Practitioner; Visit Provider Nurse Practitioner
DX: Z12.31 Encounter for screening mammogram for malignant neoplasm of breast (principal); R92.8 Other abnormal and inconclusive findings on diagnostic imaging of breast
CPT/HCPCS: 77063; 77067

== ENCOUNTER 2020-08-29 00:46 | Outpatient (CLI) | payer MEDICARE, SELFPAY ==
--- NOTE | 2020-08-29 07:45 | DI.MAMMO_ITS ---
Exam(s) MAMMO SCREENING EXAM: MAMMO SCREENING CLINICAL HISTORY: screening,Z12.39. TECHNIQUE: Bilateral full field digital CC and MLO mammographic images were obtained with 3D tomosyn thesis and utilizing computer aided detection (CAD). COMPARISON: Prior mammograms dating back to 2013, the most recent being August 2019.. Right breast ultrasound August 2019 was also reviewed. FINDINGS: The previously described asymmetric density in the central right breast is actually less evident on t his year's study, further evidence that it was benign. Benign-appearing nodule upper outer quadrant right breast is unchanged from prior studies and has jalen earance of lymph node. There are no new spiculated masses nor malignant appearing microcalcification groups. There is no significant architectural distortion nor skin thickening-retraction. IMPRESSION: No radiographic evidence of malignancy. BI-RADS Category 1 - Negative Breast Density - Category B - Scattered areas of fibroglandular density Breast density Category C or D implies that the patient has dense breast tissue. Dense breast tissue can make it harder to find cancer on a mammogram. Dense breast tissue is also associated with an incr eased risk of breast cancer. This information about the result of the mammogram report was provided to the patient to raise their awareness. Use this report when you speak with the patient about their risks for breast cancer, which includes their family history. At that time, you may recommend additional screening tests (Ultrasoun d or MRI) as these tests may add significant information. A negative radiographic report should not delay biopsy if a dominant or clinically suspicious mass is present. Up to ten percent of cancers are not identified on mammography. A negative report may reinforce clinical impression. Adenosis and dense breasts may obscure an underlying neoplasm. False positive reports average 6 to 10%. Patient will receive a letter notifying them of these results.
== END 2020-08-29 01:06 ==
PROVIDERS: PCP Nurse Practitioner; Visit Provider Nurse Practitioner
DX: Z12.31 Encounter for screening mammogram for malignant neoplasm of breast (principal); R92.8 Other abnormal and inconclusive findings on diagnostic imaging of breast
CPT/HCPCS: 77063; 77067

== ENCOUNTER 2021-07-22 11:25 | Outpatient (CLI) | payer MEDICARE, SELFPAY ==
--- NOTE | 2021-07-22 11:20 | DI.RAD_ITS ---
Exam(s) XR HIP LT COMPLETE AP PELVIS EXAM: XR HIP LT COMPLETE AP PELVIS INDICATION: L hip pain. COMPARISON: CR PELVIS AP from 05/18/2013 TECHNIQUE: 2D digital imaging was performed. Two views. FINDINGS: No change right hip prosthesis. Left hip joint space is well maintained. There is spurring at the a cetabulum and greater trochanter. There are few calcifications on around the hip joint. IMPRESSION: Mild degenerative changes of the left hip. Adjacent calcifications. DATA REPOSITORY: RADIATION DOSE DELIVERED:
--- NOTE | 2021-07-22 11:30 | DI.RAD_ITS ---
Exam(s) XR STANDING ALIGNMENT EXAM: XR STANDING ALIGNMENT CLINICAL HISTORY: R knee pain. TECHNIQUE: 2D digital imaging was performed. Standing AP views were performed from the pelvis throu gh the ankles. COMPARISON: No exams were available for comparison FINDINGS: Right hip prosthesis. Left knee prosthesis. Ankle joint spaces are unremarkable. Hip joint space i s well maintained. Severe narrowing medial femoral tibial joint. Leg length discrepancy with left i liac crest projecting superior to the right. 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 Mild leg length discrepancy. DATA REPOSITORY: RADIATION DOSE DELIVERED:
--- NOTE | 2021-07-22 11:30 | DI.RAD_ITS ---
Exam(s) XR KNEE RT 2V AP,LAT EXAM: XR KNEE RT 2V AP,LAT CLINICAL HISTORY: R knee pain. TECHNIQUE: 2D digital imaging was performed. Three views. COMPARISON: CR KNEES BILAT AP STANDING LATS from 05/22/2015 FINDINGS: BONES: No acute fracture is present. No bony destructive lesion is seen. Calcification adjacent to me dial femoral condyle. JOINTS: Severe narrowing medial femoral tibial joint space causing mild varus angulation. A small bev nt effusion is seen. Mild spurring at the articular aspect of the patella. SOFT TISSUE: Normal. IMPRESSION: Advanced degenerative changes medial femoral tibial joint. DATA REPOSITORY: RADIATION DOSE DELIVERED:
== END 2021-07-22 11:26 | disposition home or self-care (01) ==
PROVIDERS: PCP Nurse Practitioner; Referring Provider Nurse Practitioner; Visit Provider Student in an Organized Health Care Education/Training Program
DX: M17.11 Unilateral primary osteoarthritis, right knee (principal); M16.12 Unilateral primary osteoarthritis, left hip
CPT/HCPCS: 99215; 73502; 73560; 77073

== ENCOUNTER → 2021-08-01 01:58 | Outpatient (CLI) | payer MEDICARE, SELFPAY ==
--- NOTE | 2021-08-01 14:15 | DI.RAD_ITS ---
Exam(s) RF JOINT INJECTION FLUORO GUID EXAM: RF JOINT INJECTION FLUORO GUID CLINICAL HISTORY: Left Hip Injection, primary oa lt hip, m16.12 TECHNIQUE: 2D and realtime digital imaging was performed. CONTRAST MATERIAL: Water soluble contrast was administered. COMPARISON: No exams were available for comparison FINDINGS: Fluoroscopy was provided for Dr. Stubbs during the performance of a left hip injection. Please re delfino to the procedure report for complete details. RADIATION DOSE DELIVERED: nina Anderson=0.40 mGy
[2021-08-01] MEDS: Omnipaque 300 MG/ML 10 ML BTL IJ (15:32)
[2021-08-01] MEDS: Bupivacaine 0.5% Pres-Free 30 ML VIAL 5 ML IJ (15:33)
--- NOTE | 2021-08-02 08:34 | W.PROCNOTE ---
Date of service: 08/01/21 Time of Service: 14:00 Procedure Note Date of procedure: 08/01/21 Procedure: Left Hip Injection with Fluoroscopic Guidance Surgeon/Proceduralist/Physician: Bradley Stubbs Procedure Diagnosis: Left Hip Osteoarthritis Procedure Indications: Danica has had persistent pain of the LEFT hip and groin. Noninvasive measures have been tried. To serve as both diagnostic and therapeutic, an injection under fluoroscopy was recommended. I had discussed the risks of the procedure and the patient elected to proceed. Procedure Description: Danica was greeted in the flouroscopy room. The correct side was identified and the consent was reviewed with the patient and signed. The patient was then placed in the supine position on the fluoroscopy table. The LEFT hip was then prepped with Chloraprep. The anterolateral injection starting point was identiifed by bony landmarks and fluoroscopy. The skin and soft tissue in the tract of the injection was anesthetized with 1% Lidocaine. A spinal needle was then inserted deep into the hip joint at the level of the lateral femoral neck under fluoroscopic guidance. A small amount of Omnipaque solution was injected to confirm intraarticular placement. Once confirmed, the hip was injected with 7cc of 0.5% Bupivicaine and 3cc of 1% Lidocaine. A bandaid was placed on the injection site. The patient tolerated the procedure well and noted some mild improvement in pre-injection pain.
== END ==
PROVIDERS: PCP Nurse Practitioner; Visit Provider Student in an Organized Health Care Education/Training Program
DX: M16.12 Unilateral primary osteoarthritis, left hip (principal)
CPT/HCPCS: 20610; 77002

== ENCOUNTER → 2021-08-07 13:06 | Outpatient (BNVA) | payer MEDICARE, SELFPAY | PROVIDERS: PCP Nurse Practitioner; Referring Provider Nurse Practitioner; Visit Provider Physician Assistant | DX: M17.11 Unilateral primary osteoarthritis, right knee (principal) ==

== ENCOUNTER 2021-08-19 03:09 | Outpatient (CLI) | payer MEDICARE, SELFPAY ==
[2021-08-19 16:13] LABS: Source Nasal/Nares
[2021-08-19 22:51] LABS: COVID-19 PCR Negative (Negative)
== END 2021-08-19 03:10 | disposition home or self-care (01) ==
PROVIDERS: PCP Nurse Practitioner; Visit Provider Student in an Organized Health Care Education/Training Program
DX: Z20.822 Contact with and (suspected) exposure to COVID-19 (principal); Z01.818 Encounter for other preprocedural examination
CPT/HCPCS: 87635; U0005

== ENCOUNTER 2021-08-19 03:46 | Outpatient (CLI) | payer MEDICARE, SELFPAY ==
[2021-08-19 13:45] LABS: HCT 37.9 % (36.0-46.0); HGB 13.4 g/dL (11.2-15.7); MCH 30.6 pg (27.0-33.0); MCHC 35.4 % (32.0-36.0); MCV 87 fL (80-95); MPV 8.3 fL (8.0-11.0); Platelet Count 264 10^3/uL (130-400); RBC 4.38 10^6/uL (3.93-5.22); RDW-SD 38.3 fL; WBC 7.38 10^3/uL (4.4-10.8)
[2021-08-19 15:48] LABS: Anion Gap 8.2 mmol/L (3-11); BUN 12 mg/dL (7-18); CO2 26.8 mmol/L (21.0-32.0); CREATININE 0.6 mg/dL (0.55-1.02); Calcium 8.4 mg/dL (8.5-10.1); Chloride 91 mmol/L (98-107); Glucose 126 mg/dL (74-106); Potassium 3.5 mmol/L (3.5-5.1); Sodium 126 mmol/L (136-145)
[2021-08-19 16:03] LABS: Calculated LDL 125 mg/dL (<100); Cholesterol 214 mg/dL (<200); HDL Cholesterol 67 mg/dL (40-60); TSH (W/Ref FT4) 0.52 uIU/mL (0.36-3.74); Triglyceride 112 mg/dL (<150)
== END 2021-08-19 03:47 | disposition home or self-care (01) ==
PROVIDERS: PCP Nurse Practitioner; Visit Provider Student in an Organized Health Care Education/Training Program
DX: I10 Essential (primary) hypertension (principal); I63.89 Other cerebral infarction; M25.561 Pain in right knee; M17.11 Unilateral primary osteoarthritis, right knee; Z20.822 Contact with and (suspected) exposure to COVID-19; Z01.818 Encounter for other preprocedural examination; Z01.812 Encounter for preprocedural laboratory examination
CPT/HCPCS: 80048; 80061; 85027; 87635; U0005; 84443

== ENCOUNTER 2021-08-21 07:24 | Day surgery (SDC) | payer MEDICARE, SELFPAY ==
[2021-08-21] VITALS (8 sets, daily range): BP systolic 134–163; BP diastolic 57–93; PULSE 60–75; RESP 12–16; TEMP 36–36.5; O2SAT 95–100; BMI 27.8
[2021-08-21] MEDS: Gabapentin 300 MG CAP PO (07:58)
[2021-08-21] MEDS: Celecoxib 200 MG CAP 400 MG PO (07:58)
[2021-08-21] MEDS: Acetaminophen 500 MG TAB 1000 MG PO (07:58)
--- NOTE | 2021-08-21 08:17 | W.ANESPRE ---
General Info Date of Service Date Performed: 08/21/21 Height: 5 ft 2 in Weight: 69.1 kg Body Mass Index (BMI): 27.8 Surgical Procedure: Operation Date: 08/21/21 10:40 Proposed Procedure Side Surgeon p Knee Total Arthroplasty Right Bradley Stubbs MD Meds Allergies and Home Medications Allergies Allergy/AdvReac Type Severity Reaction Status Date / Time Wrybdit-POF-TyK Reductase AdvReac Intermediate myalgias Verified 08/21/21 07:43 Inhibitor [Sjgwvxi-Qjb-Bjt Reductase Inhibitor] oxycodone HCl [From Percocet] AdvReac Mild MADE HER Verified 08/21/21 07:43 JITTERY Home Medication Medication Instructions Recorded aspirin 325 mg tablet 325 mg PO DAILY 08/09/20 glucosamine HCl 500 mg tablet 500 mg PO DAILY 08/09/20 fluoxetine 40 mg capsule 40 mg PO DAILY #90 caps 05/17/21 levothyroxine 112 mcg capsule 112 mcg PO DAILY #90 caps 05/24/21 lisinopril 40 mg tablet 40 mg PO DAILY #90 tabs 05/24/21 Current Visit Medications: Current Medications Generic Name Dose Route Start Last Admin Trade Name Freq PRN Reason Stop Dose Admin Acetaminophen 1,000 mg 08/21/21 06:00 08/21/21 07:58 Acetaminophen 500 Mg Tab PO 08/21/21 16:00 1,000 mg PREOP NNAMDI Administration Celecoxib 400 mg 08/21/21 06:00 08/21/21 07:58 Celecoxib 200 Mg Cap PO 08/21/21 16:00 400 mg PREOP NNAMDI Administration Gabapentin 300 mg 08/21/21 06:00 08/21/21 07:58 Gabapentin 300 Mg Cap PO 08/21/21 16:00 300 mg PREOP NNAMDI Administration Tranexamic Acid 1,000 mg/ 60 mls @ 360 mls/hr 08/21/21 06:00 Sodium Chloride IVPB 08/21/21 16:00 PREOP NNAMDI Ringer's Solution 1,000 mls @ 80 mls/hr 08/21/21 06:00 IV 09/19/21 23:59 INFUSION NNAMDI IV Miscellaneous Supplies 1 each 08/21/21 06:00 Iv Access IV 09/19/21 23:59 DIRECTED NNAMDI Sodium Chloride 0 ml 08/21/21 06:00 Normal Saline Flush 10 Ml Syr IV 09/19/21 23:59 PRN PRN Sodium Chloride 0 ml 08/21/21 06:00 Normal Saline 10 Ml Vial IJ 09/19/21 23:59 DIRECTED PRN Sterile Water 0 ml 08/21/21 06:00 Water,Injection,Sterile 10 Ml Vial IJ 09/19/21 23:59 DIRECTED PRN PFSH Active Problems Active Problems: Problem Status Onset Code Stroke 10/28/17 I63.9 Hypertension I10 Hypercholesterolemia E78.00 Depression F32.9 Hypothyroidism E03.9 Right homonymous hemianopsia H53.461 Urinary incontinence R32 Sensorineural hearing loss, bilateral H90.3 Primary osteoarthritis of right knee M17.11 Primary osteoarthritis of left hip M16.12 Medical History Medical History Discharge planning issues Diverticulosis (~09/07/18) 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 Left side ok. 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) Tobacco Smoking/Tobacco Use Status: Former Tobacco Use Passive smoking exposure: No Second hand exposure: No Alcohol Alcohol Intake: current Alcohol intake frequency: holidays/special occasions only Alcohol type: wine Substance Use Substance use: Never Substance use type: does not use Details: couple glasses of wine last week Vital Signs and Lab Results Vital Signs Most Recent Vital Signs in EMR: Most Recent Vital Signs Temp Pulse Resp BP Pulse Ox 36.3 C L 75 16 134/93 H 98 08/21/21 07:03 08/21/21 07:03 08/21/21 07:03 08/21/21 07:03 08/21/21 07:03 Lab Results Result Diagrams: 08/21/21 08:42 Blood Type / Crossmatch: No Data to Display Complete Blood Count: White Blood Count 7.38 10^3/uL (4.4-10.8) 08/19/21 13:30 Red Blood Count 4.38 10^6/uL (3.93-5.22) 08/19/21 13:30 Hemoglobin 13.4 g/dL (11.2-15.7) 08/19/21 13:30 Hematocrit 37.9 % (36.0-46.0) 08/19/21 13:30 Platelet Count 264 10^3/uL (130-400) 08/19/21 13:30 Complete Metabolic Panel: Sodium Level 126 mmol/L (136-145) L 08/19/21 13:30 Potassium Level 3.5 mmol/L (3.5-5.1) 08/19/21 13:30 Chloride Level 91 mmol/L (98-107) L 08/19/21 13:30 Carbon Dioxide Level 26.8 mmol/L (21.0-32.0) 08/19/21 13:30 Blood Urea Nitrogen 12 mg/dL (7-18) 08/19/21 13:30 Creatinine 0.6 mg/dL (0.55-1.02) 08/19/21 13:30 Estimated GFR/1.73 m2 >= 60.00 (mL/min/1.73m2) 08/19/21 13:30 Calcium Level 8.4 mg/dL (8.5-10.1) L 08/19/21 13:30 Glucose Level 126 mg/dL (74-106) H 08/19/21 13:30 Liver Function Panel: No Data to Display Coagulation Panel: No Data to Display Cardiac Panel: No Data to Display Arterial Blood Gas: No Data to Display Venous Blood Gas: No Data to Display Pancreas Panel: No Data to Display Thyroid Panel: Thyroid Stimulating Hormone (TSH) 0.52 uIU/mL (0.36-3.74) 08/19/21 13:30 Infectious Disease: Coronavirus (COVID-19)(PCR) Negative (Negative) 08/19/21 13:50 Coronavirus 2019 Source Nasal/Nares 08/19/21 13:50 Blood Cultures: No Data to Display Toxicology Panel: No Data to Display Imaging and Studies Imaging and Studies Study information below may be from another EMR and interpreted by another provider. Please see original notes in EMR for more complete details. Echocardiogram Summary: *STUDY CONCLUSIONS* Impressions: No cardiac source of emboli was identified. Summary: 1. Left ventricle: The cavity size was normal. There was mild focal basal hypertrophy of the septum. Systolic function was normal. The estimated ejection fraction was 55-60%. Moderate hypokinesis of the basalinferior myocardium. 2. Mitral valve: Mildly calcified annulus. Mildly thickened leaflets. There was mild regurgitation. 3. Right ventricle: The cavity size was at the upper limits of normal. Wall thickness was normal. Systolic function was normal. 4. Atrial septum: A patent foramen ovale cannot be excluded. Anesthesia Assessment and Plan Anesthesia History Personal History: No History of Anesthesia Complications Family History: No Family History of Anesthesia Complications Exercise Tolerance Exercise Tolerance: Metabolic Equivalents>4 Pertinent Negatives Pertinent Negatives: No Symptoms of GERD, No Major Cardiovascular Symptoms or Complaints and No Major Pulmonary Symptoms or Complaints Cardiac & Pulmonary Exam Cardiac Exam: Normal S1/S2 Heart Sounds Pulmonary Exam: Clear Bilateral Breath Sounds Implantable Cardiac Device Does patient have a Pacemaker or an ICD?: No Airway Exam Known Difficult Airway: No Mallampati Class: 1 Mouth Opening: Normal (> 3cm) Thyromental Distance: Greater than 3 cm Neck Range of Motion: Full ROM Neck Circumference: Normal Teeth Condition: Normal Dentition ASA Classification ASA Score: ASA 2 Emergency Case?: No NPO Status NPO Status: NPO Clears >2 hours, Solids >8 hours Anesthesia Plan Resuscitation Status: Full Code Anesthesia Technique: Spinal Anesthesia Airway Planned: Natural Airway Pain Management: Surgeon and patient request nerve block Monitors Used: Standard Monitors Preoperative Comments:: Repeat Sodium levels drawn at beside, awaiting repeat results.
[2021-08-21] MEDS: Lactated Ringers 1,000 ML 80 ML IV (08:18)
--- NOTE | 2021-08-21 09:03 | PDOC.DSDIS_ITS ---
Discharge Plan Disposition Patient Disposition: HOME Condition: Stable Discharge Details Reason For Visit: Right TKA Attending Provider: Bradley Stubbs Primary Care Provider: Corine Colunga Home Meds and New Rx's Prescriptions: New celecoxib [Celebrex] 200 mg capsule 200 mg PO BID Qty: 60 0RF aspirin 81 mg tablet,delayed release (DR/EC) 81 mg PO BID Qty: 60 0RF pantoprazole [Protonix] 40 mg tablet,delayed release (DR/EC) 40 mg PO DAILY Qty: 30 0RF gabapentin 300 mg capsule 300 mg PO QHS Qty: 14 0RF acetaminophen 500 mg capsule 1,000 mg PO Q8H PRN PRNQty: 90 0RF hydromorphone 2 mg tablet 2 mg PO Q6H PRNQty: 20 0RF Continued aspirin 325 mg tablet 325 mg PO DAILY glucosamine HCl 500 mg tablet 500 mg PO DAILY Rx Instructions: administer with a meal fluoxetine 40 mg capsule 40 mg PO DAILY Qty: 90 3RF levothyroxine 112 mcg capsule 112 mcg PO DAILY Qty: 90 4RF lisinopril 40 mg tablet 40 mg PO DAILY Qty: 90 4RF Discharge Instructions Additional Instructions: Total Knee Discharge Instructions Activity: The most important activity is to walk. You should try to take short walks a few times a day. It is important that when resting you work on keeping the knee straight. Avoid putting a pillow behind the knee as this will encourage flexion. Work on range of motion exercises as provided by Physical Therapy. If you have the [employer] bike coming, this will be your primary tool for exercise after the knee replacement. You should use it and follow the directions for the knee. Utilize the other exercises sparingly based on your symptoms. - Start outpatient physical therapy within 2 weeks. - You should wear the ROXY hose on both legs for 2 weeks. You may remove these at night. You may also use any compression sock in place of the ROXY hose. - Utilize [employer] to review exercises, see videos on exercises and obtain basic information pertaining to your surgery and your recovery. Dressing: Remove the Pastor wrap by 2 days after your surgery and put on the ROXY stocking given to you from the hospital. Keep the surgical dressing (underneath the PASTOR wrap) in place for at least one week. After the first week it may be removed and replaced with light gauze and tape or nothing. The wound and dressing may get wet after 3 days but avoid soaking the dressing or otherwise it will need to be changed. Many people prefer covering the dressing with cling wrap (saran wrap) to minimize it from getting soaked. If it gets wet, just pat dry. If it starts to peel off then it will need to be changed. Medications: - You should take Tylenol and anti-inflammatory Celebrex as your primary pain control medications. If the Celebrex is too expensive or not covered, please call the office for another alternative (Advil/Ibuprofen or Naproxen/Aleve) - You have been prescribed a stronger pain medication Hydromorphone for breakthrough pain, take as needed as prescribed. - You have also been prescribed a stomach acid reduction agent Pantoprozole to help reduce stomach acid and reflux. - You have been prescribed Gabapentin to take at night for restlessness and nerve pain. - You will be taking Aspirin 81mg twice a day for DVT prevention unless instructed otherwise. - If you have constipation you should take Colace or Miralax (both [id number]). It takes most people 3-4 days to have a bowel movement. Follow-up: 2 weeks If you have any acute concerns or questions, please do not hesitate to contact the office at [phone]. You may contact Dr. Stubbs with any questions after hours through the hospital at [phone] or on his cell phone at [phone]. Referrals: Bradley Stubbs MD [ [facility] STAFF PHYSICIAN] - Equipment/Supplies: Walker Activity:: Activity as Tolerated Remove Dressings/Wound Care:: Do Not Remove Shower/Bathe:: 72 hours Diet:: As Tolerated Discharge Orders Discharge Orders: Discharge Order (Routine); Ordered 08/21/21 Ordered By: Brittany Barahona DS: Diagnosis Discharge Diagnosis (1) Primary osteoarthritis of right knee: Status: Acute
[2021-08-21 09:08] LABS: Sodium 130 mmol/L (136-145)
--- NOTE | 2021-08-21 09:49 | W.ANESNERVE ---
Nerve Block Single Injection Procedure Date and Time Date Performed: 08/21/21 Procedure Start: 09:40 Location Where Procedure Performed Procedure Location: Day Surgery Unit Reason Performed: Postoperative Analgesia Requesting Provider: Bradley Stubbs Timeout Performed Timeout Performed: Yes Monitoring Used ECG, Blood Pressure and SpO2 Sterility Sterility: Hand Hygiene, Surgical Cap, Surgical Mask, Sterile Gloves, Eye Protection and Chlorhexidine Sedation Given During Procedure Sedation Given (Indicate Dose Given): No Sedation given Patient Mental Status Patient Mental Status: Awake Nerve Block 1st Nerve Block: Laterality: Right Block Type: Adductor Canal Needle / Catheter Used: 100mm SonoPlex II Local Anesthetic Bolus (Indicate Dose Given): Lidocaine used for local infiltration of skin, Injected in 3-5ml increments after negative blood aspiration and Bupivacaine 0.25% Dose:: 15 mL Additives (Indicate Dose Given): None Ultrasound: Sterile probe cover and gel used Ultrasound Image Saved?: Yes Nerve Stimulator: Not Used Paresthesia: None Procedure Tolerated: No Complications and Patient tolerated well Procedure Outcome: Successful Performed By: Marilou Llanos Supervised By: Edward Sam
[2021-08-21] MEDS: ceFAZolin 2 GM/50 ML BAG IVPB (10:02)
--- NOTE | 2021-08-21 11:54 | ROE_ITS ---
Date of service: 08/21/21 Time of Service: 11:54 Operative Note Operative Note DATE OF PROCEDURE: 08/21/21 PRE-OP DIAGNOSIS: Right Knee Arthritis POST-OP DIAGNOSIS: same PROCEDURE: Right Total Knee Arthroplasty with Intraoperative Navigation SURGEON: Bradley Stubbs CORPORATE DEVELOPMENT INTERN: Brittnay Barahona ANESTHESIA TYPE: Spinal Refer to Anesthesia Record ESTIMATED BLOOD LOSS: 200 PATHOLOGY: none sent TOURNIQUET TIME: 30 COMPLICATIONS: None Patient was transported to: PACU Patient's condition: stable Implants: 1. Depuy Attune Cruciate Retaining Femoral Component, Size 5 2. Depuy Attune Rotating Platform Tibial Component, Size 3 3. Depuy Attune 5x10 CR, RP Poly 4. Depuy Attune Patellar Component, Size 38 Indications: I have seen Danica in clinic for symptoms of knee arthritis, confirmed with radiographic findings. SHe has exhausted nonoperative methods and was having significant limitations in daily function and desired better function and less pain. I discussed the technical details of a knee replacement. I explained the risks of the procedure to include, but not limited to, bleeding, infection, pain, stiffness, fracture, damage to nerves and vessels, damage to muscles and tendons, loosening, need for repeat procedure, blood clot and cardiopulmonary demise. Despite these risks, Danica elected to proceed. Findings: There was significant signs of arthritis throughout the knee, most concentrated in the medial compartment. Procedure Description: Danica was greeted in the preoperative holding area where the correct side was identified and marked. The consent was reviewed with the patient and signed. The history and physical was updated. All questions were answered. Preoperative mediacations were administered: Acetaminophen 1000mg, Celebrex 400mg, Gabapentin 300mg, and Oxycontin 10mg. An adductor canal block was then administered by the anesthesia team in the PACU. Danica was taken back to the operating room. A spinal anesthestic was then administered. The patient was placed into the supine position on the operating room table. A nonsterile tourniquet was placed high onto the leg but only used for cementing. Posts were placed for positioning during the procedure. All bony prominences were well padded. Prophylactic antibiotics in the form of Cefazolin were administered. 1g of Tranxemic Acid was given intravenously within 30 minutes of incision. The right leg was then prepped with Chloraprep and draped in a standard fashion with impervious stockinette and extremity drape with Iodine impregnated skin protection. A timeout to confirm correct identity, side and site, procedure, allergies, anesthesia, and medical concerns was performed. With the knee in some flexion, a midline incision was made overlying the knee. Full thickness skin flaps were raised once the extensor mechanism was encountered. These were raised medially and laterally. Any bleeding was controlled with electrocautery. Once the extensor mechanism was fully exposed, a medial parapatellar arthrotomy was performed in a flexed position. All bleeding from the arthrotomy and the geniculate arteries was coagulated. A medial subperiosteal peel was performed with electrocautery to the midcoronal plane. Due to the significant varus deformity the entire medial tibial plateau was exposed. The fat pad was removed while keeping the patellar tendon protected. The anterior distal femur synovium was removed for later visualization. The ACL and PCL were resected and the anterior horn of the lateral meniscus was transected. The knee was then flexed with the patella everted. Large osteophytes from the tibia were removed. Large osteophytes from the femur were removed. A loose body from the medial gutter underlying the MCL was removed. A single starting pin was then placed 1cm anterior to the PCL insertion and the notch in the direction of the femoral head. The OrthoAlign device was applied over the pin. It was oriented to be in line with the epicondylar axis and the trochlear groove. It was then pinned into place. The navigation computer was then turned on and calibrated. The distal femur cut was set at 0 degrees varus/valgus and 2.5 degrees flexion. The distal femur cutting guide then was positioned for a 9mm cut. The distal femur was cut with an oscillating saw while protecting the soft tissues. The tibia was then addressed. The OrthoAlign device was placed over the tibial tubercle and medial tibia and secured into position. Once again, OrthoAlign was calibrated and then set for a 0 degree varus/valgus cut and 5 degrees of posterior slope. With this locked into position, the cut thickness stylus was used to assess cut thickness. The medial side, most involved side, was set for a 4mm cut. This was then held in position and pinned into place with 2 additional pins and a cross pin for stability. The medial and lateral collateral ligaments were protected and the cut was performed. With this completed, it was assessed and noted to be of appropriate dimensions. The guide and OrthoAlign was removed. A spacer block was inserted and the knee was brought into extension. The 8mm spacer block provided full extension, without hyperextension and with stability of both the medial and lateral collateral ligaments was assessed. The pins from the femur and the tibia were then removed. The distal femur was then sized. The anterior stylus was placed onto the lateral ridge of the anterior femur. This indicated a size 5 femur. The external rotation of the guide was adjusted to 3 degrees to match the epicondylar axis, perpendicular to [place]?s line. The 4-in-1 cutting guide was the placed. The posterior medial femur cut was evaluated and appeared of good thickness. The spacer block was inserted underneath the cutting guide and stability was confirmed in 90 degrees of flexion. An shena wing was used to confirm appropriate position of the anterior cut to avoid notching. This cutting guide was ensured to be flush on the cut surface and then pinned into place with headed pins. While protecting the soft tissues, quad tendon, and collateral ligaments, the anterior and posterior cuts were performed with a saw. The central two pins were removed and the posterior and anterior chamfers were cut next. The notch-cutting guide was placed. This was pinned to lateralize the femoral component as much as possible while keeping it flush on the cut surface. This was then pinned into position. A reciprocating saw was used to make the notch cut. A rasp smoothed the cut surfaces. A trial posterior stabilized femoral component was then inserted, impacted down to the cut surfaces, and the lug holes were drilled. A provisional trial tibial component was placed and the knee was brought through range of motion. The polyethylene was trialed until there was good flexion and extension with excellent stability to the medial and lateral collaterals. The patella was tracking without thumbs. The tibial cut surface was fully exposed. The medial and lateral menisci were removed. The tibia was then sized as a 3. The tibia had been previously marked during trialing to correspond to the center of the tibial component to help with rotation. The trial was aligned to this rosamaria, approximately rotated to the medial 1/3rd of the tibial tubercle. The trial was pinned into place. The tibia was prepared with a reamer and a keel punch. The knee was then brought into extension and the patella was measured as 24mm. Using the patellar clamp and cut guide, this was resected to a flat surface with at least 13mm of thickness remaining. The size 38 patella fit the best. This was oriented and then clamped into position. The lugs were drilled. The trial components were removed. The final components, except for the polyethylene were opened on the back table. The periosteal and capsular tissues, especially posteriorly, around the knee were then systematically injected with a periarticular cocktail consisting of 246mg of Ropivacaine, 0.5mg of Epinephrine, 0.08mg of Clonidine, and 30mg of Ketorolac, diluted to 100cc. The tourniquet was then inflated to 275mmHg. The knee was thoroughly irrigated with a pulse lavage and dried. On the back table, with the implants opened, the cement was mixed. 2 batches of medium viscosity cement were prepared with vacuum assistance. Cement was placed on to the back side of the tibial component. A small amount was placed onto the posterior flange of the femur. Cement was manual pressurized and impregnated into the cut surface of the tibia. The tibial component was then inserted into the cut surface and impacted into position. Excess cement was removed and the component was reimpacted. Again, excess cement was removed and our attention was then turned to the femur. The femoral cut surface was once again dried and cement was manually impacted into the cut surface. The femoral component was lined with the lug holes and impacted. Excess cement was removed. It was ensured to be down against the cut surface. The trial polyethylene was then inserted and the leg was brought out into full extension for the duration of the cement curing process, approximately 15min. Cement was lastly manually impacted into the cut surface of the patella and the patellar button was clamped into position and held. During this process attention was turned to the gutters of the knee and for all interfaces for any excess cement. The knee was then thoroughly irrigated with Surgiphor Betadine solution. It was allowed to sit in the knee for 3 minutes before being irrigated out with saline. After the cement had finally cured, approximately 18min, the clamp was removed from the patella and the knee was taken through range of motion. A size 10mm polyethylene component provided the best range of motion and stability with less than 2mm gapping with medial and lateral stress and full extension without sig nificant hyperextension. The patella was tracking with a no-thumbs technique. The trial poly was removed and once again the knee was checked for any loose, excess, or errant cement. The poly component was then inserted into position after cleaning and drying the tibial tray. The capsule was then reapproximated with a No. 1 Vicryl at multiple locations. The capsule was finally closed with a No. 2 Stratafix, barbed suture. The tourniquet was then released and the arthrotomy appeared watertight without significant bleeding. The second dosing of 1g TXA was started. Deep tissues were then reapproximated with 0 Vicryl and 2-0 Vicryl. The skin was closed with a running 3-0 Monocryl in a subcuticular fashion. This was reinforced with skin glue. A Mepilex silver dressing was applied along with a [id number]-yn-upslu MOOSE wrap. A CryoCuff was applied. Danica was transferred to the hospital bed without difficulty an suffering no apparent complication. Danica has a good prognosis. Physical therapy will start today and without restrictions, weight-bearing as tolerated. Aspirin 81mg BID will be used for DVT prophylaxis.
--- NOTE | 2021-08-21 13:35 | PT.INIE ---
Date of service: 08/21/21 Time of Service: 13:35 PT Notes Visit Reasons: Right TKA Physical Therapy Day Surgery Initial Evaluation Date: 08/21/2021 Referring Doctor: DARWIN Vizcarra PT Orders: PT CONSULT: S/p Ortho surgery Precautions: WBAT on right LE with AD. Patient Profile/Admitting Diagnosis: Danica is a 71-year-old female with primary unilateral osteoarthritis of the right knee and is status post right total knee arthroplasty on postoperative day 0. 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 Will have support from family members at home. Independent with all mobility ADLs prior to surgery. Equipment Owned/DME: SPC Subjective: Agreeable to PT consult. Reports 2/10 pain in the R knee at rest. States that she had a stroke on the side as her operative knee and may not do as well. Denies headache, chest pain, and lightheadedness. Has had 2 fals in the past year due to loss of balance from previous stroke. Objective: General Observation: Supine in bed. Mepilex Ag over surgical incision. MOOSE wraps to R LE. Cryocuff to right knee. Mental Status: Alert and oriented x 4 Pain: 2/10 pain in the R knee ROM: Right Lower Extremity: Hip flexion WFL. Hip abduction WFL. Knee flexion 10-110 degrees. Knee extension -10 degrees. Ankle dorsiflexion WFL. Ankle plantarflexion WFL. Left Lower Extremity: Hip flexion WFL. Hip abduction WFL. Knee flexion WFL. Ankle dorsiflexion WFL. Ankle plantarflexion WFL. Strength: Right Lower Extremity: Hip flexors 5/5. Hip abductors 5/5. Knee flexors 3-/5. Knee extensors 3-/5. Ankle dorsiflexors 5/5. Ankle plantarflexors 5/5. Left Lower Extremity:Hip flexors 5/5. Hip abductors 5/5. Knee flexors 5/5. Knee extensors 5/5. Ankle dorsiflexors 5/5. Ankle plantarflexors 5/5. Sensation: Intact as to pain and light pressure in bilateral lower extremities. Denies numbness and tingling in B LE. Bed Mobility/Transfers: Supine to sit standby assist Sit to stand contact-guard assist Stand to sit standby assist Bed to chair standby assist Gait: Instructed patient level surface ambulation of 150 feet using front wheeled walker with step to gait pattern, standby assist provided. Stairs: Negotiated 6 x 4 inch steps and 4 x 6 inch steps holding onto 1 rail with one hand and SPC with the other hand needing contact-guard assist and minimal verbal cues for correct technique, step to gait pattern. Balance: Static Sitting: Normal Dynamic Sitting: Normal Static Standing: Fair Dynamic Standing: Fair Special Tests: Mobility Limitations Standardized Measure [facility] AM-PAC 6 clicks Basic Mobility Inpatient Short Form: Raw Score: 23 CMS Score: 11% deficit Informed Consent/Education: Patient instructed in purpose of PT consult. Education and training on initial set of exercises that can be done at home have been completed with patient and . THERA EX: SLR x 10, seated hip flexion x 5 for 2 reps, LAQ x 5 for 2 reps, quad sets held for 5 counts x x10 5, gluteal sets held for 5 counts x 5, ankle DF/PF x 10. Assessment: Danica demonstrates functional mobility decline requiring the use of front-wheeled walker for all mobility ADL performance to maximize independence and reduce fall risk. Patient presents with clinical signs and symptoms consistent with current/admitting diagnoses that have resulted to mobility limitations, gait instability, generalized weakness, and impairment of motor control as demonstrated by the following impairment level findings: 1. Decreased strength to right knee major muscle groups 2. Impaired standing balance 3. Limitation of joint range of motion in right knee Impairments are contributing to the following functional limitations: 1. Inability to safely ambulate without assistive device 2. Increase completion time for mobility ADL performance 3. Increased fall risk Patient is assessed as a 61212 moderate complexity based on the following: History: 71-year-old female with impairment level findings, functional limitations, and past medical history as indicated above Examination: Demonstrable impairment in strength, balance, and mobility level with underlying impairments and functional limitations as documented above Presentation: Evolving Decision Makin moderate complexity Goals: N/A. PT evaluation and 1-2 treatment sessions only for functional mobility training using recommended AD and for HEP instruction. Plan of Care/Treatment Plan: N/A. PT evaluation and 1-2 treatment session only for functional mobility training using recommended AD and for HEP instruction. DISCHARGE RECOMMENDATIONS: [] Home with no services [] [] Home with services [specify] [X] Home with outpatient PT. Home when medically cleared by orthopedic surgeon. Will benefit from outpatient PT services in order to facilitate return to independent community ambulation and ADL performance without an assistive device. [] SNF for continued rehabilitation [] [] [facility] [] [] SNF versus LTC based on ability to participate and progress [] TREATMENT CODE/TIME: 49737 x 25 minutes, 9753 [id number] x 26 minutes beginning at 13:35 PM. Thank you for the opportunity to participate in the care of this patient. Thank you for the opportunity to participate in the care of this patient. Sadie Wick PT, DPT, CLT [facility] [place], [place]
--- NOTE | 2021-08-21 13:56 | W.ANESPOSTOP ---
Postoperative Evaluation Date, Time and Location Date Performed: 08/21/21 Time Performed: 13:56 Patient Location: Day Surgery Unit Vital Signs Most Recent Imported Vital Signs: Most Recent Vital Signs Temp Pulse Resp BP Pulse Ox 36.2 C L 66 16 138/69 100 08/21/21 13:06 08/21/21 13:06 08/21/21 13:06 08/21/21 13:06 08/21/21 13:06 Pain Score Most Recent Pain Score: Most Recent Pain Score Pain Level 0 08/21/21 13:06 Assessment Mental Status: Awake (Alert & Oriented to Patient Baseline) Airway and Respiratory Function: Patent airway with normal (patient baseline) respiratory exam Cardiovascular Function: Hemodynamically Stable Hydration Status: Adequately Hydrated Nausea & Vomiting: No Nausea or Vomiting Pain: Pt. Denies Any Pain Peripheral Nerve Block: Regional nerve block not resolved at time of post operative discharge
== END 2021-08-21 15:02 | disposition home or self-care (01) ==
PROVIDERS: Student in an Organized Health Care Education/Training Program; PCP Nurse Practitioner; Visit Provider Student in an Organized Health Care Education/Training Program
PROC: (CPT 27447; principal; 2021-08-21 10:30)
DX: M17.11 Unilateral primary osteoarthritis, right knee (principal); I10 Essential (primary) hypertension; E03.9 Hypothyroidism, unspecified
CPT/HCPCS: 20985; 27447; C1776; 36415; 76942; 97162; 97530; 84295; J0690; J1100; J2405

== ENCOUNTER 2021-08-22 19:48 | Inpatient (IN) | payer MEDICARE, SELFPAY ==
[2021-08-22] VITALS (62 sets, daily range): BP systolic 110–156; BP diastolic 50–75; PULSE 56–71; RESP 9–24; TEMP 36.2; O2SAT 98–100
--- NOTE | 2021-08-22 19:45 | RT.EKG_ITS ---
APPROVED REPORT Exam: Resting ECG Reason for Exam: AMS Patient Location: E HR:60 bpm ECG Measurements Heart Rate 60 AXIS SD 73 P 0 QRSd 94 QRS -7 QT 460 T 27 QTc 460 Conclusion Sinus rhythm...normal P axis, V-rate 60- 99 Nonspecific T abnormalities, anterior leads...T <-0.10mV, V2-V4
--- NOTE | 2021-08-22 20:00 | DI.RAD_ITS ---
Exam(s) XR PORTABLE CHEST AP EXAM: XR PORTABLE CHEST AP CLINICAL HISTORY: hypotension TECHNIQUE: 2D digital imaging was performed of the chest. One image was obtained. An AP view was ob tained. COMPARISON: CR CHEST 2 VIEWS PA,LAT from 06/23/2014 FINDINGS: MEDIASTINUM: Normal. HEART: Normal. PULMONARY VASCULATURE: Normal. LUNGS: Clear. PLEURAL SPACE: No pleural effusion or pneumothorax. BONE:Within normal limits for the patient's age. OTHER FINDINGS:Normal. IMPRESSION: No acute pulmonary findings. DATA REPOSITORY: RADIATION DOSE DELIVERED:
[2021-08-22] MEDS: Normal Saline 1,000 ML 1000 ML IV (20:26)
[2021-08-22 20:29] LABS: Abs Immature Grans 0.06 10^3/uL (0.0-0.06); Absolute Basophil Count 0.05 10^3/uL (0.0-0.2); Absolute Eosinophil Count 0.12 10^3/uL (0.0-0.7); Absolute Monocyte Count 0.84 10^3/uL (0.1-0.8); Absolute Neutrophil Count 6.29 10^3/uL (1.2-6.7); Basophils % 0.5; Eosinophils % 1.3; HCT 29.9 % (36.0-46.0); HGB 10.4 g/dL (11.2-15.7); Immature Grans % 0.7; Lymphocytes % 19.7; MCHC 34.8 % (32.0-36.0); MCV 89 fL (80-95); MPV 9.1 fL (8.0-11.0); Monocytes % 9.2; Neutrophils % 68.6; Platelet Count 148 10^3/uL (130-400); RBC 3.35 10^6/uL (3.93-5.22); RDW 12.6 % (11.7-14.6); WBC 9.16 10^3/uL (4.4-10.8)
[2021-08-22 20:30] LABS: Lactate 2.1 mmol/L (0.6-1.4)
[2021-08-22 21:21] LABS: Bilirubin Negative (Negative); Blood Negative (Negative); Clarity Clear (Clear); Glucose Negative (Negative); Ketones Negative (Negative); Leukocyte Esterase Negative (Negative); Nitrite Negative (Negative); Specific Gravity 1.015 (1.005-1.025); Urobilinogen 0.2 EU/dL (Up TO 0.2); pH 7.5 (5-8)
[2021-08-22 21:47] LABS: Lactate 1.6 mmol/L (0.6-1.4)
--- NOTE | 2021-08-22 21:58 | DI.VRAD_ITS ---
PROCEDURE INFORMATION: Exam: XR Chest Exam date and time: 08/22/2021 8:58 PM Age: 71 years old Clinical indication: Other: Hypotension TECHNIQUE: Imaging protocol: XR of the chest. Views: 1 view. COMPARISON: CTA BRAIN AND NECK 10/29/2017 12:10 AM FINDINGS: Tubes, catheters and devices: Monitoring wires noted. Lungs: Unremarkable. No consolidation. Pleural spaces: Unremarkable. No pleural effusion. No pneumothorax. Heart/Mediastinum: Unremarkable. No cardiomegaly. Bones/joints: Extensive degenerative changes are noted in the spine. IMPRESSION: No acute cardiopulmonary abnormality. Dictated and Authenticated by: Allan Woodruff MD. Ordering:JUSTINO Myers MD
[2021-08-22] MEDS: Lactated Ringers 500 ML IV (22:03)
[2021-08-22 22:14] LABS: ALT 20 U/L (14-59); AST 20 U/L (15-37); Albumin 3.2 g/dL (3.4-5.0); Alkaline Phosphatase 69 U/L (46-116); BUN 14 mg/dL (7-18); Bilirubin, Total 0.6 mg/dL (0.2-1.0); CREATININE 0.7 mg/dL (0.55-1.02); Calcium 7.9 mg/dL (8.5-10.1); Chloride 93 mmol/L (98-107); Glucose 105 mg/dL (74-106); Magnesium 1.9 mg/dL (1.8-2.4); Potassium 4.1 mmol/L (3.5-5.1); Sodium 126 mmol/L (136-145); TSH 1.02 uIU/mL (0.36-3.74); Total Protein 6.4 g/dL (6.4-8.2)
--- NOTE | 2021-08-22 22:41 | ED.GENADUL_ITS ---
Discharge Plan Disposition Patient Disposition: [facility] INPATIENT Condition: Serious Discharge Details Clinical Impression: Syncope due to orthostatic hypotension, Hyponatremia, Acute anemia, Postoperative pain of right knee, Hypocalcemia Admit Date/Time: 08/22/21 23:18 Admit Provider: Malik Araujo Attending Provider: Malik Araujo Primary Care Provider: Corine Colunga ED Provider: Lucia Driver Discharge Data Discharge Date/Time-TO BE ENTERED AT DEPARTURE: 08/23/21 00:23 Medical Decision Making <DARWIN Luciano - Last Filed: 08/24/21 12:06> Patient patient's symptoms are related to Dilaudid consumption, 2 mg however she was given 1 L of normal saline and had orthostatics reassessed the patient was unable to ambulate secondary to symptomatic likely orthostatic syncope Alert and oriented, no trauma from episode No chest pain or shortness of breath Labs are concerning with hyponatremia which appears to be acute in the past week but was also noted prior to surgery, 126 EKG without evidence of ischemia Magnesium and thyroid within normal limits Chest x-ray without acute abnormality New anemia, likely surgical related Mild hypocalcemia, 7.9, will reassess Patient attempted to ambulate status post fluid resuscitation and became very symptomatic and had a syncopal event She will need to be admitted to the hospital She is agreeable to admission at this time She has no result neurologically intact at time of reassessment She is agreeable to admission by Dr. Araujo at time of reassessment Chest x-ray radiology interpretation reviewed by me Medical Records Medical records reviewed: Yes I reviewed the patient's medical records. Lab Data Lab results reviewed: Yes I reviewed the patient's lab results. ECG Data Prior ECG tracings: available for review <Colin Page MD - Last Filed: 08/23/21 01:14> Date: 08/22/21 Time: 23:16 Note: Patient seen, examined, and discussed with DARWIN Driver. Patient is anemic with Hb 10.4. This is an acute drop which I suspect is secondary to blood loss from surgery. She denies BRBPR and melena. She has no chest pain and no abdominal pain. Patient is hyponatremic - possibly lisa inhibitor induced? vs other - additional workup will be necessary. EKG reviewed and interpreted by me: Nondiagnostic, please see report. Troponin pending. I suspect etiology of syncope is multi factorial - anesthesia and opioid pain medication contributing. Given continued symptoms with recurrent syncope here after IVF, plan for admission for continuous telemetry and further workup and treatment. I agree with treatment plan as discussed/documented. HPI <DARWIN Luciano - Last Filed: 08/24/21 12:06> General Date/Time Provider Initiated Documentation: 08/22/21 20:00 . HPI Narrative: This 71-year-old female with past medical history of CVA, osteoarthritis, diverticulosis presents status post knee replacement yesterday. Today she took her first dose of Dilaudid 2 mg at 330 and approximately an hour prior to arrival attempted to get up from the sofa after laying all day and felt like she might pass out, she became very diaphoretic, nausea, and almost passed out per her . She did not have any chest pain or shortness of breath at this time. She felt very tired. She states she never taken Dilaudid before. She denies any vomiting. She is feeling improvement at this time. She also states that she did not eat dinner. She denies any urinary symptoms. She denies any new calf pain or swelling. Denies any fever or chills. Related Data Home Medications Medication Instructions Recorded Confirmed aspirin 325 mg tablet 325 mg PO DAILY 08/09/20 08/22/21 glucosamine HCl 500 mg tablet 500 mg PO DAILY 08/09/20 08/22/21 fluoxetine 40 mg capsule 40 mg PO DAILY #90 caps 05/17/21 08/22/21 levothyroxine 112 mcg capsule 112 mcg PO DAILY #90 caps 05/24/21 08/22/21 lisinopril 40 mg tablet 40 mg PO DAILY #90 tabs 05/24/21 08/22/21 acetaminophen 500 mg capsule 1,000 mg PO Q8H PRN PRN #90 caps 08/21/21 08/22/21 celecoxib 200 mg capsule (Celebrex) 200 mg PO BID #60 caps 08/21/21 08/22/21 gabapentin 300 mg capsule 300 mg PO QHS #14 caps 08/21/21 08/22/21 pantoprazole 40 mg tablet,delayed 40 mg PO DAILY #30 tabs 08/21/21 08/22/21 release (Protonix) tramadol 50 mg tablet 50 mg PO Q6H PRN #5 tabs 08/24/21 Previous Rx's Medication Instructions Recorded fluoxetine 40 mg capsule 40 mg PO DAILY #90 caps 05/17/21 levothyroxine 112 mcg capsule 112 mcg PO DAILY #90 caps 05/24/21 lisinopril 40 mg tablet 40 mg PO DAILY #90 tabs 05/24/21 acetaminophen 500 mg capsule 1,000 mg PO Q8H PRN PRN #90 caps 08/21/21 celecoxib 200 mg capsule (Celebrex) 200 mg PO BID #60 caps 08/21/21 gabapentin 300 mg capsule 300 mg PO QHS #14 caps 08/21/21 pantoprazole 40 mg tablet,delayed 40 mg PO DAILY #30 tabs 08/21/21 release (Protonix) tramadol 50 mg tablet 50 mg PO Q6H PRN #5 tabs 08/24/21 Allergies Allergy/AdvReac Type Severity Reaction Status Date / Time [id number] Reductase AdvReac Intermediate myalgias Verified 08/22/21 20:00 Inhibitor [Mptmbog-Uly-Bez Reductase Inhibitor] oxycodone HCl [From Percocet] AdvReac Mild MADE HER Verified 08/22/21 20:00 JITTERY General Stated Complaint: AMS/LOC WAYNE: 3 Review of Systems <DARWIN Luciano - Last Filed: 08/24/21 12:06> All systems reviewed & are unremarkable except as noted in HPI and below PFSH <DARWIN Luciano - Last Filed: 08/24/21 12:06> All Active Problems Discharge planning issues (Acute) DVT prophylaxis (Acute) Syncope due to orthostatic hypotension (Acute) Hyponatremia (Acute) Acute anemia (Acute) Postoperative pain of right knee (Acute) Hypocalcemia (Acute) Syncope (Acute) Hyponatremia (Acute) Stroke (Chronic 10/28/17) Hypertension (Chronic) Hypercholesterolemia (Chronic) Depression (Chronic) Hypothyroidism (Chronic) Right homonymous hemianopsia (Chronic) Urinary incontinence (Acute) Sensorineural hearing loss, bilateral (Acute) Primary osteoarthritis of right knee (Chronic) s/p R TKA (08/21/21) Primary osteoarthritis of left hip (Acute) Medical History Discharge planning issues Diverticulosis (~09/07/18) 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 Father , 98 Heart disease Stroke Hypertension Sister Cancer unsure of type Sister , at No problems noted. Brother No problems noted. Son Alcohol abuse Depression Daughter Depression Maternal Grandfather No problems noted. Paternal Grandfather No problems noted. Maternal Grandmother No problems noted. Paternal Grandmother No problems noted. Social History Smoking/Tobacco Use Status: Former Tobacco Use Quit Date: 03/16/70 Tobacco: How many years used: 7 Second Hand Exposure: No Smoking risk assessment performed?: Yes Alcohol Intake: current Alcohol Intake frequency: holidays/special occasions only Alcohol type: wine Drug use: Never Substance use type: does not use Details: couple glasses of wine last week Caregiver/Support person: No Household members: spouse Housing: house Communication Needs: Hard of Hearing and Corrective Lenses Do you need help understanding health information?: Never Pets and animals: Yes Pets and animals: cat(s), dog(s) and horse(s) Sexually active: No Do you think of yourself as: straight/heterosexual Current gender identity: female What is your relationship status?: How often do you talk on the phone with friends or family?: decline to answer How often do you get together with friends or relatives?: decline to answer How often do you attend yarsani or adventist services?: decline to answer Do you belong to any clubs or organized social groups?: decline to answer Panel score (0-1 are the most socially isolated patients): 1 What type of physical activity do you participate in: walking Frequency: 1-2 times per week Seatbelt use: always Do you feel safe at home: Yes (Spouse in room) Do you feel safe in your relationship?: Yes Additional 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 Social ETOH only. Exam <DARWIN Luciano - Last Filed: 08/24/21 12:06> Const General: cooperative, comfortable and no acute distress Eyes General: appearance normal, both eyes and all related structures Pupils: PERRL EOM: EOM intact bilaterally Neck Neck: normal visual inspection Resp Effort & Inspection: normal respiratory effort Auscultation: clear to auscultation bilaterally Cardio Rate: regular rate Rhythm: regular rhythm GI Inspection: normal to inspection Rectal Exam - female: visual inspection normal Neuro General: patient alert and patient oriented x3 Cranial Nerves: CN's II-XI intact bilaterally and tongue midline Cognition: normal cognition Speech: speech normal Motor: muscle tone normal throughout Sensory Exam: no sensory deficits noted Extrem Other: Right knee with postoperative site, mild ecchymosis, no evidence of secondary infection mild swelling without calf tenderness, neurovascularly intact Course <DARWIN Luciano - Last Filed: 08/24/21 12:06> Vital Signs Vital signs: Vital Signs Temperature 36.2 C L 08/22/21 19:54 Pulse 60 08/22/21 19:54 Respiratory Rate 16 08/22/21 19:54 Blood Pressure 156/75 H 08/22/21 19:54 Pulse Oximetry 98 08/22/21 19:54 Temperature 36.2 C L 08/22/21 19:54 Temperature Source Skin 08/22/21 19:54 Pulse 61 08/22/21 21:01 Respiratory Rate 23 08/22/21 21:11 Respiratory Effort Non-Labored 08/22/21 20:03 Respiratory Depth Normal 08/22/21 20:03 Respiratory Pattern Normal 08/22/21 20:03 Blood Pressure 130/71 08/22/21 21:01 Pulse Oximetry 100 08/22/21 21:03 Pain Level 5 08/22/21 19:54 Lab/Test Results Lab/Test Results: Laboratory Tests Range/Units 08/22/21 08/22/21 08/22/21 20:23 20:23 20:23 WBC (4.4-10.8) 10^3/uL 9.16 RBC (3.93-5.22) 10^6/uL 3.35 L Hgb (11.2-15.7) g/dL 10.4 L Hct (36.0-46.0) % 29.9 L MCV (80-95) fL 89 MCH (27.0-33.0) pg 31.0 MCHC (32.0-36.0) % 34.8 RDW (11.7-14.6) % 12.6 Plt Count (130-400) 10^3/uL 148 MPV (8.0-11.0) fL 9.1 Immature Gran % 0.7 Neutrophils % 68.6 Lymphocytes % 19.7 Monocytes % 9.2 Eosinophils % 1.3 Basophils % 0.5 Nucleated RBC % (0.0-0.3) % 0.0 Absolute Neutrophils (1.2-6.7) 10^3/uL 6.29 Absolute Lymphocytes (1.2-3.4) 10^3/uL 1.80 Absolute Monocytes (0.1-0.8) 10^3/uL 0.84 H Absolute Eosinophils (0.0-0.7) 10^3/uL 0.12 Absolute Basophils (0.0-0.2) 10^3/uL 0.05 VBG Lactate (0.6-1.4) mmol/L 2.1 H Sodium Cancelled Potassium Cancelled Chloride Cancelled Carbon Dioxide Cancelled Anion Gap Cancelled BUN Cancelled Creatinine Cancelled Estimated GFR/1.73 m2 Cancelled Glucose Cancelled Calcium Cancelled Magnesium Cancelled Total Bilirubin Cancelled AST Cancelled ALT Cancelled Alkaline Phosphatase Cancelled Total Protein Cancelled Albumin Cancelled TSH Cancelled Urine Color (Yellow) Urine Clarity (Clear) Urine pH (5-8) Ur Specific Sophia (1.005-1.025) Urine Protein (Negative) mg/dL Urine Ketones (Negative) mg/dL Urine Blood (Negative) Urine Nitrite (Negative) Urine Bilirubin (Negative) Urine Urobilinogen (Up TO 0.2) EU/dL Ur Leukocyte Esterase (Negative) Urine Glucose (Negative) mg/dL Range/Units 08/22/21 08/22/21 08/22/21 21:10 21:41 21:45 WBC (4.4-10.8) 10^3/uL RBC (3.93-5.22) 10^6/uL Hgb (11.2-15.7) g/dL Hct (36.0-46.0) % MCV (80-95) fL MCH (27.0-33.0) pg MCHC (32.0-36.0) % RDW (11.7-14.6) % Plt Count (130-400) 10^3/uL MPV (8.0-11.0) fL Immature Gran % Neutrophils % Lymphocytes % Monocytes % Eosinophils % Basophils % Nucleated RBC % (0.0-0.3) % Absolute Neutrophils (1.2-6.7) 10^3/uL Absolute Lymphocytes (1.2-3.4) 10^3/uL Absolute Monocytes (0.1-0.8) 10^3/uL Absolute Eosinophils (0.0-0.7) 10^3/uL Absolute Basophils (0.0-0.2) 10^3/uL VBG Lactate (0.6-1.4) mmol/L 1.6 H Sodium 126 L Potassium 4.1 Chloride 93 L Carbon Dioxide 26.0 Anion Gap 7.0 BUN 14 Creatinine 0.7 Estimated GFR/1.73 m2 >= 60.00 Glucose 105 Calcium 7.9 L Magnesium 1.9 Total Bilirubin 0.6 AST 20 ALT 20 Alkaline Phosphatase 69 Total Protein 6.4 Albumin 3.2 L TSH 1.02 Urine Color (Yellow) Straw Urine Clarity (Clear) Clear Urine pH (5-8) 7.5 Ur Specific Sophia (1.005-1.025) 1.015 Urine Protein (Negative) mg/dL Negative Urine Ketones (Negative) mg/dL Negative Urine Blood (Negative) Negative Urine Nitrite (Negative) Negative Urine Bilirubin (Negative) Negative Urine Urobilinogen (Up TO 0.2) EU/dL 0.2 Ur Leukocyte Esterase (Negative) Negative Urine Glucose (Negative) mg/dL Negative
--- NOTE | 2021-08-22 23:12 | NUR.NOTE ---
Nursing Note: i was unable to get a standing orthstatic on the patient, because she almost became un responsive, and ihad to quickly get her back the bed for her saftey.
--- NOTE | 2021-08-22 23:12 | W.PM.HP.N ---
Date of service: 08/22/21 Time of Service: 23:13 Assessment and Plan Assessment and plan (1) Hyponatremia: Start date: 08/22/21 Status: Acute Assessment and plan: This is a 71-year-old lady postoperative day 1 with syncopal episode at home and hypotension with orthostasis most likely secondary to oversedation with Dilaudid. She also may be slightly dry postoperatively and is respond to IV hydration with normal saline for treatment of hyponatremia as well as her orthostasis. She is on lisinopril chronically this is being held. She is responding to fluid resuscitation and is trending troponins which were negative as well as having cardiac monitoring which showed sinus rhythm. (2) Syncope: Start date: 08/22/21 Status: Acute Assessment and plan: Acute episode most likely secondary to combination of postoperative sequelae including hyponatremia, mild dehydration and oversedation with Dilaudid which patient has never taken in the past. He is improving with supportive care. She was still orthostatic in the ED after hydration and had not been challenged overnight. Reevaluation in the morning with PT and OT to see the patient postoperative right TKA. She is using a walker. (3) Primary osteoarthritis of right knee: Status: Chronic Assessment and plan: PT and OT to evaluate for safety with ambulation with walker. Continue knee brace. Orthopedics will follow as needed. There is not appear to be any locations from the procedure but the knee not swollen and not injured with her episode. (4) Hypertension: Status: Chronic Assessment and plan: Hold lisinopril with lower dose in the morning if needed. Monitor closely with IV hydration. Cardiac monitoring. 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 She had just taken her first dose of Dilaudid 2 mg in the mid afternoon and approximately an hour prior to arrival to the ED she attempted to get up from the sofa after laying all day and felt like she might pass out, she became very diaphoretic, nauseated, and almost passed out per her .? She did not have any chest pain or shortness of breath at this time.? She felt very tired.? She states she never taken Dilaudid before.? She denies any vomiting.? She felt better in the ED after IV hydration.? She also states that she did not eat dinner.? She denies any urinary symptoms.? She denies any new calf pain or swelling.? Patient was found to have hyponatremia preoperatively and postoperatively this persisted in the ED with patient receiving IV normal saline treatment this problem. She has not a drinker and does not drink a large amount of water especially since she does have some urinary urgency and incontinence status post bladder procedure which failed. Patient was admitted for treatment of her hyponatremia which may have been causing some of her weakness and trending troponins as well as cardiac monitoring with her episode. She is on a moderate dose of lisinopril for hypertension and this will be modified if given at all monitoring her blood pressure. Physical therapy and Occupational Therapy need to evaluate patient. She is a full code. 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 Review of Systems Narrative: 13 point review of systems otherwise unrevealing or stable [facility] All Active Problems (Updated 08/23/21 @ 06:58 by Malik Araujo) Syncope due to orthostatic hypotension (Acute) Hyponatremia (Acute) Acute anemia (Acute) Postoperative pain of right knee (Acute) Hypocalcemia (Acute) Syncope (Acute) Hyponatremia (Acute) Stroke (Chronic 10/28/17) Hypertension (Chronic) Hypercholesterolemia (Chronic) Depression (Chronic) Hypothyroidism (Chronic) Right homonymous hemianopsia (Chronic) Urinary incontinence (Acute) Sensorineural hearing loss, bilateral (Acute) Primary osteoarthritis of right knee (Chronic) Primary osteoarthritis of left hip (Acute) Medical History Discharge planning issues Diverticulosis (~09/07/18) 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 Father , 98 Heart disease Stroke Hypertension Sister Cancer unsure of type Sister , at No problems noted. Brother No problems noted. Son Alcohol abuse Depression Daughter Depression Maternal Grandfather No problems noted. Paternal Grandfather No problems noted. Maternal Grandmother No problems noted. Paternal Grandmother No problems noted. Social History Smoking/Tobacco Use Status: Former Tobacco Use Quit Date: 03/16/70 Tobacco: How many years used: 7 Second Hand Exposure: No Smoking risk assessment performed?: Yes Alcohol Intake: current Alcohol Intake frequency: holidays/special occasions only Alcohol type: wine Drug use: Never Substance use type: does not use Details: couple glasses of wine last week Caregiver/Support person: No Household members: spouse Housing: house Communication Needs: Hard of Hearing and Corrective Lenses Do you need help understanding health information?: Never Pets and animals: Yes Pets and animals: cat(s), dog(s) and horse(s) Sexually active: No Do you think of yourself as: straight/heterosexual Current gender identity: female What is your relationship status?: How often do you talk on the phone with friends or family?: decline to answer How often do you get together with friends or relatives?: decline to answer How often do you attend denominational or synagogue services?: decline to answer Do you belong to any clubs or organized social groups?: decline to answer Panel score (0-1 are the most socially isolated patients): 1 What type of physical activity do you participate in: walking Frequency: 1-2 times per week Seatbelt use: always Do you feel safe at home: Yes (Spouse in room) Do you feel safe in your relationship?: Yes Additional 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 Social ETOH only. Meds Allergies and Home Medications Allergies Allergy/AdvReac Type Severity Reaction Status Date / Time Juizeyj-ZVN-JmJ Reductase AdvReac Intermediate myalgias Verified 08/22/21 20:00 Inhibitor [Aexlqjj-Vum-Wop Reductase Inhibitor] oxycodone HCl [From Percocet] AdvReac Mild MADE HER Verified 08/22/21 20:00 JITTERY Home Medications Medication Instructions Recorded Confirmed Type aspirin 325 mg tablet 325 mg PO DAILY 08/09/20 08/22/21 History glucosamine HCl 500 mg tablet 500 mg PO DAILY 08/09/20 08/22/21 History fluoxetine 40 mg capsule 40 mg PO DAILY #90 caps 05/17/21 08/22/21 Rx levothyroxine 112 mcg capsule 112 mcg PO DAILY #90 caps 05/24/21 08/22/21 Rx lisinopril 40 mg tablet 40 mg PO DAILY #90 tabs 05/24/21 08/22/21 Rx acetaminophen 500 mg capsule 1,000 mg PO Q8H PRN PRN #90 caps 08/21/21 08/22/21 Rx celecoxib 200 mg capsule (Celebrex) 200 mg PO BID #60 caps 08/21/21 08/22/21 Rx gabapentin 300 mg capsule 300 mg PO QHS #14 caps 08/21/21 08/22/21 Rx hydromorphone 2 mg tablet 2 mg PO Q6H PRN #20 tabs 08/21/21 08/22/21 Rx pantoprazole 40 mg tablet,delayed 40 mg PO DAILY #30 tabs 08/21/21 08/22/21 Rx release (Protonix) Exam Narrative Exam Narrative: General: Patient appears appropriate for age, alert and oriented x3 and in no distress. HEENT: Normocephalic, eyes with pupils equal and reactive light symmetrically, extraocular movements active sclera anicteric. Moist mucosa. Neck: Supple without JVD. Back: Stooped posture without CVA tenderness. Lungs: Fair aeration and clear to all rotation and percussion. No focalizing rales or rhonchi. Heart: Regular rate and rhythm with no murmurs or gallops. Breast: Exam deferred. Abdomen: Normal contour, soft nontender to palpation with no palpable hepatosplenomegaly. Genitalia/rectal: Exam deferred. Extremity: Without clubbing, cyanosis or edema. Peripheral pulses intact. Right knee is in a knee immobilizer without significant swelling. All other lower joints have fair range of motion status post multiple joint replacements except for right hip. Skin: Well tanned, warm and dry. Normal turgor. No rashes. Neuro: Cranial nerves II through XII grossly intact, no focalizing motor deficits. Patient reports right visual field deficit from her previous stroke and did have some weakness on the right which is not evident. Psych: Normal mood and affect. No abnormal thought processes. Remote and recent memory intact. Results Imaging Imaging Studies: Exam: XR Chest Exam date and time: 08/22/2021 8:58 PM Age: 71 years old Clinical indication: Other: Hypotension TECHNIQUE: Imaging protocol: XR of the chest. Views: 1 view. COMPARISON: CTA BRAIN AND NECK 10/29/2017 12:10 AM FINDINGS: Tubes, catheters and devices: Monitoring wires noted. Lungs: Unremarkable. No consolidation. Pleural spaces: Unremarkable. No pleural effusion. No pneumothorax. Heart/Mediastinum: Unremarkable. No cardiomegaly. Bones/joints: Extensive degenerative changes are noted in the spine. IMPRESSION: No acute cardiopulmonary abnormality. Labs Result diagrams: 08/23/21 03:32 08/23/21 03:32 Labs: Laboratory Results - last 24 hr 08/22/21 08/22/21 08/22/21 20:23 20:23 20:23 WBC 9.16 RBC 3.35 L Hgb 10.4 L Hct 29.9 L MCV 89 MCH 31.0 MCHC 34.8 RDW 12.6 Plt Count 148 MPV 9.1 Immature Gran % 0.7 Neutrophils % 68.6 Lymphocytes % 19.7 Monocytes % 9.2 Eosinophils % 1.3 Basophils % 0.5 Nucleated RBC % 0.0 Absolute Neutrophils 6.29 Absolute Lymphocytes 1.80 Absolute Monocytes 0.84 H Absolute Eosinophils 0.12 Absolute Basophils 0.05 VBG Lactate 2.1 H Sodium Cancelled Potassium Cancelled Chloride Cancelled Carbon Dioxide Cancelled Anion Gap Cancelled BUN Cancelled Creatinine Cancelled Estimated GFR/1.73 m2 Cancelled Glucose Cancelled Calcium Cancelled Magnesium Cancelled Total Bilirubin Cancelled AST Cancelled ALT Cancelled Alkaline Phosphatase Cancelled Total Protein Cancelled Albumin Cancelled TSH Cancelled Urine Color Urine Clarity Urine pH Ur Specific [place] Urine Protein Urine Ketones Urine Blood Urine Nitrite Urine Bilirubin Urine Urobilinogen Ur Leukocyte Esterase Urine Glucose 08/22/21 08/22/21 08/22/21 21:10 21:41 21:45 WBC RBC Hgb Hct MCV MCH MCHC RDW Plt Count MPV Immature Gran % Neutrophils % Lymphocytes % Monocytes % Eosinophils % Basophils % Nucleated RBC % Absolute Neutrophils Absolute Lymphocytes Absolute Monocytes Absolute Eosinophils Absolute Basophils VBG Lactate 1.6 H Sodium 126 L Potassium 4.1 Chloride 93 L Carbon Dioxide 26.0 Anion Gap 7.0 BUN 14 Creatinine 0.7 Estimated GFR/1.73 m2 >= 60.00 Glucose 105 Calcium 7.9 L Magnesium 1.9 Total Bilirubin 0.6 AST 20 ALT 20 Alkaline Phosphatase 69 Total Protein 6.4 Albumin 3.2 L TSH 1.02 Urine Color Straw Urine Clarity Clear Urine pH 7.5 Ur Specific [place] 1.015 Urine Protein Negative Urine Ketones Negative Urine Blood Negative Urine Nitrite Negative Urine Bilirubin Negative Urine Urobilinogen 0.2 Ur Leukocyte Esterase Negative Urine Glucose Negative Last Vital Signs Temp 36.2 C L 08/22/21 19:54 Pulse 71 08/22/21 23:06 Resp 23 08/22/21 21:11 BP 122/65 08/22/21 23:10 Pulse Ox 100 08/22/21 21:03
[2021-08-22 23:22] LABS: Source Nasal/Nares
[2021-08-22 23:49] LABS: Troponin I < 50 ng/L (<or=60)
[2021-08-23] VITALS (14 sets, daily range): BP systolic 78–162; BP diastolic 58–91; PULSE 58–85; RESP 14–18; TEMP 36.1–37.6; O2SAT 97–100
[2021-08-23 00:11] LABS: COVID-19 PCR Negative (Negative)
[2021-08-23] MEDS: Normal Saline 1,000 ML 125 ML IV ×3 (00:48→21:07)
[2021-08-23] MEDS: Gabapentin 300 MG CAP PO ×2 (01:07→21:06)
[2021-08-23 03:35] LABS: Lactate 1.1 mmol/L (0.6-1.4)
[2021-08-23 03:44] LABS: Abs Immature Grans 0.04 10^3/uL (0.0-0.06); Absolute Basophil Count 0.03 10^3/uL (0.0-0.2); Absolute Lymphocyte Count 1.19 10^3/uL (1.2-3.4); Absolute Neutrophil Count 6.26 10^3/uL (1.2-6.7); Basophils % 0.4; Eosinophils % 1.2; HCT 31.9 % (36.0-46.0); Immature Grans % 0.5; Lymphocytes % 14.3; MCH 30.6 pg (27.0-33.0); MCHC 34.5 % (32.0-36.0); MCV 89 fL (80-95); MPV 8.6 fL (8.0-11.0); Monocytes % 8.4; Neutrophils % 75.2; Platelet Count 205 10^3/uL (130-400); RDW 12.4 % (11.7-14.6); RDW-SD 40.6 fL; WBC 8.32 10^3/uL (4.4-10.8)
[2021-08-23 03:53] LABS: ALT 18 U/L (14-59); AST 18 U/L (15-37); Albumin 2.8 g/dL (3.4-5.0); Alkaline Phosphatase 66 U/L (46-116); Anion Gap 4.8 mmol/L (3-11); BUN 10 mg/dL (7-18); Bilirubin, Total 0.7 mg/dL (0.2-1.0); CO2 27.2 mmol/L (21.0-32.0); CREATININE 0.6 mg/dL (0.55-1.02); Calcium 7.8 mg/dL (8.5-10.1); Chloride 97 mmol/L (98-107); Glucose 113 mg/dL (74-106); Sodium 129 mmol/L (136-145); Total Protein 5.8 g/dL (6.4-8.2)
[2021-08-23 03:55] LABS: Troponin I < 50 ng/L (<or=60)
[2021-08-23] MEDS: Levothyroxine 112 MCG TAB PO (05:28)
[2021-08-23] MEDS: Heparin 5,000 UNITS/ML VIAL 5000 UNITS SC ×3 (05:28→21:07)
--- NOTE | 2021-08-23 07:45 | RT.EKG_ITS ---
APPROVED REPORT Exam: Resting ECG Reason for Exam: syncope Patient Location: I HR:57 bpm ECG Measurements Heart Rate 57 AXIS MT 156 P 0 QRSd 102 QRS -21 QT 458 T 1 QTc 446 Conclusion Sinus rhythm...normal P axis, V-rate 50- 99 Borderline left axis deviation...QRS axis (-15,-29) RSR' in V1 or V2, probably normal variant...small R' only Normal Electrocardiogram
--- NOTE | 2021-08-23 08:00 | OCONE_ITS ---
Date of service: 08/23/21 Time of Service: 08:06 History of Present Illness History of Present Illness Chief Complaint: Near Syncope s/p TKA Narrative: Danica is a 71-year-old who I know quite well. She is status post right knee replacement from 2 days ago, Thursday, August 21. Per her , she was doing well at home. She was managing her pain with Celebrex and Tylenol and ice. She was having some mild increase in pain yesterday in the afternoon and had a hydromorphone tablet around 3:00. There is no reported issues with this at that time. However around 7:00 she went to the bathroom and while in the bathroom became very faint and lightheaded requiring to sit down and per her , was in a daze. Given her history of CVA and this episode, she was brought into the emergency department. She was diagnosed with a vasovagal presyncope and was admitted for her symptoms, unable to ambulate safely in the emergency depart ment. She was noted to have continued hyponatremia. She had a mild change in her hemoglobin to 11. There is no notable neurologic deficit is noted in the emergency department. She reports feeling weak. She denies any significant pain. She denies numbness or tingling. Consults Consult date: 08/23/21 Requesting physician: Rosmery Walker Consult Reason Recent TKA and presyncope Assessment and Plan Assessment and plan (1) Postoperative pain of right knee: Status: Acute Assessment and plan: Danica is a 71-year-old who is status post right knee replacement 2 days ago. Unfortunately, she has been admitted for presyncopal event. My suspicion is this is simply dehydration in the setting of underlying hyponatremia, recent blood loss, previous CVA. Obviously, is imperative that we rule out any of the more dire pathologies such as recurrent CVA, TIA, PE. There is no worry on my end for potential infection although that could be considered as well. I do recommend aggressive hydration and continued work-up by the medicine team. I appreciate their involvement and current admission. Continue physical therapy weightbearing as tolerated with assistive devices. (2) Primary osteoarthritis of right knee: Status: Chronic Review of Systems All systems reviewed & are unremarkable except as noted in HPI and below PFSH All Active Problems Discharge planning issues (Acute) DVT prophylaxis (Acute) Syncope due to orthostatic hypotension (Acute) Hyponatremia (Acute) Acute anemia (Acute) Postoperative pain of right knee (Acute) Hypocalcemia (Acute) Syncope (Acute) Hyponatremia (Acute) Stroke (Chronic 10/28/17) Hypertension (Chronic) Hypercholesterolemia (Chronic) Depression (Chronic) Hypothyroidism (Chronic) Right homonymous hemianopsia (Chronic) Urinary incontinence (Acute) Sensorineural hearing loss, bilateral (Acute) Primary osteoarthritis of right knee (Chronic) s/p R TKA (08/21/21) Primary osteoarthritis of left hip (Acute) Medical History Discharge planning issues Diverticulosis (~09/07/18) 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 Father , 98 Heart disease Stroke Hypertension Sister Cancer unsure of type Sister , at No problems noted. Brother No problems noted. Son Alcohol abuse Depression Daughter Depression Maternal Grandfather No problems noted. Paternal Grandfather No problems noted. Maternal Grandmother No problems noted. Paternal Grandmother No problems noted. Social History Smoking/Tobacco Use Status: Former Tobacco Use Quit Date: 03/16/70 Tobacco: How many years used: 7 Second Hand Exposure: No Smoking risk assessment performed?: Yes Alcohol Intake: current Alcohol Intake frequency: holidays/special occasions only Alcohol type: wine Drug use: Never Substance use type: does not use Details: couple glasses of wine last week Caregiver/Support person: No Household members: spouse Housing: house Communication Needs: Hard of Hearing and Corrective Lenses Do you need help understanding health information?: Never Pets and animals: Yes Pets and animals: cat(s), dog(s) and horse(s) Sexually active: No Do you think of yourself as: straight/heterosexual Current gender identity: female What is your relationship status?: How often do you talk on the phone with friends or family?: decline to answer How often do you get together with friends or relatives?: decline to answer How often do you attend muslim or presybeterian services?: decline to answer Do you belong to any clubs or organized social groups?: decline to answer Panel score (0-1 are the most socially isolated patients): 1 What type of physical activity do you participate in: walking Frequency: 1-2 times per week Seatbelt use: always Do you feel safe at home: Yes (Spouse in room) Do you feel safe in your relationship?: Yes Additional 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 Exam Narrative Exam Narrative: Sitting on the edge of the bed. Alert and oriented x 3. Evaluation of the right knee shows a clean dry and intact dressing. Bruising and hyperemia of the knee but no signs of infection. She is able to lift the foot off of the bed but with notable lag. Passively, she is 10-95. Some pain posteirorly with ROM. +ADF/APF/EHL/FHL. SILT DP/SP/Tib. Results Last Vital Signs Temp 37.4 C 08/23/21 03:45 Pulse 81 08/23/21 07:00 Resp 16 08/23/21 03:45 BP 137/75 08/23/21 03:45 Pulse Ox 97 08/23/21 03:45 Labs Result diagrams: 08/23/21 13:49 08/23/21 13:49 Labs: Laboratory Results - last 24 hr 08/22/21 08/22/21 08/22/21 20:23 20:23 20:23 WBC 9.16 RBC 3.35 L Hgb 10.4 L Hct 29.9 L MCV 89 MCH 31.0 MCHC 34.8 RDW 12.6 Plt Count 148 MPV 9.1 Immature Gran % 0.7 Neutrophils % 68.6 Lymphocytes % 19.7 Monocytes % 9.2 Eosinophils % 1.3 Basophils % 0.5 Nucleated RBC % 0.0 Absolute Neutrophils 6.29 Absolute Lymphocytes 1.80 Absolute Monocytes 0.84 H Absolute Eosinophils 0.12 Absolute Basophils 0.05 VBG Lactate 2.1 H Sodium Cancelled Potassium Cancelled Chloride Cancelled Carbon Dioxide Cancelled Anion Gap Cancelled BUN Cancelled Creatinine Cancelled Estimated GFR/1.73 m2 Cancelled Glucose Cancelled Calcium Cancelled Magnesium Cancelled Total Bilirubin Cancelled AST Cancelled ALT Cancelled Alkaline Phosphatase Cancelled Troponin I Total Protein Cancelled Albumin Cancelled TSH Cancelled Urine Color Urine Clarity Urine pH Ur Specific [place] Urine Protein Urine Ketones Urine Blood Urine Nitrite Urine Bilirubin Urine Urobilinogen Ur Leukocyte Esterase Urine Glucose COVID-19 Source SARS-CoV-2 (PCR) 08/22/21 08/22/21 08/22/21 21:10 21:41 21:41 WBC RBC Hgb Hct MCV MCH MCHC RDW Plt Count MPV Immature Gran % Neutrophils % Lymphocytes % Monocytes % Eosinophils % Basophils % Nucleated RBC % Absolute Neutrophils Absolute Lymphocytes Absolute Monocytes Absolute Eosinophils Absolute Basophils VBG Lactate 1.6 H Sodium Potassium Chloride Carbon Dioxide Anion Gap BUN Creatinine Estimated GFR/1.73 m2 Glucose Calcium Magnesium Total Bilirubin AST ALT Alkaline Phosphatase Troponin I < 50 Total Protein Albumin TSH Urine Color Straw Urine Clarity Clear Urine pH 7.5 Ur Specific [place] 1.015 Urine Protein Negative Urine Ketones Negative Urine Blood Negative Urine Nitrite Negative Urine Bilirubin Negative Urine Urobilinogen 0.2 Ur Leukocyte Esterase Negative Urine Glucose Negative COVID-19 Source SARS-CoV-2 (PCR) 08/22/21 08/22/21 08/23/21 21:45 23:13 03:32 WBC RBC Hgb Hct MCV MCH MCHC RDW Plt Count MPV Immature Gran % Neutrophils % Lymphocytes % Monocytes % Eosinophils % Basophils % Nucleated RBC % Absolute Neutrophils Absolute Lymphocytes Absolute Monocytes Absolute Eosinophils Absolute Basophils VBG Lactate Sodium 126 L Potassium 4.1 Chloride 93 L Carbon Dioxide 26.0 Anion Gap 7.0 BUN 14 Creatinine 0.7 Estimated GFR/1.73 m2 >= 60.00 Glucose 105 Calcium 7.9 L Magnesium 1.9 Total Bilirubin 0.6 AST 20 ALT 20 Alkaline Phosphatase 69 Troponin I < 50 Total Protein 6.4 Albumin 3.2 L TSH 1.02 Urine Color Urine Clarity Urine pH Ur Specific [place] Urine Protein Urine Ketones Urine Blood Urine Nitrite Urine Bilirubin Urine Urobilinogen Ur Leukocyte Esterase Urine Glucose COVID-19 Source Nasal/Nares SARS-CoV-2 (PCR) Negative 08/23/21 08/23/21 08/23/21 03:32 03:32 03:32 WBC 8.32 RBC 3.60 L Hgb 11.0 L Hct 31.9 L MCV 89 MCH 30.6 MCHC 34.5 RDW 12.4 Plt Count 205 MPV 8.6 Immature Gran % 0.5 Neutrophils % 75.2 Lymphocytes % 14.3 Monocytes % 8.4 Eosinophils % 1.2 Basophils % 0.4 Nucleated RBC % 0.0 Absolute Neutrophils 6.26 Absolute Lymphocytes 1.19 L Absolute Monocytes 0.70 Absolute Eosinophils 0.10 Absolute Basophils 0.03 VBG Lactate 1.1 Sodium 129 L Potassium 4.0 Chloride 97 L Carbon Dioxide 27.2 Anion Gap 4.8 BUN 10 Creatinine 0.6 Estimated GFR/1.73 m2 >= 60.00 Glucose 113 H Calcium 7.8 L Magnesium Total Bilirubin 0.7 AST 18 ALT 18 Alkaline Phosphatase 66 Troponin I Total Protein 5.8 L Albumin 2.8 L TSH Urine Color Urine Clarity Urine pH Ur Specific [place] Urine Protein Urine Ketones Urine Blood Urine Nitrite Urine Bilirubin Urine Urobilinogen Ur Leukocyte Esterase Urine Glucose COVID-19 Source SARS-CoV-2 (PCR)
[2021-08-23] MEDS: Celecoxib 200 MG CAP PO ×2 (08:11→21:06)
[2021-08-23] MEDS: Aspirin 325 MG TAB PO (08:12)
[2021-08-23] MEDS: FLUoxetine 20 MG CAP 40 MG PO (08:12)
[2021-08-23] MEDS: Pantoprazole 40 MG TABCR PO (08:12)
[2021-08-23] MEDS: Normal Saline 1,000 ML 1000 ML IV (08:14)
--- NOTE | 2021-08-23 08:43 | OTIE_ITS ---
Occupational Therapy Notes Inpatient Occupational Therapy Evaluation Date: 08/23/21 Referring Doctor:Malik Araujo MD OT Orders: Non Urgent Precautions: Fall, Standard, Full PATIENT PROFILE/ADMITTING DIAGNOSIS: Pt is a 71 year old female who was admitted to [facility] for the following dx of syncope due to orthostatic hypotension, hyponatremia, acute anemia, post op knee pain, hypocalcemia, syncope, hyponatremia, stroke, hypertension, hypercholesterolemia, depression, hypothyroidism, (R) homonymous hemipanopsia, urinary incontinence, sensorineural hearing loss (B), osteoarthritis of (R) knee and (L) hip. Past Medical History: All Active Problems?(Updated 08/23/21 @ 06:58 by Malik Araujo) Syncope due to orthostatic hypotension (Acute) Hyponatremia (Acute) Acute anemia (Acute) Postoperative pain of right knee (Acute) Hypocalcemia (Acute) Syncope (Acute) Hyponatremia (Acute) Stroke (Chronic 10/28/17) Hypertension (Chronic) Hypercholesterolemia (Chronic) Depression (Chronic) Hypothyroidism (Chronic) Right homonymous hemianopsia (Chronic) Urinary incontinence (Acute) Sensorineural hearing loss, bilateral (Acute) Primary osteoarthritis of right knee (Chronic) Primary osteoarthritis of left hip (Acute) Medical History? 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 She recently had her knee done and states that she was (I) prior to her surgery. She is limited currently due to her pain, she notes that she is hoping that her knee pain will improve and that she will be able to bend her knee more. Equipment owned/DME: None SUBJECTIVE: Pt states that she is sore and feels that the pain in her knee is limiting her. She notes that she felt like everything was going great and then her pain got really bad and she went downhill from there. She sits on the side of the bed and notes that she feels slightly dizzy today. Nursing is in the room at this time and they were checking pts BP to see where she was at. Dr. Stubbs also showed up this morning to check in with pt so OT stepped out for a little while. Per MD, they wanted to hold further care at this time. OBJECTIVE: General Observation: Pleasant and agreeable to session, IV in (L) UE Mental Status: A&Ox4 Pain: c/o pain in (R) knee ROM: RUE AROM WFL L UE AROM WFL STRENGTH: RUE 4/5 throughout LUE 4/5 throughout FUNCTIONAL MOBILITY/ADLS: Transfers Supine-sit (I) Sit-supine (I) BATHING sitting on side of the bed with max (A) Set up Bathing UE (I) face and (B) UE Bathing LE NT DRESSING sitting on side of the bed Dressing UE NT Dressing LE max (A) don and doffing (B) socks GROOMING sitting on side of the bed (I) with brushing her hair BALANCE: Static sitting Normal Dynamic Sitting Normal SPECIAL TESTS: Daily Activity Limitations Standardized Measure [facility] AM PAC ?6 clicks? Daily Activity Inpatient Short Form: Raw score: 18 Standardized score: 38.66 CMS score: 46.65% INFORMED CONSENT/EDUCATION: Pt instructed in purpose of OT Consult and plan of care. ASSESSMENT: Patient is a 71-year-old female referred to occupational therapy services with diagnosis of syncope due to orthostatic hypotension, hyponatremia, acute anemia, post op knee pain, hypocalcemia, syncope, hyponatremia, stroke, hypertension, hypercholesterolemia, depression, hypothyroidism, (R) homonymous hemipanopsia, urinary incontinence, sensorineural hearing loss (B), osteoarthritis of (R) knee and (L) hip. Patient presents with clinical signs and symptoms consistent with dx, as demonstrated by the following impairment level findings/functional limitations: Pain in (R) knee, decreased AROM of (R) knee required for functional mobility and performance of ADL/IADL routines, decreased functional activity tolerance, decreased performance of ADLS in the standing position, dizziness and syncope limiting her performance of ADLs. AMPAC score 18 Patient is assessed as a Moderate [id number] complexity based on the following: History: see above Examination: see functional limitations as noted above Presentation: evolving Decision Making: AMPAC score 18 GOALS Goals x1 week 1. Grooming- standing at sink pt will be (I) with brushing her teeth 2. Dressing- sitting in chair (I) UE/LE 3. Bathing- standing at sink (I) UE/LE 4. Toileting- on toilet (I) 5. Eating- (I) PLAN OF CARE/TREATMENT PLAN: 1x/day, 5 days/ week x 1week Initiate Occupational Therapy Services for bathing, dressing, grooming, toileting, eating, transfer training. DISCHARGE RECOMMENDATIONS OT recommends that pt return home when medically cleared per MD. TREATMENT TIME/MINUTES/CODES [id number], [id number], 20 minutes Eleanor Rose OTR/L [facility]
[2021-08-23 08:48] LABS: Procalcitonin < 0.1 ng/mL
[2021-08-23 08:51] LABS: Troponin I < 50 ng/L (<or=60)
[2021-08-23] MEDS: Glucosamine 500 MG CAP PO (09:13)
[2021-08-23] MEDS: Acetaminophen 325 MG TAB 650 MG PO ×2 (09:17→21:06)
--- NOTE | 2021-08-23 10:10 | DI.CT_ITS ---
Exam(s) CT CHEST PE CTA EXAM: CT CHEST PE CTA CLINICAL HISTORY: concern for a PE. TECHNIQUE: Imaging Protocol: Axial CT angiography was performed with multi-slice acquisition and mu lti-planar and/or 3D reconstructions. CONTRAST MATERIAL: Intravenous: Isovue 370 contrast volume:66 mL COMPARISON: CR,XR XR PORTABLE CHEST AP from 08/22/2021 FINDINGS: Tracheobronchial tree: Patent where visualized. Pulmonary parenchyma: There are low lung volumes. Ground-glass opacities are seen in the dependent p ortions of the lungs. This may be due to the expiratory nature of the examination. Interstitial dis ease, inflammation or edema cannot be excluded. Please correlate clinically. No architectural disto rtion. Pulmonary Arteries: No evidence of filling defect to suggest pulmonary emboli. Mediastinum and Yesica: No dominant adenopathy or fluid collection. The esophagus is unremarkable. Pleura: No effusion or pneumothorax. Heart: Cardiomegaly. Coronary artery calcifications are present. No pericardial effusion. Aorta: Thoracic aorta non-dilated. No evidence of dissection. Atherosclerosis is present. Upper abdomen: Unremarkable. Soft tissues: Unremarkable. Bones: Within normal limits for the patient's age. IMPRESSION: 1. No evidence of pulmonary embolism, thoracic aortic dissection or aneurysm. 2. Ground-glass opacity seen in the dependent portions of the lung which may be due to the expiratory nature of the examination. Interstitial disease, inflammation or edema cannot be excluded. Please correlate clinically. RADIATION DOSE DELIVERED: 393.35mGy.cm Total DLP DATA REPOSITORY: All CT scans at this facility are submitted to the National Radiology Data Registry (NRDR) Dose Index Registry (DIR) with the [employer] (A[employer]). RADIATION OPTIMIZATION: All CT scans at this facility use at least one of these dose optimization te chniques: automated exposure control; mA and/or kV adjustment per patient size (includes targeted exa ms where dose is matched to clinical indication); or iterative reconstruction.
[2021-08-23] MEDS: Normal Saline Flush 10 ML SYR (13:37)
--- NOTE | 2021-08-23 13:47 | CHAPLAIN ---
Danica said she is feeling much better this afternoon. She was reading a book and said her had been into visit today. She was very pleasant. I explained my role and offered support.
[2021-08-23 13:56] LABS: HCT 31.3 % (36.0-46.0); HGB 10.7 g/dL (11.2-15.7)
[2021-08-23 14:04] LABS: Sodium 131 mmol/L (136-145)
--- NOTE | 2021-08-23 15:19 | PGE_ITS ---
Date of Service Date of service: 08/23/21 Time of Service: 15:19 Assessment and Plan Assessment and plan (1) Syncope due to orthostatic hypotension: Status: Acute Assessment and plan: In setting of dehydration. Today's episode may also have been vagal in nature. Continue IVF. Recheck orthostatics BID. (2) Hyponatremia: Start date: 08/22/21 Status: Acute Assessment and plan: Acute on chronic. Etiology: dehydration, lisinopril, SSRI use. Lisinopril on hold given BPs. Sodium is responding as expected to IVF. Continue to mointor. (3) Primary osteoarthritis of right knee: Status: Chronic Assessment and plan: s/p R knee TKR 2 days ago. Pain control per orthopedics - appreciate Dr Stubbs's help. PT and OT consulted - Consult will likely happen tomorrow given her syncopal episode this morning. (4) Depression: Status: Chronic Assessment and plan: on fluoxetine which can cause hyponatremia. This is something to consider in the future if hyponatremia recurs/persists. For now, continue fluoxetine. Qualifiers: Depression Type: other depression Qualified Code(s): F32.89 - Other specified depressive episodes (5) DVT prophylaxis: Status: Acute Assessment and plan: SC heparin (6) Discharge planning issues: Status: Acute Assessment and plan: Full code Anticipate discharge home tomorrow. Subjective Subjective Interval history since last seen: Patient seen twice today. This morning, I was called to her bedside emergently because she had a syncopal episode while seated on the commode - she did not fall, the nurses caught her when she started to tip forward. She did not have any arrhythmias on tele at the time, but her SBP was in the 70s. She was transferred back to bed, came to it, received a bolus of 1L of NS with SBPs improving to 110s. She is mildly ort hostatic. Her CTA chest ruled out a PE. She feels much better this afternoon. She denies dizziness, chest pain, shortness of breath, nausea. Exam Narrative Exam Narrative: General: Pleasant female who looks much younger than her stated age, A&Ox3, sitting in a chair, reading a book, looks much more engaged than when I saw her this morning HEENT: EOMI, MMM Heart: RRR, no m/r/g Lungs: CTAB Abdomen: soft, nontender, nondistended Extremities: no edema, clubbing/cyanosis BLEs, RLE in lisa wraps Objective Last Vital Signs Temp 37.4 C 08/23/21 08:33 Pulse 64 08/23/21 11:39 Resp 18 08/23/21 08:33 BP 116/60 08/23/21 11:39 Pulse Ox 99 08/23/21 08:33 Laboratory Results - last 24 hr 08/22/21 08/22/21 08/22/21 20:23 20:23 20:23 WBC 9.16 RBC 3.35 L Hgb 10.4 L Hct 29.9 L MCV 89 MCH 31.0 MCHC 34.8 RDW 12.6 Plt Count 148 MPV 9.1 Immature Gran % 0.7 Neutrophils % 68.6 Lymphocytes % 19.7 Monocytes % 9.2 Eosinophils % 1.3 Basophils % 0.5 Nucleated RBC % 0.0 Absolute Neutrophils 6.29 Absolute Lymphocytes 1.80 Absolute Monocytes 0.84 H Absolute Eosinophils 0.12 Absolute Basophils 0.05 VBG Lactate 2.1 H Sodium Cancelled Potassium Cancelled Chloride Cancelled Carbon Dioxide Cancelled Anion Gap Cancelled BUN Cancelled Creatinine Cancelled Estimated GFR/1.73 m2 Cancelled Glucose Cancelled Calcium Cancelled Magnesium Cancelled Total Bilirubin Cancelled AST Cancelled ALT Cancelled Alkaline Phosphatase Cancelled Troponin I Total Protein Cancelled Albumin Cancelled Procalcitonin TSH Cancelled Urine Color Urine Clarity Urine pH Ur Specific [place] Urine Protein Urine Ketones Urine Blood Urine Nitrite Urine Bilirubin Urine Urobilinogen Ur Leukocyte Esterase Urine Glucose COVID-19 Source SARS-CoV-2 (PCR) Add-On Test Request 08/22/21 08/22/21 08/22/21 21:10 21:41 21:41 WBC RBC Hgb Hct MCV MCH MCHC RDW Plt Count MPV Immature Gran % Neutrophils % Lymphocytes % Monocytes % Eosinophils % Basophils % Nucleated RBC % Absolute Neutrophils Absolute Lymphocytes Absolute Monocytes Absolute Eosinophils Absolute Basophils VBG Lactate 1.6 H Sodium Potassium Chloride Carbon Dioxide Anion Gap BUN Creatinine Estimated GFR/1.73 m2 Glucose Calcium Magnesium Total Bilirubin AST ALT Alkaline Phosphatase Troponin I < 50 Total Protein Albumin Procalcitonin TSH Urine Color Straw Urine Clarity Clear Urine pH 7.5 Ur Specific [place] 1.015 Urine Protein Negative Urine Ketones Negative Urine Blood Negative Urine Nitrite Negative Urine Bilirubin Negative Urine Urobilinogen 0.2 Ur Leukocyte Esterase Negative Urine Glucose Negative COVID-19 Source SARS-CoV-2 (PCR) Add-On Test Request 08/22/21 08/22/21 08/23/21 21:45 23:13 03:32 WBC RBC Hgb Hct MCV MCH MCHC RDW Plt Count MPV Immature Gran % Neutrophils % Lymphocytes % Monocytes % Eosinophils % Basophils % Nucleated RBC % Absolute Neutrophils Absolute Lymphocytes Absolute Monocytes Absolute Eosinophils Absolute Basophils VBG Lactate Sodium 126 L Potassium 4.1 Chloride 93 L Carbon Dioxide 26.0 Anion Gap 7.0 BUN 14 Creatinine 0.7 Estimated GFR/1.73 m2 >= 60.00 Glucose 105 Calcium 7.9 L Magnesium 1.9 Total Bilirubin 0.6 AST 20 ALT 20 Alkaline Phosphatase 69 Troponin I < 50 Total Protein 6.4 Albumin 3.2 L Procalcitonin TSH 1.02 Urine Color Urine Clarity Urine pH Ur Specific [place] Urine Protein Urine Ketones Urine Blood Urine Nitrite Urine Bilirubin Urine Urobilinogen Ur Leukocyte Esterase Urine Glucose COVID-19 Source Nasal/Nares SARS-CoV-2 (PCR) Negative Add-On Test Request 08/23/21 08/23/21 08/23/21 03:32 03:32 03:32 WBC 8.32 RBC 3.60 L Hgb 11.0 L Hct 31.9 L MCV 89 MCH 30.6 MCHC 34.5 RDW 12.4 Plt Count 205 MPV 8.6 Immature Gran % 0.5 Neutrophils % 75.2 Lymphocytes % 14.3 Monocytes % 8.4 Eosinophils % 1.2 Basophils % 0.4 Nucleated RBC % 0.0 Absolute Neutrophils 6.26 Absolute Lymphocytes 1.19 L Absolute Monocytes 0.70 Absolute Eosinophils 0.10 Absolute Basophils 0.03 VBG Lactate 1.1 Sodium 129 L Potassium 4.0 Chloride 97 L Carbon Dioxide 27.2 Anion Gap 4.8 BUN 10 Creatinine 0.6 Estimated GFR/1.73 m2 >= 60.00 Glucose 113 H Calcium 7.8 L Magnesium Total Bilirubin 0.7 AST 18 ALT 18 Alkaline Phosphatase 66 Troponin I Total Protein 5.8 L Albumin 2.8 L Procalcitonin TSH Urine Color Urine Clarity Urine pH Ur Specific [place] Urine Protein Urine Ketones Urine Blood Urine Nitrite Urine Bilirubin Urine Urobilinogen Ur Leukocyte Esterase Urine Glucose COVID-19 Source SARS-CoV-2 (PCR) Add-On Test Request 08/23/21 08/23/2108/23/22 03:32 08:22 13:49 WBC RBC Hgb Hct MCV MCH MCHC RDW Plt Count MPV Immature Gran % Neutrophils % Lymphocytes % Monocytes % Eosinophils % Basophils % Nucleated RBC % Absolute Neutrophils Absolute Lymphocytes Absolute Monocytes Absolute Eosinophils Absolute Basophils VBG Lactate Sodium 131 L Potassium Chloride Carbon Dioxide Anion Gap BUN Creatinine Estimated GFR/1.73 m2 Glucose Calcium Magnesium Total Bilirubin AST ALT Alkaline Phosphatase Troponin I < 50 Total Protein Albumin Procalcitonin < 0.1 TSH Urine Color Urine Clarity Urine pH Ur Specific [place] Urine Protein Urine Ketones Urine Blood Urine Nitrite Urine Bilirubin Urine Urobilinogen Ur Leukocyte Esterase Urine Glucose COVID-19 Source SARS-CoV-2 (PCR) Add-On Test Request 08/23/21 08/23/21 13:49 Unknown WBC RBC Hgb 10.7 L Hct 31.3 L MCV MCH MCHC RDW Plt Count MPV Immature Gran % Neutrophils % Lymphocytes % Monocytes % Eosinophils % Basophils % Nucleated RBC % Absolute Neutrophils Absolute Lymphocytes Absolute Monocytes Absolute Eosinophils Absolute Basophils VBG Lactate Sodium Potassium Chloride Carbon Dioxide Anion Gap BUN Creatinine Estimated GFR/1.73 m2 Glucose Calcium Magnesium Total Bilirubin AST ALT Alkaline Phosphatase Troponin I Total Protein Albumin Procalcitonin TSH Urine Color Urine Clarity Urine pH Ur Specific [place] Urine Protein Urine Ketones Urine Blood Urine Nitrite Urine Bilirubin Urine Urobilinogen Ur Leukocyte Esterase Urine Glucose COVID-19 Source SARS-CoV-2 (PCR) Add-On Test Request Cancelled Objective Narrative Objective Narrative: CTA chest: 1. No evidence of pulmonary embolism, thoracic aortic dissection or aneurysm. 2. Ground-glass opacity seen in the dependent portions of the lung which may be due to the expiratory nature of the examination.? Interstitial disease, inflammation or edema cannot be excluded.? Please correlate clinically. EKG: NSR, HR 57, no acute ischemia
[2021-08-23 15:42] LABS: Lab Add On Test DONE
--- NOTE | 2021-08-23 15:58 | PDOC.CMIN ---
- If Service Date Differs Date of service: 08/23/21 Time of Service: 15:58 Care Management Initial Assess REASON FOR HOSPITALIZATION:: Hyponatremia, syncope d/t orthostatic hypotension PAST MEDICAL HISTORY/PAST SURGICAL HISTORY:: All Active Problems. Syncope due to orthostatic hypotension (Acute). Hyponatremia (Acute). Acute anemia (Acute). Postoperative pain of right knee (Acute). Hypocalcemia (Acute). Syncope (Acute). Hyponatremia (Acute). Stroke (Chronic 10/28/17). Hypertension (Chronic). Hypercholesterolemia (Chronic). Depression (Chronic). Hypothyroidism (Chronic). Right homonymous hemianopsia (Chronic). Urinary incontinence (Acute). Sensorineural hearing loss, bilateral (Acute). Primary osteoarthritis of right knee (Chronic). Primary osteoarthritis of left hip (Acute). Medical History. Discharge planning issues. Diverticulosis (~09/07/18). 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 Osteoarthritis. Tinnitus of right ear. Surgical History. H/O Achilles tendon repair. Right X2. History of colonoscopy. History of surgery. achilles tendon repair. History of total left knee replacement (TKR) (06/11/15). S/P colonoscopy (~09/07/18). S/P oophorectomy. 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 She states that she has a daughter, Lisa, and a son whom are very supportive, and both live locally. 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 Danica is independent at baseline, but she is currently not driving. Danica's is her primary support and he assists with transportation. CURRENT FUNCTIONAL STATUS:: Danica was sitting up in her chair reading a book when CM met with her. She stated that she has seen both Dr. Stubbs and Dr. Walker today, and both stated that she will likely be ready for discharge tomorrow. She stated that she is comfortable with the plan, and does not anticipate requiring services upon discharge. CM will continue to follow. ADVANCE DIRECTIVES:: Not on file. Has patient been provided with info about the portal/API?: Yes Did the patient sign up for the portal?: Yes (active) CODE STATUS:: Full Code INSURANCE COVERAGE / FINANCIAL ISSUES:: MCR/ MVP MCR replacement CURRENT HOME/COMMUNITY SERVICES/EQUIPMENT:: No current services. She has a cane. PRIMARY CARE PHYSICIAN:: Corine Colunga POTENTIAL DISCHARGE NEEDS:: Evaluations for further needs, follow up appointments. PATIENT/FAMILY EDUCATION NEEDS:: Review discharge instructions regarding activity levels and medications, discussion of self care needs including ask me three. ANTICIPATED BARRIERS TO DISCHARGE:: None identified. TRANSPORTATION:: Via private vehicle by her . PLAN:: Danica will likely return home once medically cleared. She will follow up with her PCP and discharge plan of care, and will transport via private vehicle by her . CM will continue to follow.
[2021-08-23 16:18] LABS: Troponin I < 50 ng/L (<or=60)
[2021-08-24 03:30] VITALS: BP 154/76; PULSE 78; RESP 18; TEMP 36; O2SAT 98
[2021-08-24] MEDS: Normal Saline 1,000 ML 125 ML IV (04:47)
[2021-08-24] MEDS: Heparin 5,000 UNITS/ML VIAL 5000 UNITS SC ×2 (05:31→14:49)
[2021-08-24] MEDS: Levothyroxine 112 MCG TAB PO (05:31)
[2021-08-24 07:00] VITALS: PULSE 64
[2021-08-24 07:14] LABS: ALT 19 U/L (14-59); AST 19 U/L (15-37); Albumin 2.6 g/dL (3.4-5.0); Alkaline Phosphatase 63 U/L (46-116); Anion Gap 6.2 mmol/L (3-11); BUN 6 mg/dL (7-18); Bilirubin, Direct 0.1 mg/dL (0.0-0.2); Bilirubin, Total 0.6 mg/dL (0.2-1.0); CO2 25.8 mmol/L (21.0-32.0); CREATININE 0.5 mg/dL (0.55-1.02); Calcium 7.9 mg/dL (8.5-10.1); Chloride 101 mmol/L (98-107); Glucose 99 mg/dL (74-106); Potassium 3.5 mmol/L (3.5-5.1); Sodium 133 mmol/L (136-145); Total Protein 5.8 g/dL (6.4-8.2)
[2021-08-24] MEDS: FLUoxetine 20 MG CAP 40 MG PO (07:48)
[2021-08-24] MEDS: Aspirin 325 MG TAB PO (07:48)
[2021-08-24] MEDS: Glucosamine 500 MG CAP PO (07:48)
[2021-08-24] MEDS: Pantoprazole 40 MG TABCR PO (07:48)
[2021-08-24] MEDS: Celecoxib 200 MG CAP PO (07:48)
[2021-08-24 07:50] VITALS: BP 176/75; PULSE 83; RESP 16; TEMP 36.8; O2SAT 99
--- NOTE | 2021-08-24 08:59 | W.PM.PROGNOT ---
Date of Service Date of service: 08/24/21 Time of Service: 09:00 Assessment and Plan Assessment and plan (1) Postoperative pain of right knee: Status: Acute Assessment and plan: Danica is a 71-year-old who is status post right knee replacement who unfortunately had an episode of presyncope at home. This looks to be related to orthostatic hypotension. Is unclear the exact etiology but is likely related to pain, anxiety, potentially pain medication. Her pain seems to be much better controlled and her vital signs been stable. She is content with her level of pain control and looks ready to be discharged home. She feels content with her ability to manage this at home. I do think some tramadol may be helpful just in case she does run into any more acute pain. It is unlikely that this would cause similar level hypotension but I think important has something available. I reviewed all this with Danica. She will return to her regular schedule recovery program as outlined in the preoperative and postoperative packets that she has. All of her questions were answered. She will maintain a regular follow-up. She can check her blood pressure at home and if it does seem to be trending higher she should call her primary care doctor or alert my office as well. Subjective Subjective Interval history since last seen: Danica reports to be doing much better. She has good pain control. She has been able to mobilize in her room with minimal assistance. She no longer has any lightheadedness. She has maintained good blood pressure throughout the day yesterday and last night. Exam Narrative Exam Narrative: Sitting in the chair reading a book after breakfast. No acute distress. Alert and oriented x3. Very conversant. Evaluation of the right knee shows mild swelling about the right knee appropriate for her time after surgery. Mild amount of ecchymosis. No significant pain to palpation. No fullness of the calf. Ankle range of motion is full and without limitation. Straight leg raise is challenging but she is able to contract quad and elevate the leg off the chair minimally. Range of motion was not tested. Objective Last Vital Signs Temp 36.8 C 08/24/21 07:50 Pulse 83 08/24/21 07:50 Resp 16 08/24/21 07:50 BP 176/75 H 08/24/21 07:50 Pulse Ox 99 08/24/21 07:50 Laboratory Results - last 24 hr 08/23/21 08/23/2108/23/22 13:49 13:49 13:49 Hgb 10.7 L Hct 31.3 L Sodium 131 L Potassium Chloride Carbon Dioxide Anion Gap BUN Creatinine Estimated GFR/1.73 m2 Glucose Calcium Total Bilirubin Conjugated Bilirubin AST ALT Alkaline Phosphatase Troponin I Total Protein Albumin Add-On Test Request DONE 08/23/21 08/24/21 13:49 06:02 Hgb Hct Sodium 133 L Potassium 3.5 Chloride 101 Carbon Dioxide 25.8 Anion Gap 6.2 BUN 6 L Creatinine 0.5 L Estimated GFR/1.73 m2 >= 60.00 Glucose 99 Calcium 7.9 L Total Bilirubin 0.6 Conjugated Bilirubin 0.1 AST 19 ALT 19 Alkaline Phosphatase 63 Troponin I < 50 Total Protein 5.8 L Albumin 2.6 L Add-On Test Request
[2021-08-24 09:29] VITALS: BP 133/82; BP 160/82; BP 165/78; PULSE 73; PULSE 76
--- NOTE | 2021-08-24 09:49 | IN_ITS ---
PT Notes Visit Reasons: Hyponatremia,Syncope with Hypotension,Hypertension Physical Therapy Inpatient Initial Evaluation Date: 08/24/21 Referring Doctor: Malik Araujo MD PT Orders: PT CONSULT: Limited Ability Precautions: Fall. Standard. POD 3 right TKA. Patient Profile/Admitting Diagnosis: Danica is a 71 yo female that underwent right TKA on 08/21/21. She discharged home same day and was managing fairly until syncope episode on the toilet evening of 08/22/21. Patient presented to the ER and was admitted for syncope, pain, and medication management. She reports doing a lot better today and nursing states blood pressure was good with orthostatics. Anticipating discharge today. PMHX: See EMR Social History/Home Situation: Patient lives with her in a private home with 2 steps to enter without rails but she can hold onto door frame with one hand and use a SPC with the other.? Will have support from family members at home.? Independent with all mobility ADLs prior to surgery. Equipment Owned/DME: FWW, SPC Subjective: Cleared by nursing to see patient and patient is agreeable to PT. Patient is lying in bed at time of consult and connected to telemetry. Objective: General Observation: Mepilex Ag over surgical incision.? Swelling and bruising in right LE as to be expected. Mental Status: A&O x3 Pain: 3/10 ROM: Right Upper Extremity: Shoulder Flexion WFL. Shoulder abduction WFL. Elbow fle xion WFL. Wrist flexion WFL. Opening and closing of hand WFL. Left Upper Extremity: Shoulder Flexion WFL. Shoulder abduction WFL. Elbow flexion WFL. Wrist flexion WFL. Opening and closing of hand WFL. Right Lower Extremity: Hip flexion WFL. Hip abduction WFL. Knee flexion 85 degrees. Knee extension lacking 15 degrees. Ankle dorsiflexion WFL. Ankle plantarflexion WFL. Left Lower Extremity: Hip flexion WFL. Hip abduction WFL. Knee flexion WFL. Ankle dorsiflexion WFL. Ankle plantarflexion WFL. Strength: Right Upper Extremity: Shoulder flexors 5-/5. Shoulder abductors 5-/5. Elbow flexors 5/5. Elbow extensors 5/5. Shed Workers Supervisor strong. Left Upper Extremity: Shoulder flexors 5-/5. Shoulder abductors 5-/5. Elbow flexors 5/5. Elbow extensors 5/5. Shed Workers Supervisor strong. Right Lower Extremity: Hip flexors 3/5. Hip abductors 4/5. Knee flexors 3/5. Knee extensors 3/5. Ankle dorsiflexors 5/5. Ankle plantarflexors 5/5. Left Lower Extremity: Hip flexors 5/5. Hip abductors 5/5. Knee flexors 5/5. Knee extensors 5/5. Ankle dorsiflexors 5/5. Ankle plantarflexors 5/5. Sensation: Intact as to pain and pressure on bilateral lower extremities. Bed Mobility/Transfers: Supine to sit: Supervision Sit to supine: Min A with right LE Sit to stand: SBA Stand to sit: Supervision Gait: Ambulated 150 feet with FWW, supervision - cues for right knee extension and heel/toe pattern Stairs: Not assessed, reports carried inside when returned home earlier in week. Review of proper mechanics Therapeutic Exercise (19840) for ROM, strength, and endurance: 13 minutes Ambulation 150 feet - instruction on improved gait pattern and walking mechanics Supine quad sets Supine heel slides Instructed in icing/elevation and ROM at home Instructed in step to gait pattern for stairs Balance: Static Sitting: Normal Dynamic Sitting: Good Static Standing: Good Dynamic Standing: Fair Special Tests: Mobility Limitations Standardized Measure [facility] AM-PAC 6 clicks Basic Mobility Inpatient Short Form: Raw Score: 19 CMS Score: 41.77% Informed Consent/Education: Patient instructed in purpose of PT consult and plan of care. Assessment: Danica demonstrates functional mobility decline requiring the use of front- wheeled walker for all mobility ADL performance to maximize independence and reduce fall risk.? Patient presents with clinical signs and symptoms consistent with current/admitting diagnoses that have resulted to mobility limitations, gait instability, generalized weakness, and impairment of motor control as demonstrated by the following impairment level findings: 1. Decreased strength to right lower extremity major muscle groups 2. Impaired activity tolerance 3. Limitation of joint range of motion in right knee Impairments are contributing to the following functional limitations: 1. Inability to safely ambulate without assistive device 2. Increase completion time for mobility ADL performance 3. Increased fall risk 4. Inability to negotiate steps alone safely Patient is assessed as a Low complexity based on the following: History: 71 year old female with impairment level findings, functional limitations, and past medical history as indicated above Examination: Demonstrable impairment in strength, balance, and mobility level with underlying impairments and functional limitations as documented above Presentation: Stable Decision Making: Low complexity Goals: N/A Eval only Plan of Care/Treatment Plan: N/A Eval only Discharge Plan DISCHARGE RECOMMENDATIONS: Home with outpatient PT (patient scheduled for 09/04/21 outpatient PT) TREATMENT CODE/TIME: 9:25-9:50 (25 minutes), [id number], [id number] Thank you for the opportunity to participate in the care of this patient. Radha Batista, PT, DPT, OCS [facility] [place], [place]
[2021-08-24] MEDS: traMADol 50 MG TAB PO (10:54)
--- NOTE | 2021-08-24 12:42 | DSE_ITS ---
Date of service: 08/24/21 Time of Service: 12:42 DS: Diagnosis Discharge Diagnosis (1) Postoperative pain of right knee: Status: Acute (2) Hyponatremia: Status: Acute (3) Syncope: Status: Chronic (4) Orthostatic hypotension: Status: Acute Discharge Plan Disposition Patient Disposition: HOME Condition: Serious Discharge Details Reason For Visit: Hyponatremia,Syncope with Hypotension,Hypertension Admit Date/Time: 08/22/21 23:18 Admit Provider: Malik Araujo Attending Provider: Malik Araujo Primary Care Provider: [facility] Course Hospital Course: Danica is a 71 year old female with past medical history of 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 She did well, was sent home post op day 1, but returned to the ED after a near syncopal episode at home having taken prn dilaudid. She had another similar episode in the ED. She had a true syncopal episode on the medical surgical floor associated with hypotension. Given findings of low sodium, it is felt that her syncope happened due to dehydration. She was rehydrated and responded well. Her tropon ins were negative. She does not have a PE by CTA. She had no chest pain and no shortness of breath. Today she denies chest pain, dizziness, shortness of breath. She will take tramadol for pain at home. Lisinopril is held secondary to hyponatremia and hypotension. Home Meds and New Rx's Prescriptions: New tramadol 50 mg tablet 50 mg PO Q6H PRNQty: 5 0RF Continued aspirin 325 mg tablet 325 mg PO DAILY glucosamine HCl 500 mg tablet 500 mg PO DAILY Rx Instructions: administer with a meal fluoxetine 40 mg capsule 40 mg PO DAILY Qty: 90 3RF levothyroxine 112 mcg capsule 112 mcg PO DAILY Qty: 90 4RF celecoxib [Celebrex] 200 mg capsule 200 mg PO BID Qty: 60 0RF pantoprazole [Protonix] 40 mg tablet,delayed release (DR/EC) 40 mg PO DAILY Qty: 30 0RF gabapentin 300 mg capsule 300 mg PO QHS Qty: 14 0RF Discontinued lisinopril 40 mg tablet 40 mg PO DAILY Qty: 90 4RF hydromorphone 2 mg tablet 2 mg PO Q6H PRNQty: 20 0RF No Action acetaminophen 500 mg capsule 1,000 mg PO Q8H PRN PRNQty: 90 0RF Discharge Instructions Instructions: Hyponatremia (DC), Syncope (DC), Pain Management (DC) Additional Instructions: Follow up with your primary care provider to discuss management of your hypertension. Do not take lisinopril anymore. Stand Alone Forms: Nursing Discharge Form Referrals: Corine Colunga LINE SERVICE SUPERVISOR [Primary Care Provider] - (Please call Thursday to make a follow up appointment for 1 week.) Activity:: Activity as Tolerated Equipment/Supplies:: No Equipment Needed Diet:: As Tolerated Discharge Orders Discharge Orders: Discharge Order (Routine); Ordered 08/24/21 Ordered By: Rowan Hernandez Discharge Data Discharge Date/Time-TO BE ENTERED AT DEPARTURE: 08/24/21 15:55 DS: Summary Time Spent with Patient providing and/or coordinating discharge services: Less than 30 minutes Status at Discharge Functional status at discharge: uses cane/walker Overall status at discharge: patient is progressing back to baseline Mental Status: mental status grossly normal Speech and Movement: speech and movement normal Mood: congruent mood Affect: normal affect Exam Psych Mental Status: mental status grossly normal Speech and Movement: speech and movement normal Mood: congruent mood Affect: normal affect DS: Data Vitals/I&O Vitals and I&O: Vital Signs Temperature 36.8 C 08/24/21 07:50 Temperature Source Tympanic 08/24/21 07:50 Pulse 73 08/24/21 09:29 Pulse Rhythm Regular 08/24/21 10:07 Respiratory Rate 16 08/24/21 07:50 Respiratory Effort Non-Labored 08/24/21 10:07 Respiratory Depth Normal 08/24/21 10:07 Respiratory Pattern Normal 08/24/21 10:07 Blood Pressure 160/82 H 08/24/21 09:29 Pulse Oximetry 99 08/24/21 07:50 Oxygen Delivery Method Room Air 08/24/21 07:50 Oxygen Flow Rate 0 08/24/21 07:50 Pain Level 4 08/24/21 10:54 Comment 08/24/21 03:30 Intake & Output 08/23/21 08/24/21 08/24/21 23:59 11:59 23:59 Intake Total 1240 / 4000 1438.333 / 1438.333 Output Total 2250 / 5650 1999 Balance -1010 / -1650 -561.667 / -561.667 Weight 85.8 kg Intake: IV 1000 / 2900 958.333 / 958.333 Oral 240 / 1100 480 / 480 Output: Urine 2250 / 5650 1999 Other: Urine Color Yellow Straw Urine Appearance Clear Clear Urine Odor None Normal Stool Size Copious Stool Characteristics Soft Voiding Methods Bedside Commode Bedside Commode Data Completed and Pending Labs on day of discharge: Labs from last 24 hours 08/24/21 08/23/21 08/23/21 06:02 13:49 13:49 Hgb Hct Sodium 133 L Potassium 3.5 Chloride 101 Carbon Dioxide 25.8 Anion Gap 6.2 BUN 6 L Creatinine 0.5 L Estimated GFR/1.73 m2 >= 60.00 Glucose 99 Calcium 7.9 L Total Bilirubin 0.6 Conjugated Bilirubin 0.1 AST 19 ALT 19 Alkaline Phosphatase 63 Troponin I < 50 Total Protein 5.8 L Albumin 2.6 L Add-On Test Request DONE 08/23/21 08/23/21 13:49 13:49 Hgb 10.7 L Hct 31.3 L Sodium 131 L Potassium Chloride Carbon Dioxide Anion Gap BUN Creatinine Estimated GFR/1.73 m2 Glucose Calcium Total Bilirubin Conjugated Bilirubin AST ALT Alkaline Phosphatase Troponin I Total Protein Albumin Add-On Test Request PFSH All Active Problems (Updated 08/25/21 @ 10:45 by Rosmery Walker MD) Orthostatic hypotension (Acute) Syncope (Chronic) Hyponatremia (Acute) Acute anemia (Acute) Postoperative pain of right knee (Acute) Stroke (Chronic 10/28/17) Hypertension (Chronic) Hypercholesterolemia (Chronic) Depression (Chronic) Hypothyroidism (Chronic) Right homonymous hemianopsia (Chronic) Urinary incontinence (Acute) Sensorineural hearing loss, bilateral (Acute) Primary osteoarthritis of left hip (Acute) Medical History Discharge planning issues Diverticulosis (~09/07/18) 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 Father , 98 Heart disease Stroke Hypertension Sister Cancer unsure of type Sister , at No problems noted. Brother No problems noted. Son Alcohol abuse Depression Daughter Depression Maternal Grandfather No problems noted. Paternal Grandfather No problems noted. Maternal Grandmother No problems noted. Paternal Grandmother No problems noted. Social History Smoking/Tobacco Use Status: Former Tobacco Use Quit Date: 03/16/70 Tobacco: How many years used: 7 Second Hand Exposure: No Smoking risk assessment performed?: Yes Alcohol Intake: current Alcohol Intake frequency: holidays/special occasions only Alcohol type: wine Drug use: Never Substance use type: does not use Details: couple glasses of wine last week Caregiver/Support person: No Household members: spouse Housing: house Communication Needs: Hard of Hearing and Corrective Lenses Do you need help understanding health information?: Never Pets and animals: Yes Pets and animals: cat(s), dog(s) and horse(s) Sexually active: No Do you think of yourself as: straight/heterosexual Current gender identity: female What is your relationship status?: How often do you talk on the phone with friends or family?: decline to answer How often do you get together with friends or relatives?: decline to answer How often do you attend congregation or confucianist services?: decline to answer Do you belong to any clubs or organized social groups?: decline to answer Panel score (0-1 are the most socially isolated patients): 1 What type of physical activity do you participate in: walking Frequency: 1-2 times per week Seatbelt use: always Do you feel safe at home: Yes (Spouse in room) Do you feel safe in your relationship?: Yes Additional 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
[2021-08-24 14:06] VITALS: BP 154/74; PULSE 73; RESP 18; TEMP 36.6; O2SAT 98
--- NOTE | 2021-08-24 14:28 | PDOC.CMDIS ---
- If Service Date Differs Date of service: 08/24/21 Time of Service: 14:29 Care Management Discharge Reason for Hospitalization: Hyponatremia, syncope d/t orthostatic hypotension Discharge Plan: Danica will return home once medically cleared. She will follow up with her PCP and discharge plan of care, and will transport via private vehicle by her . Patient/Family Education Needs: Review discharge instructions, discuss Ask Me Three.
[2021-08-24 15:36] VITALS: PULSE 66
== END 2021-08-24 15:55 | disposition home or self-care (01) | DRG 312 ==
LOC: ER 23:40 → MS 08-23 00:26
PROVIDERS: Internal Medicine; Admitting Provider Family Medicine; Emergency Provider Physician Assistant; PCP Nurse Practitioner; Visit Provider Family Medicine
DX: I95.2 Hypotension due to drugs (principal); E87.1 Hypo-osmolality and hyponatremia; E83.51 Hypocalcemia; T40.2X5A Adverse effect of other opioids, initial encounter; G89.18 Other acute postprocedural pain; M25.561 Pain in right knee; I10 Essential (primary) hypertension; Z96.651 Presence of right artificial knee joint; E78.00 Pure hypercholesterolemia, unspecified; E03.9 Hypothyroidism, unspecified; R32 Unspecified urinary incontinence; H90.3 Sensorineural hearing loss, bilateral; M16.12 Unilateral primary osteoarthritis, left hip; H53.461 Homonymous bilateral field defects, right side; Z87.891 Personal history of nicotine dependence; Z79.82 Long term (current) use of aspirin; I69.398 Other sequelae of cerebral infarction; K57.90 Diverticulosis of intestine, part unspecified, without perforation or abscess without bleeding; F32.89 Other specified depressive episodes
CPT/HCPCS: 36415; 71275; 80048; 80053; 80076; 84145; 87635; 93005; 96360; 96361; 97110; 97161; 97166; 97535; 99284; 99285; 71045; 81003; 83605; 83735; 84295; 84443; 84484; 85014; 85018; 85025; 93010; 99223; 99233; 99238; J1644

== ENCOUNTER 2021-08-25 09:35 | Emergency (ER) | payer MEDICARE, SELFPAY ==
--- NOTE | 2021-08-25 09:30 | RT.EKG_ITS ---
APPROVED REPORT Exam: Resting ECG Reason for Exam: syncope Patient Location: E HR:56 bpm ECG Measurements Heart Rate 56 AXIS AR 152 P -2 QRSd 91 QRS -16 QT 452 T 6 QTc 438 Conclusion Sinus bradycardia...rate< 60
[2021-08-25 09:36] VITALS: BP 143/59; PULSE 63; RESP 16; TEMP 36; O2SAT 100
[2021-08-25] MEDS: Normal Saline 1,000 ML 1000 ML IV (10:08)
--- NOTE | 2021-08-25 10:14 | W.ED.GENAD ---
Discharge Plan Disposition Patient Disposition: HOME Condition: Stable Discharge Details Clinical Impression: Syncope Primary Care Provider: Corine Colunga ED Provider: Allan Zabala Home Meds and New Rx's Prescriptions: Continued aspirin 325 mg tablet 325 mg PO DAILY glucosamine HCl 500 mg tablet 500 mg PO DAILY Rx Instructions: administer with a meal fluoxetine 40 mg capsule 40 mg PO DAILY Qty: 90 3RF levothyroxine 112 mcg capsule 112 mcg PO DAILY Qty: 90 4RF tramadol 50 mg tablet 50 mg PO Q6H PRNQty: 5 0RF pantoprazole [Protonix] 40 mg tablet,delayed release (DR/EC) 40 mg PO DAILY Qty: 30 0RF gabapentin 300 mg capsule 300 mg PO QHS Qty: 14 0RF acetaminophen 500 mg capsule 1,000 mg PO Q8H PRN PRNQty: 90 0RF Discontinued celecoxib [Celebrex] 200 mg capsule 200 mg PO BID Qty: 60 0RF Discharge Instructions Additional Instructions: Try to drink fluids when you wake up in the morning and eat breakfast before starting your day or showering if need be you can take ibuprofen in addition to your other medications follow up as scheduled with Dr. burgos if you feel more ill, have difficulty breathing or severe worsening pain return to the emergency department Medical Decision Making 71 yo female with hx of prior cva, htn, who had a right knee replacement done last Thursday and then had a syncope and was admitted for this and hyponatremia and d/c'd home. She woke up, states she took all her medications and didn't eat or drink. She went and took a shower and then again passed out. She came to with the ems crew and currently states she feels well other than mild general weakness. She denies any chest pain, dyspnea, headache, neck pain, abdomen pain. She states her right knee doesn't hurt and on exam has no erythema or other abnormal findings, it is swollen but she states this has been constant since surgery and not worse today and is likely post op swelling. She is caox4, speaking clearly and moving all extremities. I suspect this was orthostasis given she didn't eat or drink then took a shower or possible related to being on tramadol. she had a negative CTA of her chest for pe a few days ago and has no hypoxia or tachcyardia now so doubt pe and do not feel a repeat cta indicated. Will obtain ekg, troponin, cbc and cmp and reassess after she receives IVF. mild drop in hemoglobin to 9.9 likely related to the operation. She also has a probnp over 1000, on bedside u/s has normal appearing EF and no pericardial effusion and no b lines on lung u/s. She does now feel better after fluids and I suspect her episode today was multifactorial including medication related, anemia, not eating/drinking then taking a shower leading to orthostasis, her bp on scene was in the 70's. Has been stable since being here. She does note feeling drowsy and not well after celebrex, discussed with Dr. Burgos who is fine with her stopping this medicine. Will obtain delta troponin and if negative likely discharge second troponin negative and she continues to feel well and has no complaints. She is stable for discharge and advised to f/u with pcp and ortho and return precautions given Differential Diagnosis Differential Diagnosis: anemia, orthostasis, medication reaction, hyponatremia Medical Records Medical records reviewed: Yes I reviewed the patient's medical records. Lab Data Lab results reviewed: Yes I reviewed the patient's lab results. ECG Data Attestation: I personally reviewed and interpreted this ECG (s) as follows: Prior ECG tracings: available for review Interpretation: sinus bradycardia, rate of 56, pr 152, no acute st t wave ischemic findings HPI General Mode of arrival: EMS. Date/Time Provider Initiated Documentation: 08/25/21 09:53. Limitations to Documentation: no limitations. Information obtained by: patient. History of Present Illness 71 year old F presents to the emergency department with the chief complaint of passed out, described as moderate, Patient started experiencing this hour(s) (1) and it has been now resolved. No relieving factors improve symptom(s), No exacerbating factors reported . Patient notes weakness. Patient did receive the following treatments prior to arrival, none Related Data Home Medications Medication Instructions Recorded Confirmed aspirin 325 mg tablet 325 mg PO DAILY 08/09/20 08/25/21 glucosamine HCl 500 mg tablet 500 mg PO DAILY 08/09/20 08/25/21 fluoxetine 40 mg capsule 40 mg PO DAILY #90 caps 05/17/21 08/25/21 levothyroxine 112 mcg capsule 112 mcg PO DAILY #90 caps 05/24/21 08/25/21 acetaminophen 500 mg capsule 1,000 mg PO Q8H PRN PRN #90 caps 08/21/21 08/25/21 gabapentin 300 mg capsule 300 mg PO QHS #14 caps 08/21/21 08/25/21 pantoprazole 40 mg tablet,delayed 40 mg PO DAILY #30 tabs 08/21/21 08/25/21 release (Protonix) tramadol 50 mg tablet 50 mg PO Q6H PRN #5 tabs 08/24/21 08/25/21 Previous Rx's Medication Instructions Recorded fluoxetine 40 mg capsule 40 mg PO DAILY #90 caps 05/17/21 levothyroxine 112 mcg capsule 112 mcg PO DAILY #90 caps 05/24/21 acetaminophen 500 mg capsule 1,000 mg PO Q8H PRN PRN #90 caps 08/21/21 gabapentin 300 mg capsule 300 mg PO QHS #14 caps 08/21/21 pantoprazole 40 mg tablet,delayed 40 mg PO DAILY #30 tabs 08/21/21 release (Protonix) tramadol 50 mg tablet 50 mg PO Q6H PRN #5 tabs 08/24/21 Allergies Allergy/AdvReac Type Severity Reaction Status Date / Time Omtikvp-YND-YvP Reductase AdvReac Intermediate myalgias Verified 08/25/21 09:42 Inhibitor [Kjuepqv-Jkr-Pqf Reductase Inhibitor] oxycodone HCl [From Percocet] AdvReac Mild MADE HER Verified 08/25/21 09:42 JITTERY General Stated Complaint: Dizzy/Sync WAYNE: 3 Review of Systems All systems reviewed & are unremarkable except as noted in HPI and below Constitutional Constitutional: Denies chills and Denies fever(s) Cardiovascular Cardiovascular: Denies chest pain and Denies dyspnea Respiratory Respiratory: Denies cough and Denies dyspnea Gastrointestinal Gastrointestinal: Denies abdominal pain, Denies nausea and Denies vomiting Genitourinary Genitourinary: Denies dysuria Integumentary/Breasts Skin/Breast: Denies rash PFSH All Active Problems (Updated 08/25/21 @ 13:13 by Allan Zabala MD) Orthostatic hypotension (Acute) Syncope (Chronic) Hyponatremia (Acute) Acute anemia (Acute) Postoperative pain of right knee (Acute) Stroke (Chronic 10/28/17) Hypertension (Chronic) Hypercholesterolemia (Chronic) Depression (Chronic) Hypothyroidism (Chronic) Right homonymous hemianopsia (Chronic) Urinary incontinence (Acute) Sensorineural hearing loss, bilateral (Acute) Primary osteoarthritis of left hip (Acute) Medical History Discharge planning issues Diverticulosis (~09/07/18) 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 Father , 98 Heart disease Stroke Hypertension Sister Cancer unsure of type Sister , at No problems noted. Brother No problems noted. Son Alcohol abuse Depression Daughter Depression Maternal Grandfather No problems noted. Paternal Grandfather No problems noted. Maternal Grandmother No problems noted. Paternal Grandmother No problems noted. Social History Smoking/Tobacco Use Status: Former Tobacco Use Quit Date: 03/16/70 Tobacco: How many years used: 7 Second Hand Exposure: No Smoking risk assessment performed?: Yes Alcohol Intake: current Alcohol Intake frequency: holidays/special occasions only Alcohol type: wine Drug use: Never Substance use type: does not use Details: couple glasses of wine last week Caregiver/Support person: No Household members: spouse Housing: house Communication Needs: Hard of Hearing and Corrective Lenses Do you need help understanding health information?: Never Pets and animals: Yes Pets and animals: cat(s), dog(s) and horse(s) Sexually active: No Do you think of yourself as: straight/heterosexual Current gender identity: female What is your relationship status?: How often do you talk on the phone with friends or family?: decline to answer How often do you get together with friends or relatives?: decline to answer How often do you attend alevism or oriental orthodox services?: decline to answer Do you belong to any clubs or organized social groups?: decline to answer Panel score (0-1 are the most socially isolated patients): 1 What type of physical activity do you participate in: walking Frequency: 1-2 times per week Seatbelt use: always Do you feel safe at home: Yes (Spouse in room) Do you feel safe in your relationship?: Yes Additional 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 Exam Const General: no acute distress Orientation: alert HENMT Head: normal to inspection Ears: external ears normal General nose exam: external nose normal Mouth: moist mucous membranes Eyes General: appearance normal, both eyes and all related structures Neck Neck: normal visual inspection Resp Effort & Inspection: normal respiratory effort and able to speak in complete sentences Cardio Rate: regular rate Skin General skin exam: no rashes or lesions noted Neuro General: patient alert and patient oriented x3 Extrem General: capillary refill normal Psych Mental Status: mental status grossly normal Course Vital Signs Vital signs: Vital Signs Temperature 36.0 C L 08/25/21 09:36 Pulse 63 08/25/21 09:36 Respiratory Rate 16 08/25/21 09:36 Blood Pressure 143/59 H 08/25/21 09:36 Pulse Oximetry 100 08/25/21 09:36 Temperature 36.0 C L 08/25/21 09:36 Temperature Source Temporal Artery Scan 08/25/21 09:36 Pulse 63 08/25/21 09:36 Respiratory Rate 16 08/25/21 09:36 Respiratory Effort 08/25/21 09:42 Blood Pressure 143/59 H 08/25/21 09:36 Blood Pressure Position Supine 08/25/21 09:36 Pulse Oximetry 100 08/25/21 09:36 Oxygen Delivery Method Room Air 08/25/21 09:36 Oxygen Flow Rate 0 08/25/21 09:36 Pain Level 0 08/25/21 09:36
[2021-08-25 10:18] LABS: Abs Immature Grans 0.04 10^3/uL (0.0-0.06); Absolute Basophil Count 0.04 10^3/uL (0.0-0.2); Absolute Eosinophil Count 0.05 10^3/uL (0.0-0.7); Absolute Lymphocyte Count 0.95 10^3/uL (1.2-3.4); Absolute Neutrophil Count 5.93 10^3/uL (1.2-6.7); Basophils % 0.5; Eosinophils % 0.7; HGB 9.9 g/dL (11.2-15.7); Immature Grans % 0.5; Lymphocytes % 12.6; MCHC 34.1 % (32.0-36.0); MCV 91 fL (80-95); MPV 9.2 fL (8.0-11.0); Monocytes % 6.7; Platelet Count 146 10^3/uL (130-400); RBC 3.19 10^6/uL (3.93-5.22); RDW 12.9 % (11.7-14.6); RDW-SD 42.4 fL; WBC 7.51 10^3/uL (4.4-10.8)
[2021-08-25 10:31] LABS: ALT 18 U/L (14-59); AST 25 U/L (15-37); Albumin 2.6 g/dL (3.4-5.0); Alkaline Phosphatase 62 U/L (46-116); Anion Gap 8.6 mmol/L (3-11); BUN 9 mg/dL (7-18); Bilirubin, Total 0.7 mg/dL (0.2-1.0); CO2 25.4 mmol/L (21.0-32.0); CREATININE 0.8 mg/dL (0.55-1.02); Calcium 8.3 mg/dL (8.5-10.1); Chloride 98 mmol/L (98-107); Glucose 128 mg/dL (74-106); Magnesium 2.1 mg/dL (1.8-2.4); NT-proBNP 1613 pg/mL (<300); Sodium 132 mmol/L (136-145); Total Protein 6.3 g/dL (6.4-8.2); Troponin I < 50 ng/L (<or=60)
[2021-08-25 11:41] LABS: Bilirubin Negative (Negative); Blood Negative (Negative); Clarity Sl Cloudy (Clear); Glucose Negative (Negative); Ketones Negative (Negative); Leukocyte Esterase Negative (Negative); Nitrite Negative (Negative); Urobilinogen 0.2 EU/dL (Up TO 0.2); pH 7.5 (5-8)
[2021-08-25 12:08] VITALS: BP 140/57; PULSE 67; RESP 15; TEMP 36.8; O2SAT 97
[2021-08-25 13:25] LABS: Troponin I < 50 ng/L (<or=60)
== END 2021-08-25 13:59 | disposition home or self-care (01) ==
PROVIDERS: Emergency Provider Emergency Medicine; PCP Nurse Practitioner
DX: R55 Syncope and collapse (principal)
CPT/HCPCS: 36415; 80053; 93005; 96360; 99284; 81003; 83735; 83880; 84484; 85025; 93010; 99283

== ENCOUNTER 2021-09-05 13:33 | Outpatient (CLI) | payer MEDICARE, SELFPAY ==
--- NOTE | 2021-09-05 10:45 | DI.RAD_ITS ---
Exam(s) XR KNEE RT 1V XR STANDING ALIGNMENT EXAM: XR STANDING ALIGNMENT CLINICAL HISTORY: 1ST POST OP R TKA. TECHNIQUE: 2D digital imaging was performed. Standing AP views were performed from the pelvis throu gh the ankles. Lateral view right knee. COMPARISON: CR XR STANDING ALIGNMENT from 07/22/2021 CR XR KNEE RT 2V AP,LAT from 07/22/2021 RF RF JOINT INJECTION FLUORO GUID from 08/01/2021 CR XR KNEE RT 1V from 09/05/2021 FINDINGS: BONES: No acute fracture is present. No bony destructive lesion is seen. The left iliac crest project s approximately 1 cm superior to the right. JOINTS: Knees: Bilateral knee prostheses. The right knee prosthesis is new when compared with the pr ior exam. Right hip prosthesis. Mild degenerative changes left hip. The ankle joints are unremarkable. SOFT TISSUE: Normal. IMPRESSION: Bilateral knee prostheses and right hip prosthesis. Mild significant leg length discrepancy. DATA REPOSITORY: RADIATION DOSE DELIVERED:
== END 2021-09-05 13:34 | disposition home or self-care (01) ==
LOC: DIORS 13:34
PROVIDERS: PCP Nurse Practitioner; Referring Provider Nurse Practitioner; Visit Provider Physician Assistant Surgical
DX: Z96.651 Presence of right artificial knee joint (principal); Z47.1 Aftercare following joint replacement surgery
CPT/HCPCS: 73560; 77073

== ENCOUNTER 2021-09-19 09:56 | Outpatient (CLI) | payer MEDICARE, SELFPAY ==
[2021-09-19 12:45] LABS: Anion Gap 5.9 mmol/L (3-11); BUN 15 mg/dL (7-18); CO2 28.1 mmol/L (21.0-32.0); CREATININE 0.7 mg/dL (0.55-1.02); Calcium 8.7 mg/dL (8.5-10.1); Chloride 97 mmol/L (98-107); Glucose 117 mg/dL (74-106); Potassium 4.1 mmol/L (3.5-5.1); Sodium 131 mmol/L (136-145)
== END 2021-09-19 09:57 | disposition home or self-care (01) ==
LOC: LOS 09:57
PROVIDERS: PCP Nurse Practitioner; Visit Provider Nurse Practitioner
DX: I10 Essential (primary) hypertension (principal)
CPT/HCPCS: 36415; 80048

== ENCOUNTER → 2021-10-03 10:57 | Outpatient (BNVA) | payer MEDICARE, SELFPAY | PROVIDERS: PCP Nurse Practitioner; Referring Provider Nurse Practitioner; Visit Provider Student in an Organized Health Care Education/Training Program | DX: Z47.1 Aftercare following joint replacement surgery (principal); Z96.651 Presence of right artificial knee joint; M16.12 Unilateral primary osteoarthritis, left hip ==

== ENCOUNTER → 2021-10-24 00:37 | Outpatient (CLI) | payer MEDICARE, SELFPAY ==
--- NOTE | 2021-10-24 08:12 | DI.DEXA_ITS ---
Exam(s) XR DEXA BONE DENSITY W/WO DORIS EXAM: XR DEXA BONE DENSITY W/WO DORIS CLINICAL HISTORY: screening for osteoporosis in postmenopausal woman,z78.0 TECHNIQUE: Routine DEXA evaluation of the lumbar spine, hip, or forearm. COMPARISON: CR XR HIP LT COMPLETE AP PELVIS from 07/22/2021 FINDINGS: Performed on a Hologic unit. Lateral image: No compression fracture evident. Lumbar Spine total T-score: 0.6 Hip total T-score:-2.4. Independent reading at the level of the femoral neck yields at T-score of -3.2. Forearm total T-score: -2.0 IMPRESSION: Bone mineral density measures in the osteopenia-osteoporosis range. Fracture risk is moderate-high. Note: Any spine fracture indicates 5x risk for subsequent spine fracture and 2x risk for subsequent h ip fracture. World Health Organization criteria for BMD interpretation classify patients: Normal...... T- Score at or above -1.0 Osteopenic... T- Score between -1.0 and -2.5 Osteoporosis... T-Score at or below -2.5
--- NOTE | 2021-10-24 12:21 | DI.MAMMO_ITS ---
Exam(s) MAMMO SCREENING EXAM: MAMMO SCREENING CLINICAL HISTORY: screening,z12.39. TECHNIQUE: Bilateral full field digital CC and MLO mammographic images were obtained with 3D tomosyn thesis and utilizing computer aided detection (CAD). COMPARISON: Prior mammograms were reviewed, the most recent being August 2020. Breast ultrasound August 2019 was also reviewed. FINDINGS: No new significant findings in the left breast. The right breast benign-appearing lymph node laterally is unchanged from all prior studies. There are no new spiculated masses nor malignant appearing microcalcification groups. There is no significant architectural distortion nor skin thickening-retraction. IMPRESSION: Stable benign findings. No radiographic evidence of malignancy. BI-RADS Category 2 - Benign Findings Breast Density - Category B - Scattered areas of fibroglandular density Breast density Category C or D implies that the patient has dense breast tissue. Dense breast tissue can make it harder to find cancer on a mammogram. Dense breast tissue is also associated with an incr eased risk of breast cancer. This information about the result of the mammogram report was provided to the patient to raise their awareness. Use this report when you speak with the patient about their risks for breast cancer, which includes their family history. At that time, you may recommend additional screening tests (Ultrasoun d or MRI) as these tests may add significant information. A negative radiographic report should not delay biopsy if a dominant or clinically suspicious mass is present. Up to ten percent of cancers are not identified on mammography. A negative report may reinforce clinical impression. Adenosis and dense breasts may obscure an underlying neoplasm. False positive reports average 6 to 10%. Patient will receive a letter notifying them of these results.
== END ==
PROVIDERS: PCP Nurse Practitioner; Visit Provider Nurse Practitioner
DX: Z12.31 Encounter for screening mammogram for malignant neoplasm of breast (principal); M81.0 Age-related osteoporosis without current pathological fracture; M85.89 Other specified disorders of bone density and structure, multiple sites
CPT/HCPCS: 77063; 77067; 77080

== ENCOUNTER → 2021-11-14 09:45 | Outpatient (BNVA) | payer MEDICARE, SELFPAY | PROVIDERS: PCP Nurse Practitioner; Referring Provider Nurse Practitioner; Visit Provider Student in an Organized Health Care Education/Training Program | DX: Z47.1 Aftercare following joint replacement surgery (principal); Z96.651 Presence of right artificial knee joint ==

== ENCOUNTER 2022-03-12 12:28 | Emergency (ER) | payer MEDICARE, SELFPAY ==
[2022-03-12 12:34] VITALS: BP 183/103; PULSE 82; RESP 18; TEMP 36.2; O2SAT 98
[2022-03-12 12:40] VITALS: RESP 17
--- NOTE | 2022-03-12 13:00 | RT.EKG_ITS ---
APPROVED REPORT Exam: Resting ECG Reason for Exam: weakness Patient Location: E HR:68 bpm ECG Measurements Heart Rate 68 AXIS MI 158 P 32 QRSd 86 QRS -32 QT 416 T 4 QTc 441 Conclusion Sinus rhythm...normal P axis, V-rate 60- 99 Probable left ventricular hypertrophy...multiple LVH criteria
--- NOTE | 2022-03-12 13:15 | DI.RAD_ITS ---
Exam(s) XR CHEST 2V PA LATERAL EXAM: XR CHEST 2V PA LATERAL CLINICAL HISTORY: weakness TECHNIQUE: 2D digital imaging was performed of the chest. Two images were obtained. PA and lateral views were obtained. COMPARISON: CR,XR XR PORTABLE CHEST AP from 08/22/2021 FINDINGS: MEDIASTINUM: Normal. HEART: Normal. PULMONARY VASCULATURE: Normal. LUNGS: Clear. PLEURAL SPACE: No pleural effusion or pneumothorax. BONE:Within normal limits for the patient's age. OTHER FINDINGS:Normal. IMPRESSION: No acute pulmonary findings. DATA REPOSITORY: RADIATION DOSE DELIVERED:
[2022-03-12 13:29] LABS: Abs Immature Grans 0.03 10^3/uL (0.0-0.06); Absolute Basophil Count 0.04 10^3/uL (0.0-0.2); Absolute Eosinophil Count 0.04 10^3/uL (0.0-0.7); Absolute Lymphocyte Count 1.45 10^3/uL (1.2-3.4); Absolute Neutrophil Count 5.44 10^3/uL (1.2-6.7); Basophils % 0.5; Eosinophils % 0.5; HCT 42.5 % (36.0-46.0); HGB 14.3 g/dL (11.2-15.7); Immature Grans % 0.4; Lymphocytes % 19.6; MCH 30.2 pg (27.0-33.0); MCHC 33.6 % (32.0-36.0); MCV 90 fL (80-95); MPV 8.6 fL (8.0-11.0); Monocytes % 5.4; Neutrophils % 73.6; Platelet Count 269 10^3/uL (130-400); RBC 4.73 10^6/uL (3.93-5.22); RDW 12.4 % (11.7-14.6); RDW-SD 41.3 fL
[2022-03-12 13:49] LABS: Bilirubin Negative (Negative); Blood Trace-intact (Negative); Clarity Clear (Clear); Glucose Negative (Negative); Ketones Negative (Negative); Leukocyte Esterase Negative (Negative); Nitrite Negative (Negative); Urobilinogen 0.2 EU/dL (Up TO 0.2)
[2022-03-12 13:53] LABS: ALT 14 U/L (14-59); AST 17 U/L (15-37); Albumin 3.8 g/dL (3.4-5.0); Alkaline Phosphatase 96 U/L (46-116); Anion Gap 5.9 mmol/L (3-11); BUN 13 mg/dL (7-18); Bilirubin, Total 0.5 mg/dL (0.2-1.0); CO2 29.1 mmol/L (21.0-32.0); CREATININE 0.6 mg/dL (0.55-1.02); Chloride 100 mmol/L (98-107); Estimated GFR 95.31 (mL/min/1.73m2); Glucose 111 mg/dL (74-106); Magnesium 2.1 mg/dL (1.8-2.4); Potassium 4.1 mmol/L (3.5-5.1); Sodium 135 mmol/L (136-145); Total Protein 7.5 g/dL (6.4-8.2); Troponin I < 50 ng/L (<or=60)
[2022-03-12] MEDS: Omnipaque 350 MG/ML 500 ML BTL-Imaging package 85 ML IJ (13:53)
[2022-03-12 13:54] LABS: Bacteria Negative HPF (Negative); C & S Indicated? No; Casts Negative LPF (Negative); Crystals Negative HPF (Negative); Epithelial Cells Few HPF (Negative); Mucus Negative (Negative)
[2022-03-12] MEDS: Normal Saline - Diluent 50 ML VIAL IV (13:54)
--- NOTE | 2022-03-12 13:58 | DI.CT_ITS ---
Exam(s) CT BRAIN NECK CTA EXAM: CT BRAIN NECK CTA CLINICAL HISTORY: ams, speech change, hx of stroke. TECHNIQUE: Imaging Protocol: Axial CT angiography was performed with multi-slice acquisition and mu lti-planar and/or 3D reconstructions. CONTRAST MATERIAL: Intravenous: Omnipaque 350 contrast volume:85 mL COMPARISON: CT CT HEAD FOR STROKE PROTOCOL from 02/23/2018 FINDINGS: CT Head W/O and W: Ventricles and Extra axial spaces: Normal in size and morphology for the patient's age. Hemorrhage: None. Cerebral parenchyma: There is no evidence of an acute territorial infarct. There is again seen an ar ea of encephalomalacia involving the left occipital lobe. There are areas of decreased attenuation i n the white matter consistent with small vessel ischemic disease. Midline shift: None. Brainstem/Cerebellum: Normal. Calvarium: Normal. Visualized Paranasal sinuses/Mastoids: Clear. Soft Tissues: Unremarkable. Enhancement: Unremarkable. CTA Neck W: Common Carotid: Right: No dissection or occlusion. There is atherosclerosis at the distal common carotid artery wit h a narrowing of less than 50 percent. Left: No dissection, occlusion or significant stenosis. External Carotid: Right: No occlusion or significant stenosis. Left: No occlusion or significant stenosis. Internal Carotid: Right: No dissection, occlusion or significant stenosis. Mild atherosclerosis at the origin. Left: No dissection or occlusion. Atherosclerosis at the origin of the internal carotid artery with narrowing of 50 percent. Vertebral Artery: Right: No dissection, occlusion or significant stenosis. Left: No dissection, occlusion or significant stenosis. There is a dominant left vertebral artery. Lung Apices: Normal. Bones: Within normal limits for the patient's age. Soft Tissues: Normal. CTA Brain W: Internal Carotid Arteries: Normal. Anterior Cerebral Arteries: Right: No aneurysm, occlusion or significant stenosis. Left: No aneurysm, occlusion or significant stenosis. Middle Cerebral Arteries: Right: No aneurysm, occlusion or significant stenosis. Left: No aneurysm, occlusion or significant stenosis. Posterior Cerebral Arteries: Right: No aneurysm, occlusion or significant stenosis. Left: No aneurysm, occlusion or significant stenosis. Vertebral Arteries: Right: No aneurysm, occlusion or significant stenosis. Left: No aneurysm, occlusion or significant stenosis. Basilar Artery: No aneurysm, occlusion or significant stenosis. IMPRESSION: 1. No large vessel occlusion or significant stenosis on the CT angiography of the head. 2. No acute intracranial process. 3. Atherosclerosis seen in the right common carotid artery and the origin of the left internal caroti d artery with 50 percent stenosis or less. No evidence of occlusion or aneurysm. 4. Findings were discussed with Lucia Driver at 3:05 p.m. on 03/12/2022. RADIATION DOSE DELIVERED: 2,091.42mGy.cm Total DLP DATA REPOSITORY: All CT scans at this facility are submitted to the National Radiology Data Registry (NRDR) Dose Index Registry (DIR) with the [employer] (ACR). RADIATION OPTIMIZATION: All CT scans at this facility use at least one of these dose optimization te chniques: automated exposure control; mA and/or kV adjustment per patient size (includes targeted exa ms where dose is matched to clinical indication); or iterative reconstruction.
--- NOTE | 2022-03-12 14:07 | W.ED.GENAD ---
Discharge Plan Disposition Patient Disposition: Home Condition: Stable Discharge Details Clinical Impression: Seizure, petit mal Primary Care Provider: Callie Bhandari ED Provider: Mansoor Kim Home Meds and New Rx's Prescriptions: New levetiracetam [Keppra] 500 mg tablet 500 mg PO BID 30 Days Qty: 60 0RF Continued lisinopril 20 mg tablet 20 mg PO DAILY Qty: 90 4RF aspirin 325 mg tablet 325 mg PO DAILY glucosamine HCl 500 mg tablet 500 mg PO DAILY Rx Instructions: administer with a meal fluoxetine 40 mg capsule 40 mg PO DAILY Qty: 90 3RF levothyroxine 112 mcg capsule 112 mcg PO DAILY Qty: 90 4RF acetaminophen 500 mg capsule 1,000 mg PO Q8H PRN PRNQty: 90 0RF Discharge Instructions Instructions: Recurrent Seizures in Adults (ED) Additional Instructions: Please take medication as prescribed and follow-up with [facility] neurolog[place] for further testing and evaluation. If you develop any new or significant worsening of symptoms as discussed return immediately to the emergency department for reassessment. We have also placed a referral into your primary care office to have recheck in their office to ensure that you moderately stabilizing or improving on new seizure medication. Referrals: [facility] [Outside] (Please call neurology office tomorrow afternoon for arrangement of follow-up appointment) Callie Bhandari NP [Primary Care Provider] - 3 days Discharge Data Discharge Date/Time-TO BE ENTERED AT DEPARTURE: 03/12/22 17:49 Medical Decision Making <DARWIN Luciano - Last Filed: 03/14/22 09:07> This 71-year-old female who presents for several episodes of alteration in mental status reportedly over the course of the past 24 hours with history of prior stroke warrants CTA of head and neck at time of my assessment, CTA head and neck was ordered in addition to diagnostic blood work both which do not show acute abnormality per radiology interpretation my review Interestingly while I was in the room assessing the patient she had an episode of what has previously occurred and she reported generalized paresthesias followed by strong malodor, and then tremors to bilateral hands and a brief episode of quietness Her symptoms were seemingly consistent with a seizure, possibly petit mall Again her CTA does not show evidence of acute abnormality patient resumes to baseline immediately after event Diagnostic labs are within normal limits My suspicion is that she is having petit mall seizures, pending return call from neurology at this time Medical Records Medical records reviewed: Yes I reviewed the patient's medical records. Lab Data Lab results reviewed: Yes I reviewed the patient's lab results. <Mansoor Kim NP - Last Filed: 03/12/22 20:28> This 71-year-old female who presents for several episodes of alteration in mental status reportedly over the course of the past 24 hours with history of prior stroke warrants CTA of head and neck at time of my assessment, CTA head and neck was ordered in addition to diagnostic blood work both which do not show acute abnormality per radiology interpretation my review Interestingly while I was in the room assessing the patient she had an episode of what has previously occurred and she reported generalized paresthesias followed by strong malodor, and then tremors to bilateral hands and a brief episode of quietness Her symptoms were seemingly consistent with a seizure, possibly petit mall Again her CTA does not show evidence of acute abnormality patient resumes to baseline immediately after event Diagnostic labs are within normal limits My suspicion is that she is having petit mall seizures, pending return call from neurology at this time 1600-received signout from Lucia GRANADOS. Please see her initial documentation for presentation physical exam history and treatment. Patient pending neurology consult for suspicion of petit mall seizure. 1715-spoke to [facility] neurologist Dr. Medina whom recommended patient being started on Keppra and having outpatient MRI and EEG with neurology follow-up. Given that patient is stable further outpatient work-up and disposition is appropriate at this time. Reassessed patient and patient is alert and oriented. Did state 1 further episode in the emergency department. Upon further questioning patient states that she has had these episodes in the past that all started after her stroke. Patient and significant other state that they are typically followed at [facility] neurology clinic for annual stroke and neurology recheck. They state they would prefer to follow-up with [facility] neurologist. We will have referral sent to [facility] neurology department. Due to neurologist being on vacation at [facility] feel that patient would be better suited to have outpatient imaging and EEG performed at [facility] so we will request that the referral be performed stat to have these further imaging done there. Patient started on 500mg Keppra twice daily and patient and significant other were agreeable to outpatient monitoring and close follow-up for any new or worsening symptoms. After discussion of diagnosis and plan of care patient has no further needs, questions, or concerns and states clear understanding to return to the emergency department for any worsening symptoms. This documentation was generated using [employer] dictation system, please disregard any oddities of phrase or misspellings. HPI <DARWIN Luciano - Last Filed: 03/14/22 09:07> General Date/Time Provider Initiated Documentation: 03/12/22 12:50. HPI Narrative: This 71-year-old female with history of stroke, hypertension, hypercholesterolemia, hypothyroidism, urinary incontinence, hyponatremia, anemia presents after a fall at having recurrent episodes of alteration in mental status. Reportedly she has a period of cloudiness which she does not recall last for several seconds to minutes. She is at her baseline after these episodes. She states she had 4 episodes in the past 24 hours. They deny any new medications injuries or illnesses. There is no reported history of seizure. She has not had any falls or reported injuries with these episodes. 2 episodes were witnessed by this morning. It lasted approximately 5 minutes. She was seated in a chair during the entirety of event. Related Data Home Medications Medication Instructions Recorded Confirmed aspirin 325 mg tablet 325 mg PO DAILY 08/09/20 03/13/22 glucosamine HCl 500 mg tablet 500 mg PO DAILY 08/09/20 03/13/22 fluoxetine 40 mg capsule 40 mg PO DAILY #90 caps 05/17/21 03/13/22 levothyroxine 112 mcg capsule 112 mcg PO DAILY #90 caps 05/24/21 03/13/22 acetaminophen 500 mg capsule 1,000 mg PO Q8H PRN PRN #90 caps 08/21/21 03/13/22 lisinopril 20 mg tablet 20 mg PO DAILY #90 tabs 10/17/21 03/13/22 levetiracetam 500 mg tablet 500 mg PO BID 30 days #60 tabs 03/12/22 03/13/22 (Kevictor manuel) Previous Rx's Medication Instructions Recorded fluoxetine 40 mg capsule 40 mg PO DAILY #90 caps 05/17/21 levothyroxine 112 mcg capsule 112 mcg PO DAILY #90 caps 05/24/21 acetaminophen 500 mg capsule 1,000 mg PO Q8H PRN PRN #90 caps 08/21/21 lisinopril 20 mg tablet 20 mg PO DAILY #90 tabs 10/17/21 levetiracetam 500 mg tablet 500 mg PO BID 30 days #60 tabs 03/12/22 (Keppra) Allergies Allergy/AdvReac Type Severity Reaction Status Date / Time [id number] Reductase AdvReac Intermediate myalgias Verified 03/13/22 15:00 Inhibitor [Jdrytch-Muf-Bph Reductase Inhibitor] oxycodone HCl [From Percocet] AdvReac Mild MADE HER Verified 03/13/22 15:00 JITTERY General Stated Complaint: [facility] WAYNE: 3 Review of Systems <DARWIN Luciano - Last Filed: 03/14/22 09:07> Narrative: Review of systems obtained x7 and negative aside from indication in HPI PFS <DARWIN Luciano - Last Filed: 03/14/22 09:07> All Active Problems (Updated 03/12/22 @ 17:32 by Mansoor Kim NP) Seizure, petit mal (Acute) Stroke (Chronic 10/28/17) Hypertension (Chronic) Hypercholesterolemia (Chronic) Depression (Chronic) Hypothyroidism (Chronic) Right homonymous hemianopsia (Chronic) Urinary incontinence (Acute) Primary osteoarthritis of left hip (Acute) Hyponatremia (Acute) Acute anemia (Acute) Syncope (Chronic) Orthostatic hypotension (Acute) Osteoporosis without pathological fracture (Acute) Medical History (Updated 03/12/22 @ 17:32 by Mansoor Kim NP) Discharge planning issues Diverticulosis (~09/07/18) 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 Father , 98 Heart disease Stroke Hypertension Sister Cancer unsure of type Sister , at No problems noted. Brother No problems noted. Son Alcohol abuse Depression Daughter Depression Maternal Grandfather No problems noted. Paternal Grandfather No problems noted. Maternal Grandmother No problems noted. Paternal Grandmother No problems noted. Social History Smoking/Tobacco Use Status: Former Tobacco Use Quit Date: 03/16/70 Tobacco: How many years used: 7 Second Hand Exposure: No Smoking risk assessment performed?: Yes Alcohol Intake: current Alcohol Intake frequency: holidays/special occasions only Alcohol type: wine Drug use: Never Substance use type: does not use Details: couple glasses of wine last week Caregiver/Support person: No Household members: spouse Housing: house Communication Needs: Hard of Hearing and Corrective Lenses Do you need help understanding health information?: Never Pets and animals: Yes Pets and animals: cat(s), dog(s) and horse(s) Sexually active: No Do you think of yourself as: straight/heterosexual Current gender identity: female What is your relationship status?: How often do you talk on the phone with friends or family?: decline to answer How often do you get together with friends or relatives?: decline to answer How often do you attend hinduism or mormonism services?: decline to answer Do you belong to any clubs or organized social groups?: decline to answer Panel score (0-1 are the most socially isolated patients): 1 What type of physical activity do you participate in: walking Frequency: 1-2 times per week Seatbelt use: always Do you feel safe at home: Yes (Spouse in room) Do you feel safe in your relationship?: Yes Additional 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 Social ETOH only. Exam <DARWIN Luciano - Last Filed: 03/14/22 09:07> Const General: cooperative, comfortable and no acute distress Orientation: alert and oriented x3 Eyes Pupils: PERRL Resp Effort & Inspection: normal respiratory effort Cardio Rate: regular rate Rhythm: regular rhythm GI Inspection: normal to inspection Skin General skin exam: no rashes or lesions noted Neuro General: patient alert and patient oriented x3 Cranial Nerves: CN's II-XI intact bilaterally and tongue midline Cognition: normal cognition Speech: speech normal Gait: normal gait Extrem General: normal to inspection Course <DARWIN Luciano - Last Filed: 03/14/22 09:07> Vital Signs Vital signs: Vital Signs Temperature 36.2 C L 03/12/22 12:34 Pulse 82 03/12/22 12:34 Respiratory Rate 18 03/12/22 12:34 Blood Pressure 183/103 H 03/12/22 12:34 Pulse Oximetry 98 03/12/22 12:34 Temperature 36.2 C L 03/12/22 12:34 Pulse 82 03/12/22 12:34 Respiratory Rate 17 03/12/22 12:40 Respiratory Effort Non-Labored 03/12/22 12:40 Respiratory Depth Normal 03/12/22 12:40 Respiratory Pattern Normal 03/12/22 12:40 Blood Pressure 183/103 H 03/12/22 12:34 Blood Pressure Position Sitting 03/12/22 12:34 Pulse Oximetry 98 03/12/22 12:34 Oxygen Delivery Method Room Air 03/12/22 12:34 Oxygen Flow Rate 0 03/12/22 12:34 Pain Level 0 03/12/22 12:34 Lab/Test Results Lab/Test Results: Laboratory Tests Range/Units 03/12/22 03/12/22 03/12/22 13:25 13:25 13:40 WBC (4.4-10.8) 10^3/uL 7.40 RBC (3.93-5.22) 10^6/uL 4.73 Hgb (11.2-15.7) g/dL 14.3 Hct (36.0-46.0) % 42.5 MCV (80-95) fL 90 MCH (27.0-33.0) pg 30.2 MCHC (32.0-36.0) % 33.6 RDW (11.7-14.6) % 12.4 Plt Count (130-400) 10^3/uL 269 MPV (8.0-11.0) fL 8.6 Immature Gran % 0.4 Neutrophils % 73.6 Lymphocytes % 19.6 Monocytes % 5.4 Eosinophils % 0.5 Basophils % 0.5 Nucleated RBC % (0.0-0.3) % 0.0 Absolute Neutrophils (1.2-6.7) 10^3/uL 5.44 Absolute Lymphocytes (1.2-3.4) 10^3/uL 1.45 Absolute Monocytes (0.1-0.8) 10^3/uL 0.40 Absolute Eosinophils (0.0-0.7) 10^3/uL 0.04 Absolute Basophils (0.0-0.2) 10^3/uL 0.04 Sodium (136-145) mmol/L 135 L Potassium (3.5-5.1) mmol/L 4.1 Chloride (98-107) mmol/L 100 Carbon Dioxide (21.0-32.0) mmol/L 29.1 Anion Gap (3-11) mmol/L 5.9 BUN (7-18) mg/dL 13 Creatinine (0.55-1.02) mg/dL 0.6 Est GFR (CKD-EPI 2020) (mL/min/1.73m2) 95.31 Glucose (74-106) mg/dL 111 H Calcium (8.5-10.1) mg/dL 9.0 Magnesium (1.8-2.4) mg/dL 2.1 Total Bilirubin (0.2-1.0) mg/dL 0.5 AST (15-37) U/L 17 ALT (14-59) U/L 14 Alkaline Phosphatase (46-116) U/L 96 Troponin I (<or=60) ng/L < 50 Total Protein (6.4-8.2) g/dL 7.5 Albumin (3.4-5.0) g/dL 3.8 TSH (0.36-3.74) uIU/mL 0.30 L Urine Color (Yellow) Yellow Urine Clarity (Clear) Clear Urine pH (5-8) 7.0 Ur Specific [place] (1.005-1.025) 1.020 Urine Protein (Negative) mg/dL Negative Urine Ketones (Negative) mg/dL Negative Urine Blood (Negative) Trace-intact H Urine Nitrite (Negative) Negative Urine Bilirubin (Negative) Negative Urine Urobilinogen (Up TO 0.2) EU/dL 0.2 Ur Leukocyte Esterase (Negative) Negative Urine RBC (0-2) HPF 3-5 H Urine WBC (0-5) HPF 3-5 Ur Epithelial Cells (Negative) HPF Few Urine Crystals (Negative) HPF Negative Urine Bacteria (Negative) HPF Negative Urine Casts (Negative) LPF Negative Urine Mucus (Negative) Negative Ur Culture Indicated? No Urine Glucose (Negative) mg/dL Negative Sign Out <DARWIN Luciano - Last Filed: 03/14/22 09:07> Sign Out Data: Sign Out Comment: pending neurology consultation Last updated by Lucia Driver PA at 03/12/22 16:38 PAWSS <DARWIN Luciano - Last Filed: 03/14/22 09:07> Have you Been Recently Intoxicated or Drunk Within the Last 30 days?: No Have you Ever Experienced Previous Episodes of Alcohol Withdrawal?: No Have you ever Experienced Withdrawal Seizures?: No Have you ever Experienced Delirium Tremens(DT)s?: No Have you ever undergone Alcohol Rehabilitation Treatment (i.e, inpt ot outpatient treatment programs)?: No Have you ever Experienced Blackouts?: No Have you ever Combined Alcohol with other Downers within the last 90 days?: No Have you ever Combined Alcohol with any other Substance of Abuse during the last 90 days?: No Result: 0 <Mansoor Kim NP - Last Filed: 03/12/22 20:28> Result: 0
[2022-03-12 16:51] LABS: Troponin I < 50 ng/L (<or=60)
[2022-03-12] MEDS: levETIRAcetam 250 MG TAB 500 MG PO (17:25)
[2022-03-12 17:36] VITALS: BP 190/97; PULSE 80; RESP 17; O2SAT 97
[2022-03-12 17:38] VITALS: TEMP 37.1
--- NOTE | 2022-03-13 14:02 | CMACTNOTE_ITS ---
- If Service Date Differs Date of service: 03/13/22 Time of Service: 14:02 Care Management Activity Note Danica is seen in the ED for petit mal seizures. At the request of ED provider, CM coordinates a referral to [facility] Neurology to assist patient in obtaining a follow up appointment. She has [facility] Medicare Replacement Plan for insurance.
--- NOTE | 2022-03-13 14:02 | PDOC.ERCMACT ---
- If Service Date Differs Date of service: 03/13/22 Time of Service: 14:02 Care Management Activity Note Danica is seen in the ED for petit mal seizures. At the request of ED provider, CM coordinates a referral to [facility] to assist patient in obtaining a follow up appointment. She has [facility] Medicare Replacement Plan for insurance.
== END 2022-03-12 17:49 | disposition home or self-care (01) ==
PROVIDERS: Physician Assistant; Emergency Provider Nurse Practitioner Family; PCP Nurse Practitioner Family
DX: G40.A09 Absence epileptic syndrome, not intractable, without status epilepticus (principal); I10 Essential (primary) hypertension; E03.9 Hypothyroidism, unspecified; Z79.82 Long term (current) use of aspirin; Z79.899 Other long term (current) drug therapy; Z86.73 Personal history of transient ischemic attack (TIA), and cerebral infarction without residual deficits
CPT/HCPCS: 36415; 70496; 70498; 80053; 93005; 99285; 71046; 81003; 81015; 83735; 84443; 84484; 85025; 93010

== ENCOUNTER 2022-04-07 01:35 | Outpatient (CLI) | payer MEDICARE, SELFPAY ==
--- NOTE | 2022-04-07 07:24 | DI.MRI_ITS ---
Exam(s) MR BRAIN WO/W EXAM: MR BRAIN WO/W CLINICAL HISTORY: recent increase in seizure activity,G40.A09. TECHNIQUE: Multiplanar multisequence MRI of the brain was performed. CONTRAST MATERIAL: IV Contrast: 14 ML of Dotarem contrast administered. COMPARISON: CT CT BRAIN NECK CTA from 03/12/2022 FINDINGS: VENTRICLES AND EXTRA AXIAL SPACES: Normal in size and morphology for the patient's age. HEMORRHAGE: No acute hemorrhage. A few tiny foci of hemosiderin deposition are seen in the left cere bellar hemisphere and left frontal lobe. CEREBRAL PARENCHYMA: Stable area of left occipital encephalomalacia. Multiple abnormal high signal l esions are seen in the periventricular white matter. Some of the lesions are perpendicular to the ve ntricles. There is involvement of small portion of the corpus callosum anterosuperiorly as well as t he splenium. A lacunar infarct is noted above the frontal horn of the left lateral ventricle which a ppears unchanged. There are prominent perivascular spaces. No focus of restricted diffusion to sugg est acute infarct. No space-occupying lesion identified. The temporal lobes are symmetric. MIDLINE SHIFT: None. BRAINSTEM/CEREBELLUM: Normal. ENHANCEMENT: No suspicious enhancement identified. VISUALIZED PARANASAL SINUSES/MASTOIDS: Clear. OTHER FINDINGS: None. IMPRESSION: Old left occipital infarct. Old lacunar infarct adjacent to the left lateral ventricle. Abnormal si gnal in the white matter with involvement of the corpus callosum could represent mild aging process v ersus extensive microvascular changes. DATA REPOSITORY:
[2022-04-07] MEDS: Normal Saline Flush 10 ML SYR IVP (11:00)
== END 2022-04-07 01:55 ==
LOC: DI 01:35
PROVIDERS: PCP Nurse Practitioner Family; Visit Provider Nurse Practitioner Family
DX: I63.81 Other cerebral infarction due to occlusion or stenosis of small artery (principal); G40.A09 Absence epileptic syndrome, not intractable, without status epilepticus; Z86.73 Personal history of transient ischemic attack (TIA), and cerebral infarction without residual deficits
CPT/HCPCS: 70553

== ENCOUNTER 2022-09-11 11:10 | Outpatient (CLI) | payer MEDICARE, SELFPAY ==
--- NOTE | 2022-09-11 10:45 | DI.RAD_ITS ---
Exam(s) XR KNEE RT 2V AP,LAT EXAM: XR KNEE RT 2V AP,LAT INDICATION: ANNAUL F/U R TKA. COMPARISON: CR XR KNEE RT 1V from 09/05/2021 CR XR STANDING ALIGNMENT from 09/05/2021 TECHNIQUE: 2D digital imaging was performed. Two views. FINDINGS: There has been no change in the alignment of the total knee prosthesis. No suspicious bony lucencies are seen. Mild anterior soft tissue swelling is present. DATA REPOSITORY: RADIATION DOSE DELIVERED:
== END 2022-09-11 11:11 | disposition home or self-care (01) ==
LOC: DIORS 11:10
PROVIDERS: PCP Nurse Practitioner Family; Referring Provider Nurse Practitioner Family; Visit Provider Student in an Organized Health Care Education/Training Program
DX: Z96.651 Presence of right artificial knee joint (principal); Z47.1 Aftercare following joint replacement surgery
CPT/HCPCS: 99213; 73560

== ENCOUNTER → 2022-10-27 02:30 | Outpatient (CLI) | payer MEDICARE, SELFPAY ==
--- NOTE | 2022-10-27 11:45 | DI.MAMMO_ITS ---
Exam(s) MAMMO SCREENING EXAM: MAMMO SCREENING CLINICAL HISTORY: screening,Z12.39. TECHNIQUE: Bilateral full field digital CC and MLO mammographic images were obtained with 3D tomosyn thesis and utilizing computer aided detection (CAD). COMPARISON: Prior mammograms were reviewed. FINDINGS: There has been no significant change in the appearance and distribution of the fibroglandular tissue. Asymmetric densities in both breasts are unchanged from at least 2014 and therefore benign. There are no new spiculated masses nor malignant appearing microcalcification groups. There is no significant architectural distortion nor skin thickening-retraction. IMPRESSION: No radiographic evidence of malignancy. BI-RADS Category 2 - Benign Findings Breast Density - Category B - Scattered areas of fibroglandular density Breast density Category C or D implies that the patient has dense breast tissue. Dense breast tissue can make it harder to find cancer on a mammogram. Dense breast tissue is also associated with an incr eased risk of breast cancer. This information about the result of the mammogram report was provided to the patient to raise their awareness. Use this report when you speak with the patient about their risks for breast cancer, which includes their family history. At that time, you may recommend additional screening tests (Ultrasoun d or MRI) as these tests may add significant information. A negative radiographic report should not delay biopsy if a dominant or clinically suspicious mass is present. Up to ten percent of cancers are not identified on mammography. A negative report may reinforce clinical impression. Adenosis and dense breasts may obscure an underlying neoplasm. False positive reports average 6 to 10%. Patient will receive a letter notifying them of these results.
== END ==
PROVIDERS: PCP Nurse Practitioner Family; Visit Provider Nurse Practitioner Family
DX: Z12.31 Encounter for screening mammogram for malignant neoplasm of breast (principal)
CPT/HCPCS: 77063; 77067

== ENCOUNTER 2023-06-11 14:45 | Outpatient (CLI) | payer MEDICARE, SELFPAY ==
--- NOTE | 2023-06-11 09:30 | DI.RAD_ITS ---
Exam(s) XR PELVIS AP EXAM: XR PELVIS AP CLINICAL HISTORY: PRE OP L BEBE. TECHNIQUE: 2D digital imaging was performed. Single AP view. COMPARISON: CT CT PELVIS BONY WO IV WO ORAL CONTRAST from 02/17/2023 FINDINGS: BONES: No acute fracture is present. No change in right hip prosthesis. JOINTS: Severe narrowing of the left hip joint space. There is some flattening of the superior femor al head. SOFT TISSUE: Normal. IMPRESSION: Severe degenerative changes of the left hip. DATA REPOSITORY: RADIATION DOSE DELIVERED:
== END 2023-06-11 14:46 | disposition home or self-care (01) ==
LOC: DIORS 14:46
PROVIDERS: PCP Nurse Practitioner Family; Referring Provider Nurse Practitioner Family; Visit Provider Student in an Organized Health Care Education/Training Program
DX: M16.12 Unilateral primary osteoarthritis, left hip (principal); Z01.818 Encounter for other preprocedural examination
CPT/HCPCS: 99215; 72170

== ENCOUNTER 2023-06-11 15:00 | Outpatient (CLI) | payer MEDICARE, SELFPAY ==
[2023-06-11 10:31] LABS: HCT 42.5 % (36.0-46.0); HGB 14.1 g/dL (11.2-15.7); MCH 30.4 pg (27.0-33.0); MCHC 33.2 % (32.0-36.0); MCV 92 fL (80-95); MPV 8.5 fL (8.0-11.0); Platelet Count 264 10^3/uL (130-400); RBC 4.64 10^6/uL (3.93-5.22); RDW 12.1 % (11.7-14.6); RDW-SD 40.9 fL; WBC 5.66 10^3/uL (4.4-10.8)
[2023-06-11 10:43] LABS: Anion Gap 6.8 mmol/L (3-11); BUN 13 mg/dL (7-18); CO2 30.2 mmol/L (21.0-32.0); CREATININE 0.6 mg/dL (0.55-1.02); Calcium 8.9 mg/dL (8.5-10.1); Chloride 98 mmol/L (98-107); Estimated GFR 94.72 (mL/min/1.73m2); Glucose 78 mg/dL (74-106); Potassium 4.3 mmol/L (3.5-5.1); Sodium 135 mmol/L (136-145)
== END 2023-06-11 15:01 | disposition home or self-care (01) ==
LOC: LBO 15:00
PROVIDERS: PCP Nurse Practitioner Family; Visit Provider Student in an Organized Health Care Education/Training Program
DX: M16.12 Unilateral primary osteoarthritis, left hip (principal); Z01.818 Encounter for other preprocedural examination
CPT/HCPCS: 36415; 80048; 85027

== ENCOUNTER 2023-06-24 05:56 | Day surgery (SDC) | payer MEDICARE, SELFPAY ==
[2023-06-24] VITALS (8 sets, daily range): BP systolic 125–192; BP diastolic 60–95; PULSE 59–71; RESP 16–21; TEMP 36.4–36.6; O2SAT 98–100; BMI 28.0
[2023-06-24] MEDS: Lactated Ringers 1,000 ML 80 ML IV (06:32)
[2023-06-24] MEDS: Acetaminophen 500 MG TAB 1000 MG PO (06:33)
[2023-06-24] MEDS: Celecoxib 200 MG CAP 400 MG PO (06:33)
--- NOTE | 2023-06-24 07:04 | W.ANESPRE ---
General Info Date of Service Date Performed: 06/24/23 Height: 5 ft 2 in Weight: 69.5 kg Body Mass Index (BMI): 28.0 Surgical Procedure: Operation Date: 06/24/23 07:50 Proposed Procedure Side Surgeon p Hip Total Hip Anterior Left Bradley Stubbs MD Meds Allergies and Home Medications Allergies Allergy/AdvReac Type Severity Reaction Status Date / Time Zcpxnlb-UIL-WiH Reductase AdvReac Intermediate myalgias Verified 06/24/23 06:07 Inhibitor [Nikpfye-Fnf-Knz Reductase Inhibitor] oxycodone HCl [From Percocet] AdvReac Mild MADE HER Verified 06/24/23 06:07 JITTERY Home Medication Medication Instructions Recorded aspirin 325 mg tablet 325 mg PO DAILY 08/09/20 glucosamine HCl 500 mg tablet 500 mg PO DAILY 08/09/20 fluoxetine 40 mg capsule 40 mg PO DAILY #90 caps 06/01/22 levothyroxine 112 mcg capsule 112 mcg PO DAILY #90 caps 06/01/22 lisinopril 40 mg tablet 40 mg PO DAILY #90 tabs 06/12/22 levetiracetam 500 mg 1,000 mg PO HS 08/14/22 tablet,extended release 24 hr metoprolol tartrate 25 mg tablet 12.5 mg (1/2 x 25 mg) PO BID #90 01/04/23 tabs acetaminophen 500 mg tablet 1,000 mg (2 x 500 mg) PO TID #90 06/24/23 tabs celecoxib 200 mg capsule 200 mg PO BID #60 caps 06/24/23 dexamethasone 4 mg tablet 4 mg PO DAILY #2 tabs 06/24/23 oxycodone 5 mg tablet 5 mg PO Q4H PRN pain #20 tabs 06/24/23 pantoprazole 40 mg tablet,delayed 40 mg PO DAILY #30 tabs 06/24/23 release Current Visit Medications: Current Medications Generic Name Dose Route Start Last Admin Trade Name Freq PRN Reason Stop Dose Admin Acetaminophen 1,000 mg 06/24/23 06:00 06/24/23 06:33 Acetaminophen 500 Mg Tab PO 07/23/23 23:59 1,000 mg PREOP NNAMDI Administration Celecoxib 400 mg 06/24/23 06:00 06/24/23 06:33 Celecoxib 200 Mg Cap PO 07/23/23 23:59 400 mg PREOP NNAMDI Administration Ringer's Solution 1,000 mls @ 80 mls/hr 06/24/23 06:00 06/24/23 06:32 IV 07/23/23 23:59 80 mls/hr INFUSION NNAMDI Administration Cefazolin Sodium/Dextrose 2 gm in 50 mls @ 100 mls/hr 06/24/23 06:00 Ancef Duplex IVPB 07/23/23 23:59 PREOP NNAMDI Tranexamic Acid/Sodium Chloride 1,000 mg in 100 mls @ 600 mls/hr 06/24/23 06:00 IVPB 07/23/23 23:59 PREOP NNAMDI IV Miscellaneous Supplies 1 each 06/24/23 06:00 Iv Access IV 07/23/23 23:59 DIRECTED NNAMDI Sodium Chloride 0 ml 06/24/23 06:00 Normal Saline Flush 10 Ml Syr IV 07/23/23 23:59 PRN PRN Sodium Chloride 0 ml 06/24/23 06:00 Normal Saline 10 Ml Vial IJ 07/23/23 23:59 DIRECTED PRN Sterile Water 0 ml 06/24/23 06:00 Water,Injection,Sterile 10 Ml Vial IJ 07/23/23 23:59 DIRECTED PRN PFSH Active Problems Active Problems: Problem Status Onset Code Stroke 10/28/17 I63.9 Hypertension I10 Hypercholesterolemia E78.00 Depression F32.9 Hypothyroidism E03.9 Right homonymous hemianopsia H53.461 Urinary incontinence R32 Primary osteoarthritis of left hip M16.12 Osteoporosis without pathological fracture M81.0 Medical History Medical History Orthostatic hypotension Syncope Acute anemia Hyponatremia Tinnitus of right ear Sensorineural hearing loss, bilateral Diverticulosis (~09/07/18) Osteoarthritis Discharge planning issues 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 Left side ok. 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) S/P oophorectomy Tobacco Smoking/Tobacco Use Status: Former Tobacco Use Passive smoking exposure: No Second hand exposure: No Alcohol Alcohol Intake: current Alcohol intake frequency: holidays/special occasions only Alcohol type: wine Substance Use Substance use: Never Substance use type: does not use Details: couple glasses of wine last week Vital Signs and Lab Results Vital Signs Most Recent Vital Signs in EMR: Most Recent Vital Signs Temp Pulse Resp BP Pulse Ox 36.6 C 71 18 192/90 H 98 06/24/23 06:26 06/24/23 06:26 06/24/23 06:26 06/24/23 06:26 06/24/23 06:26 Lab Results Blood Type / Crossmatch: No Data to Display Complete Blood Count: White Blood Count 5.66 10^3/uL (4.4-10.8) 06/11/23 10:15 Red Blood Count 4.64 10^6/uL (3.93-5.22) 06/11/23 10:15 Hemoglobin 14.1 g/dL (11.2-15.7) 06/11/23 10:15 Hematocrit 42.5 % (36.0-46.0) 06/11/23 10:15 Platelet Count 264 10^3/uL (130-400) 06/11/23 10:15 Complete Metabolic Panel: Sodium 135 mmol/L (136-145) L 06/11/23 10:15 Potassium 4.3 mmol/L (3.5-5.1) 06/11/23 10:15 Chloride 98 mmol/L (98-107) 06/11/23 10:15 Carbon Dioxide 30.2 mmol/L (21.0-32.0) 06/11/23 10:15 BUN 13 mg/dL (7-18) 06/11/23 10:15 Creatinine 0.6 mg/dL (0.55-1.02) 06/11/23 10:15 Est GFR (CKD-EPI 2020) 94.72 (mL/min/1.73m2) 06/11/23 10:15 Calcium 8.9 mg/dL (8.5-10.1) 06/11/23 10:15 Glucose 78 mg/dL (74-106) 06/11/23 10:15 Liver Function Panel: No Data to Display Coagulation Panel: No Data to Display Cardiac Panel: No Data to Display Arterial Blood Gas: No Data to Display Venous Blood Gas: No Data to Display Pancreas Panel: No Data to Display Thyroid Panel: No Data to Display Infectious Disease: No Data to Display Blood Cultures: No Data to Display Toxicology Panel: No Data to Display Imaging and Studies Imaging and Studies Study information below may be from another EMR and interpreted by another provider. Please see original notes in EMR for more complete details. EKG Summary: DATE/TIME OF SERVICE: 03/12/22 1333 : 1950 PERFORMING LOCATION: ER APPROVED REPORT Exam: Resting ECG Reason for Exam: weakness Patient Location: E HR:68 bpm ECG Measurements Heart Rate 68 AXIS VA 158 P 32 QRSd 86 QRS -32 QT 416 T4 QTc 441 Conclusion Sinus rhythm...normal P axis, V-rate 60- 99 Probable left ventricular hypertrophy...multiple LVH criteria Echocardiogram Summary: *STUDY CONCLUSIONS* Impressions: No cardiac source of emboli was identified. Summary: 1. Left ventricle: The cavity size was normal. There was mild focal basal hypertrophy of the septum. Systolic function was normal. The estimated ejection fraction was 55-60%. Moderate hypokinesis of the basalinferior myocardium. 2. Mitral valve: Mildly calcified annulus. Mildly thickened leaflets. There was mild regurgitation. 3. Right ventricle: The cavity size was at the upper limits of normal. Wall thickness was normal. Systolic function was normal. 4. Atrial septum: A patent foramen ovale cannot be excluded. Anesthesia Assessment and Plan Anesthesia History Personal History: No History of Anesthesia Complications Family History: No Family History of Anesthesia Complications Exercise Tolerance Exercise Tolerance: Metabolic Equivalents>4 Pertinent Negatives Pertinent Negatives: No Symptoms of GERD, No Major Cardiovascular Symptoms or Complaints and No Major Pulmonary Symptoms or Complaints Cardiac & Pulmonary Exam Cardiac Exam: Normal S1/S2 Heart Sounds Pulmonary Exam: Clear Bilateral Breath Sounds Implantable Cardiac Device Does patient have a Pacemaker or an ICD?: No Airway Exam Known Difficult Airway: No Mallampati Class: 1 Mouth Opening: Normal (> 3cm) Thyromental Distance: Greater than 3 cm Neck Range of Motion: Full ROM Neck Circumference: Normal Teeth Condition: Normal Dentition ASA Classification ASA Score: ASA 3 Emergency Case?: No NPO Status NPO Status: NPO Clears >2 hours, Solids >8 hours Anesthesia Plan Resuscitation Status: Full Code Anesthesia Technique: Spinal Anesthesia Airway Planned: Natural Airway Monitors Used: Standard Monitors
--- NOTE | 2023-06-24 07:13 | W.PM.DSUDISC ---
Date of service: 06/24/23 Time of Service: 07:13 Discharge Plan Disposition Patient Disposition: Home Condition: Good Discharge Details Reason For Visit: L THR Attending Provider: Bradley Sutbbs Primary Care Provider: Callie Bhandari Home Meds and New Rx's Prescriptions: New celecoxib 200 mg capsule 200 mg PO BID Qty: 60 0RF acetaminophen 500 mg tablet 1,000 mg PO TID Qty: 90 3RF pantoprazole 40 mg tablet,delayed release (DR/EC) 40 mg PO DAILY Qty: 30 0RF dexamethasone 4 mg tablet 4 mg PO DAILY Qty: 2 0RF oxycodone 5 mg tablet 5 mg PO Q4H MDD 6 tabs PRN (Reason: pain) Qty: 20 0RF Continued levetiracetam 500 mg tablet extended release 24 hr 1,000 mg PO HS Patient Comments: TAKE TWO TABLETS BY MOUTH EVERY EVENING aspirin 325 mg tablet 325 mg PO DAILY glucosamine HCl 500 mg tablet 500 mg PO DAILY Rx Instructions: administer with a meal lisinopril 40 mg tablet 40 mg PO DAILY Qty: 90 3RF Rx Instructions: 06/11/22 Per [facility] report. -hb fluoxetine 40 mg capsule 40 mg PO DAILY Qty: 90 3RF levothyroxine 112 mcg capsule 112 mcg PO DAILY Qty: 90 4RF metoprolol tartrate 25 mg tablet 12.5 mg PO BID Qty: 90 3RF Discontinued acetaminophen 500 mg capsule 1,000 mg PO Q8H PRN PRNQty: 90 0RF Discharge Instructions Additional Instructions: Total Hip Discharge Instructions Activity: The most important activity is to walk. You should try to take short walks a few times a day. You have no restrictions on movement or positioning, but do not try to force what you do. You will find some stiffness and weakness with hip flexion (lifting your knee). Do not try to strengthen this too early, continue to practice walking and stairs and this will come. - Outpatient physical therapy can be helpful to help return you to a normal gait and improve your flexibility and strength. This can start around 2 weeks. For some patients, it?s not necessary. Usually this is determined at the time of discharge or at the first post-operative visit. - You should wear the ROXY hose on both legs for 2 weeks. Dressing: Keep the surgical dressing in place for at least one week. After the first week it may be removed and replace with light gauze and tape or nothing. It may get wet after 3 days but avoid soaking the dressing. If it gets wet, just lightly pat dry. It is important to always keep some gauze between skin folds, especially when you are sitting. Spend some time with the wound exposed when you are lying flat as the incision does wrinkle onto itself. Medications: - You should take Tylenol and an anti-inflammatory Celebrex as your primary pain control medications. If the Celebrex is too expensive or not covered, please call the office for another alternative (Advil/Ibuprofen or Naproxen/Aleve). - You have been prescribed a stronger pain medication Oxycodone for breakthrough pain, take as needed as prescribed. - You have also been prescribed a stomach acid reduction agent Pantoprozole to help reduce stomach acid and reflux. - You have also been prescribed Decadron to help with post-operative nausea and pain. You will take this for two days starting tomorrow. - You will be continuing your Aspirin 325mg once daily for DVT prevention unless instructed otherwise. - If you have constipation you should take Colace or Miralax (both [id number]). It takes most people 3-4 days to have a bowel movement. Follow-up: 2 weeks If you have any acute concerns or questions, please do not hesitate to contact the office at [phone]. You may contact Dr. Stubbs with any questions after hours through the hospital at [phone] or on his cell phone at [phone]. Referrals: Bradley Stubbs MD [ [facility] STAFF PHYSICIAN] - Equipment/Supplies: Walker Activity:: Activity as Tolerated Shower/Bathe:: 72 hours Diet:: As Tolerated DS: Diagnosis Discharge Diagnosis (1) Primary osteoarthritis of left hip: Status: Acute
[2023-06-24] MEDS: ceFAZolin 2 GM/50 ML BAG IVPB (07:51)
[2023-06-24] MEDS: TRANEXAMIC ACID/SOD. CHL. 1,000 MG/100 ML BAG 600 MG IVPB (08:13)
--- NOTE | 2023-06-24 09:10 | DI.RAD_ITS ---
Exam(s) XR HIP LT IN OR EXAM: XR HIP LT IN OR CLINICAL HISTORY: primary OA of left hip. TECHNIQUE: 2D digital imaging was performed. COMPARISON: No exams were available for comparison FINDINGS: Fluoroscopy provided during left hip arthroplasty. See procedure report for details. Total fluoroscopy time 27 seconds IMPRESSION: Radiation exposure index/cumulative dose: nina Anderson= 2.9927 mGy DATA REPOSITORY: RADIATION DOSE DELIVERED:
--- NOTE | 2023-06-24 09:13 | ROE_ITS ---
Date of service: 06/24/23 Time of Service: 08:00 Operative Note Operative Note DATE OF PROCEDURE: 06/24/23 PRE-OP DIAGNOSIS: Left Hip Osteoarthritis POST-OP DIAGNOSIS: same PROCEDURE: Left Anterior Total Hip Arthroplasty with Intraoperative Navigation SURGEON: Bradley Stubbs FIBER OPTIC ASSEMBLER: Mateo Perry ANESTHESIA TYPE: Spinal Refer to Anesthesia Record ESTIMATED BLOOD LOSS: 100 PATHOLOGY: none sent TOURNIQUET TIME: 0 COMPLICATIONS: None Patient was transported to: PACU Patient's condition: stable Implants: 1. Depuy [place] Acetabular Component, 54mm 2. Depuy Acetabular Liner, [id number] 3. Depuy Actis Standard Collared Femoral Stem, Size 6 4. Depuy Altrx Ceramic Femoral Head, Size 36+1.5mm Indications: I have seen Danica in clinic for symptoms of hip arthritis, confirmed with radiographic findings. Danica has exhausted nonoperative methods and was having significant limitations in daily function and desired better function and less pain. I discussed the technical details of a hip replacement. I explained the risks of the procedure to include, but not limited to, bleeding, infection, pain, stiffness, fracture, damage to nerves and vessels, damage to muscles and tendons, loosening, instability, leg length inequality, need for repeat p rocedure, blood clot and cardiopulmonary demise. Despite these risks, she elected to proceed. Findings: There was significant signs of arthritis throughout the hip with deformity of the superior femoral head. Procedure Description: Danica was greeted in the preoperative holding area where the correct side was identified and marked. The consent was reviewed with the patient and signed. The history and physical was updated. All questions were answered. She was taken back to the operating room. A spinal anesthestic was then administered. The feet were wrapped with cast padding and Coban and then placed into the boot liners and then into the boots. Care was taken to protect the skin and make sure the heels were fully down and the boots were stable. The patient was then positioned onto the HANA table. Both legs were held in a neutral position. SCDs were applied. The patient was then slid down onto a peroneal post. Prophylactic antibiotics in the form of Cefazolin were administered. 1g of Tranxemic Acid was given intravenously within 30 minutes of incision. The left leg was then prepped with Chloraprep and draped in a standard fashion. A second prep with Chloraprep was performed prior to placement of a shower-curtain type drape with Iodine impregnated skin protection. A timeout to confirm correct identity, side and site, procedure, allergies, anesthesia, and medical concerns was performed. An obliquely oriented incision was made starting lateral to the ASIS and running distal over the Tensor Fascia Vanita (TFL) muscle belly toward the fibular head, approximately 10cm. The skin and soft tissue was dissected sharply, through Nate?s fascia, and to the fascia of the TFL. With the fascia and superior border of the IT band identified, the fascia was incised with a new knife just above any perforators from the IT band. The TFL muscle belly was bluntly dissected away from the fascia and moved laterally. The fat between TFL and rectus was identified to ensure the dissection was not within the TFL. Blunt dissection created space between abductors and the capsule and retractor was placed over the lateral femoral neck. The fibers of the rectus femoris tendon were identified and these were freed from the anterior capsule. A second cobra retractor was placed around the medial femoral neck. The TFL was further retracted laterally to show the deep fascia. Careful dissection through this layer identified three main crossing vessels of the lateral femoral circumflex. These were cauterized in multiple locations and then cut without any noticeable bleeding. The TFL was further released bluntly from the deep fascia to expose anterior hip capsule and fat The Maximiliano orthopaedic retractor was then placed beneath the TFL and against sartorius and medial soft tissues to protect and retract the soft tissues. A T-capsulotomy was then performed starting at the superior lateral acetabulum and moving distally to the intertrochanteric ridge. These capsular flaps were tagged with a No. 1 Ethibond and elevated from within. The capsular flaps were released to the shoulder of the lateral neck and to the lesser trochanter to give excellent visualization of the proximal femur. A neck osteotomy was performed using an oscillating saw based on preoperative templates. This cut started in the shoulder and of the lateral neck and exited medially. The saw was at all times directed medially to avoid injury to the greater trochanter. Gross traction was applied to the leg and the osteotomy opened. The femoral head was removed with a corkscrew, making sure to protect the TFL on its exit. The femoral head showed an area of depression over the superior femoral head with complete loss of cartilage. Traction was released after head removal. This was measured on the back table to determine the starting reamer size. Portions of the rectus obscuring visualization were minimally elevated off the superior acetabulum. An anterior retractor was placed over the anterior wall between capsule and labrum and attached to the Gripper retraction system. The femur was rotated to 90 degrees and medial capsule was fully released until the lesser trochanter was palpable and visible; the femur was returned to 30 degrees. A posterior retractor was placed similarly between capsule and labrum. This provided excellent visualization. The contents of the cotyloid fossa were removed with electrocautery and the labrum was removed with a knife. There was a notable floor osteophyte. There was significant chondromalacia of the superior acetabulum. Acetabular reaming began with a 48mm reamer. This first reaming was directed anterior to posterior and medial to get down to the true floor. This was inspected and reamed until the true floor was reached. The anterior retractor was then released and entry and exit was provided by traction on the capsular flaps. I then reamed sequentially up to a 54mm reamer where good fit was obtained. The larger reamers were oriented based on anatomical reference of the anterior and lateral landaverde to ensure proper abduction and anteversion. Positioning and size was confirmed with the fluoroscopy. A 54mm Depuy [place] acetabular component was selected. The acetabulum was reamed around the periphery with the selected acetabular size to prevent a rim fit. The deep tissues were irrigated. The acetabular component was then impacted in a position of about 40-45 degrees of abduction and 15-20 degrees of anteversion, using the patient?s anatomy as the ultimate landmark. Fluoroscopy was used to confirm this. There was excellent production grip of the acetabular component and the inserting handle was removed. A primary acetabular screw was placed into the ilium by drilling through one of the holes in the acetabular component. This was measured and an approrpriately sized screw was placed with excellent purchase. It was checked not to be proud. A second screw was placed in a similar fashion. The acetabular liner, Depuy [id number] polyethylene liner, was inserted and lined up with the tines of the acetabular component. There was no soft tissue interposition. The liner was then impacted into position and confirmed to be well-seated. A portion of the erika-articular cocktail was then injected around the acetabulum into the capsule and periosteum. This cocktail consisted of 123mg of Ropivacaine, 0.25mg of Epinephrine, 0.04mg of Clonidine, and 15mg of Ketorolac, diluted to 50cc. The leg was rotated to 120 degrees. Any remaining medial capsule was released until the lesser trochanter was easily palpable. A retractor was placed medially. The lateral capsule was further released into the shoulder to allow access to the greater trochanter. A Kate retractor was placed over the greater trochanter which allowed the trochanter to flip in front of the capsule for excellent exposure. The leg was brought down into maximal extension and 20 degrees of adduction while ensuring there was no impingement on the acetabulum. Any remnant capsule within the trochanter was released. Piriformis and obturator externis were identified and protected. There was excellent access to the proximal femur. The lateral neck remnant was removed with a rongeur. A blunt canal probe was used to identify the canal and trajectory for later broaching. A box osteotome initiated the broach course. A small curved rasp and a curved curette were used to work laterally. Broaching then began with a starter Actis broach. This was inserted manually around the trochanter and into the canal before mallet blows. The broach was seated to a few millimeters below the cut level based on the neck cut and the preoperative template. Sequential broaching was continued with the Strawberry energyse pneumatic broaching device until a tight fit was obtained with good rotational control of the femur. A trial standard neck was inserted along with a +1.5 trial head. The leg was brought out of extension and adduction and then reduced with traction and internal rotation. The leg was stable anteriorly in a position of 30 degrees of extension and 90 degrees of external rotation. Fluoroscopy was used to ensure there was no fracture and the stem was seated well. Leg lengths were checked with an AP pelvis and pelvic reference points. [employer] navigation system was used to confirm appropriate positioning and leg length and offset. Once content with the desired offset and leg lengths, the leg was brought back into extension, external rotation and adduction. The periosteum and surrounding tissue was injected with remaining portion of the erika-articular cocktail. The proximal femur was irrigated as well as the deep tissues. The LeadSiftis standard collared stem, size 6, was then manually inserted into the proximal femur making sure to control rotation. It was then malleted into position with light blows, giving breaks to allow bone expansion and decrease risk of fracture. The selected Depuy Altrx Ceramic Head, size 36+1.5mm, was then placed onto the clean and dry trunnion and secured with impac tion onto the tapered fit. The leg was brought back out of extension and adduction and reduced with traction and internal rotation. Stability was confirmed with no shuck at 90 degrees of external rotation and 30 degrees of extension. No impingement through range of motion arc. Final x-ray images were obtained with fluoroscopy to confirm adequate positioning and no intraoperative fracture. The deep tissues were thoroughly irrigated with Surgiphor, betadine solution. This was allowed to sit in the wound for 3 minutes before being thoroughly irrigated out with normal saline. The capsule was then reapproximated with the previously placed Ethibond sutures. The TFL fascia was finally closed with a No. 2 Stratafix, barbed suture. Deep tissues were then reapproximated with 0 Vicryl and a running 2-0 Vicryl. The skin was closed with a running 4-0 Monocryl in a subcuticular fashion. This was reinforced with skin glue. A Mepilex silver dressing was applied. At the end of the case, all counts were correct. Danica was transferred to the hospital bed without difficulty and suffering no apparent complication. Danica has a good prognosis. Physical therapy will start today and without restrictions, weight-bearing as tolerated. Aspirin 81mg BID will be used for DVT prophylaxis.
--- NOTE | 2023-06-24 10:57 | IN_ITS ---
PT Notes Visit Reasons: L THR Physical Therapy Day Surgery Initial Evaluation Date: 06/24/2023 Referring Doctor: DARWIN Fulton PT Orders: PT CONSULT: S/P Ortho Surgery Precautions: WBAT on left LE with AD. Patient Profile/Admitting Diagnosis: Danica is a 72-year-old female with primary osteoarthritis of the left hip and status post left anterior total hip arthroplasty on postoperative day 0. 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 Will have support from daughter as well at home. Independent with all mobility ADLs prior to surgery using 4WW. Equipment Owned/DME: SPC, 4WW Subjective: reported 2-3/10 pain in the L hip at rest and with movement. Denied headache, chest pain, and lightheadedness. Objective: General Observation: Nurse Mcgrath and BRIANDA Rodrigues were trying to help patient up from edge of bed when PT came in. Mepilex Ag over surgical incision. TEDS to B legs. Mental Status: Alert and oriented x 4 Pain: 2-3/10 pain in the R knee ROM: Right Lower Extremity: Hip flexion WFL. Hip abduction WFL. Knee flexion WFL. Ankle dorsiflexion WFL. Ankle plantarflexion WFL. Left Lower Extremity: Hip flexion WFL. Hip abduction WFL. Knee flexion WFL. Ankle dorsiflexion WFL. Ankle plantarflexion WFL. Strength: Right Lower Extremity: Hip flexors 5/5. Hip abductors 5/5. Knee flexors 4/5. Knee extensors 4/5. Ankle dorsiflexors 5/5. Ankle plantarflexors 5/5. Left Lower Extremity:Hip flexors 4-/5. Hip abductors 4-/5. Knee flexors 4/5. Knee extensors 4-/5. Ankle dorsiflexors 5/5. Ankle plantarflexors 5/5. Sensation: Intact as to pain and light pressure on bilateral lower extremities. Denies numbness and tingling in B LE. Bed Mobility/Transfers: Supine to sit standby assist Sit to stand contact-guard assist Stand to sit standby assist Bed to chair standby assist Gait: Facilitate safe and correct performance of level surface ambulation covering a distance of 150 feet using front-wheeled walker with step-to gait pattern, standby assist provided. Minimal verbal cueing provided for safe movement sequence, AD management, and posture to reduce fall risk and minimize pain report. Stairs: Guided patient with safe and correct negotiation of d 6 x 4 inch steps and 4 x 6 inch steps holding onto B rails with contact guard assist and minimal verbal cues for correct technique, limb sequence, posture, and hand placement to reduce fall risk and minimize pain report. Balance: Static Sitting: Normal Dynamic Sitting: Normal Static Standing: Fair Dynamic Standing: Fair Special Tests: Mobility Limitations Standardized Measure [facility] AM-PAC 6 clicks Basic Mobility Inpatient Short Form: Raw Score: 22 CMS Score: 21% deficit Informed Consent/Education: Patient instructed in purpose of PT consult. Education and training on initial set of exercises that can be done at home have been completed with patient and . Trained patient with correct performance of exercises below to maximize motor control, joint flexibility, soft tissue extensibility of the L hip musculature to facilitate return to independent functional mobility performance. Access Code: [email or web address] URL: [email or web address] Date: 06/23/2022 Prepared by: Sadie Wick Exercises - Gluteal Sets - 1 x daily - 7 x weekly - 1 sets - 10 reps - 5 hold - Supine Heel Slide - 1 x daily - 7 x weekly - 1 sets - 10 reps - 5 hold - Supine Ankle Pumps - 1 x daily - 7 x weekly - 1 sets - 10 reps - 5 hold - Seated March - 1 x daily - 7 x weekly - 1 sets - 10 reps - 5 hold - Seated Long Arc Quad - 1 x daily - 7 x weekly - 1 sets - 10 reps - 5 hold Assessment: Danica demonstrates functional mobility decline requiring the use of front- wheeled walker for all mobility ADL performance to maximize independence and reduce fall risk. Patient presents with clinical signs and symptoms consistent with current/admitting diagnoses that have resulted to mobility limitations, gait instability, generalized weakness, and impairment of motor control as demonstrated by the following impairment level findings: 1. Decreased strength to L hip major muscle groups 2. Impaired standing balance Impairments are contributing to the following functional limitations: 1. Inability to safely ambulate without assistive device 2. Increase completion time for mobility ADL performance 3. Increased fall risk Patient is assessed as a 26189 moderate complexity based on the following: History: 72-year-old female with impairment level findings, functional limitations, and past medical history as indicated above Examination: Demonstrable impairment in strength, balance, and mobility level with underlying impairments and functional limitations as documented above Presentation: Evolving Decision Makin moderate complexity Goals: N/A. PT evaluation and 1-2 treatment sessions only for functional mobility training using recommended AD and for HEP instruction. Plan of Care/Treatment Plan: N/A. PT evaluation and 1-2 treatment session only for functional mobility training using recommended AD and for HEP instruction. DISCHARGE RECOMMENDATIONS: Home when medically cleared by orthopedic surgeon. Recommend outpatient PT services in order to optimize functional mobility outcomes and facilitate return to independent community ambulation without an assistive device. TREATMENT CODE/TIME: 31942 x 23 minutes for 1 unit (10:57-11:20) Thank you for the opportunity to participate in the care of this patient. Sadie Wick PT, DPT, CLT [facility] [place], [place] Please sign an return this page within 30 days if you agree with the above POC. Thank you! Physician Signature Date [facility]
[2023-06-24] MEDS: Tranexamic Acid 650 MG TAB 1300 MG PO (11:00)
[2023-06-24] MEDS: traMADol 50 MG TAB PO (11:00)
--- NOTE | 2023-06-24 11:24 | W.ANESPOSTOP ---
Postoperative Evaluation Date, Time and Location Date Performed: 06/24/23 Time Performed: 11:24 Patient Location: Day Surgery Unit Vital Signs Most Recent Imported Vital Signs: Most Recent Vital Signs Temp Pulse Resp BP Pulse Ox 36.4 C L 69 18 177/87 H 99 06/24/23 10:39 06/24/23 10:39 06/24/23 10:39 06/24/23 10:39 06/24/23 10:39 Pain Score Most Recent Pain Score: Most Recent Pain Score Pain Level 1 06/24/23 10:39 Assessment Mental Status: Awake (Alert & Oriented to Patient Baseline) Airway and Respiratory Function: Patent airway with normal (patient baseline) respiratory exam Cardiovascular Function: Hemodynamically Stable Hydration Status: Adequately Hydrated Nausea & Vomiting: No Nausea or Vomiting Pain: Pain is tolerable per patient Peripheral Nerve Block: Patient did not receive a nerve block
== END 2023-06-24 05:57 | disposition home or self-care (01) ==
PROVIDERS: PCP Nurse Practitioner Family; Visit Provider Student in an Organized Health Care Education/Training Program
PROC: (CPT 27130; principal; 2023-06-24 07:30)
DX: M16.12 Unilateral primary osteoarthritis, left hip (principal); I10 Essential (primary) hypertension; E78.00 Pure hypercholesterolemia, unspecified; Z86.73 Personal history of transient ischemic attack (TIA), and cerebral infarction without residual deficits; E03.9 Hypothyroidism, unspecified
CPT/HCPCS: 20985; 27130; C1776; 97162; 73501; J0690; J1100; J2250; J2371; J2401; J2405; J2704

== ENCOUNTER 2023-06-30 11:08 | Outpatient (CLI) | payer MEDICARE, SELFPAY ==
[2023-06-30 11:51] LABS: Calculated LDL 145 mg/dL (<100); Cholesterol 220 mg/dL (<200); HDL Cholesterol 54 mg/dL (40-60); TSH (W/Ref FT4) 3.75 uIU/mL (0.36-3.74); Triglyceride 105 mg/dL (<150)
[2023-06-30 12:21] LABS: FREE T4 1.03 ng/dL (0.76-1.46)
== END 2023-06-30 11:09 | disposition home or self-care (01) ==
LOC: LBO 11:08
PROVIDERS: PCP Nurse Practitioner Family; Visit Provider Nurse Practitioner Family
DX: E03.9 Hypothyroidism, unspecified (principal); E78.00 Pure hypercholesterolemia, unspecified
CPT/HCPCS: 36415; 80061; 84439; 84443

== ENCOUNTER 2023-07-09 10:27 | Outpatient (CLI) | payer MEDICARE, SELFPAY ==
--- NOTE | 2023-07-09 10:00 | DI.RAD_ITS ---
Exam(s) XR HIP LT COMPLETE AP PELVIS EXAM: XR HIP LT COMPLETE AP PELVIS CLINICAL HISTORY: 1ST POST OP L BEBE. TECHNIQUE: 2D digital imaging was performed. Two images were obtained. AP pelvis and lateral views were obtained. COMPARISON: CR XR PELVIS AP from 06/11/2023 XA XR HIP LT IN OR from 06/24/2023 FINDINGS: BONES: There are stable post operative changes of a bilateral total hip replacement present. No frac ture or dislocation. The recent left total hip is in good position. JOINTS: The orthopedic hardware is in good position. No evidence of hardware loosening. SOFT TISSUE: Normal. IMPRESSION: Stable left total hip replacement. DATA REPOSITORY: RADIATION DOSE DELIVERED:
== END 2023-07-09 10:28 | disposition home or self-care (01) ==
LOC: DIORS 10:27
PROVIDERS: PCP Nurse Practitioner Family; Referring Provider Nurse Practitioner Family; Visit Provider Physician Assistant
DX: Z96.642 Presence of left artificial hip joint (principal); Z47.1 Aftercare following joint replacement surgery
CPT/HCPCS: 73502

== ENCOUNTER 2023-09-11 10:12 | Outpatient (CLI) | payer MEDICARE, SELFPAY ==
--- NOTE | 2023-09-11 10:00 | DI.RAD_ITS ---
Exam(s) XR KNEE RT 2V AP,LAT EXAM: XR KNEE RT 2V AP,LAT CLINICAL HISTORY: TKR. TECHNIQUE: 2D digital imaging was performed. Two images were obtained. AP and lateral views were ob tained. COMPARISON: CR XR KNEE RT 2V AP,LAT from 09/11/2022 FINDINGS: BONES: There are stable post operative changes of a right total knee replacement present. No fractur e or dislocation. JOINTS: The orthopedic hardware is in good position. No evidence of hardware loosening. SOFT TISSUE: Stable dystrophic calcifications are seen adjacent to the knee. IMPRESSION: Stable right total knee replacement. DATA REPOSITORY: RADIATION DOSE DELIVERED:
== END 2023-09-11 10:13 | disposition home or self-care (01) ==
LOC: DIORS 10:12
PROVIDERS: PCP Nurse Practitioner Family; Referring Provider Nurse Practitioner Family
DX: Z47.1 Aftercare following joint replacement surgery (principal); Z96.642 Presence of left artificial hip joint; Z96.651 Presence of right artificial knee joint
CPT/HCPCS: 73560

== ENCOUNTER 2024-08-12 11:23 | Outpatient (CLI) | payer MEDICARE, SELFPAY ==
--- NOTE | 2024-08-12 10:45 | DI.RAD_ITS ---
Exam(s) XR HIP LT AP LAT ONLY EXAM: XR HIP LT AP LAT ONLY CLINICAL HISTORY: ANNUAL F/U L BEBE. TECHNIQUE: 2D digital imaging was performed. COMPARISON: CR XR HIP LT COMPLETE AP PELVIS from 07/09/2023 FINDINGS: Two views There is stable position alignment of the components of the left hip prosthesis. No fracture or loos ening evident. IMPRESSION: Stable satisfactory appearance DATA REPOSITORY: RADIATION DOSE DELIVERED:
== END 2024-08-12 11:24 | disposition home or self-care (01) ==
LOC: DIORS 11:23
PROVIDERS: PCP Nurse Practitioner Family; Visit Provider Physician Assistant
DX: Z96.642 Presence of left artificial hip joint (principal); Z47.1 Aftercare following joint replacement surgery
CPT/HCPCS: 99024; 73502

== ENCOUNTER 2024-08-31 02:06 | Outpatient (CLI) | payer MEDICARE, SELFPAY ==
--- NOTE | 2024-08-31 08:15 | DI.DEXA_ITS ---
Exam(s) XR DEXA BONE DENSITY W/WO DORIS EXAM: XR DEXA BONE DENSITY W/WO DORIS CLINICAL HISTORY: Annual exam,MENOPAUSAL DISORDER,N95.9 TECHNIQUE: COMPARISON: CR XR DEXA BONE DENSITY W/WO DORIS from 10/24/2021 FINDINGS: Lateral Spine Image: Unremarkable. No compression deformities identified. Left forearm: There is osteoporosis seen in the mid left forearm with a T-score of -2.5 and Z-score of 0.0. Lumbar Spine: Total T-Score: 0.5. This compares to 0.6 on the prior examination. Total Z-Score: 2.9 T- and Z-scores: Within normal limits. IMPRESSION: Osteoporosis in the left forearm.
--- NOTE | 2024-08-31 08:15 | DI.MAMMO_ITS ---
Exam(s) MAMMO SCREENING EXAM: MAMMO SCREENING CLINICAL HISTORY: screening,Z12.39 TECHNIQUE: Bilateral full field digital CC and MLO mammographic images were obtained with 3D tomosynthesis and utilizing computer aided detection (CAD). COMPARISON: Comparison is made with prior examinations. FINDINGS: Masses/Architectural Distortion: No suspicious masses or areas of architectural distortion are present. Microcalcifications: No suspicious pleomorphic-type are seen. Skin Thickening/Nipple Retraction: None. IMPRESSION: 1. No significant interval change with no specific features of malignancy noted. 2. Unless there is more urgent need, screening mammography is recommended, as per [place] [employer] guidelines. BI-RADS Category 1 - Negative Breast Density - Category B - There are scattered areas of fibroglandular density. Breast density Category C or D implies that the patient has dense breast tissue. Dense breast tissue can make it harder to find cancer on a mammogram. Dense breast tissue is also associated with an increased risk of breast cancer. This information about the result of the mammogram report was provided to the patient to raise their awareness. Use this report when you speak with the patient about their risks for breast cancer, which includes their family history. At that time, you may recommend additional screening tests (Ultrasound or MRI) as these tests may add significant information. A negative radiographic report should not delay biopsy if a dominant or clinically suspicious mass is present. Up to ten percent of cancers are not identified on mammography. A negative report may reinforce clinical impression. Adenosis and dense breasts may obscure an underlying neoplasm. False positive reports average 6 to 10%. Patient will receive a letter notifying them of these results.
== END 2024-08-31 02:26 ==
LOC: DI 02:06
PROVIDERS: PCP Nurse Practitioner Family; Visit Provider Nurse Practitioner Family
DX: Z12.31 Encounter for screening mammogram for malignant neoplasm of breast (principal); N95.9 Unspecified menopausal and perimenopausal disorder; M81.0 Age-related osteoporosis without current pathological fracture
CPT/HCPCS: 77063; 77067; 77080

== ENCOUNTER 2024-10-12 04:05 | Outpatient (CLI) | payer MEDICARE, SELFPAY ==
[2024-10-12 12:44] LABS: ALT 20 U/L (14-59); AST 19 U/L (15-37); Albumin 3.9 g/dL (3.4-5.0); Alkaline Phosphatase 93 U/L (46-116); Anion Gap 4.0 mmol/L (3-11); BUN 11 mg/dL (7-18); Bilirubin, Total 0.5 mg/dL (0.2-1.0); CO2 32.0 mmol/L (21.0-32.0); Calcium 9.0 mg/dL (8.5-10.1); Calculated LDL 127 mg/dL (<100); Chloride 101 mmol/L (98-107); Cholesterol 212 mg/dL (<200); Estimated GFR 93.55 (mL/min/1.73m2); Glucose 104 mg/dL (74-106); HDL Cholesterol 68 mg/dL (>or=50); Potassium 4.4 mmol/L (3.5-5.1); Sodium 137 mmol/L (136-145); TSH (W/Ref FT4) 0.68 uIU/mL (0.36-3.74); Total Protein 7.2 g/dL (6.4-8.2); Triglyceride 85 mg/dL (<150)
== END 2024-10-12 04:06 | disposition home or self-care (01) ==
PROVIDERS: PCP Nurse Practitioner Family; Visit Provider Nurse Practitioner Family
DX: F32.89 Other specified depressive episodes (principal); I10 Essential (primary) hypertension; E78.00 Pure hypercholesterolemia, unspecified; E03.9 Hypothyroidism, unspecified
CPT/HCPCS: 36415; 80053; 80061; 84443

== ENCOUNTER 2024-11-10 17:16 | Outpatient (REF) | payer MEDICARE, SELFPAY ==
[2024-11-10 16:43] LABS: Glucose Negative (Negative)
[2024-11-10 16:57] LABS: WBC Negative HPF (0-5)
[2024-11-10 16:58] LABS: C & S Indicated? No
== END 2024-11-10 17:17 | disposition home or self-care (01) ==
LOC: LBN 17:16
PROVIDERS: PCP Nurse Practitioner Family; Visit Provider Obstetrics & Gynecology Gynecology
DX: N36.42 Intrinsic sphincter deficiency (ISD) (principal)
CPT/HCPCS: 81003; 81015